=== PATIENT | female | born 1990 | race Caucasian/White ===

== ENCOUNTER 2021-09-21 10:48 | Outpatient (CLI) | payer OTHER, SELFPAY ==
--- OUTSIDE RECORDS SUMMARY | 2021-09-14 08:45 | XMS_ITS | Continuity of Care Document ---
:1990 Author Support Name Relationship Address Phone SEEN, ELSEWHERE Unavailable Unavailable Unavailable ROBINA FELICIANO Unavailable [address] Unavailable [place] [id number] Allergies, Adverse Reactions, Alerts No known allergies Social History Smoking Status Status Start Date End Date Date of Observat ion Never smoked tobacco September 06, 2021 11:13am (finding) Additional Data Assigned Sex Female Problems Active Problems Medical Problem Onset Date Status Encounter for supervision of other Activ e normal , third trimester History of section, low Active transverse Desires (vaginal after Active ) trial Medications Medication Status Dose Units Route Directions Qty Days Start End Ins tructions Date Date Ferrous Active 325 MG PO Daily July 11:47a m Active 1 OR Vit W/ Ferrous Fumara ( Multi +Dha) +Dha CAP Diphtheria/ Discontinued 0.5 ML IM Once July Tetanus/Ashkan , , ll 2021 2021 Pertussis 11:01a 11:04 (Adacel) m am 0.5 Ml INJ Immunizations Immunization Event Not Given Dose Gate Keeper Lot Number Vac cine Date Reason Number Informatio n Statement (VIS) Deta il Tdap August 09 SANOFI [id number] (adolescent/adul 2021 t) Procedures Procedure Date Performed Status Maternity Belt August 23, 2021 completed Vital Signs Vital Reading Result Reference Range Collection Date/ Time Height 66 [in_i] August 23, 2021 1 :01pm Height 167.64 cm August 23, 2021 1 :01pm Weight 198 [lb_av] August 23, 2021 1 :01pm Weight 89.511359 kg August 23, 2021 1 :01pm Body Temperature 98.3 [degF] August 23, 2021 1:01pm Body Temperature 36.83 Radha August 23, 2021 1:01pm BP Systolic 128 mm[Hg] August 23, 2021 1 :01pm BP Diastolic 78 mm[Hg] August 23, 2021 1 :01pm Heart Rate 96 /min August 23, 2021 1 :01pm Respiratory rate 16 /min August 23, 2021 1:01pm Body surface area 1.99 m2 August 23, 2021 1:01pm BMI (Body Mass Index) 32.0 kg/m2 August 23, 2021 1:01pm Height 66 [in_i] September 06, 2021 10:54am Height 167.64 cm September 06, 2021 10:54am Weight 201 [lb_av] September 06, 2021 10:54am Weight 91.711996 kg September 06, 2021 10:54am Body Temperature 97.4 [degF] September 06, 2021 10:54am Body Temperature 36.33 Radha September 06, 2021 10:54am BP Systolic 102 mm[Hg] September 06, 2021 10:54am BP Diastolic 70 mm[Hg] September 06, 2021 10:54am Heart Rate 86 /min September 06, 2021 10:54am Body surface area 2.00 m2 September 06 10:54am BMI (Body Mass Index) 32.4 kg/m2 September 06, 2021 10:54am Advance Directives Advance Directive Response Recorded Date/Time Has patient completed a No September 06, 2021 11:13am Health Care Directive? Insurance Providers Guarantor Mally Feliciano Address [address] [facility] [address] Contact Info. Home Phone: Payer Policy Id Coverage Id Subscriber's Subscriber Id Effective E xpiration Name Date Date [id number] Robina Feliciano [facility] Encounters Encounter Location(s) Arrival/Admit Date Discharge/Depart Date Provider(s) Registered Clinics September 06, 2021 Melba Price 11:00am Nasreen Colindres MD Office Visit Women's Health September 06, 2021 Jena Bustamante - [facility] 11:00am Nasreen Colindres MD Office Visit Women's Health August 23, 2021 Jena Seymour - [facility] 1:00pm Siri ESTES Recent Diagnosis Onset Date Encounter for supervision of other normal , t hird trimester Assessments Routine OB visit at 32 weeks 1 dayEncounter for supervision of other normal in the 3rd trimesterPubic symphysis diastasisDesires TOLACUltrasound for EFW at next visitGBS and hemoglobin at next visit Plan of Treatment Future Tests Future scheduled test information is unavailable Pending Tests Pending diagnostic test information is unavailable Future Visits Future appointment information is unavailable Referrals to Other Providers Referral information is unavailable Future Procedures Procedure Name Scheduled Date US OB Follow Up Future Medications Future medication information is unavailable Patient Instructions Patient instructions are unavailable
--- NOTE | 2021-09-21 11:00 | CRLHL7_ITS ---
For Patients: As a result of the Cures Act, medical imaging exams and procedure reports are released immediately into your electronic medical record. You may view this report before your referring provider. If you have questions, please contact your health care provider. OBSTETRICAL ULTRASOUND, 09/21/2021 INDICATION: Growth. TECHNIQUE: Transabdominal obstetrical ultrasound. COMPARISON: None available. FINDINGS: GA: 36 weeks 2 days. RAISA (OPE) 10/17/2021. RAISA (AUA): 10/16/2021. Fetus: A/1. AUA: 36 weeks 3 days +/- 2 weeks 4 days Fetus Position: Vertex. Placenta: Right wall. BPD: 8.87 cm, Avg. 35 weeks 6 days, 47.7%, [id number] HC: 32.56 cm, Avg. 36 weeks 6 days, 34.9, [id number] AC: 34.23 cm, Avg. 38 weeks 1 day, 95.3, [id number] FL: 6.81 cm, Avg. 35 weeks 0 days, 16.5%, [id number] Single Deepest Pocket: 5.52 cm. EFW (AC.BPD,FL.HC): 3089g +/- 463.32g(6 lb 13 oz,+/-1 lb, 0 oz) EFW (Hadlock)-GP: 72.1% FL/AC (Hadlock): 19.91 (20.00-24:00) HC/AC (Nicholas): 0.95 (0.92-1.07) Heart Rate: 126 bpm. IMPRESSION: 1. Estimated weight is in the 72nd percentile. 2. Abdominal circumference measures in the 95th percentile. Reema Velasquez M.D. Diagnostic Radiologist [email or web address] Estefania DW/Dictated by: Reema Velasquez MD @ 09/22/2021 12:52:00 PM (Electronically Signed)
== END 2021-09-21 10:49 | disposition home or self-care (01) ==
LOC: US 10:49
PROVIDERS: Visit Provider Obstetrics & Gynecology
DX: O34.219 Maternal care for unspecified type scar from previous cesarean delivery (principal); Z3A.36 36 weeks gestation of pregnancy
CPT/HCPCS: 76816

== ENCOUNTER 2021-09-25 11:15 | Outpatient (CLI) | payer OTHER, SELFPAY ==
[2021-09-26 12:16] LABS: Strep B DNA Probe NEGATIVE (Negative)
== END 2021-09-25 11:16 | disposition home or self-care (01) ==
PROVIDERS: Visit Provider Registered Nurse
DX: Z34.83 Encounter for supervision of other normal pregnancy, third trimester (principal); Z3A.36 36 weeks gestation of pregnancy
CPT/HCPCS: 87081; 87653

== ENCOUNTER 2021-10-08 15:12 | Outpatient (CLI) | payer OTHER, SELFPAY ==
[2021-10-08] VITALS (13 sets, daily range): BP systolic 109–127; BP diastolic 73–87; PULSE 69–85; RESP 16; TEMP 36.9; O2SAT 98
[2021-10-08 16:30] LABS: Hematocrit 35.9 % (33.0-51.0); Hemoglobin* 11.8 gm/dL (12.0-16.0); Mean Corpuscular HGB Conc 33 gm/dL (32-36); Mean Corpuscular Hemoglobin 28 pg (26-34); Mean Corpuscular Volume 86 fL (80-100); Platelet Count* 212 K/uL (140-440); Red Blood Count 4.16 m/uL (4.00-5.20); White Blood Count* 7.37 K/uL (4.50-11.00)
[2021-10-08 16:33] LABS: Slide Review Reflex No
[2021-10-08 16:44] LABS: Alanine Aminotransferase* 12 U/L (4-35); Aspartate Amino Transferase* 20 U/L (12-35); Blood Urea Nitrogen* 9 mg/dL (5-24); Creatinine* 0.6 mg/dL (0.5-1.5); Estimated Glomerular Filt Rate 125 ml/min
[2021-10-08 16:59] LABS: Total Protein Urine 17 mg/dL
[2021-10-08 17:00] LABS: Creatinine Urine 151.5 mg/dL
--- NOTE | 2021-10-08 19:43 | PC.OBNST ---
NST Note NST Note Start: 10/08/21 16:06 Freq: ONCE Status: Active Protocol: Document 10/08/21 17:45 KENNEDY (Rec: 10/08/21 19:42 KENNEDY [id number]) NST Note 2 Para (# of births) 1 EDC 10/17/21 Patient Presented with Complaint(s) of Other Other Complaints Observed for blood pressures after high blood pressure occurrence in clinic. Reactive Yes Appropriate for Gestational Age Yes ASHTYN Mcneal RN Date 10/08/21 Reactive Yes Appropriate for Gestational Age Yes ASHTYN Rider RN Date 10/08/21 OB NST charge Yes Provider Evaluation of EFM Strip: Reactive: [] Appropriate for Gestational Age: [] Comments:
--- OUTSIDE RECORDS SUMMARY | 2021-10-30 15:25 | XMS_ITS | Clinical Summary ---
:1990 Author Organization [facility] Address [address] [place] [address] Care Team Providers Name Role Phone Unavailable Primary Care Provider Unavailable Source Comments You are receiving this document as you are listed as the primary care provider,follow-up provider, or the patient has been referred to you for consultation.This is in compliance with the Medicare and Medicaid EHR Incentive Program,which states Providers who transition their patient to another setting of careor provider of care or refers their patient to another provider of care shouldprovide summarycare record for each transition of care or referral. [facility] Allergies No known active allergies Medications Medication Sig Dispensed Refills Start Date End Date Status clindamycin (CLEOCIN T) Apply a thin 60 mL 3 02/14/2021 Active 1 % lotionIndications: layer to areas of Acne vulgaris acne on face twice a day. Additional Information Patient not taking. Reported on 05/04/2021 MV & Min w/FA-DHA ( ADULT GUMMY/DHA/FA) 0.4-25 MG 0 Active CHEW Active Problems Problem Noted Date Previous delivery affecting , antepa rtum 05/04/2021 Encounter for supervision of normal , antepar armin 05/04/2021 Overview: Normal NIPT. 20 week ultraosound schedul ed. 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 followe d by card. ; Mitral Regurgitation Immunizations Name Administration Dates Next Due DTP 12/16/1997, 11/15/1994, 05/30/1993, 02/01/1993, 1992 DTaP 12/16/1997, 11/15/1994, 05/30/1993, 02/01/1993, 1992 HepA Ped/Adol (1-18 yrs) 11/21/2006, 08/30/2004 HepA, Unspecified Formulation 11/21/2006, 08/30/2004 HepB Ped/Adol (0-18 yrs) 11/21/2006, 10/28/1996 Hib (ActHIB) 11/15/1994, 05/30/1993, 02/01/1993, 1992 Hib (PedvaxHIB) 11/15/1994, 05/30/1993, 02/01/1993, 1992 IPV (Polio) 12/16/1997, 10/28/1996, 02/01/1993, 1992 Influenza IIV4 (Quadrivalent) 0.5mL 12/24/2018 (66685) MMR 12/16/1997, 08/15/1994 OPV, Trivalent (Orimune or tOPV) 12/16/1997, 10/28/1996, 01/1993, 1992 Positive Varicella Titer 10/28/1996 TB Skin Test (PPD) 10/17/2010 TDAP (BOOSTRIX) 11/21/2006 Tdap 02/17/2019 Typhoid (Typhim Vi, IM) 10/21/2008 Social History Tobacco Use Types Packs/Day Years Used Date Smoking Tobacco: Never Smokeless Tobacco: Never Tobacco Cessation: Counseling Given: No Alcohol Use Standard Drinks/Week Comments Not Currently 0 (1 standard drink = 0.6 oz pure alcoho l) Alcohol Habits Answer Date Recorded How often do you have a drink containing alcohol? Never 05/04/2021 How many drinks containing alcohol do you have on a typical Not asked day when you are drinking? How often do you have six or more drinks on one occasion? No t asked Comment: Not asked Estimated Date of Delivery Comments Yes 10/17/2021 Based on last menstr ual period of 01/10/2021 Sex Assigned at Date Recorded Not on file Last Filed Vital Signs Vital Sign Reading Time Taken Comments Blood Pressure 122/74 06/29/2021 11:40 AM CDT Pulse 94 06/29/2021 11:40 AM CDT Temperature 36.9 ??C (98.5 ??F) 10/11/2020 12:56 PM CDT Respiratory Rate 16 12/13/2020 12:34 PM CDT Oxygen Saturation 100% 12/13/2020 12:34 PM CDT Inhaled Oxygen Concentration - - Weight 81.6 kg (180 lb) 06/29/2021 11:40 AM CDT Height 167.6 cm (5' 6) 04/04/2021 3:31 PM SCRAP BALLER Body Mass Index 29.05 04/04/2021 3:31 PM SCRAP BALLER Plan of Treatment Upcoming Encounters Date Type Specialty Care Team Description 10/17/2021 Hospital Encounter Obstetrics & Gynecology Monica Flood, INSTRUCTIONAL SERVICES SPECIALIST, CNM [address] [place], [place] [id number] (Wo rk) Health Maintenance Due Date Last Done Comments COVID-19 Vaccine (#1) 03/03/1993 HepB (3) 03/23/2007 11/21/2006, 10/28/1996 Adult Preventive Visit 2010 Influenza (#1) 2021 12/24/2018 Pap 04/04/2024 04/04/2021 DTaP/Tdap/Td (8 - Tdap) 02/17/2029 02/17/2019, 11/21/2006, 12/16/1997, Additional history exists Zoster/Shingles (1 of 2) 2042 Hib Completed 11/15/1994, 11/15/1994, 05/30/1993, Additional history exists IPV (Polio) Completed 12/16/1997, 12/16/1997, 10/28/1996, Additional history exists HepA Completed 11/21/2006, 11/21/2006, 08/30/2004, Additional history exists HIV Screening (Preventive Completed 04/04/2021 Services) Hep C Screening (Preventive Completed 04/04/2021 Services) HPV Vaccine Aged Out No longer eligib le based on patient 's age to complete this topic MCV4 Aged Out No longer eligib le based on patient 's age to complete this topic Pneumococcal Aged Out No longer eligib le based on patient 's age to complete this topic Insurance Payer Benefit Plan / Subscriber ID Effective Dates Phone Addre ss Type Group AZAEL SMALL [id number] 2017-Present [facility] [address] [place] [address] Mally Resendiz Personal/Family Self 1990 [id number]) [address] [phone] [place] (Work) [place] [id number] Mally Resendiz Personal/Family Self [address] (Home) [place] [address]
--- OUTSIDE RECORDS SUMMARY | 2021-10-30 15:25 | XMS_ITS | Encounter Summary ---
:1990 Author Organization [facility] Address [address] [place] [address] Care Team Providers Name Role Phone Unavailable Primary Care Provider Unavailable Reason for Visit Reason Comments WART leg Encounter Details Date Type Department Care Team Description 07/16/2018 Hospital Encounter [facility] Virgie Torres Care M, PA-C unspecified type [id number] ([address]x) [place] [address] [phone] Social History Tobacco Use Types Packs/Day Years Used Date Smoking Tobacco: Never Sex Assigned at Date Recorded Not on file documented as of this encounter Last Filed Vital Signs Vital Sign Reading Time Taken Comments Blood Pressure 132/80 07/16/2018 10:29 AM CDT Pulse 80 07/16/2018 10:29 AM CDT Temperature 36.7 ??C (98.1 ??F) 07/16/2018 10:29 AM CDT Respiratory Rate 20 07/16/2018 10:29 AM CDT Oxygen Saturation 100% 07/16/2018 10:29 AM CDT Inhaled Oxygen Concentration - - Weight - - Height - - Body Mass Index - - documented in this encounter Discharge Instructions AttachmentsThe following attachments cannot be sent through Care Everywhere. Beatriz (Sami)documented in this encounter Medications at Time of Discharge Medication Sig Dispensed Refills Start Date End Date unknown medication Indications: PN: 0 04/19/2010 12/13/2020 unknown medication Indications: PN: 0 12/02/2007 12/13/2020 documented as of this encounter ED Notes Virgie Torres PA-C - 07/16/2018 11:22 AM CDT [facility] Patient: Mally Resendiz Date of : 1990 (27 y.o.) Subjective Chief Complaint: Chief Complaint Patient presents with ??? WART leg History of Present Illness: Mally Resendiz is a 27 y.o. female presents with warts to her legs bilaterally. She has had one on her right leg for approximately a year. She has had one on the left leg for amonth now. The one on the right leg she has had treated with cryotherapy once in the past, but it returned. There is no associated pain, redness, open wound, vesicles or blisters, any other symptoms orconcerns. Past Medical History: Patient Active Problem List Diagnosis ??? Mitral valve disorder (HRC) ??? Neoplasm of uncertain behavior of skin Allergies: Patient has no known allergies. Medications: unknown medication Family History: No pertinent family history. Social History: Social History Tobacco Use ??? Smoking status: Never Smoker Substance Use Topics ??? Alcohol use: Not on file ??? Drug use: Not on file Review of Systems: All review of systems reviewed and negative other than as noted in the HPI. Objective Physical Exam: Vital Signs: BP 132/80 (BP Location: Left Arm, BP Cuff Size: Adult Regular) Pulse 80 Temp 36.7 ??C (98.1 ??F) (Oral) Resp 20 SpO2 100% General: Resting comfortably on the chair Resp: Non-labored breathing. No tachypnea. MS: Normal muscular tone. Neuro: Awake and alert. Speech is clear. Skin: ~0.3 cm and 0.4 cm flesh toned papule, one each to the bilateral lower legs, without erythema,open wound, tenderness. Psych: Normal affect. Appropriate interactions. Procedures: PROCEDURE Wart Treatment LOCATION Bilateral legs. CONSENT Verbal consent obtained from the patient. PREPARATION The area was prepped with alcohol swabs ANESTHESIA None TREATMENT Using Liquid Nitrogen three rounds of freeze and thaw performed. DRESSING Adhesive bandage. COMPLICATIONS The patient tolerated the procedure well with no immediate adverse effects. Assessment We discussed the typical causes, course of symptoms, and options for treatment. Cryotherapy performed, as above. The patient tolerated the procedure well. We discussed that there may be some slight discomfort and blisters that may form following cryotherapy. She was instructed not to disrupt the blisters. Tylenol or ibuprofen as needed for relief of pain. Monitor for signs of secondary infection including redness, swelling, pus drainage, fever. If this occurs, return to clinic. Potential contagiousness discussed. Recommend scheduling a follow-up appointment in 2-3 weeks for recheck and probable repeat cryotherapy treatment. Informational handout on warts provided to the patient/caregiver for review. Impression: 1. Viral warts, unspecified type Plan Patient Discharge Medications & Instructions: Medications Prescribed this Visit None Discharge Instructions None Discharge References/Attachments Warts (Sami) Virgie Torres PA-C This chart was created with voice recognition software and may contain unintended word substitutions. documented in this encounter Plan of Treatment Upcoming Encounters Date Type Specialty Care Team Description 10/17/2021 Hospital Encounter Obstetrics & Gynecology Monica Flood, SEISMOLOGY TECHNICAL OFFICER, CNM [address] [facility] [place] [address] (Wo rk) documented as of this encounter Visit Diagnoses Diagnosis Viral warts, unspecified type - Primary Triage Assessment Note - Devora Barahona RN - 07/16/2018 10:27 AM CDT Pt has warts on her leg that she needs frozen off. They have been on her legs for one year. The warton her right leg was treated in the past and came back. documented in this encounter
--- OUTSIDE RECORDS SUMMARY | 2021-10-30 15:25 | XMS_ITS | Encounter Summary ---
:1990 Author Organization [employer] Address [address] [place] [address] Care Team Providers Name Role Phone Unavailable Primary Care Provider Unavailable Reason for Visit Reason Comments COVID Exposure Encounter Details Date Type Department Care Team Description 12/13/2020 Office Visit Davion Harris PA-C [facility] [address] [address] [place] [address] [place] [address] [phone] Social History Tobacco Use Types Packs/Day Years Used Date Smoking Tobacco: Never Smokeless Tobacco: Never Sex Assigned at Date Recorded Not on file documented as of this encounter Last Filed Vital Signs Vital Sign Reading Time Taken Comments Blood Pressure 121/83 12/13/2020 12:34 PM CDT Pulse 94 12/13/2020 12:34 PM CDT Temperature - - Respiratory Rate 16 12/13/2020 12:34 PM CDT Oxygen Saturation 100% 12/13/2020 12:34 PM CDT Inhaled Oxygen Concentration - - Weight - - Height - - Body Mass Index - - documented in this encounter Progress Notes Davion Mondragon PA-C - 12/13/2020 12:40 PM CDT Patient walked out of clinic after receiving her COVID test. documented in this encounter Nursing Notes Josie Marte RN - 12/13/2020 12:40 PM CDT Starting Friday, has had a fever, cough, body aches documented in this encounter Plan of Treatment Upcoming Encounters Date Type Specialty Care Team Description 10/17/2021 Hospital Encounter Obstetrics & Gynecology Monica Flood, APICULTURE TEACHER, CNM [address] [place] [address] (Wo rk) documented as of this encounter Procedures Procedure Name Priority Date/Time Associated Comments Diagnosis 2019 NOVEL Routine 12/13/2020 12:36 Cough Results for this CORONAVIRUS PM CDT procedure are i n the results section. documented in this encounter Results (ABNORMAL) 2019 Novel Coronavirus (COVID-19) - Collect in Clinic Today (12/13/2020 12:36 PM CDT) [facility] Method Time Signature COVID-19 Detected Not 12/14/2020 [facility] Interpretation (A) Detected 2:59 PM [facility]AL [facility] CDT Source Nares, left 12/14/2020 [facility] and right 2:59 PM C[facility]TRAL [facility] CDT Specimen Anatomical Collection Method Collection Time Receive d Time (Source) Location / / Volume Laterality Swab (Source ENTIRE ANTERIOR Non-blood 12/13/2020 12:36 12/14/19 21 Required) NARIS / Unknown Collection / PM CDT 12:[address] [facility] - 12/14/2020 2:59 PM CDT Test performed by Practice Coordinator Mediated Amplification. TMA has been shown to be equivalent to commercial real-time PCR t ests. This test has been authorized by the FDA under an Emergency Use Authorization (EUA) for use by authorized laboratories. [facility] Performing Organization Address City/State/ZIP Code Phon e Number [facility] [address] [place] [id number] documented in this encounter Visit Diagnoses Diagnosis Cough documented in this encounter Additional Health Concerns Infection Onset Date Last Indicated Resolved Time R/O COVID19 12/13/2020 12/13/2020 12/14/2020 2:59 PM CDT documented as of this encounter
--- OUTSIDE RECORDS SUMMARY | 2021-10-30 15:25 | XMS_ITS | Encounter Summary ---
:1990 Author Organization [employer] Address [address] [place] [address] Care Team Providers Name Role Phone Unavailable Primary Care Provider Unavailable Reason for Visit Reason Comments Travel Consult Appt. Needed Encounter Details Date Type Department Care Team Description 10/15/2010 Telephone [facility] Clayton Lerma Consult; Appt. Karen Chaparro MD [facility] [address] [facility] [address] [place] [address] [place], [place] [phone] (Wo rk) Social History Tobacco Use Types Packs/Day Years Used Date Smoking Tobacco: Never Assessed Sex Assigned at Date Recorded Not on file documented as of this encounter Nursing Notes Chelly Jhaveri - 10/15/2010 2:06 PM CDT Mally De Jesus Per mom pt leaving for [place] on a mission trip on 10/20/10 and the organization that is sending her on a mission requires proof of immunizations, specifically up to date tetanus. Also, they require amantoux test before she can attend. Mom wondering if pt up to date on Tetanus immunization. Also, would like to schedule pt for a yearlyphysical. Daughter works at a daycare center and therefore, mom wondering if she had a mantoux test this year already. Informed mom because daughter is 18, will need either verbal or wirtten consent to further address this call. Daughter not with mom at time of call. Mom verbalized understanding and stated she will have daughter call back to address. documented in this encounter Plan of Treatment Upcoming Encounters Date Type Specialty Care Team Description 10/17/2021 Hospital Encounter Obstetrics & Gynecology Monica Flood, NAIL POLISH BRUSH MACHINE FEEDER, CNM [address] [place], [place] [id number] (Wo rk) documented as of this encounter Visit Diagnoses Not on filedocumented in this encounter
--- OUTSIDE RECORDS SUMMARY | 2021-10-30 15:25 | XMS_ITS | Encounter Summary ---
:1990 Author Organization [facility] Address [address] [place] [address] Care Team Providers Name Role Phone Unavailable Primary Care Provider Unavailable Encounter Details Date Type Department Care Team Description 02/14/2021 [facility] Salvador Anna MD Acne vulgaris (Primary [address] [facility] [address] Dx) [address] [place] [address] [phone] Social History Tobacco Use Types Packs/Day Years Used Date Smoking Tobacco: Never Smokeless Tobacco: Never Sex Assigned at Date Recorded Not on file documented as of this encounter Progress Notes Salvador Anna MD - 02/14/2021 1:30 PM CST Dermatology Problem List: 1. Acne vulgaris. 2. Video visit with photographs. Subjective: Mally Resendiz is a 30 y.o. female who presents today for evaluation of acne. This is her 1st visit to [facility] dermatology. The patient has had acne since age 25. The acne typically involves her face, especially around her mouth and on her forehead. The patient gets large, pink, deep pimples that she cannot pop. She states that they never quite go away. She thinks there may be some hormonal component although she does have breakouts all the time. Today, the patient's acne is pretty typical. Of note, the patient is trying to get . What patient has tried in the past: She states that in the past, she was on a control pill andthis cleared her skin completely. She then had a baby. After that, she went back on control pills and states that this really was not helpful for her acne. What patient is using now: Pppb-fil-lnhbndw adapalene, salicylic acid face wash. Patient otherwise feels well. The patient's medications, allergies and past medical history were reviewed. Objective: The patient is alert and oriented, appears well, and is in no acute distress. Photographswere reviewed. The patient's face was examined. There are multiple 2-3 mm pink papules around the mouth and on the forehead. Assessment and Plan: 1. Acne vulgaris, with moderate inflammatory involvement. We discussed several different treatment options. I explained to the patient that because she is actively trying to get , we are limited in the medications that she can use. In fact, I suggested that she discontinue the tcwy-eip-jokkckndvmcbwyms which is a retinoid not to be used during , and that she discontinue the salicylic acid containing face wash. -prescription for clindamycin lotion b.i.d. -use a gentle face wash such as CeraVe or Cetaphil This visit was conducted via video with photographs reviewed. Location of clinician home. Location of patient home. Billing based on: Complexity RTC: P.r.n.. Salvador Anna MD 02/28/2021, 2:46 PM O MESSAGE ROUTER documented in this encounter Plan of Treatment Upcoming Encounters Date Type Specialty Care Team Description 10/17/2021 Hospital Encounter Obstetrics & Gynecology Monica Flood, CLINICAL APPEALS REVIEWER, CNM [address] [place] [address] (Wo rk) documented as of this encounter Visit Diagnoses Diagnosis Acne vulgaris - Primary Other acne documented in this encounter
--- OUTSIDE RECORDS SUMMARY | 2021-10-30 15:25 | XMS_ITS | Encounter Summary ---
:1990 Author Organization [facility] Address [address] [place] [address] Care Team Providers Name Role Phone Unavailable Primary Care Provider Unavailable Reason for Visit Procedure/Equipment (Routine) - Incomplete Specialty Diagnoses / Procedures Referred By Contact Refer red To Contact Diagnoses Absence of menstruation Monica Flood APRN, CNM Procedures US OB < 14 Weeks Single US OB <14 Weeks W EV Single [address] [facility] [place], [place] [address] Referral ID Status Reason Start Date Expiration Date Visits V isits Requested Authorized [id number] Incomplete 03/14/2021 06/13/2022 1 1 Encounter Details Date Type Department Care Team Description 04/04/2021 Ancillary [place] Monica Flood, Absence of Procedure Ultrasound HARI CHAPIN menstruation [address] [facility] [address] [facility] [place] [address] [phone] Social History Tobacco Use Types Packs/Day Years Used Date Smoking Tobacco: Never Smokeless Tobacco: Never Sex Assigned at Date Recorded Not on file documented as of this encounter Progress Notes Monica Flood APRN, CNM - 04/04/2021 11:15 AM CST Normal early OB ultrasound for dating/viability. Reviewed at NOB1 visit ICE CARE CONSULTANT documented in this encounter Plan of Treatment Upcoming Encounters Date Type Specialty Care Team Description 10/17/2021 Hospital Encounter Obstetrics & Gynecology Monica Flood Wilmer, NON DESTRUCTIVE TESTING ENGINEER, CNM [address] [place] [address] (Wo rk) documented as of this encounter Procedures Procedure Name Priority Date/Time Associated Diagnosis Comme nts US OB < 14 WEEKS Routine 04/04/2021 11:14 Absence of Results for this SINGLE AM HOSPICE CARE CONSULTANT menstruation procedure are i n the results section. documented in this encounter Results US OB < 14 Weeks Single (04/04/2021 11:14 AM HOSPICE CARE CONSULTANT) Anatomical Region Laterality Modality Pelvis Ultrasound Specimen (Source) Anatomical Collection Method Collection Time Re ceived Time Location / / Volume Laterality 04/04/2021 10:52 AM HOSPICE CARE CONSULTANT Impressions 04/04/2021 1:08 PM HOSPICE CARE CONSULTANT COMPARISON: None. TECHNIQUE: ??Transabdominal imaging was performed. ?? FINDINGS: ?? Gestational sac: Unremarkable. [place]-rump length measures 5.7 cm, corre sponding to 12w2d gestational age. ?? RAISA 10/15/2021. ?? Embryonic/ cardiac activity is iden tified with heart rate 158 bpm. ?? Right Ovary: Measures 3.7 x 2.6 x 2.6 cm and contains a probable corpus luteum. Left Ovary: Not Seen. ?? No suspicious adnexal masses. Free Fluid: No significant free fluid. GA by LMP:: ??12w0d GA by Prior US: ??NA GA by today's US: ??12w2d RAISA by today's US: 10/15/2021 IMPRESSION: Single living intrauterine p regnancy with ultrasound gestational age of 12 weeks 2 days. Procedure Note Frank Mcelroy MD - 04/04/2021Formatti ng of this note might be different from the original. IMPRESSION COMPARISON: None. TECHNIQUE: Transabdominal imaging was pe rformed. FINDINGS: Gestational sac: Unremarkable. [place]-rump length measures 5.7 cm, corre sponding to 12w2d gestational age. RAISA 10/15/2021. Embryonic/ cardiac activity is iden tified with heart rate 158 bpm. Right Ovary: Measures 3.7 x 2.6 x 2.6 cm and contains a probable corpus luteum. Left Ovary: Not Seen. No suspicious adnexal masses. Free Fluid: No significant free fluid. GA by LMP:: 12w0d GA by Prior US: NA GA by today's US: 12w2d RAISA by today's US: 10/15/2021 IMPRESSION: Single living intrauterine p regnancy with ultrasound gestational age of 12 weeks 2 days. Monica Flood APRN, CNM RAD US documented in this encounter Visit Diagnoses Diagnosis Absence of menstruation documented in this encounter
--- OUTSIDE RECORDS SUMMARY | 2021-10-30 15:25 | XMS_ITS | Encounter Summary ---
:1990 Author Organization [facility] [facility] [employer] Address [address] [place] [address] Care Team Providers Name Role Phone Unavailable Primary Care Provider Unavailable Encounter Details Date Type Department Care Team Description 04/04/2021 Lab Visit [facility] High-risk in [address] first trimester [place], [place] [address] Social History Tobacco Use Types Packs/Day Years Used Date Smoking Tobacco: Never Smokeless Tobacco: Never Sex Assigned at Date Recorded Not on file documented as of this encounter Progress Notes Monica Flood APRN, CNM - 04/04/2021 4:30 PM CST Hi Mally - Your NIPS results are back and all looks normal! You can access the report, which DOES have the predicted sex on it, through your [employer] portal. Please let me know if you have questions. [phone]. Thanks - Monica Flood APRN, CNM HEAD OPERATOR documented in this encounter Plan of Treatment Upcoming Encounters Date Type Specialty Care Team Description 10/17/2021 Hospital Encounter Obstetrics & Gynecology Monica Flood APRN, CNM [address] [place] [address] (Wo rk) documented as of this encounter Procedures Procedure Name Priority Date/Time Associated Diagnosis Comme nts URINE CULTURE Routine 04/04/2021 4:47 PM High-risk R esults for this NAILHEAD OPERATOR in first trimester procedure are in the results section. RAPID DRUG PANEL, Routine 04/04/2021 4:47 PM High-risk pregnan cy Results for this URINE (WITH NAILHEAD OPERATOR in first trimester procedure are in CONFIRMATION) the results section. RUBELLA IMMUNE Routine 04/04/2021 4:33 PM High-risk Results for this STATUS, IGG NAILHEAD OPERATOR in first trimester procedure are in the results section. ANTIBODY SCREEN Routine 04/04/2021 4:33 PM High-risk Results for this NAILHEAD OPERATOR in first trimester procedure are in the results section. TREPONEMA SCREEN Routine 04/04/2021 4:33 PM High-risk pregnanc y Results for this NAILHEAD OPERATOR in first trimester procedure are in the results section. BLOOD TYPE Routine 04/04/2021 4:33 PM High-risk Re sults for this NAILHEAD OPERATOR in first trimester procedure are in the results section. HIV 1/2 AG/AB 4TH Routine 04/04/2021 4:33 PM High-risk pregnan cy Results for this GEN NAILHEAD OPERATOR in first trimester procedure are in the results section. INVITAE Routine 04/04/2021 4:33 PM High-risk Re sults for this NON-INVASIVE NAILHEAD OPERATOR in first trimester procedure are in SCREEN the results section. COMPLETE BLOOD Routine 04/04/2021 4:33 PM High-risk Results for this COUNT-NO DIFF NAILHEAD OPERATOR in first trimester procedur e are in the results section. HEPATITIS C Routine 04/04/2021 4:33 PM High-risk Re sults for this ANTIBODY, WITH NAILHEAD OPERATOR in first trimester procedu re are in REFLEX the results section. HBSAG (HEPATITIS B Routine 04/04/2021 4:33 PM High-risk pregna ncy Results for this SURFACE AG) NAILHEAD OPERATOR in first trimester procedure are in the results section. HGB A1C Routine 04/04/2021 4:33 PM High-risk Re sults for this NAILHEAD OPERATOR in first trimester procedure are in the results section. documented in this encounter Results Urine Culture (04/04/2021 4:47 PM NAILHEAD OPERATOR) [facility] gist Method Time Signature Urine Culture Urogenital 04/05/2021 [facility] [place] 10:18 PM NAILHEAD OPERATOR HOSPITAL Specimen Anatomical Collection Method Collection Time Receive d Time (Source) Location / / Volume Laterality Urine URINE SPECIMEN Non-blood 04/04/2021 4:47 PM 022 4:47 COLLECTION, CLEAN Collection / NAILHEAD OPERATOR PM NAILHEAD OPERATOR CATCH / Unknown Unknown Monica Flood APRN, HARI LAB_1 Performing Organization Address City/State/[place] [address] Rapid Drug Panel, Urine (with Confirmation) (04/04/2021 4:47 PM NAILHEAD OPERATOR) [facility] Method Time Signature Amphetamines Not Not 04/04/2021 [facility] Screen Detected Detected 9:24 PM NAILHEAD OPERATOR LABORATORY Barbiturates Not Not 04/04/2021 [facility] Screen Detected Detected 9:24 PM NAILHEAD OPERATOR LABORATORY Benzodiazepines Not Not 04/04/2021 [facility] Screen Detected Detected 9:24 PM NAILHEAD OPERATOR LABORATORY Buprenorphine Not Not 04/04/2021 [facility] Screen Detected Detected 9:24 PM NAILHEAD OPERATOR LABORATORY Cocaine Metabolite Not Not 04/04/2021 [facility] Screen Detected Detected 9:24 PM NAILHEAD OPERATOR LABORATORY Methadone Screen Not Not 04/04/2021 [facility] Detected Detected 9:24 PM NAILHEAD OPERATOR LABORATORY Opiates Screen Not Not 04/04/2021 [facility] Detected Detected 9:24 PM NAILHEAD OPERATOR LABORATORY Oxycodone Screen Not Not 04/04/2021 [facility] Detected Detected 9:24 PM NAILHEAD OPERATOR LABORATORY Phencyclidine Not Not 04/04/2021 [facility] (PCP) Screen Detected Detected 9:24 PM NAILHEAD OPERATOR LABORATORY THC (Marijuana) Not Not 04/04/2021 [facility] Metab Screen Detected Detected 9:24 PM NAILHEAD OPERATOR LABORATORY Creatinine, Urine, 90 >20 mg/dL 04/04/2021 [facility] Random 9:24 PM NAILHEAD OPERATOR LABORATORY Specimen Anatomical Collection Method Collection Time Receive d Time (Source) Location / / Volume Laterality Urine Non-blood 04/04/2021 4:47 PM 4:47 Collection / NAILHEAD OPERATOR PM NAILHEAD OPERATOR Unknown Narrative [facility] - 04/04/2021 9:24 P M NAILHEAD OPERATOR The absence of expected drug(s) and/or d rug metabolite(s) may indicate non-compliance, inappropriate timing of specimen collection relative to drug administration, poor drug absorption, di luted/adulterated urine or limitations of testing. The concentration must be great er than or equal to the cutoff concentration to be reported as positive. For medical purposes only: not valid for forensic, legal, or employment use. Monica Flood APRN, CNM LAB_1 Performing Organization Address City/State/ZIP Code Phon e Number [facility] [address] [place] [address] [facility] Non-Invasive Screen (04/04/2021 4:33 PM NAILHEAD OPERATOR) [facility] Method Time Signature [facility] See Scanned 04/12/2021 [facility] Non-Invasive Report 5:11 PM NAILHEAD OPERATOR Screen Specimen Anatomical Collection Method / Collection Time Recei kayla Time (Source) Location / Volume Laterality Blood Venipuncture / 04/04/2021 4:33 04/04/2021 4:33 Unknown PM NAILHEAD OPERATOR PM NAILHEAD OPERATOR Narrative This result has an attachment that is no t available. Monica Flood APRN, CNM LAB_1 Performing Organization Address [facility] Phon e Number [facility] [address] [place] [phone] Treponema Screen (Syphilis) (04/04/2021 4:33 PM NAILHEAD OPERATOR) [facility] Method [place] Signature Treponema Screen 0.046 {s_co_ratio 04/04/2021 [facility] Result } 9:27 PM NAILHEAD OPERATOR LABORATORY Treponema Screen Non Non 04/04/2021 [facility] Interpretation Reactive Reactive 9:27 PM NAILHEAD OPERATOR LABORATORY Specimen Anatomical Collection Method / Collection Time Recei kayla Time (Source) Location / Volume Laterality Blood Venipuncture / 04/04/2021 4:33 04/04/2021 4:33 Unknown PM NAILHEAD OPERATOR PM NAILHEAD OPERATOR Monica Flood APRN, CNM LAB_1 Performing Organization Address [facility] Phon e Number [facility] [address] [place] [address] Rubella Immune Status, IgG (04/04/2021 4:33 PM NAILHEAD OPERATOR) athologist Signature Rubella Units 3.10 04/05/2021 [facility] 9:23 AM NAILHEAD OPERATOR LABORATORY Comment: The magnitude of the measured r esult, above the cutoff, is not indicative of the amount of antibody present. Rubella Intepretation Immune Immune 04/05/2021 9:2 3 AM NAILHEAD OPERATOR [facility] Specimen Anatomical Collection Method / Collection Time Recei kayla Time (Source) Location / Volume Laterality Blood Venipuncture / 04/04/2021 4:33 04/04/2021 4:33 Unknown PM NAILHEAD OPERATOR PM NAILHEAD OPERATOR Monica Flood APRN, CNM LAB_1 Performing Organization Address [facility] Phon e Number [facility] [address] [place] [address] HIV 1/2 Ag/Ab 4th Generation (04/04/2021 4:33 PM NAILHEAD OPERATOR) [facility] Method Time Signature HIV 1/2 Negative Negative 04/04/2021 [facility] Antigen/Antib (Non (Non 9:08 PM NAILHEAD OPERATOR LABORATORY roxanne (4th Reactive) Reactive) generation) Comment: HIV-1 p24 Antigen and HIV-1/HIV -2 Antibody not detected Specimen Anatomical Collection Method / Collection Time Recei kayla Time (Source) Location / Volume Laterality Blood Venipuncture / 04/04/2021 4:33 04/04/2021 4:33 Unknown PM NAILHEAD OPERATOR PM NAILHEAD OPERATOR Monica Flood APRN, CNM LAB_1 Performing Organization Address [facility] Phon e Number [facility] [address] [place] [address] Hgb A1C (04/04/2021 4:33 PM NAILHEAD OPERATOR) [facility] Signature Hemoglobin A1C 5.0 <=5.6 % 04/05/2021 [facility] 10:35 AM NAILHEAD OPERATOR CENTRAL LAB Specimen Anatomical Collection Method / Collection Time Recei kayla Time (Source) Location / Volume Laterality Blood Venipuncture / 04/04/2021 4:33 04/04/2021 4:33 Unknown PM NAILHEAD OPERATOR PM NAILHEAD OPERATOR Monica Flood APRN, CNM LAB_1 Performing Organization Address [facility] Phon e Number [facility] [address] [phone] Hepatitis C Antibody, with Reflex (04/04/2021 4:33 PM NAILHEAD OPERATOR) [facility] Method [place] Signature Hepatitis C Negative Negative 04/04/2021 [facility] Antibody (Non (Non 9:08 PM NAILHEAD OPERATOR LABORATORY Reactive) Reactive) Comment: Antibodies to HCV not detected. Does not exclude the possiblity of exposure to HCV. Specimen Anatomical Collection Method / Collection Time Recei kayla Time (Source) Location / Volume Laterality Blood Venipuncture / 04/04/2021 4:33 04/04/2021 4:33 Unknown PM NAILHEAD OPERATOR PM NAILHEAD OPERATOR Monica Flood APRN, CNM LAB_1 Performing Organization Address [facility]/ZIP Code Phon e Number [facility] [place] [address] Hepatitis B Surface Antigen (04/04/2021 4:33 PM NAILHEAD OPERATOR) Patholo gist Method Time Signature Hepatitis B Negative Negative 04/04/2021 [facility] Surface (Non (Non 9:17 PM NAILHEAD OPERATOR LABORATORY Antigen Reactive) Reactive) Specimen Anatomical Collection Method / Collection Time Recei kayla Time (Source) Location / Volume Laterality Blood Venipuncture / 04/04/2021 4:33 04/04/2021 4:33 Unknown PM NAILHEAD OPERATOR PM NAILHEAD OPERATOR Monica Flood APRN, CNM LAB_1 Performing Organization Address [facility] Phon e Number [facility] [place] [address] (ABNORMAL) Complete Blood Count-No Diff (04/04/2021 4:33 PM NAILHEAD OPERATOR) P athologist Signature WBC 5.8 3.5 - 10.5 04/04/2021 [place] x10(9)/L 4:59 PM NAILHEAD OPERATOR LABORATORY (PN) RBC 4.41 3.90 - 04/04/2021 [place] 5.03 4:59 PM NAILHEAD OPERATOR LABORATORY (PN) x10(12)/L Hemoglobin 12.7 12.0 - 04/04/2021 [place] 15.5 g/dL 4:59 PM NAILHEAD OPERATOR LABORATORY (PN) HCT 37.8 34.9 - 04/04/2021 [place] 44.5 % 4:59 PM NAILHEAD OPERATOR LABORATORY (PN) MCV 85.7 80.0 - 04/04/2021 [place] 100.0 fL 4:59 PM NAILHEAD OPERATOR LABORATORY (PN) MCH 28.8 27.6 - 04/04/2021 [place] 33.3 pg 4:59 PM NAILHEAD OPERATOR LABORATORY (PN) MCHC 33.6 31.5 - 04/04/2021 [place] 35.2 g/dL 4:59 PM NAILHEAD OPERATOR LABORATORY (PN) RDW 11.8 (L) 11.9 - 04/04/2021 [place] 15.5 % 4:59 PM NAILHEAD OPERATOR LABORATORY (PN) Platelets 237 150 - 450 04/04/2021 [place] x10(9)/L 4:59 PM NAILHEAD OPERATOR LABORATORY (PN) Specimen Anatomical Collection Method / Collection Time Recei kayla Time (Source) Location / Volume Laterality Blood Venipuncture / 04/04/2021 4:33 04/04/2021 4:33 Unknown PM NAILHEAD OPERATOR PM NAILHEAD OPERATOR Monica Flood APRN, CNM LAB_1 Performing Organization Address [facility]/ZIP [facility] Phon e Number [place] [facility] [address] [place] [phone] (PN) Dr Blood Type (04/04/2021 4:33 PM NAILHEAD OPERATOR) P athologist Signature ABO B 04/04/2021 [facility] 9:36 PM NAILHEAD OPERATOR BLOOD BANK RH Positive 04/04/2021 [facility] 9:36 PM NAILHEAD OPERATOR BLOOD BANK Specimen Anatomical Collection Method / Collection Time Recei kayla Time (Source) Location / Volume Laterality Blood Venipuncture / 04/04/2021 4:33 04/04/2021 4:33 Unknown PM NAILHEAD OPERATOR PM NAILHEAD OPERATOR Monica Flood APRN, CNM LAB_1 Performing Organization Address [facility] Phon e Number [facility] [address] [place] [address] Antibody Screen (04/04/2021 4:33 PM NAILHEAD OPERATOR) [facility] Method Time Signature Antibody Screen Negative 04/04/2021 [facility] Interpretation 9:37 PM NAILHEAD OPERATOR BLOOD BANK Specimen Anatomical Collection Method / Collection Time Recei kayla Time (Source) Location / Volume Laterality Blood Venipuncture / 04/04/2021 4:33 04/04/2021 4:33 Unknown PM NAILHEAD OPERATOR PM NAILHEAD OPERATOR Monica Flood APRN, CNM LAB_1 Performing Organization Address City/[facility]/ZIP [facility] Phon e Number [facility] [address] [place] [address] documented in this encounter Visit Diagnoses Diagnosis High-risk in first trimester documented in this encounter
--- OUTSIDE RECORDS SUMMARY | 2021-10-30 15:25 | XMS_ITS | Encounter Summary ---
:1990 Author Organization [facility] Address [address] [place] [address] Care Team Providers Name Role Phone Unavailable Primary Care Provider Unavailable Reason for Referral Procedure/Equipment (Routine) - Incomplete Specialty Diagnoses / Procedures Referred By Contact Refer red To Contact Diagnoses Absence of menstruation Monica Flood APRN, CNM Procedures US OB < 14 Weeks Single US OB <14 Weeks W EV Single [address] [place] [address] Referral ID Status Reason Start Date Expiration Date Visits V isits Requested Authorized [id number] Incomplete 03/14/2021 06/13/2022 1 1 NESS ASSOCIATE Encounter Details Date Type Department Care Team Description 03/14/2021 Notes/Orders Monica Oglesby, Absence of Obstetrics/Gynecolog y HARI CHAPIN menstruation (Primary [address]) [place] [address] [place] [phone] [id number] Social History Tobacco Use Types Packs/Day Years Used Date Smoking Tobacco: Never Smokeless Tobacco: Never Sex Assigned at Date Recorded Not on file documented as of this encounter Plan of Treatment Upcoming Encounters Date Type Specialty Care Team Description 10/17/2021 Hospital Encounter Obstetrics & Gynecology Monica Flood APRN, CNM [address] [place] [address] (Wo rk) documented as of this encounter Results US OB < 14 Weeks Single (04/04/2021 11:14 AM BUSINESS ASSOCIATE) Anatomical Region Laterality Modality Pelvis Ultrasound Specimen (Source) Anatomical Collection Method Collection Time Re ceived Time Location / / Volume Laterality 04/04/2021 10:52 AM BUSINESS ASSOCIATE Impressions 04/04/2021 1:08 PM BUSINESS ASSOCIATE COMPARISON: None. TECHNIQUE: ??Transabdominal imaging was performed. ?? FINDINGS: ?? Gestational sac: Unremarkable. [place]-rump length measures 5.7 cm, corre sponding to [...] was pe rformed. FINDINGS: Gestational sac: Unremarkable. [place]-rump length measures 5.7 cm, corre sponding to [...] of 12 weeks 2 days. Monica Flood UPHOLSTERY COVERS INSPECTOR, CNM RAD US documented in this encounter Visit Diagnoses Diagnosis Absence of menstruation - Primary Absence of menstruation documented in this encounter
--- OUTSIDE RECORDS SUMMARY | 2021-10-30 15:25 | XMS_ITS | Encounter Summary ---
:1990 Author Organization [employer] Address [address] [place] [address] Care Team Providers Name Role Phone Unavailable Primary Care Provider Unavailable Reason for Visit Reason Comments COVID Test Results Encounter Details Date Type Department Care Team Description 12/14/2020 [facility] Torin Roman MBBS COVID Test Results Urgent Care [address] [address] [place] [address] [phone] Social History Tobacco Use Types Packs/Day Years Used Date Smoking Tobacco: Never Smokeless Tobacco: Never Sex Assigned at Date Recorded Not on file documented as of this encounter Nursing Notes Micki Casillas RN - 12/18/2020 9:43 AM CDT Attempted to reach patient regarding their COVID-19 test results. Message Left to call back to clinic. Micki Casillas RN 12/18/2020, 9:43 AM Note: If MyChart Inactive, result letter will be mailed to patient (automatic process, no further action needed by RN). Divya Jefferson RN - 12/15/2020 9:18 AM CDT Attempted to reach patient regarding their COVID-19 test results. Message Left to call back to clinic. Divya Jefferson RN 12/15/2020, 9:18 AM Margarette Rodriguez - 12/14/2020 5:53 PM CDT Lab Results Component Value Date CORONAV Detected (A) 12/13/2020 Lab Status: @RULEERRMSG([id number])@ documented in this encounter Plan of Treatment Upcoming Encounters Date Type Specialty Care Team Description 10/17/2021 Hospital Encounter Obstetrics & Gynecology Monica Flood, PIPE THREADING MACHINE OPERATOR, CNM [address] [place] [address] (Wo rk) documented as of this encounter Visit Diagnoses Not on filedocumented in this encounter Additional Health Concerns Infection Onset Date Last Indicated Resolved Time R/O COVID19 12/13/2020 12/13/2020 12/14/2020 2:59 PM CDT COVID19 12/13/2020 12/13/2020 01/02/2021 3:17 AM CDT documented as of this encounter
--- OUTSIDE RECORDS SUMMARY | 2021-10-30 15:25 | XMS_ITS | Encounter Summary ---
:1990 Author Organization [employer] Address [address] [place] [address] Care Team Providers Name Role Phone Unavailable Primary Care Provider Unavailable Reason for Visit Reason Comments INITIAL VISIT Encounter Details Date Type Department Care Team Description 04/04/2021 Initial [facility] Monica Flood, INITIAL P RENATAL Obstetrics/Gynecolog y [facility]I [facility]IN VISIT [address] [facility] [address] [facility] [address] [place] [address] [place], [place] [phone] Social History Tobacco Use Types Packs/Day Years Used Date Smoking Tobacco: Never Smokeless Tobacco: Never Sex Assigned at Date Recorded Not on file documented as of this encounter Last Filed Vital Signs Vital Sign Reading Time Taken Comments Blood Pressure 128/80 04/04/2021 3:31 PM CHECK PROCESSING CLERK Pulse 83 04/04/2021 3:31 PM CHECK PROCESSING CLERK Temperature - - Respiratory Rate - - Oxygen Saturation - - Inhaled Oxygen Concentration - - Weight 74.7 kg (164 lb 11.2 oz) 04/04/2021 3:31 PM CHECK PROCESSING CLERK Height 167.6 cm (5' 6) 04/04/2021 3:31 PM CHECK PROCESSING CLERK Body Mass Index 26.58 04/04/2021 3:31 PM CHECK PROCESSING CLERK documented in this encounter Progress Notes Monica Flood, ATVARES, HARI - 04/04/2021 3:15 PM CST Subjective: Mally Resendiz is a being seen today for her first obstetrical visit. This is a planned . Patient's last menstrual period was 11/29/2020.. She is sure of LMP date. Menses typically q 28 days. Dating US today c/w LMP dating. Est[facility] 12w0d today. Review of Systems Symptoms since LMP include: Breast tenderness, fatigue. Denies any pelvic pain or vaginal bleeding. Relationship with FOB: . FOB name: Keanu. She states she is safe in her relationship. She is not employed. Her is in the [employer] stationed in [facility]. Social History Tobacco Use ??? Smoking status: Never Smoker ??? Smokeless tobacco: Never Used Substance Use Topics ??? Alcohol use: Not on file [employer] Beginnings questionnaire: negative Lead screening: negative Wears seatbelts: yes Regular exercise: yes. 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 Accepts screening today. STD history: none OB History Para Term AB Living 2 1 1 0 0 1 SAB IAB Ectopic Multiple Live Births 0 0 0 0 1 # Outcome Date GA Lbr Addison/2nd Weight Sex Delivery Anes PTL Lv 2 Current 1 Term 05/05/19 39w0d 7 lb 12 oz (3.515 kg) F CS-LVertical N YANETH Comments: breech Saw CNMs for . Breech presentation and declined ECV. Daughter Jaycee, breastfed well with nipple shield. No or post op complications. Reviewed notes in [facility]. Medical, surgical, family, and social histories were reviewed and updated today in the EMR. Please see EMR for Genetic history and Infection history, which were reviewed and updated as appropriate today. Medications and Allergies were reviewed and updated in the EMR as appropriate. Objective: BP 128/80 (BP Location: Right Arm, BP Cuff Size: Regular) Pulse 83 Ht 5' 6 (1.676 m) Wt 164 lb 11.2 oz (74.7 kg) LMP 11/29/2020 BMI 26.58 kg/m?? Well-developed, well-nourished female. NECK: Supple, trachea midline, without cervical lymphadenopathy. Thyroid nontender and no palpable masses, symmetrical. RESPIRATORY: Lungs clear to auscultation, respirations effortless. CARDIOVASCULAR: Heart with regular rate and rhythm, without murmur. Legs without swelling or varicosities. BREASTS: Symmetrical, nontender, no masses, no nipple discharge, no axillary lymphadenopathy. ABDOMEN/GI: Soft, without tenderness and no palpable masses. Without organomegaly. GENITOURINARY: External genitalia with normal hair pattern and without lesions. BUS negative. Vagina pink and rugated, no lesions. Cervix pink and without lesions. Uterus smooth, mobile, nontender, WNL. Andexa without palpable masses and nontender. Anus and perineum without lesions or hemorrhoids. LYMPHATIC: Nodes in axillae, neck, and groin without masses. SKIN: Warm and dry to touch, no lesions. PSYCHIATRIC: Oriented to time and space. Without agitation or depression. Assessment: Early at 12w0d. Encounter Diagnoses Name Primary? High-risk in first trimester Yes ??? Previous delivery affecting , antepartum ??? Screening for malignant neoplasm of cervix Plan: Routine NOB labs ordered, see orders for today's visit. Other screenings or labs?: none Other plan/medications prescribed: She is motivated for and is considering [facility] care. Because she lives near [place] she will probably continue PN visits at [facility] until later in the before transferring to [facility]. Oriented to MD/SENIOR BUSINESS INTELLIGENCE ANALYST service, phone #s given. During this visit, I completed the following health counseling with patient: ??? Genetic screening options- including First Trimester Screening and Quad Marker Screening for allwomen discussed. Additionally, NIPT and diagnostic options for women 35 and older reviewed. She plans: NIPS, AFP. ??? Supplements recommended- daily Vitamin, Vitamin D, and Byron-3 ?? Diet and Nutrition- ?? encourage fruits, vegetables, and low-fat protein sources ?? avoid high glycemic index foods and simple carbs ?? importance of adequate calcium ?? discussed eating fish in ?? listeriosis infection (including sources and prevention of Listeriosis) ?? avoid nitrites in processed meats ?? WIC program discussed: NA. ??? Weight gain recommendations during - o If BMI 18.5 and below recommended weight gain 28-40# o If BMI 18.5-24.5 recommended weight gain 25-35# o If BMI 25-29.9 recommended weight gain 15-25# o If BMI above 30 recommended weight gain 11-20 # ??? Benefits of exercise during and encouraged regular physical activity ??? Sexual activity during discussed. ??? Avoid use of alcoholic beverages, smoking and recreational drugs. ??? Environmental and work considerations and overall lifestyle choices in , including seatbelt use, risk of toxoplasmosis (including sources and infection prevention). MothertoBaby.org website reviewed (evidenced based website about medications and other exposures during and breastf eeding. ??? Infant feeding plans: Patient does intend to breast feed. Encouraged to review benefits of in NOB book provided. ??? Reviewed schedule of care appointments. ??? /Childbirth classes and options. [facility] brochure provided. Plan visit in clinic in 4 weeks for NOB2, earlier as needed. TT 60 min spent in chart review and FTF time with patient. Monica Flood APRN, CNM K PROCESSING CLERK documented in this encounter Plan of Treatment Upcoming Encounters Date Type Specialty Care Team Description 10/17/2021 Hospital Encounter Obstetrics & Gynecology Monica Flood APRN, CNM [address] [place] [address] (Wo rk) documented as of this encounter Procedures Procedure Name Priority Date/Time Associated Diagnosis Comme nts PAP TEST Routine 04/04/2021 4:16 PM High-risk Re sults for this CHECK PROCESSING CLERK in first trimest er procedure are in the Screening for results sectio n. malignant neoplasm of cervix documented in this encounter Results Urine Culture (04/04/2021 4:47 PM CHECK PROCESSING CLERK) [facility] gist Method Time Signature Urine Culture Urogenital 04/05/2021 [facility] 10:18 PM CHECK PROCESSING CLERK HOSPITAL Specimen Anatomical Collection Method Collection Time Receive d Time (Source) Location / / Volume Laterality Urine URINE SPECIMEN Non-blood 04/04/2021 4:47 PM 022 4:47 COLLECTION, CLEAN Collection / CHECK PROCESSING CLERK PM CHECK PROCESSING CLERK CATCH / Unknown Unknown Monica Flood APRN, CNM LAB_1 Performing Organization Address City/State/ZIP Code Phon e Number [address] [address] Rapid Drug Panel, Urine (with Confirmation) (04/04/2021 4:47 PM CHECK PROCESSING CLERK) [facility] Method Time Signature Amphetamines Not Not 04/04/2021 [facility] Screen Detected Detected 9:24 PM CHECK PROCESSING CLERK LABORATORY Barbiturates Not Not 04/04/2021 [facility] Screen Detected Detected 9:24 PM CHECK PROCESSING CLERK LABORATORY Benzodiazepines Not Not 04/04/2021 [facility] Screen Detected Detected 9:24 PM CHECK PROCESSING CLERK LABORATORY Buprenorphine Not Not 04/04/2021 [facility] Screen Detected Detected 9:24 PM CHECK PROCESSING CLERK LABORATORY Cocaine Metabolite Not Not 04/04/2021 [facility] Screen Detected Detected 9:24 PM CHECK PROCESSING CLERK LABORATORY Methadone Screen Not Not 04/04/2021 [facility] Detected Detected 9:24 PM CHECK PROCESSING CLERK LABORATORY Opiates Screen Not Not 04/04/2021 [facility] Detected Detected 9:24 PM CHECK PROCESSING CLERK LABORATORY Oxycodone Screen Not Not 04/04/2021 [facility] Detected Detected 9:24 PM CHECK PROCESSING CLERK LABORATORY Phencyclidine Not Not 04/04/2021 [facility] (PCP) Screen Detected Detected 9:24 PM CHECK PROCESSING CLERK LABORATORY THC (Marijuana) Not Not 04/04/2021 [facility] Metab Screen Detected Detected 9:24 PM CHECK PROCESSING CLERK LABORATORY Creatinine, Urine, 90 >20 mg/dL 04/04/2021 [facility] Random 9:24 PM CHECK PROCESSING CLERK LABORATORY Specimen Anatomical Collection Method Collection Time Receive d Time (Source) Location / / Volume Laterality Urine Non-blood 04/04/2021 4:47 PM 4:47 Collection / CHECK PROCESSING CLERK PM CHECK PROCESSING CLERK Unknown Narrative [facility] - 04/04/2021 9:24 P M CHECK PROCESSING CLERK The absence of expected drug(s) and/or d [...] Organization Address City/State/ZIP Code Phon e Number [facility] [address] [place] [address] [facility] Non-Invasive Screen (04/04/2021 4:33 PM CHECK PROCESSING CLERK) [facility] Method Time Signature [facility] See Scanned 04/12/2021 [facility] Non-Invasive Report 5:11 PM CHECK PROCESSING CLERK Screen Specimen Anatomical Collection Method / Collection Time Recei kayla Time (Source) Location / Volume Laterality Blood Venipuncture / 04/04/2021 4:33 04/04/2021 4:33 Unknown PM CHECK PROCESSING CLERK PM CHECK PROCESSING CLERK Narrative This result has an attachment that is no t available. Monica Flood APRN, HARI LAB_1 Performing Organization Address [facility] Phon e Number [facility] [address] [place] [phone] Treponema Screen (Syphilis) (04/04/2021 4:33 PM CHECK PROCESSING CLERK) [facility] Method Time Signature Treponema Screen 0.046 {s_co_ratio 04/04/2021 [facility] Result } 9:27 PM CHECK PROCESSING CLERK LABORATORY Treponema Screen Non Non 04/04/2021 [facility] Interpretation Reactive Reactive 9:27 PM CHECK PROCESSING CLERK LABORATORY Specimen Anatomical Collection Method / Collection Time Recei kayla Time (Source) Location / Volume Laterality Blood Venipuncture / 04/04/2021 4:33 04/04/2021 4:33 Unknown PM CHECK PROCESSING CLERK PM CHECK PROCESSING CLERK Monica Flood APRN, HARI LAB_1 Performing Organization Address [facility] Phon e Number [facility] [address] [place] [address] Rubella Immune Status, IgG (04/04/2021 4:33 PM CHECK PROCESSING CLERK) P athologist Signature Rubella Units 3.10 04/05/2021 [facility] 9:23 AM CHECK PROCESSING CLERK LABORATORY Comment: The magnitude of the measured r esult, above the cutoff, is not indicative of the amount of antibody present. Rubella Intepretation Immune Immune 04/05/2021 9:2 3 AM CHECK PROCESSING CLERK [facility] Specimen Anatomical Collection Method / Collection Time Recei kayla Time (Source) Location / Volume Laterality Blood Venipuncture / 04/04/2021 4:33 04/04/2021 4:33 Unknown PM CHECK PROCESSING CLERK PM CHECK PROCESSING CLERK Monica Flood APRN, HARI LAB_1 Performing Organization Address [facility] Phon e Number [facility] [address] [place] [address] HIV 1/2 Ag/Ab 4th Generation (04/04/2021 4:33 PM CHECK PROCESSING CLERK) [facility] Signature HIV 1/2 Negative Negative 04/04/2021 [facility] Antigen/Antib (Non (Non 9:08 PM CHECK PROCESSING CLERK LABORATORY roxanne (4th Reactive) Reactive) generation) Comment: HIV-1 p24 Antigen and HIV-1/HIV -2 Antibody not detected Specimen Anatomical Collection Method / Collection Time Recei kayla Time (Source) Location / Volume Laterality Blood Venipuncture / 04/04/2021 4:33 04/04/2021 4:33 Unknown PM CHECK PROCESSING CLERK PM CHECK PROCESSING CLERK Monica Flood APRN, CNM LAB_1 Performing Organization Address [facility] Phon e Number [facility] [address] [place] [address] Hgb A1C (04/04/2021 4:33 PM CHECK PROCESSING CLERK) [facility] Signature Hemoglobin A1C 5.0 <=5.6 % 04/05/2021 [facility] 10:35 AM CHECK PROCESSING CLERK CENTRAL LAB Specimen Anatomical Collection Method / Collection Time Recei kayla Time (Source) Location / Volume Laterality Blood Venipuncture / 04/04/2021 4:33 04/04/2021 4:33 Unknown PM CHECK PROCESSING CLERK PM CHECK PROCESSING CLERK Monica Flood APRN, CNM LAB_1 Performing Organization Address [facility] Phon e Number [facility] CENTRAL LAB [address] [phone] Hepatitis C Antibody, with Reflex (04/04/2021 4:33 PM CHECK PROCESSING CLERK) [facility] Signature Hepatitis C Negative Negative 04/04/2021 [facility] Antibody (Non (Non 9:08 PM CHECK PROCESSING CLERK LABORATORY Reactive) Reactive) Comment: Antibodies to HCV not detected. Does not exclude the possiblity of exposure to HCV. Specimen Anatomical Collection Method / Collection Time Recei kayla Time (Source) Location / Volume Laterality Blood Venipuncture / 04/04/2021 4:33 04/04/2021 4:33 Unknown PM CHECK PROCESSING CLERK PM CHECK PROCESSING CLERK Monica Flood APRN, CNM LAB_1 Performing Organization Address City/State/ZIP Code Phon e Number [facility] [address] [place] [address] Hepatitis B Surface Antigen (04/04/2021 4:33 PM CHECK PROCESSING CLERK) Patholo gist Method Time Signature Hepatitis B Negative Negative 04/04/2021 [facility] Surface (Non (Non 9:17 PM CHECK PROCESSING CLERK LABORATORY Antigen Reactive) Reactive) Specimen Anatomical Collection Method / Collection Time Recei kayla Time (Source) Location / Volume Laterality Blood Venipuncture / 04/04/2021 4:33 04/04/2021 4:33 Unknown PM CHECK PROCESSING CLERK PM CHECK PROCESSING CLERK Monica Flood APRN, HARI LAB_1 Performing Organization Address City/State/ZIP Code Phon e Number [facility] [address] [place] [address] (ABNORMAL) Complete Blood Count-No Diff (04/04/2021 4:33 PM CHECK PROCESSING CLERK) athologist Signature WBC 5.8 3.5 - 10.5 04/04/2021 [facility] x10(9)/L 4:59 PM CHECK PROCESSING CLERK LABORATORY (PN) RBC 4.41 3.90 - 04/04/2021 [facility] 5.03 4:59 PM CHECK PROCESSING CLERK LABORATORY (PN) x10(12)/L Hemoglobin 12.7 12.0 - 04/04/2021 [facility] 15.5 g/dL 4:59 PM CHECK PROCESSING CLERK LABORATORY (PN) HCT 37.8 34.9 - 04/04/2021 [facility] 44.5 % 4:59 PM CHECK PROCESSING CLERK LABORATORY (PN) MCV 85.7 80.0 - 04/04/2021 [facility] 100.0 fL 4:59 PM CHECK PROCESSING CLERK LABORATORY (PN) MCH 28.8 27.6 - 04/04/2021 [facility] 33.3 pg 4:59 PM CHECK PROCESSING CLERK LABORATORY (PN) MCHC 33.6 31.5 - 04/04/2021 [facility] 35.2 g/dL 4:59 PM CHECK PROCESSING CLERK LABORATORY (PN) RDW 11.8 (L) 11.9 - 04/04/2021 [facility] 15.5 % 4:59 PM CHECK PROCESSING CLERK LABORATORY (PN) Platelets 237 150 - 450 04/04/2021 [facility] x10(9)/L 4:59 PM CHECK PROCESSING CLERK LABORATORY (PN) Specimen Anatomical Collection Method / Collection Time Recei kayla Time (Source) Location / Volume Laterality Blood Venipuncture / 04/04/2021 4:33 04/04/2021 4:33 Unknown PM CHECK PROCESSING CLERK PM CHECK PROCESSING CLERK Monica Flood APRN, CNM LAB_1 Performing Organization Address [facility] Phon e Number [facility] [place] [place] [address] [place], [place] [phone] (PN) Dr Blood Type (04/04/2021 4:33 PM CHECK PROCESSING CLERK) athologist Signature ABO B 04/04/2021 [facility] 9:36 PM CHECK PROCESSING CLERK BLOOD BANK RH Positive 04/04/2021 [facility] 9:36 PM CHECK PROCESSING CLERK BLOOD BANK Specimen Anatomical Collection Method / Collection Time Recei kayla Time (Source) Location / Volume Laterality Blood Venipuncture / 04/04/2021 4:33 04/04/2021 4:33 Unknown PM CHECK PROCESSING CLERK PM CHECK PROCESSING CLERK Monica Flood APRN, CNM LAB_1 Performing Organization Address [facility] Phon e Number [facility] [address] [place] [address] Antibody Screen (04/04/2021 4:33 PM CHECK PROCESSING CLERK) [facility] Method [facility] Antibody Screen Negative 04/04/2021 [facility] Interpretation 9:37 PM CHECK PROCESSING CLERK BLOOD BANK Specimen Anatomical Collection Method / Collection Time Recei kayla Time (Source) Location / Volume Laterality Blood Venipuncture / 04/04/2021 4:33 04/04/2021 4:33 Unknown PM CHECK PROCESSING CLERK PM CHECK PROCESSING CLERK Monica Flood APRN, CNM LAB_1 Performing Organization Address [facility] Phon e Number [facility] [address] [place] [address] PAP Test (04/04/2021 4:16 PM CHECK PROCESSING CLERK) Component Value Ref Test Analysis Performed At [facility] Method Time [facility] Case Report Pap ? Case: [id number] ? 04/12/2021 [facility] Authorizing Provider: ??Louann matamoros, Monica Guillen, TAVARES, CNM ?? Collected: ? 04/04/2021 1616 ? 11:07 AM LABORAT ORY Ordering Location: ? [place] ?Received: ?04/04/2021 1646 ? CHECK PROCESSING CLERK ? Obstetrics/Gynecology ? First Screen: ? Draper, Cathie D, CT ? (ASCP) ? Specimen: ?Pap Test, Rou adan, Cervix/Endocervix ? Pap Specimen Satisfactory for 04/12/2021 [facility] Adequacy evaluation, 11:07 AM LABORATORY endocervical/monsalve CHECK PROCESSING CLERK sformation zone component present. Pap (NILM) Negative 04/12/2021 [facility] Shell ctronically Interpretation for 11:07 AM LABORATORY sign ed by intraepithelial CHECK PROCESSING CLERK Olso n, Cathie lesion or D, CT (ASC P) on malignancy. 2 at 11:07 AM Pap Other Fungal organisms 04/12/2021 [facility] Findings morphologically 11:07 AM LABORATORY consistent with CHECK PROCESSING CLERK Cassy spp. Pap Disclaimer The Pap test is a 04/12/2021 METHOD IST screening test 11:07 AM LABORATORY designed to aid CHECK PROCESSING CLERK in the detection of cervical cancer and its precursor lesions. It is not a diagnostic procedure and should not be used as the sole means of detecting cervical cancer. Both false-positive and false-negative results may occur. Gross The specimen is 04/12/2021 [facility] Description received in 11:07 AM LABORATORY [employer] fixative CHECK PROCESSING CLERK and properly labeled. 1 Pap-stained [employer] slide is prepared. Embedded Images 04/12/2021 [facility] 11:07 AM LABORATORY CHECK PROCESSING CLERK Specimen Anatomical Collection Method Collection Time Receive d Time (Source) Location / / Volume Laterality Other Specimen ENTIRE ENDOCERVIX 04/04/2021 4:16 PM 4:46 Type / Unknown CHECK PROCESSING CLERK PM CHECK PROCESSING CLERK Comment: LMP: Patient's last menstrual p eriod was 01/10/2021. Monica Flood APRN, CNM LAB PATHOLOGY Performing Organization Address City/State/ZIP Code Phon e Number [facility] [address] [place] [address] documented in this encounter Visit Diagnoses Diagnosis High-risk in first trimester - Primary Previous delivery affecting pre gnancy, antepartum Previous delivery, antepartum c ondition or complication Screening for malignant neoplasm of cerv ix Screening for malignant neoplasm of the cervix documented in this encounter
--- OUTSIDE RECORDS SUMMARY | 2021-10-30 15:25 | XMS_ITS | Encounter Summary ---
:1990 Author Organization [facility] Address [address] [place] [address] Care Team Providers Name Role Phone Unavailable Primary Care Provider Unavailable Reason for Referral Procedure/Equipment (Routine) - New Request Specialty Diagnoses / Procedures Referred By Contact Refer red To Contact Diagnoses Encounter for anatomic survey Yvonne Mixon MD Procedures US OB 20 Weeks Complete Single [address] [address] Referral ID Status Reason Start Date Expiration Date Visits V isits Requested Authorized [id number] New Request 05/04/2021 08/03/2022 1 1 T ADMINISTRATIVE ASSISTANT Reason for Visit Reason Comments Routine Visit Encounter Details Date Type Department Care Team Description 05/04/2021 Routine [place] Yvonne Mixon, Routine P renatal Obstetrics/Gynecolog y Visit [address] [facility] [place] [address] [place] [phone] Social History Tobacco Use Types Packs/Day Years Used Date Smoking Tobacco: Never Smokeless Tobacco: Never Tobacco Cessation: Counseling Given: No Alcohol Use Standard Drinks/Week Comments Never 0 (1 standard drink = 0.6 oz pure alcoho l) Alcohol Habits Answer Date Recorded How often do you have a drink containing alcohol? Never 05/04/2021 How many drinks containing alcohol do you have on a typical Not asked day when you are drinking? How often do you have six or more drinks on one occasion? No t asked Comment: Not asked Sex Assigned at Date Recorded Not on file documented as of this encounter Last Filed Vital Signs Vital Sign Reading Time Taken Comments Blood Pressure 121/80 05/04/2021 10:37 AM TRUST ADMINISTRATIVE ASSISTANT Pulse 68 05/04/2021 10:37 AM TRUST ADMINISTRATIVE ASSISTANT Temperature - - Respiratory Rate - - Oxygen Saturation - - Inhaled Oxygen Concentration - - Weight 76.2 kg (168 lb) 05/04/2021 10:37 AM TRUST ADMINISTRATIVE ASSISTANT Height - - Body Mass Index 27.12 04/04/2021 3:31 PM TRUST ADMINISTRATIVE ASSISTANT documented in this encounter Progress Notes Yvonne Mixon MD - 05/04/2021 10:40 AM CST NOB2 30 y.o. female at 16w2d here for NOB2. So far the has been uncomplicated. She has a 2 yo little girl. 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 Her NOB1 exam and note was reviewed in detail. History reviewed. No pertinent past medical history. Past Surgical History: Procedure Laterality Date ??? SECTION, LOW TRANSVERSE 2020 [place], breech presentation ??? WISDOM TEETH EXTRACTION Labs: reviewed Genetic screening discussed and results reviewed. 20 week ultrasound scheduled. [facility] Problem list updated with plan: Patient Active Problem List Diagnosis Date Noted ??? Previous delivery affecting , antepartum 05/04/2021 ??? Encounter for supervision of normal , antepartum 05/04/2021 Overview Note: Normal NIPT. 20 week ultraosound scheduled. Dating Summary Working RAISA: 10/17/21 set by Monica Flood APRN, CNM on 04/04/21 based on Last Menstrual Period on01/10/21 Based On RAISA GA Diff GA User Date Last Menstrual Period on 01/10/21 10/17/21 Working Monica Flood APRN, CNM 04/04/21 Ultrasound on 04/04/21 10/15/21 +2d 12w2d Monica Flood APRN, CNM 04/04/21 OP note from her previous csection reviewed. She is undecided at this time regarding TOLAc vs repeatcsection. Briefly discussed the risks today and success rates. All questions and concerns addressed, RTC in 4 weeks. Yvonne Mixon MD TT: Total time 30 minutes including chart review, face to face patient time, and documentation. T ADMINISTRATIVE ASSISTANT documented in this encounter Plan of Treatment Upcoming Encounters Date Type Specialty Care Team Description 10/17/2021 Hospital Encounter Obstetrics & Gynecology Monica Flood Wilmer, CLIENT BUSINESS MANAGER, CNM [address] [facility] [address] (Wo rk) documented as of this encounter Results US OB 20 Weeks Complete Single (06/01/2021 2:25 PM TRUST ADMINISTRATIVE ASSISTANT) Anatomical Region Laterality Modality Pelvis Ultrasound Specimen (Source) Anatomical Collection Method Collection Time Re ceived Time Location / / Volume Laterality 06/01/2021 1:33 PM TRUST ADMINISTRATIVE ASSISTANT Impressions 06/01/2021 2:27 PM TRUST ADMINISTRATIVE ASSISTANT COMPARISON: ??04/04/2021. ?? TECHNIQUE: A level 1 ultrasound was perf ormed. Transabdominal imaging was performed. FINDINGS: ??Type of Gestation: ??Singlet on. Presentation: BREECH Movement Present: ??Yes ?? Cardiac Rate: 144 bpm and is regular Amniotic Fluid Volume: ??Subjectively no rmal Placental Position: ??POSTERIOR. Normal. Cervical Length (cm): ??3.5 ??Within nor mal ANATOMIC SURVEY RESULTS: ??Echogenic int racardiac focus, left ventricle. The remainder of the anatomy survey is unremarkable. ?? The anatomic survey includes assessment of: Cranium, Lateral Ventricles, Cerebellum, Cisterna Magna, Nuchal Fold, Face: Orbits, Upper Lip, Profile, Spine: Long C,T,L,S, Transverse Sacrum, Heart: 4 Chamb er View, M-Mode, Right ventricular outfl ow tract, Left ventricular outflow tract, Abdomen: Cord Insertion, 3-Vessel Cord, Bladder, Stomach, Diaphragm, Kidneys, Extremities: presence of arms and legs. Measurements (Source Hadlock): BPD: ??4.6 cm = 20w0d HC: 17.4 cm = 20w0d AC: ??15.3 cm = 20w4d FL: ??3.4 cm = 20w6d Anatomic Ratios: ??Within normal limits. Estimated Weight: ??361 grams ?? Other Findings: None. GA by LMP: ??20w2d GA by Prior US: ??20w4d GA by today's US: ??20w1d RAISA by today's US: ??10/18/2021 IMPRESSION: 1. Single living intrauterine fetus, pre sently breech. 2. ??Echogenic intracardiac focus, left ventricle. EIF may be associated with an increased risk of Trisomy 21. If this is an isolated finding and the first trimester screening indicates less than 1:1000 risk for trisomy, a level 2 ultrasound is not necessary. In the setting of other anatomic abnormalities, advanced maternal age, or first trimester screening results of greater than 1:1000 for tri somy; a level 2 ultrasound is the consen saul recommendation of the radiology and perinatology departments at [facility]. 3. The remainder of the anatomy chambers rvey is unremarkable. Procedure Note Elliott Torres MD - 06/01/2021For matting of this note might be different from the original. IMPRESSION COMPARISON: 04/04/2021. TECHNIQUE: A level 1 ultrasound was perf ormed. Transabdominal imaging was performed. FINDINGS: Type of Gestation: Cardoso. Presentation: BREECH Movement Present: Yes Cardiac Rate: 144 bpm and is regular Amniotic Fluid Volume: Subjectively norm al Placental Position: POSTERIOR. Normal. Cervical Length (cm): 3.5 Within normal ANATOMIC SURVEY RESULTS: Echogenic intra cardiac focus, left ventricle. The remainder of the anatomy survey is unremarkable. The anatomic survey includes assessment of: Cranium, Lateral Ventricles, Cerebellum, Cisterna Magna, Nuchal Fold, Face: Orbits, Upper Lip, Profile, Spine: Long C,T,L,S, Transverse Sacrum, Heart: 4 Chamber View, M-Mode, Right ventricular outflow tract, Left ve ntricular outflow tract, Abdomen: Cord Insertion, 3-Vessel Cord, Bladder, Stomach, Diaphragm, Kidneys, Extremities: presence of arms and legs. Measurements (Source Hadlock): BPD: 4.6 cm = 20w0d HC: 17.4 cm = 20w0d AC: 15.3 cm = 20w4d FL: 3.4 cm = 20w6d Anatomic Ratios: Within normal limits. Estimated Weight: 361 grams Other Findings: None. GA by LMP: 20w2d GA by Prior US: 20w4d GA by today's US: 20w1d RAISA by today's US: 10/18/2021 IMPRESSION: 1. Single living intrauterine fetus, pre sently breech. 2. Echogenic intracardiac focus, left ve ntricle. EIF may be associated with an increased risk of Trisomy 21. If this is an isolated finding and the first trimester screening indicates less than 1:1000 risk for trisomy, a level 2 ultrasound is not necessary. I n the setting of other anatomic abnormalities, advanced maternal age, or first trimester screening results of greater than 1:1000 for trisomy; a level 2 ultrasound is the consensus recommendation of the r adiology and perinatology departments at [facility]. 3. The remainder of the anatomy chambers rvey is unremarkable. Yvonne Mixon MD [facility] documented in this encounter Visit Diagnoses Diagnosis Encounter for anatomic survey - Pr imary Previous delivery affecting pre gnancy, antepartum Previous delivery, antepartum c ondition or complication Supervision of other normal , a ntepartum Encounter for anatomic survey documented in this encounter
--- OUTSIDE RECORDS SUMMARY | 2021-10-30 15:25 | XMS_ITS | Encounter Summary ---
:1990 Author Organization [facility] Address [address] [place] [address] Care Team Providers Name Role Phone Unavailable Primary Care Provider Unavailable Reason for Visit Reason Comments LAB RESULTS Encounter Details Date Type Department Care Team Description 04/12/2021 Telephone [place]ica Ash[place] APRN, LAB RES ULTS Obstetrics/Gynecolog y CNM [address] [place], [place] [address] [place] [address] [phone] (Wo rk) Social History Tobacco Use Types Packs/Day Years Used Date Smoking Tobacco: Never Smokeless Tobacco: Never Sex Assigned at Date Recorded Not on file documented as of this encounter Nursing Notes Juanita Bonner RN - 04/12/2021 4:34 PM CST Patient callin barbara for lab results. Patient states she got a notification her NIPS results were in. Informed patient on our end it still states processing, recommended patient give it a little bit of time as results could be in the process of being transmitted. Patient verbalizes understanding and hasno further questions. COLORIST FORMULATOR documented in this encounter Plan of Treatment Upcoming Encounters Date Type Specialty Care Team Description 10/17/2021 Hospital Encounter Obstetrics & Gynecology Monica Flood APRN, CNM [address] [place] [address] (Wo rk) documented as of this encounter Visit Diagnoses Not on filedocumented in this encounter
--- OUTSIDE RECORDS SUMMARY | 2021-10-30 15:25 | XMS_ITS | Encounter Summary ---
:1990 Author Organization [employer] Address [address] [place] [address] Care Team Providers Name Role Phone Unavailable Primary Care Provider Unavailable Reason for Visit Reason Comments RED EYE--ED Encounter Details Date Type Department Care Team Description 10/11/2020 Office Visit [place] [address] Betito [place], Acute v [facility] MARANDA conjunctivitis [facility] [address] [facility] [address] [place] [address] [phone] Social History Tobacco Use Types Packs/Day Years Used Date Smoking Tobacco: Never Sex Assigned at Date Recorded Not on file documented as of this encounter Last Filed Vital Signs Vital Sign Reading Time Taken Comments Blood Pressure 124/82 10/11/2020 12:56 PM CDT Pulse 68 10/11/2020 12:56 PM CDT Temperature 36.9 ??C (98.5 ??F) 10/11/2020 12:56 PM CDT Respiratory Rate 14 10/11/2020 12:56 PM CDT Oxygen Saturation 100% 10/11/2020 12:56 PM CDT Inhaled Oxygen Concentration - - Weight - - Height - - Body Mass Index - - documented in this encounter Patient Instructions Patient InstructionsLaBetito gill PA-C - 10/11/2020 11:55 AM CDT This is contagious over the next few dayus Good handwashing. Good hand hygiene is the meyers to containing the infection. This infection is transmitted by touching your eyes and not washing your hands there is the possibility of a viral infection. which should resolve on it's own but may remain contagious for a few days The patient was discharged ambulatory and in stable condition. Return with eye pain or vision problems No contacts x 7 days if you use them documented in this encounter Progress Notes Betito [place] PA-C - 10/11/2020 11:55 AM CDT Mally Resendiz is a 30 y.o.female presents to the Urgent Care for RED EYE--ED Known Injury: No Injury Occurred or Symptoms began: this morning ago and were sudden. Symptoms included: redness and burning to right eye/s. Eye Pain Scale: N/A. No injury. No no photophobia No contact lenses. No injuries. Minimal URI symptoms. No eye pain. Past Medical history: Patient Active Problem List Diagnosis ??? Mitral valve disorder ??? Neoplasm of uncertain behavior of skin Social History: Social History Socioeconomic History ??? Marital status: Spouse name: Not on file ??? Number of children: Not on file ??? Years of education: Not on file ??? Highest education level: Not on file Occupational History ??? Not on file Tobacco Use ??? Smoking status: Never Smoker Substance and Sexual Activity ??? Alcohol use: Not on file ??? Drug use: Not on file ??? Sexual activity: Not on file Other Topics Concern ??? Not on file Social History Narrative ??? Not on file Social Determinants of Health Financial Resource Strain: ??? Difficulty of Paying Living Expenses: Food Insecurity: ??? Worried About Running Out of Food in the Last Year: ??? Ran Out of Food in the Last Year: Transportation Needs: ??? Lack of Transportation (Medical): ??? Lack of Transportation (Non-Medical): Physical Activity: ??? Days of Exercise per Week: ??? Minutes of Exercise per Session: Intimate Partner Violence: ??? Fear of Current or Ex-Partner: ??? Emotionally Abused: ??? Physically Abused: ??? Sexually Abused: Adverse Drug Reactions: Patient has no known allergies. Medications: tobramycin and unknown medication OBJECTIVE: Vital Signs: BP 124/82 (BP Location: Right Arm, BP Cuff Size: Regular) Pulse 68 Temp 36.9 ??C (98.5 ??F) (Oral) Resp 14 SpO2 100% General: Well-appearing. Eyes: Right eye(s) is/are injected with watery discharge . PERRLA EOMI bilaterally red reflex present bilaterally. Ears: Normal pinnae, canals. TMs: Normal Nose: Patent without significant congestion. Throat: Moist mucous membranes without lesions; no injection. Neck: Supple, without masses, lymphadenopathy or tenderness. Respiratory: Normal respiratory effort. Lungs are clear with good breath sounds. CV: Regular rate and rhythm, no clicks rubs gallops or murmurs ASSESSMENT: 1. Acute viral conjunctivitis of right eye . PLAN: Patient Instructions This is contagious over the next few dayus Good handwashing. Good hand hygiene is the meyers to containing the infection. This infection is transmitted by touching your eyes and not washing your hands there is the possibility of a viral infection. which should resolve on it's own but may remain contagious for a few days The patient was discharged ambulatory and in stable condition. Return with eye pain or vision problems No contacts x 7 days if you use them Wait and see prescription was given for tobramycin if the eye crust regularly throughout the day, she was started. We discussed that current symptoms appear to be most likely viral and drops would not improve long-term outcome at this moment RTC PRN if not gradually improving. We discussed that should be contagious over the next 24 hours. Good handwashing. Discussed good hand hygiene. We discussed how this infection is transmitted. We discussed the possibility of a viral infection. The patient was discharged ambulatory and in stable condition. RTC p.r.n. documented in this encounter Nursing Notes Lucille Moya RN - 10/11/2020 11:55 AM CDT Mally Resendiz is a 30 y.o.female presents to the Urgent Care for RED EYE--ED Known Injury: No Injury Occurred or Symptoms began: this morning ago and were sudden. Symptoms included: redness and burning to right eye/s. Eye Pain Scale: N/A. documented in this encounter Plan of Treatment Upcoming Encounters Date Type Specialty Care Team Description 10/17/2021 Hospital Encounter Obstetrics & Gynecology Monica Flood, MACHINING MANAGER, CNM [address] [place] [address] (Wo rk) documented as of this encounter Visit Diagnoses Diagnosis Acute viral conjunctivitis of right eye documented in this encounter
--- OUTSIDE RECORDS SUMMARY | 2021-10-30 15:25 | XMS_ITS | Encounter Summary ---
:1990 Author Organization [facility] Address [address] [place] [address] Care Team Providers Name Role Phone Unavailable Primary Care Provider Unavailable Reason for Visit Reason Comments LAB RESULTS Encounter Details Date Type Department Care Team Description 12/14/2020 Telephone [place] [facility] Needs Pcp, Assignment LAB RESULTS [address] [place] [address] [place], [place] [id number] Social History Tobacco Use Types Packs/Day Years Used Date Smoking Tobacco: Never Smokeless Tobacco: Never Sex Assigned at Date Recorded Not on file documented as of this encounter Nursing Notes Micki Casillas RN - 12/14/2020 4:28 PM CDT Pt notified and verbalized understanding. Rigoberto Rouse - 12/14/2020 4:24 PM CDT Test Results (Advise caller/[facility]) What test are you calling about? Covid test Primary Director Traffic And Planning: Who ordered the test? (include first & last name) When and where was the test done? [facility] 12/13 Additional comments (related to the above concern): If a prescription is needed, patient would like it filled at the pharmacy listed in Meds & Orders. (Verify the pharmacy patient would like to use for this request is highlighted in blue in PharmacySelection under Meds & Orders) Is it okay to leave a detailed message on your voicemail? Yes (Advise caller that the PN call back number will end with [phone] or unknown) Please route to: Triage Pool documented in this encounter Plan of Treatment Upcoming Encounters Date Type Specialty Care Team Description 10/17/2021 Hospital Encounter Obstetrics & Gynecology Monica Flood, [employer] ADMINISTRATOR, CNM [address] [place] [address] (Wo rk) documented as of this encounter Visit Diagnoses Not on filedocumented in this encounter Additional Health Concerns Infection Onset Date Last Indicated Resolved Time R/O COVID19 12/13/2020 12/13/2020 12/14/2020 2:59 PM CDT COVID19 12/13/2020 12/13/2020 01/02/2021 3:17 AM CDT documented as of this encounter
--- OUTSIDE RECORDS SUMMARY | 2021-10-30 15:25 | XMS_ITS | Encounter Summary ---
:1990 Author Organization [facility] Address [address] [place] [address] Care Team Providers Name Role Phone Unavailable Primary Care Provider Unavailable Reason for Visit Reason Comments Injection Encounter Details Date Type Department Care Team Description 10/17/2010 Nursing Visit [place] Internal Nurse, Earnestine akhtar examination Medicine for pulmonary [address] tuberculo sis ([address] Dx) [place], [place] [address] Social History Tobacco Use Types Packs/Day Years Used Date Smoking Tobacco: Never Assessed Sex Assigned at Date Recorded Not on file documented as of this encounter Plan of Treatment Upcoming Encounters Date Type Specialty Care Team Description 10/17/2021 Hospital Encounter Obstetrics & Gynecology Monica Flood, AUTO PORTER, CNM [address] [place] [address] (Wo rk) documented as of this encounter Visit Diagnoses Diagnosis Screening examination for pulmonary tube rculosis - Primary documented in this encounter
--- OUTSIDE RECORDS SUMMARY | 2021-10-30 15:25 | XMS_ITS | Encounter Summary ---
:1990 Author Organization [facility] Address [address] [place] [address] Care Team Providers Name Role Phone Unavailable Primary Care Provider Unavailable Reason for Visit Reason Comments Routine Visit 24w2d Encounter Details Date Type Department Care Team Description 06/29/2021 Routine [place] [address] Lori Chapa Rou tine Obstetrics/Gynecolo HARI CHAPIN Visit (24w2d) gy [address] [address] [facility] [address] [place] [address] [phone] Social History Tobacco Use Types Packs/Day Years Used Date Smoking Tobacco: Never Smokeless Tobacco: Never Alcohol Use Standard Drinks/Week Comments Not Currently [...] Pulse 94 06/29/2021 11:40 AM CDT Temperature - - Respiratory Rate - - Oxygen Saturation - - Inhaled Oxygen Concentration - - Weight 81.6 kg (180 lb) 06/29/2021 11:40 AM CDT Height - - Body Mass Index 29.05 04/04/2021 3:31 PM PHILANTHROPY OFFICER documented in this encounter Patient Instructions Patient InstructionsEricksLori walker APRN, CNM - 06/29/2021 11:45 AM CDT Next visit at 28 weeks with MD. Then every other week until 36 weeks. Then weekly until 40 weeks. All visits alternate MD/LINEWORKER. documented in this encounter Progress Notes Lori Chapa APRN, CNM - 06/29/2021 11:45 AM CDT [facility] Obstetrics & Gynecology Clinic CC: Mally is a 30 y.o. 24w2d here for routine visit. Transferring from [facility] as this location is closer to home. Plans to deliver at [facility]. S: She is feeling well today. Good movement. Denies leaking, bleeding, regular painful contractions. Nocturia noticeable this , which is different from her first . Denies dysuria. Declines UC today. complications: Hx , breech O: Gen: alert, oriented, NAD See OB flowsheet. TWG = 10 lb No past medical history on file. Outpatient Medications Prior to Visit Medication Sig Dispense Refill ??? clindamycin (CLEOCIN T) 1 % lotion Apply a thin layer to areas of acne on face twice a day. (Patient not taking: No sig reported) 60 mL 3 ? ? MV & Min w/FA-DHA ( ADULT GUMMY/DHA/FA) 0.4-25 MG CHEW No facility-administered medications prior to visit. A/P: 30 y.o. 24w2d Patient Active Problem List Diagnosis ??? Previous delivery affecting , antepartum ??? Encounter for supervision of normal , antepartum Care: - OB labs reviewed: Blood type: B pos Rubella: immune HIV: negative Hep B Ag: negative Treponema: negative - Genetics: normal NIPS - Anatomy ultrasound: normal, with echogenic focus - 28 week labs next visit - Flu vaccine: completed - COVID vaccine: declines during . - Tdap: plan at 27-36 weeks next visit - GBS: plan at 36 weeks. - Gem feeding plan: breast. Has a pump. - Contraception: undecided - Continue taking vitamins History of section Plans TOLAC Reviewed [facility] predictor score of 72% Will sign consent with MD at future visit documented in this encounter Plan of Treatment Upcoming Encounters Date Type Specialty Care Team Description 10/17/2021 Hospital Encounter Obstetrics & Gynecology Monica Flood APRN, HARI [address] [place], [place] [phone] (Wo rk) Scheduled Orders Name Type Priority Associated Diagnoses Order S chedule Glucose - 1 Hr. P.C. Lab Routine Supervision of other Expected: Preg normal , 07/29/2021 , antepartum Expires: 2021 Complete Blood Count Lab Routine Supervision of other Expected: -W/Diff normal , 07/29/2021 , antepartum Expires: 2021 Treponemal Antibody Microbiology Routine Supervision of other Expected: normal , 07/29/2021 , antepartum Expires: 2021 documented as of this encounter Visit Diagnoses Diagnosis Supervision of other normal , a ntepartum - Primary Previous delivery affecting pre gnancy, antepartum Previous delivery, antepartum c ondition or complication documented in this encounter
--- OUTSIDE RECORDS SUMMARY | 2021-10-30 15:25 | XMS_ITS | Encounter Summary ---
:1990 Author Organization [facility] Address [address] [place] [address] Care Team Providers Name Role Phone Unavailable Primary Care Provider Unavailable Reason for Visit Procedure/Equipment (Routine) - New Request Specialty Diagnoses / Procedures Referred By Contact Refer red To Contact Diagnoses Encounter for anatomic survey Yvonne Mixon MD Procedures US OB 20 Weeks Complete Single [address] [place], [place] [address] Referral ID Status Reason Start Date Expiration Date Visits V isits Requested Authorized [id number] New Request 05/04/2021 08/03/2022 1 1 Encounter Details Date Type Department Care Team Description 06/01/2021 Ancillary Procedure [place] [facility] [place]ixon[place] [id number] Sameer Cho MD anatomic survey [place], [place] [address] [address] Rodrigo Carvajal [phone] [place], [place] [address] Social History Tobacco Use Types Packs/Day Years Used Date Smoking Tobacco: Never Smokeless Tobacco: Never Alcohol Use Standard Drinks/Week Comments Never 0 [...] Hospital Encounter Obstetrics & Gynecology Monica Flood, JAVA ARCHITECT, CNM [address] [place] [address] (Wo rk) documented as of this encounter Procedures Procedure Name Priority Date/Time Associated Diagnosis Comme nts US OB 20 WEEKS Routine 06/01/2021 2:25 PM Encounter for Results for this COMPLETE SINGLE AMUSEMENT OR RECREATION CARD CHECKER anatomic survey procedure are in the results section. documented in this encounter Results US OB 20 Weeks Complete Single (06/01/2021 2:25 PM AMUSEMENT OR RECREATION CARD CHECKER) Anatomical Region Laterality Modality Pelvis Ultrasound Specimen (Source) Anatomical Collection Method Collection Time Re ceived Time Location / / Volume Laterality 06/01/2021 1:33 PM AMUSEMENT OR RECREATION CARD CHECKER Impressions 06/01/2021 2:27 PM AMUSEMENT OR RECREATION CARD CHECKER COMPARISON: ??04/04/2021. ?? TECHNIQUE: A level 1 [...] of the radiology and perinatology departments at [facility]. 3. The remainder of the [...] the r adiology and perinatology departments at [facility]. 3. The remainder of the anatomy chambers rvey is unremarkable. Yvonne Mixon MD RAD US documented in this encounter Visit Diagnoses Diagnosis Encounter for anatomic survey documented in this encounter
--- OUTSIDE RECORDS SUMMARY | 2021-10-30 15:25 | XMS_ITS | Encounter Summary ---
:1990 Author Organization [facility] Address [address] [place] [address] Care Team Providers Name Role Phone Unavailable Primary Care Provider Unavailable Encounter Details Date Type Department Care Team Description 07/26/2010 PN Conversion Only [facility] Adonay Enriquez [place] [address] [facility] [address] [phone] [place] [address] (Wo rk) Social History Tobacco Use Types Packs/Day Years Used Date Smoking Tobacco: Never Assessed Sex Assigned at Date Recorded Not on file documented as of this encounter Plan of Treatment Upcoming Encounters Date Type Specialty Care Team Description 10/17/2021 Hospital Encounter Obstetrics & Gynecology Monica Flood, TAVARES, CNM [address] [place], [place] [address] (Wo rk) documented as of this encounter Visit Diagnoses Not on filedocumented in this encounter
--- OUTSIDE RECORDS SUMMARY | 2021-10-30 15:26 | XMS_ITS | Encounter Summary ---
:1990 Author Organization [facility] Address [address] [place] [address] Care Team Providers Name Role Phone Unavailable Primary Care Provider Unavailable Encounter Details Date Type Department Care Team Description 06/07/2009 PN Conversion Only [facility] [place] [address] [place] [address] Social History Tobacco Use Types Packs/Day Years Used Date Smoking Tobacco: Never Assessed Sex Assigned at Date Recorded Not on file documented as of this encounter Plan of Treatment Upcoming Encounters Date Type Specialty Care Team Description 10/17/2021 Hospital Encounter Obstetrics & Gynecology Monica Flood, CIGAR MAKING MACHINE OPERATOR, CNM [address] [place], [place] [address] (Wo rk) documented as of this encounter Visit Diagnoses Not on filedocumented in this encounter
--- OUTSIDE RECORDS SUMMARY | 2021-10-30 15:26 | XMS_ITS | Encounter Summary ---
:1990 Author Organization [place] Address [facility] [place] [address] Care Team Providers Name Role Phone Reynaldo Amador PA-C Unavailable Zuleyma Winter MD Unavailable [phone] Zuleyma Winter MD Primary Care Provider [phone] Lisa Bowens APRN, CNM Unavailable May, Reuben Pereira MD Unavailable Chata Deleon MD Unavailable Lisa Bowens APRN, CNM Unavailable Chata Deleon MD Unavailable Reason for Visit Reason Comments Home Care/Hospice Encounter Details Date Type Department Care Team Description 05/09/2019 Documentation Only [facility] Chata Amor MD [address] [facility] [address] [address] [address] [place] [address] [place] [address] Social History Tobacco Use Types Packs/Day Years Used Date Never Smoker 0 Smokeless Tobacco: Never Used Alcohol Use Standard Drinks/Week Comments Not Currently 0 (1 standard drink = 0.6 oz pure alcoho l) Sex Assigned at Date Recorded Female 10/07/2018 7:21 AM CDT documented as of this encounter Plan of Treatment Not on filedocumented as of this encounter Visit Diagnoses Not on filedocumented in this encounter Additional Health Concerns Assessment Noted Time PHQ-9 Depression Total Score: 1 10/06/2018 9:27 AM CDT documented as of this encounter Care Teams Die Cleaner Relationship Specialty Start Date End Date Zuleyma Winter, PCP - General Family Practice 04/19/[address] [place], [place] [address] Reynaldo Amador, 10/06/1805/13 PA-C [address] [address] Zuleyma Winter, Assigned PCP 12/31/[address] [place] [address] Lisa Bowens Assigned OBGYN Provider 01/14/20 09/02/20 TAVARES Urbina CNM [address] [place], [place] [address] MayReuben, Assigned Heart and 01/14/20 10/14/20 Vascular Provider [address] [place] [address] Chata Deleon Assigned OBGYN Provider 09/03/20 10/14/20 MD Zuleyma [address] [place], [place] [address] Lisa Bowens Assigned OBGYN Provider 10/15/20 10/21/20 TAVARES Urbina CNM [address] [place] [address] Chata Deleon Assigned OBGYN Provider 10/22/20 11/04/20 MD Zuleyma [address] [place] [address] documented as of this encounter
--- OUTSIDE RECORDS SUMMARY | 2021-10-30 15:26 | XMS_ITS | Encounter Summary ---
:1990 Author Organization [facility] Address [address] [place] [address] Care Team Providers Name Role Phone Unavailable Primary Care Provider Unavailable Encounter Details Date Type Department Care Team Description 08/13/2007 Office Visit [facility] Darby Dela Cruz [address] [place], [place] [address] Social History Tobacco Use Types Packs/Day Years Used Date Smoking Tobacco: Never Assessed Sex Assigned at Date Recorded Not on file documented as of this encounter Last Filed Vital Signs Vital Sign Reading Time Taken Comments Blood Pressure 118/78 08/13/2007 2:14 PM CDT Pulse - - Temperature - - Respiratory Rate - - Oxygen Saturation - - Inhaled Oxygen Concentration - - Weight 64 kg (140 lb 15.8 oz) 08/13/2007 2:14 PM CDT C: 64.0kg Height 162.6 cm (5' 4) 08/13/2007 2:14 PM CDT C: 162.6 cm Body Mass Index 24.2 08/13/2007 2:14 PM CDT Body Mass Index Percentile 85.93 % 08/13/2007 2:14 PM CD T Growth Chart: CDC (Girls, 2-20 Years) documented in this encounter Progress Notes Darby Dela Cruz - 08/13/2007 12:01 AM CDT H&P signed by Darby Dela Cruz MD at 08/13/07 1613 Author: Darby Dela Cruz MD Service: (none) Author Type: Physician Filed: 07/14/10 0602 Note Time: 08/13/07 0001 Status: Signed Squirrel Man: Darby Dela Cruz MD (Physician) Well Child/Adolescent Visit or Sports Physical IMPRESSION: Well adolescent visit. Failed the vision screen. Weight is excessive for height. Demographics: Accompanied by mother. Patient is 16 years old. Patient is in ninth grade of school. Interval History: Has history of cleft mitral valve mom believes and needs to follow up with cardiology; moved from [place] last summer and was followed by sand technologist there and was told she may eventually need surgery Eats 3 meals per day with a varied diet. Eats junk food excessively. No concerns about sleep habits. Has had a little bit of a hard time making friends here since the move School / Activities: School: No concerns about school. Grades in school include C's. Activity: Sedentary with little regular activity. Tobacco: None. Alcohol: None. Drugs: Denies any drug use. Sexual History: Never sexually active. Menarche at age 14. Periods are regular. No dysmenorrhea. Past History: Adverse drug reactions: None. Medications: None. Food Allergies: No food allergies. 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 Social / Family History: Family: Number of siblings: 6 biologic siblings; 3 of whom were adopted by her adoptive parents as well; another adopted child in family as well Was adopted at age 6; hx of maternal drug abuse methamphetamine during Environment: Pets: Dog(s). Fish. Safety: Wearing seatbelts consistently. No guns in home. Mental illness; otherwise unkown PHYSICAL EXAM: (See online scanned documents for percentile graphs) Vital signs updated and reviewed in Last[facility]. Weight: patient appears overweight. HEENT: normal Lungs: CTA CV: RRR. 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 /Pelvic: Normal female external genitalia. Genitalia & Pubic Hair: Jose stage 5. Vision/Hearing: Vision Testin/40 20/40 Audiogram: Audiogram normal at all frequencies in each ear. ASSESSMENT: Well adolescent visit. Failed the vision screen. Weight is excessive for height. Congenital Hairy Nevus. Cardiac Valvular Problem PLAN: Mom does not have vaccine record but will bring that in so that we can given any necessary vaccines. General Counseling: Anticipatory Reminders: Nutrition: Importance of adequate nutrition. Make reasonable food choices. Safety: Dangers of alcohol use. Dangers of drug use. If sexually active, use contraception (including barrier). Dangers of tobacco use. Medical: Importance of good sleep hygiene. Follow Up: In one year. Medical: Discussed ideal body weight, diet and activity. Refer to cardiology, ophthalmology and plastic surgery. *SH~PC~WSP ~ Shorthand Note completed on: 08/13/2007 4:11 PM documented in this encounter Plan of Treatment Upcoming Encounters Date Type Specialty Care Team Description 10/17/2021 Hospital Encounter Obstetrics & Gynecology Monica Flood, PRIMER BOXER, CNM [address] [place] [address] (Wo rk) documented as of this encounter Visit Diagnoses Not on filedocumented in this encounter
--- OUTSIDE RECORDS SUMMARY | 2021-10-30 15:26 | XMS_ITS | Encounter Summary ---
:1990 Author Organization [facility] Address [address] [place] [address] Care Team Providers Name Role Phone Unavailable Primary Care Provider Unavailable Encounter Details Date Type Department Care Team Description 03/14/2008 Nursing Visit [facility] [address] Ciara Garcia MD Plastic Surgery [address] [place] [address] [id number] [phone] Social History Tobacco Use Types Packs/Day Years Used Date Smoking Tobacco: Never Assessed Sex Assigned at Date Recorded Not on file documented as of this encounter Progress Notes Preethi Reyes - 03/14/2008 12:01 AM CST Progress Notes signed by Preethi Reyes at 03/15/08 1116 Author: Preethi Reyes Service: (none) Author Type: Resource Filed: 03/14/08 0000 Note Time: 03/14/08 0001 Status: Signed Autocutter: Preethi Reyes (Resource) Mally comes in for post op birthmark excisional removal a wk ago. All is healing well. Surtures are disolvable . Instruted to change steri stripe as needed for 2wks and silicone gel 2wks after. given path to pt and father. Completely excised les. nevus. ONAL INJURY LEGAL ASSISTANT documented in this encounter Plan of Treatment Upcoming Encounters Date Type Specialty Care Team Description 10/17/2021 Hospital Encounter Obstetrics & Gynecology Monica Flood, HOUSEKEEPER SUPERVISOR, CNM [address] [place] [address] (Wo rk) documented as of this encounter Visit Diagnoses Not on filedocumented in this encounter
--- OUTSIDE RECORDS SUMMARY | 2021-10-30 15:26 | XMS_ITS | Encounter Summary ---
:1990 Author Organization [facility] Address [facility] [place] [address] Care Team Providers Name Role Phone Zuleyma Winter MD Unavailable [phone] Zuleyma Winter MD Primary Care Provider [phone] Reason for Visit Reason Onset Date Comments Refill Request 08/11/2019 Encounter Details Date Type Department Care Team Description 08/11/2019 MyC Refill [facility] Yuli Deleon Refill Request for Women Blossom Amor MD [address] [facility] [address] [facility] [address] [place] [address] [place] [address] (Wo rk) Social History Tobacco Use Types Packs/Day Years Used Date Never Smoker 0 Smokeless Tobacco: Never Used Alcohol Use Standard Drinks/Week Comments Not Currently 0 (1 standard drink = 0.6 oz pure alcoho l) Sex Assigned at Date Recorded Female 10/07/2018 7:21 AM CDT documented as of this encounter Miscellaneous Notes Telephone Encounter - Josie Osullivan RN - 08/12/2019 1:33 PM CDT Requested Prescriptions Pending Prescriptions Disp Refills ??? norgestimate-ethinyl estradiol (ORTHO-CYCLEN) 0.25-35 MG-MCG tablet 84 tablet 0 Sig: Take 1 tablet by mouth daily Contraceptives Protocol Failed - 08/11/2019 6:53 PM Failed - Recent (12 mo) or future (30 days) visit within the authorizing provider's specialty Patient has had an office visit with the authorizing provider or a provider within the authorizing providers department within the previous 12 mos or has a future within next 30 days. See Patient Info tab in inbasket, or Choose Columns in Meds & Orders section of the refill encounter. Passed - Patient is not a current smoker if age is 35 or older Passed - Medication is active on med list Passed - No active on record Passed - No positive test in past 12 months Last Written Prescription Date: 06/18/19 Last Fill Quantity: 84, # refills: 0 Last office visit: 05/04/19 with prescribing provider: DR Monzon Prescription approved per [facility] Refill Protocol. Josie Osullivan RN on 08/12/2019 at 1:37 PM documented in this encounter Plan of Treatment Not on filedocumented as of this encounter Visit Diagnoses Diagnosis Contraception management Unspecified contraceptive management documented in this encounter Additional Health Concerns Assessment Noted Time PHQ-9 Depression Total Score: 1 10/06/2018 9:27 AM CDT documented as of this encounter Care Teams Swage Toolsetter Relationship Specialty Start Date End Date Zuleyma Winter MD PCP - General Family Practice 04/19/[address] [address] Zuleyma Winter MD Assigned PCP 12/31/18 [address] [address] documented as of this encounter
--- OUTSIDE RECORDS SUMMARY | 2021-10-30 15:26 | XMS_ITS | Encounter Summary ---
:1990 Author Organization [facility] Address [address] [place] [address] Care Team Providers Name Role Phone Unavailable Primary Care Provider Unavailable Encounter Details Date Type Department Care Team Description 06/07/2009 Office Visit [facility] Adonay Enriquez, [address] [place], [place] [address] [address] [facility] [phone] [facility] [address] (Wo rk) Social History Tobacco Use Types Packs/Day Years Used Date Smoking Tobacco: Never Assessed Sex Assigned at Date Recorded Not on file documented as of this encounter Progress Notes Adonay Enriquez MD - 06/07/2009 12:01 AM CDT Progress Notes signed by Adonay Enriquez MD at 06/07/09 0938 Author: Adonay Enriquez MD Service: (none) Author Type: Physician Filed: 07/14/10 2243 Note Time: 06/07/09 0001 Status: Signed Cytopathologist: Adonay Enriquez MD (Physician) Acute Clinic Visit IMPRESSION: Bronchitis. Pharyngitis. SUBJECTIVE: History of Present Illness: Accompanied By: Mother. Symptom(s): Here for illness that started 3 weeks ago. At onset had fever, congestion, sore throat and cough. Also felt tired. 2 weeks ago stayed home from school again for 1 day because of cough and fatigue. This past week has started feeling better with improvement in cough and sore throat. Acute Medications Used / Exposures: Acetaminophen. Combination cold formula. Patient has been exposed to ill contacts. Past / Family History: Adverse drug reactions: No known adverse drug reactions. No chronic medications. OBJECTIVE: Weight: 143 Temperature: 97.8 degrees F. General: well appearing; alert and appropriate. Eyes: no injection or drainage. Ears: canals and tympanic membranes normal bilaterally. Nose: mild congestion Oropharynx: moist mucus membranes without ulcerations; tonsils symmetric without erythema or exudate. Neck: supple without adenopathy or goiter. Chest: clear to auscultation; normal effort. Cardiac: regular rate without murmur. Labs/Studies Done Today No labs done. ASSESSMENT: Bronchitis. Pharyngitis. PLAN: Symptomatic care. Encourage fluids and rest. Acetaminophen, ibuprofen, or other OTC medications only as directed on package. RTC PRN if fevers are difficult to control, poor fluid intake, or progressive worsening of symptoms. Azithromycin (Zithromax) 250 mg pack as directed. Throat Culture pending Already started on Zithromax RTC PRN if not gradually improving. *SH~PC~MACARIO ~ Shorthand Note completed on: 06/07/2009 9:37 AM documented in this encounter Plan of Treatment Upcoming Encounters Date Type Specialty Care Team Description 10/17/2021 Hospital Encounter Obstetrics & Gynecology Monica Flood, RECORD LABEL INTERN, CNM [address] [place] [address] (Wo rk) documented as of this encounter Visit Diagnoses Not on filedocumented in this encounter
--- OUTSIDE RECORDS SUMMARY | 2021-10-30 15:26 | XMS_ITS | Encounter Summary ---
:1990 Author Organization [facility] Address [address] [place] [address] Care Team Providers Name Role Phone Unavailable Primary Care Provider Unavailable Reason for Visit Reason Comments Other Encounter Details Date Type Department Care Team Description 04/21/2009 Telephone [facility] Mally Vital MA Other [address] [place], [place] [address] Social History Tobacco Use Types Packs/Day Years Used Date Smoking Tobacco: Never Assessed Sex Assigned at Date Recorded Not on file documented as of this encounter Progress Notes Center, Message - 04/21/2009 7:42 AM CST Phone Note filed by Smarp at 07/13/102326 Author: Smarp Service: (none) Author Type: (none) Filed: 07/13/102326 Note Time: 04/21/09741 Status: Signed It Architecture Consultant: Smarp (Resource) Front Line Sx Call Caller Name/Relationship:Joshua - angelica Primary Auto Electrician:Jere Symptom or request? Heart murmur issues. Angelica states pt was to follow up with a primary doctor in 2 yrs for a recheck. Pt's scheduled for an appt with Dr. Jiang on FridayApr 24. Dad perfers to keep the appt on FridayApr 24. Angelica is wondering if pt will have an Echo at this time. Angelica is requesting a return call to discuss. Is appointment scheduled & when? Apr 24 Lacemaker: Joshua Rc call back number:[phone] - cell Is it OK to leave a confidential message on this voicemail? yes *ECODE~PNSX2 Created on 21Apr2009 7:42am by HOPE CONTRERAS On 21Apr2009 8:52am DONNIE WEINER wrote: Forward to [facility]. On 21Apr2009 9:51am GAYLE JIANG wrote: please let Dad know I reviewed cardiologists note. The graphotype operator wanted to see Mally back in 2 years. should schedule appt c cardiology. We do not do ECHO's here the graphotype operator performs the ECHO's Acknowledged by GAYLE JIANG on 9:51am On 21Apr2009 9:57am MALLY VITAL wrote: Called and left above information on pt fathers machine. [facility] number also. Acknowledged by MALLY VITAL on 9:57am OGRAPH ENGRAVER documented in this encounter Plan of Treatment Upcoming Encounters Date Type Specialty Care Team Description 10/17/2021 Hospital Encounter Obstetrics & Gynecology Monica Flood, MALT HOUSE KILN OPERATOR, CNM [address] [place], [place] [address] (Wo rk) documented as of this encounter Visit Diagnoses Not on filedocumented in this encounter
--- OUTSIDE RECORDS SUMMARY | 2021-10-30 15:26 | XMS_ITS | Encounter Summary ---
:1990 Author Organization [facility] [place] [address] Care Team Providers Name Role Phone Reynaldo Amador PA-C Unavailable [phone] Zuleyma Winter MD Unavailable [phone] Zuleyma Winter MD Primary Care Provider [phone] Reason for Visit Reason Comments Scheduled Section Auth/Cert Specialty Diagnoses / Procedures Referred By Contact Refer red To Contact freelance photographer Diagnoses Breech presentation, single or unspecified fetus Breech presentation, single or unspecified fetus [[id number]] Sh Labor & Delivery Procedures SECTION [address] [address] Phone: Referral ID Status Reason Start Date Expiration Date Visits Requ ested Visits Authorized [id number] 1 1 Encounter Details Date Type Department Care Team Description 05/05/2019 Surgery [facility], PRIMARY SECTION [facility] Chata Amor, [address], [place] [employer] [address] [place] [address] [address] [id number] (Wo rk) Surgery Details Date/Time Status Location OR Service Patient Case Case Traum a Class Class Type Case? 05/05/19 9:00 Posted L+D LD 01 Obstetrics Surgery AM Admit Panel 1 Procedure LRB Anes Op Region Wound Class Commen ts PRIMARY SECTION N/A Spinal Abdomen II-Clean Co ntaminated Surgeon Surgeon Role Service Panel Chata Deleon MD Primary Obstetrics 1 Nasreen Cuellar APRN MACHINE SIZER 1 Lisa Bowens APRN CNM Assisting 1 documented in this encounter Social History Tobacco Use Types Packs/Day Years Used Date Never Smoker 0 Smokeless Tobacco: Never Used Alcohol Use Standard Drinks/Week Comments Not Currently 0 (1 standard drink = 0.6 oz pure alcoho l) Sex Assigned at Date Recorded Female 10/07/2018 7:21 AM CDT documented as of this encounter Last Filed Vital Signs Vital Sign Reading Time Taken Comments Blood Pressure 125/79 05/05/2019 11:00 AM PRODUCTION COORDINATOR Pulse 75 05/05/2019 11:00 AM PRODUCTION COORDINATOR Temperature 36.4 ??C (97.6 ??F) 05/05/2019 11:00 AM PRODUCTION COORDINATOR Respiratory Rate 16 05/05/2019 11:00 AM PRODUCTION COORDINATOR Oxygen Saturation 97% 05/05/2019 11:00 AM PRODUCTION COORDINATOR Inhaled Oxygen Concentration - - Weight - - Height - - Body Mass Index - - documented in this encounter Discharge Summaries Chata Deleon MD - 05/08/2019 10:45 AM CST Mally Resendiz 1990 05/05/2019 05/08/2019 Mally Resendiz [place] Medication Instructions ANNY:[id number] Printed on:05/11/19 0810 Medication Information ibuprofen (ADVIL/MOTRIN) 800 MG tablet Take 1 tablet (800 mg) by mouth every 6 hours as needed for other (cramping) order for DME Equipment being ordered: 1 standard double electric breast pump To be used for:99 Indications: oxyCODONE (ROXICODONE) 5 MG tablet Take 1 tablet (5 mg) by mouth every 6 hours as needed for moderate to severe pain Prenat w/o R-DW-Drkpfhr-FA-DHA (PNV-DHA PO) senna-docusate (SENOKOT-S/PERICOLACE) 8.6-50 MG tablet Take 1 tablet by mouth 2 times daily as needed for constipation Course of Care: Patient had a primary section for breech presentation. She had declined version. Endometriosis noted during procedure. Left ovary was adherent to the uterus. She had acute blood loss anemia. She did well postoperatively. UCTION COORDINATOR documented in this encounter Discharge Instructions Discharge InstructionsLaura Vaughn RN - 05/08/2019 9:35 AM CST Postop Instructions Activity ?? Do not lift more than 10 pounds for 6 weeks after surgery. Ask family and friends for help when you need it. ?? No driving until you have stopped taking your pain medications (usually two weeks after surgery). ?? No heavy exercise or activity for 6 weeks. Don't do anything that will put a strain on your surgery site. ?? Don't strain when using the toilet. Your care team may prescribe a stool softener if you have problems with your bowel movements. To care for your incision: ?? Keep the incision clean and dry. ?? Do not soak your incision in water. No swimming or hot tubs until it has fully healed. You may soak in the bathtub if the water level is below your incision. ?? Do not use peroxide, gel, cream, lotion, or ointment on your incision. ?? Adjust your clothes to avoid pressure on your surgery site (check the elastic in your underwear for example). You may see a small amount of clear or pink drainage and this is normal. Check with your health care provider: ?? If the drainage increases or has an odor. ?? If the incision reddens, you have swelling, or develop a rash. ?? If you have increased pain and the medicine we prescribed doesn't help. ?? If you have a fever above 100.4 F (38 C) with or without chills when placing thermometer under your tongue. The area around your incision (surgery wound), will feel numb. This is normal. The numbness should go away in less than a year. Keep your hands clean: Always wash your hands before touching your incision (surgery wound). This helps reduce your risk ofinfection. If your hands aren't dirty, you may use an alcohol hand-rub to clean your hands. Keep your nails clean and short. Call your healthcare provider if you have any of these symptoms: ?? You soak a sanitary pad with blood within 1 hour, or you see blood clots larger than a golf ball. ?? Bleeding that lasts more than 6 weeks. ?? Vaginal discharge that smells bad. ?? Severe pain, cramping or tenderness in your lower belly area. ?? A need to urinate more frequently (use the toilet more often), more urgently (use the toilet veryquickly), or it richardson when you urinate. ?? Nausea and vomiting. ?? Redness, swelling or pain around a vein in your leg. ?? Problems or a red or painful area on your breast. ?? Chest pain and cough or are gasping for air. ?? Problems with coping with sadness, anxiety or depression. If you have concerns about hurting yourself or the baby, call your provider immediately. ?? You have questions or concerns after you return home. UCTION COORDINATOR documented in this encounter Medications at Time of Discharge Medication Sig Dispensed Refills Start Date End Date ibuprofen Take 1 tablet (800 mg) by 20 tablet 0 05/07/2019 (ADVIL/MOTRIN) 800 MG mouth every 6 hours as tabletIndications: needed for other delivery (cramping) delivered order for Equipment being ordered: 1 standard [employer] electric breast pump 1 Device 0 04/14/2019 DMEIndications: To be used for:99 Lactating mother Indications: Infant oxyCODONE (ROXICODONE) Take 1 tablet (5 mg) by 30 tablet 0 05/07/2019 5 MG mouth every 6 hours as tabletIndications: needed for moderate to delivery severe pain delivered Prenat w/o 0 W-HV-Kydsgjq-FA-DHA (PNV-DHA PO) senna-docusate Take 1 tablet by mouth 2 14 tablet 0 020 (SENOKOT-S/PERICOLACE) times daily as needed for 8.6-50 MG constipation tabletIndications: delivery delivered documented as of this encounter Progress Li Garcia APRN CNM - 05/08/2019 10:10 AM CST CNM Courtesy Round PPD#3, is happy to go home today. Feels well, up ambulating in the room. Tylenol and Ibuprofen sufficient for pain control. is going well. Plans to F/U in 6 weeks with CNM service. Encouraged to call with any questions or concerns before then. Li Pritchard APRN, CNM Hanh Montesinos MD - 05/08/2019 8:05 AM CST S: Pt doing well. Infant is being Breastfed. Pain is well controlled. O: BP 119/82 (BP Location: Left arm) Pulse 78 Temp 98.5 ??F (36.9 ??C) (Oral) Resp 16 LMP 08/04/2018 SpO2 93% Unknown ABD: Uterine fundus is firm, non-tender and at the level of the umbilicus INC: clean/dry/intact Hemoglobin Date Value Ref Range Status 05/07/2019 9.3 (L) 11.7 - 15.7 g/dL Final Lab Results Component Value Date RH Pos 05/04/2019 A: Post-op Day #3 s/p C/Section P: Continue Post Op Cares Home today Chata Huang MD - 05/07/2019 7:38 AM CST Mally Martín May 07, 2019 S: pt is doing well. Tolerating po intake and pain is well controlled. Ambulating. Decreasing lochia. Breast/Bottle feeding. O:BP 128/76 Pulse 78 Temp 98.2 ??F (36.8 ??C) (Oral) Resp 16 LMP 08/04/2018 SpO2 93% Unknown Recent Labs Lab 05/06/19 0942 05/05/19 1717 05/05/19 1115 05/05/19 0726 05/04/19 1520 HGB 10.0* 10.9* 11.0* 12.0 12.0 Abdomen: soft, non distended, fundus firm below the umbilicus. Incision is C/D/I Ext: non tender, no edema or erythema A/P: s/p LTCS POD #2, breech, had pp hemorrhage Doing well Continue care Discharge planning for tomorrow Chata Monzon MD UCTION COORDINATOR Chata Deleon MD - 05/06/2019 6:29 AM CST Mally Resendiz May 06, 2019 S: pt is doing well. Tolerating po intake and pain is well controlled. Ambulating. O:BP 120/78 Pulse 78 Temp 99.3 ??F (37.4 ??C) (Oral) Resp 16 LMP 08/04/2018 SpO2 93% Unknown Recent Labs Lab 05/05/19 1717 05/05/19 1115 05/05/19 0726 05/04/19 1520 HGB 10.9* 11.0* 12.0 12.0 Abdomen: soft, non distended, fundus firm below the umbilicus. Incision is C/D/I Ext: non tender, no edema or erythema A/P: s/p LTCS POD #1, endometriosis diagnosed at the time of section Doing well Remove bandage once wet from shower Chata Monzon MD UCTION COORDINATOR Lisa Bowens APRN CNM - 05/05/2019 10:45 AM CST assist for breech presentation. CNM courtesy rounds while she is admitted under MD management. Lisa Bowens APRN, HARI UCTION COORDINATOR documented in this encounter Miscellaneous Notes Plan of Care - Laura Vaughn, ASHTYN - 05/08/2019 9:29 AM CST VSS Pt using Ibuprofen and tylenol for pain control. Up independently in the room. Pt c/o having full feeling breasts and feels somewhat painful. Temperature this morning 100.3. saw patient and patient did some manual expression. Pt states that expression helped with the pain. Breast fed infant with nipple velasco and baby latched well. Discharging to home with pain medications. Dischargingwith and infant. UCTION COORDINATOR Note - Rylee Buckner RN - 05/08/2019 8:58 AM CST Routine and discharge visit Mally, FOB, and baby girl. Primary RN requested LC to help Mally out this morning with engorgement. Mally's milk came in last night and was having a hard time latching. educated/demonstrated with Mally how to hand express and we collected EBM with pumping equipment. Expressed/collected over 8ml. After hand expression, able to latch well and nursed with nutritive suck pattern, audible swallowing. Mally using a shield for smooth nipples. Encouraged follow-up for assitance with weaning from shield. Reviewed positions, latch, lip placement, pinching of nipple, colostrum, milk coming in, pumping, plugged milk ducts, mastitis, safe sleep, and safety of baby. Recommend unlimited, frequent breast feedings: At least 8 - 12 times every 24 hours. Avoid pacifiersand supplementation with formula unless medically indicated. Encouraged use of feeding log and to record feedings, and void/stool patterns. Reviewed section in [facility] patient education booklet. Mally has a pump for home use. Follow up with [employer] [employer], encouraged follow up. Reviewed outpatient resources. Appreciative of visit. Bess Buckner RN, Educator UCTION COORDINATOR Plan of Care - Jazmin Frances RN - 05/08/2019 7:43 AM CST VSS on RA. Fundus firm, midline U/1. Scant lochia rubra. Incision WDL. Voiding adequately. Up independently. Denied pain during the night. well using shield. Bonding well w/. Independent w/ cares. Spouse at bedside and supportive. Nursing to continue to monitor. UCTION COORDINATOR Plan of Care - Uma Lawler RN - 05/07/2019 9:57 PM CST Vital signs are stable. Pt using Ibuprofen and tylenol for pain control. Also using abdominal binder. Up independently in the room. on demand, latching well with a nipple shield. Will continue to monitor UCTION COORDINATOR Plan of Care - Laura Vaughn RN - 05/07/2019 1:50 PM CST VSS Pt using Ibuprofen and tylenol for pain control. Also using abdominal binder. Up independently in the room. infant on demand, latching well with a nipple shield. Will continue to monitor. UCTION COORDINATOR Plan of Care - Deanna Vines RN - 05/07/2019 4:58 AM CST Data: Vital signs within normal limits. checks within normal limits - see flow record. Patient eating and drinking normally. Patient able to empty bladder independently and is up ambulating.No apparent signs of infection. Incision healing well. Patient performing self cares and is able to care for infant. Action: Patient medicated during the shift for pain. See MAR. Patient reassessed within 1 hour aftereach medication and pain was improved - patient stated she was comfortable. Patient education done. See flow record. Response: Positive attachment behaviors observed with infant. Support persons is present. Plan: Anticipate discharge on 05/08. UCTION COORDINATOR Plan of Care - Yessenia Rose RN - 05/06/2019 9:48 PM CST Vital signs stable. Voiding without difficulty. Lung sounds clear and equal. Using tylenol/ibuprofenfor pain management. Up ambulating free of dizziness. Working on every 2-3 hours usinga nipple shield. Encouraged to call with questions/concerns. Will continue to monitor. UCTION COORDINATOR Plan of Care - Pat Riley RN - 05/06/2019 10:42 AM CST Pt's pain controlled with Ibuprofen and Tylenol. Dressing removed after showering- liquid bandage intact. Abdominal binder placed on pt. Up and about in room. Encouraged to take at least four walks in the hallways daily.Will continue to monitor. UCTION COORDINATOR Plan of Care - Deanna Vines RN - 05/06/2019 5:42 AM CST Data: Vital signs within normal limits. checks within normal limits - see flow record. Patient eating and drinking normally. Patient's zheng patent, good urine output and is able to ambulate. No apparent signs of infection.UTV Incision, dressing CDI. Patient performing self cares and is able to care for . Action: Patient medicated during the shift for pain. See MAR. Patient reassessed within 1 hour aftereach medication and pain was improved - patient stated she was comfortable. Patient education done. See flow record. Response: Positive attachment behaviors observed with . Support persons is present. Plan: Anticipate discharge on 05/08. UCTION COORDINATOR Plan of Care - Yessenia Rose RN - 05/05/2019 10:41 PM CST Vital signs stable. assessment WDL. Incision CDI. Pain controlled with Tylenol and Ibuprofen. Patient ambulating with SBA to the bathroom. Ngozi care/zheng care performed in bed. Patient reports passing gas. Tolerating crackers. IVF infusing. Zheng is patent with adequate urine output. Breast feeding on cue with assist. Patient and bonding well. Will continue with current plan of care. UCTION COORDINATOR Note - Denisha Owen RN - 05/05/2019 4:31 PM PRODUCTION COORDINATOR Initial visit with LISE Bal and baby. Baby latched on well with shield on the right breast. Nutritive suckling pattern noted. general information reviewed. Advised to breastfeed exclusively, on demand, avoid pacifiers, bottles and formula unless medically indicated. Encouraged rooming in, skin to skin, feeding on demand 8-12x/day or sooner if baby cues. Explained benefits of holding and skin to skin. Encouraged lots of skin to skin. Instructed on hand expression. Questions answered regarding pumping and physiology of milk supply and production. Has a breast ump for home and plans to follow up with LC at [facility] to design a plan to discontinue the nipple shield. Continues to nurse well per mom. No further questions at this time. Will follow as needed. Denisha CORBIN, RN, PHN, RNC-MNN, IBCLC UCTION COORDINATOR Plan of Care - Pat Riley RN - 05/05/2019 2:23 PM CST Pt's pain controlled with Duramorph/Dilaudid/Ibuprofen/Tylenol. VSS. IV/Zheng patent. Moves well in bed. Perineal care done. Will continue to monitor. UCTION COORDINATOR Plan of Care - Pat Riley RN - 05/05/2019 12:30 PM CST Pt. admitted from L&D PACU via bed. Pt. arrived with baby and was accompanied by and arrived with personal belongings. Report was taken from Lucille Bolivar RN in L&D. VSS. Fundus is firm and midline. Vaginal bleeding is scant. Zheng patent. IV infusing in LFA. Pt. oriented to the room and call light system. UCTION COORDINATOR Op Note - Chata Deleon MD - 05/05/2019 9:04 AM CST Section Operative Note Mally Resendiz May 05, 2019 Pre-operative Diagnosis: at 39w1d Breech presentation Post-operative Diagnosis: Same Endometriosis, left ovary was adherent to the uterine wall. Procedure done: Primary LTCS Surgeon: Chata Monzon MD Assist: Arti Bowens, present for improved visualization Anesthesia: combined spinal-epidural Complications: None QBL: 1380 ml IV fluids- see anesthesia record Drains- zheng catheter Findings: Infant female APGARS- 8/9 3-V cord Normal tubes and ovaries. Left ovary adherent to posterior uterine wall. Endometriosis noted on the posterior wall. Indications: Patient is a 28 year old , who was admitted at 39w1d weeks for breech presentation. r/b/a were discussed and all questions were answered. She declined ECV. Procedure Details: IV antibiotics given per protocol. SCD placed for VTE prophylaxis. Spinal anesthesia administered, checked and found to be adequate. Zheng catheter was in place. The patient was draped and prepped in the usual sterile manner in the dorsal postion with a left tilt. A Pfannenstiel incision was made and carried down through the subcutaneous tissue to the fascia. Fascial incision was made and extended transversely.The fascia was from the underlying rectus tissue superiorly and inferiorly. The peritoneum was identified and entered bluntly. Peritoneal incision was extended with careful visualization of bladder. The bladder blade was inserted. The utero-vesical peritoneal reflection was opened sharply and extended latteraly. The bladder bladewas then replaced. Transverse incision made in the lower uterine segment above the bladder. Infant was delivered from the breech presentation. Nose and mouth suctioned at the abdominal wall. Rest of the infant delivered without complications. After the umbilical cord was clamped and cut cord blood sampled. The placenta was allowed to separate and expelled spontaneously with membranes. The uterus was well retracted and exteriorized. At that time there was some possible endometriosis noted on the posterior uterus. She had an adherent ovary to the uterine wall. The uterine incision was closed with running locked sutures of 0 Vicryl. Second layer of sutures used to imbricate the initial layer. Due to small extension on left side, and scar tissue, the uterine was suture ligated on the left for hemostasis. She had a subserosal hematoma on the posterior uterus, where ovary was removed with cautery. This was watched to make sure non-ex panding. Hemostasis was observed. Uterus returned to the abdomen. Copious uctioning of the peritoneal cavity was carried out. Para-colic gutters were cleared of all clots and debris. Hysterotomy once again checked to ascertain hemostasis. The fascia was closed with running sutures of 0 Vicryl. Subcutaneous tissue re approximated with 3-0 vicryl The skin was closed in a subcuticular fashion with 4-0 monocryl and dermabond. Instrument, sponge, and needle counts were correct x 3. She was given one dose of TXA in the operating room. Patient and the baby were returned to the recovery room in a stable condition. UCTION COORDINATOR Plan of Care - Lucille Mathias RN - 05/05/2019 8:35 AM CST Mally is a 28yo 39w1d presents to [facility] for a primary scheduled section for breech presentation. +FM. Denies cxns, bleeding or LOF. Keanu is at bedside and supportive. Expecting a girl, plans to breastfeed, windows application developer peds. Hx of heart murmur, congenital cleft leaflet of mitral valve, mitral valve regurgitation. 0743-Dr Monzon at bedside and did ultrasound to confirm breech presentation. Notified of elevated BPs, ordered CMP. 0902-Pt arrived in L/D OR 1 ambulatory. IV patent. 0928-Delivery of girl 1026-Pt transferred to PACU 1 via bed. IV and Zheng patent. Denies pain or nausea. 1105-Confirmed with Dr Monzon, no ketorlac due to bleeding during surgery r/t endometriosis and left ovary adhered to posterior uterine wall. Data: Mally Resendiz transferred to [facility] via bed at 1225. Zheng and IV patent. Baby transferred via parent's arms. Action: Receiving unit notified of transfer: Yes. Patient and family notified of room change. Reportgiven to ASHTYN Stewart at bedside. Belongings sent to receiving unit. Accompanied by Registered Nurse. Oriented patient to surroundings. Call light within reach. ID bands double-checked with receiving RN. Response: Patient tolerated transfer and is stable. UCTION COORDINATOR documented in this encounter Plan of Treatment Not on filedocumented as of this encounter Procedures Procedure Name Priority Date/Time Associated Comments Diagnosis COMPREHENSIVE STAT 05/07/2019 8:02 AM Breech Results for this METABOLIC PANEL PRODUCTION COORDINATOR presentation, procedure a re in single or the results unspecified fetus section. CBC WITH PLATELETS STAT 05/07/2019 8:02 AM Breech Res ults for this PRODUCTION COORDINATOR presentation, procedure are in single or the results unspecified fetus section. HEMOGLOBIN Routine 05/06/2019 9:42 AM Breech Results f or this PRODUCTION COORDINATOR presentation, procedure are in single or the results unspecified fetus section. CBC WITH PLATELETS Timed 05/05/2019 5:17 PM Breech Res ults for this PRODUCTION COORDINATOR presentation, procedure are in single or the results unspecified fetus section. CBC WITH PLATELETS STAT 05/05/2019 11:15 Breech Resul ts for this AM PRODUCTION COORDINATOR presentation, procedure are in single or the results unspecified fetus section. SECTION Routine 05/05/2019 7:49 AM Breech PRODUCTION COORDINATOR presentation, single or unspecified fetus TREPONEMA ABS W REFLEX STAT 05/05/2019 7:26 AM Breech Results for this TO RPR AND TITER PRODUCTION COORDINATOR presentation, procedure are in single or the results unspecified fetus section. COMPREHENSIVE Routine 05/05/2019 7:26 AM Breech Results for this METABOLIC PANEL PRODUCTION COORDINATOR presentation, procedure a re in single or the results unspecified fetus section. CBC WITH PLATELETS STAT 05/05/2019 7:26 AM Breech Res ults for this PRODUCTION COORDINATOR presentation, procedure are in single or the results unspecified fetus section. documented in this encounter Results (ABNORMAL) Comprehensive metabolic panel (05/07/2019 8:02 AM PRODUCTION COORDINATOR) P athologist Signature Sodium 140 133 - 144 05/07/2019 [facility] mmol/L 8:30 AM [facility] Potassium 3.9 3.4 - 5.3 05/07/2019 [facility] mmol/L 8:30 AM [facility] Chloride 111 (H) 94 - 109 05/07/2019 [facility] mmol/L 8:30 AM [facility] Carbon Dioxide 25 20 - 32 05/07/2019 [facility] mmol/L 8:35 AM [facility] Anion Gap 4 3 - 14 05/07/2019 [facility] mmol/L 8:35 AM [facility] Glucose 79 70 - 99 05/07/2019 [facility] mg/dL 8:35 AM [facility] Urea Nitrogen 8 7 - 30 05/07/2019 [facility] mg/dL 8:35 AM [facility] Creatinine 0.61 0.52 - 05/07/2019 [facility] 1.04 mg/dL 8:35 AM [facility] GFR Estimate >90 >60 05/07/2019 [facility] mL/min/{1. 8:35 AM [facility] 73_m2} [facility] Comment: Non GFR Calc Starting 03/10/2018, serum creatinine ba sed estimated GFR (eGFR) will be calculated using the Chronic Kidney Dise [facility] Epidemiology Collaboration (CKD-EPI) equation. GFR Estimate If >90 >60 mL/min/{1.73_m2} 05/07/2019 8: 35 AM [facility] Comment: GFR Calc Starting 03/10/2018, serum creatinine ba sed estimated GFR (eGFR) will be calculated using the Chronic Kidney Dise [facility] Epidemiology Collaboration (CKD-EPI) equation. Calcium 8.3 (L) 8.5 - 10.1 05/07/2019 8:35 AM [facility] mg/dL [facility] Bilirubin Total 0.2 0.2 - 1.3 mg/dL 05/07/2019 8:38 AM [facility] Albumin 2.2 (L) 3.4 - 5.0 g/dL 05/07/2019 8:38 AM [facility] Protein Total 6.0 (L) 6.8 - 8.8 g/dL 05/07/2019 8:38 AM [facility] Alkaline Phosphatase 90 40 - 150 U/L 05/07/2019 8:38 AM [facility] ALT 13 0 - 50 U/L 05/07/2019 8:38 AM [facility] AST 15 0 - 45 U/L 05/07/2019 8:38 AM [facility] Specimen Anatomical Collection Method Collection Time Receive d Time (Source) Location / / Volume Laterality Blood specimen 05/07/2019 8:02 AM 020 8:03 (specimen) PRODUCTION COORDINATOR AM [facility] Chata Monzon MD LAB - BLOOD ORDERABL ES Performing Organization Address City/State/ZIP Code Phon e Number M [facility] [address] [address] [facility] [address] [place] [address], [place] [phone] (ABNORMAL) CBC with platelets (05/07/2019 8:02 AM PRODUCTION COORDINATOR) Analysis Performed At Patho logist Time Signature WBC 11.6 (H) 4.0 - 11.0 05/07/2019 [facility] 10e9/L 8:28 AM [facility] RBC Count 3.13 (L) 3.8 - 5.2 05/07/2019 [facility] 10e12/L 8:28 AM [facility] Hemoglobin 9.3 (L) 11.7 - 05/07/2019 [facility] 15.7 g/dL 8:28 AM [facility] Hematocrit 27.9 (L) 35.0 - 05/07/2019 [facility] 47.0 % 8:28 AM [facility] MCV 89 78 - 100 05/07/2019 [facility] fl 8:28 AM [facility] MCH 29.7 26.5 - 05/07/2019 [facility] 33.0 pg 8:28 AM [facility] MCHC 33.3 31.5 - 05/07/2019 [facility] 36.5 g/dL 8:28 AM [facility] RDW 13.7 10.0 - 05/07/2019 [facility] 15.0 % 8:28 AM [facility] Platelet Count 158 150 - 450 05/07/2019 [facility] 10e9/L 8:28 AM [facility] Specimen Anatomical Collection Method Collection Time Receive d Time (Source) Location / / Volume Laterality Blood specimen 05/07/2019 8:02 AM 020 8:03 (specimen) PRODUCTION COORDINATOR AM PRODUCTION COORDINATOR Chata Monzon MD LAB - BLOOD ORDERABL ES Performing Organization Address City/State/ZIP Code Phon e Number M [facility] [address] [place] [address] [facility] [address] [place] [address], [place] [phone] (ABNORMAL) Hemoglobin (05/06/2019 9:42 AM PRODUCTION COORDINATOR) P athologist Signature Hemoglobin 10.0 (L) 11.7 - 15.7 05/06/2019 [facility] g/dL 9:56 AM [facility] Specimen Anatomical Collection Method Collection Time Receive d Time (Source) Location / / Volume Laterality Blood specimen 05/06/2019 9:42 AM 020 9:43 (specimen) PRODUCTION COORDINATOR AM PRODUCTION COORDINATOR Chata Monzon MD LAB - BLOOD ORDERABL ES Performing Organization Address City/State/ZIP Code Phon e Number M [facility] [address] [address] [address] [facility] [address] [place] [address], [place] [phone] (ABNORMAL) CBC with platelets (05/05/2019 5:17 PM PRODUCTION COORDINATOR) Analysis Performed At Patho logist Time Signature WBC 14.1 (H) 4.0 - 11.0 05/05/2019 [facility] 10e9/L 5:27 PM [facility] RBC Count 3.67 (L) 3.8 - 5.2 05/05/2019 [facility] 10e12/L 5:27 PM [facility] Hemoglobin 10.9 (L) 11.7 - 05/05/2019 [facility] 15.7 g/dL 5:27 PM [facility] Hematocrit 32.2 (L) 35.0 - 05/05/2019 [facility] 47.0 % 5:27 PM [facility] MCV 88 78 - 100 05/05/2019 [facility] fl 5:27 PM [facility] MCH 29.7 26.5 - 05/05/2019 [facility] 33.0 pg 5:27 PM [facility] MCHC 33.9 31.5 - 05/05/2019 [facility] 36.5 g/dL 5:27 PM [facility] RDW 13.0 10.0 - 05/05/2019 [facility] 15.0 % 5:27 PM [facility] Platelet Count 165 150 - 450 05/05/2019 [facility] 10e9/L 5:27 PM [facility] Specimen Anatomical Collection Method Collection Time Receive d Time (Source) Location / / Volume Laterality Blood specimen 05/05/2019 5:17 PM 020 5:18 (specimen) PRODUCTION COORDINATOR PM PRODUCTION COORDINATOR Chata Monzon MD LAB - BLOOD ORDERABL ES Performing Organization Address City/State/ZIP Code Phon e Number M [facility] [address] [place] [address] [facility] [address] [place] [address], [place] [phone] (ABNORMAL) CBC with platelets (05/05/2019 11:15 AM PRODUCTION COORDINATOR) Analysis Performed At Patho logist Time Signature WBC 9.5 4.0 - 11.0 05/05/2019 [facility] 10e9/L 11:22 AM [facility] RBC Count 3.66 (L) 3.8 - 5.2 05/05/2019 [facility] 10e12/L 11:22 AM [facility] Hemoglobin 11.0 (L) 11.7 - 05/05/2019 [facility] 15.7 g/dL 11:22 AM [facility] Hematocrit 32.5 (L) 35.0 - 05/05/2019 [facility] 47.0 % 11:22 AM [facility] MCV 89 78 - 100 05/05/2019 [facility] fl 11:22 AM [facility] MCH 30.1 26.5 - 05/05/2019 [facility] 33.0 pg 11:22 AM [facility] MCHC 33.8 31.5 - 05/05/2019 [facility] 36.5 g/dL 11:22 AM [facility] RDW 13.3 10.0 - 05/05/2019 [facility] 15.0 % 11:22 AM [facility] Platelet Count 167 150 - 450 05/05/2019 [facility] 10e9/L 11:22 AM [facility] Specimen Anatomical Collection Method Collection Time Receive d Time (Source) Location / / Volume Laterality Blood specimen 05/05/2019 11:15 0 (specimen) AM PRODUCTION COORDINATOR 11:16 AM PRODUCTION COORDINATOR Chata Monzon MD LAB - BLOOD ORDERABL ES Performing Organization Address City/State/ZIP Code Phon e Number M [facility] [address] [place] [address] [phone] [facility] [address] [place] [address], [place] [phone] (ABNORMAL) Comprehensive metabolic panel (05/05/2019 7:26 AM [facility]) athologist Signature Sodium 140 133 - 144 05/05/2019 [facility] mmol/L 8:02 AM [facility] Potassium 3.7 3.4 - 5.3 05/05/2019 [facility] mmol/L 8:02 AM [facility] Chloride 112 (H) 94 - 109 05/05/2019 [facility] mmol/L 8:02 AM [facility] Carbon Dioxide 23 20 - 32 05/05/2019 [facility] mmol/L 8:13 AM [facility] Anion Gap 5 3 - 14 05/05/2019 [facility] mmol/L 8:13 AM [facility] Glucose 72 70 - 99 05/05/2019 [facility] mg/dL 8:13 AM [facility] Urea Nitrogen 14 7 - 30 05/05/2019 [facility] mg/dL 8:13 AM [facility] Creatinine 0.63 0.52 - 05/05/2019 [facility] 1.04 mg/dL 8:13 AM [facility] GFR Estimate >90 >60 05/05/2019 [facility] mL/min/{1. 8:13 AM [facility] 73_m2} [facility] Comment: Non GFR Calc Starting 03/10/2018, serum creatinine ba sed estimated GFR (eGFR) will be calculated using the Chronic Kidney Dise [facility] Epidemiology Collaboration (CKD-EPI) equation. GFR Estimate If >90 >60 mL/min/{1.73_m2} 05/05/2019 8: 13 AM [facility] Comment: GFR Calc Starting 03/10/2018, serum creatinine ba sed estimated GFR (eGFR) will be calculated using the Chronic Kidney Dise [facility] Epidemiology Collaboration (CKD-EPI) equation. Calcium 8.4 (L) 8.5 - 10.1 05/05/2019 8:13 AM [facility] mg/dL [facility] Bilirubin Total 0.2 0.2 - 1.3 mg/dL 05/05/2019 8:15 AM [facility] Albumin 2.7 (L) 3.4 - 5.0 g/dL 05/05/2019 8:15 AM [facility] Protein Total 6.6 (L) 6.8 - 8.8 g/dL 05/05/2019 8:15 AM [facility] Alkaline Phosphatase 121 40 - 150 U/L 05/05/2019 8:15 AM [facility] ALT 18 0 - 50 U/L 05/05/2019 8:15 AM [facility] AST 19 0 - 45 U/L 05/05/2019 8:15 AM [facility] Specimen Anatomical Collection Method Collection Time Receive d Time (Source) Location / / Volume Laterality 05/05/2019 7:26 AM 0 7:27 PRODUCTION COORDINATOR AM PRODUCTION COORDINATOR Chata Monzon MD LAB - BLOOD ORDERABL ES Performing Organization Address City/State/ZIP Code Phon e Number M [facility] [address] [address] [phone] [facility] [address] [place] [address] [address], U [phone] CBC with platelets (05/05/2019 7:26 AM PRODUCTION COORDINATOR) P athologist Signature WBC 6.6 4.0 - 11.0 05/05/2019 [facility] 10e9/L 7:35 AM [facility] RBC Count 4.05 3.8 - 5.2 05/05/2019 [facility] 10e12/L 7:35 AM [facility] Hemoglobin 12.0 11.7 - 05/05/2019 [facility] 15.7 g/dL 7:35 AM [facility] Hematocrit 35.6 35.0 - 05/05/2019 [facility] 47.0 % 7:35 AM [facility] MCV 88 78 - 100 05/05/2019 [facility] fl 7:35 AM [facility] MCH 29.6 26.5 - 05/05/2019 [facility] 33.0 pg 7:35 AM [facility] MCHC 33.7 31.5 - 05/05/2019 [facility] 36.5 g/dL 7:35 AM [facility] RDW 13.1 10.0 - 05/05/2019 [facility] 15.0 % 7:35 AM [facility] Platelet Count 167 150 - 450 05/05/2019 [facility] 10e9/L 7:35 AM [facility] Specimen Anatomical Collection Method Collection Time Receive d Time (Source) Location / / Volume Laterality Blood specimen 05/05/2019 7:26 AM 020 7:27 (specimen) PRODUCTION COORDINATOR AM PRODUCTION COORDINATOR Chata Monzon MD LAB - BLOOD ORDERABL ES Performing Organization Address City/[facility]/ZIP Code Phon e Number [facility] [address] [address] [phone] [facility] [address] [address] [address], [facility] [phone] Treponema Abs w Reflex to RPR and Titer (05/05/2019 7:26 AM PRODUCTION COORDINATOR) [facility] Method Time Signature Treponema Nonreactive NR^Nonrea 05/06/2019 INFECTIOUS Antibodies ctive 10:00 AM PRODUCTION COORDINATOR [facility] Specimen Anatomical Collection Method Collection Time Receive d Time (Source) Location / / Volume Laterality Blood specimen 05/05/2019 7:26 AM 020 7:27 (specimen) PRODUCTION COORDINATOR AM PRODUCTION COORDINATOR Chata Monzon MD LAB - BLOOD ORDERABL ES Performing Organization Address City/State/ZIP Code Phon e Number [facility] [address] [place] [address] [facility], [facility] [address] [place] [address], [place] [facility] documented in this encounter Visit Diagnoses Diagnosis Breech presentation, single or unspecifi ed fetus - Primary delivery delivered delivery, without mention of in dication, delivered, with or without mention of antepartum condition Breech presentation, single or unspecifi ed fetus documented in this encounter Admitting Diagnoses Diagnosis Breech presentation, single or unspecifi ed fetus documented in this encounter Administered Medications Inactive Administered Medications - up to 3 most recent administrations Medication Order MAR Action Action Date Dose Rate Site acetaminophen (TYLENOL) tablet 975 Given 05/08/2019 7:49 AM PRODUCTION COORDINATOR 975 mg mg 975 mg, Oral, EVERY 8 HOURS PRN, mild pain, fever, Starting on Fri05/05/19 at 1700, Maximum acetaminophen dose from all sources = 75 mg/kg/day not to exceed 4 grams/day., Pre-procedure Given 05/07/2019 5:30 PM PRODUCTION COORDINATOR 975 mg Given 05/07/2019 8:32 AM PRODUCTION COORDINATOR 975 mg bisacodyl (DULCOLAX) Suppository 10 mg 10 mg, Rectal, DAILY PRN, constipation, Starting on Fri05/07/19 at 0000, Start POD 2 Hold for loose stools., Post-procedure dextrose 5% in lactated ringers infusion New Bag 05/05/2019 6:57 PM PRODUCTION COORDINATOR 125 mL/hr at 125 mL/hr, Intravenous, CONTINUOUS, Subsequent IV at nurse's discretion. DC IV when tolerating fluids or at nurse's discretion & saline lock., Post-procedure, Starting on Fri05/05/19 at 1330, Until 05/08/19 at 1248 hydrocortisone 2.5 % cream Rectal, 3 TIMES DAILY PRN, hemorrhoids, Starting on Fri05/05/19 at 1321, Apply to hemorrhoids. Send only if nurse requests., Post-proced ure HYDROmorphone (PF) (DILAUDID) injection Given 05/05/2019 12:01 P M PRODUCTION COORDINATOR 0.3 mg 0.3-0.5 mg 0.3-0.5 mg, Intravenous, EVERY 30 MIN PRN, other, for pain control or improvement in physical function. Hold dose for analgesic side effects., Starting on Fri05/05/19 at 1101, Offer at least every 2 hours. Start at the lowest dose. May adjust dose by 0.1 mg every 2 hours as needed. Notify provider to assess for uncontrolled pain or analgesic side effects. Hold while on IV FILLING HAND. For ordered IV doses 0.1-4 mg give IV Push undiluted. Administer each 2mg over 2-5 minutes., Post-procedure ibuprofen (ADVIL/MOTRIN) tablet 800 mg Given 05/08/2019 7:49 AM PRODUCTION COORDINATOR 800 mg 800 mg, Oral, EVERY 6 HOURS PRN, other, cramping, Starting on Fri05/05/19 at 1321, Start 6 hours after ketorolac is completed (if ordered). Max dose: 3200 mg/day, Post-procedure Given 05/07/2019 9:18 PM PRODUCTION COORDINATOR 800 mg Given 05/07/2019 3:04 PM PRODUCTION COORDINATOR 800 mg lactated ringers BOLUS 1,000 mL Intravenous, 1,000 mL, ONCE PRN, post hemorrhag e (PPH), Starting on Fri05/05/19 at 1321, For 1 dose, Rate: 500-1 000 mL/hr. Start IF HEMORRHAGE, Post-procedure lactated ringers BOLUS 250 mL Intravenous, 250 mL, ONCE PRN, other, hy potension, Starting on Fri05/05/19 at 0902, For 1 dose, If no improvement in Blood Pressure with r epositioning(if ordered), administer IV bolus as ordered. Treat for Systolic Blo od Pressure less than 100 mmHg or drop in Blood Pressure by 20%. I f unresponsive to Fluid Bolus, administer ePHEDrine OR phenylephrine (ALHAJI-SYNEPHRINE) [if ordere d] or page Anesthesia. lanolin ointment Topical, EVERY 1 HOUR PRN, dry skin, soreness, Startin g on Fri05/05/19 at 1321, Apply to sore nipples after feedings, Post-procedure lidocaine (LMX4) cream Topical, EVERY 1 HOUR PRN, pain, with VA D insertion or accessing implanted port., Starting on Fri05/05/19 at 0902, Do NOT give if patient has a history of allergy to any local anesthetic or any teresa product. Apply 30 minutes prior to VAD insertion or port access. MAX Dose: 2.5 g (?? of 5 g t ube) lidocaine (LMX4) cream Topical, EVERY 1 HOUR PRN, pain, with VA D insertion or accessing implanted port., Starting on Fri05/05/19 at 1321, Do NOT give if patient has a history of allergy to any local anesthetic or any teresa prod uct. Apply at least 30 minutes prior to VAD insertion or port access. In divided dos es as needed for size of site for insertion with MAX Dose: 2.5 g (?? of 5 g tube), Post-procedure lidocaine 1 % 0.1-1 mL 0.1-1 mL, Other, EVERY 1 HOUR PRN, mild pain with VAD insertion., Starting on Fri05/05/19 at 1321, Do NOT give if patient has a history of allergy to any local anesthetic or any teresa product. MAX dose 1 mL subcu taneous OR intradermal in divided doses as needed for VAD insertion., Post-proce dure lidocaine 1 % 1 mL 1 mL, Other, EVERY 1 HOUR PRN, mild pain with VAD insertion or accessing implanted port, Starting on Fri05/05/19 at 0902, Do NOT give if patient has a history of allergy to any local anesthetic or any teresa product. MAX dose 1 mL subcutaneous OR intradermal in divided doses. medication instruction CONTINUOUS PRN, Starting on Fri05/05/19 at 0902, Until 05/08/19 at 1248, -All intrathecal medications must be preserva tive free -All orders must be compounded in preservative free Normal Saline -Absolut patricia no anticoagulants, thrombolytics, or antiplatelet medications or other opioid analgesics or other sedatives without prior notification of Anesthesia Service -All patients who receive intrathecal medications must have IV access. misoprostol (CYTOTEC) tablet 800 mcg 800 mcg, Rectal, ONCE PRN, he morrhage (PPH), Starting on Fri05/05/19 at 1321, For 1 dose, Notify provider IF uterine atony and clarify with provider medication preference., Post-procedure nalbuphine (NUBAIN) injection 2.5-5 mg 2.5-5 mg, Intravenous, EVERY 6 HOURS PRN, other, for p ruritus, Starting on Fri05/05/19 at 0902, Give 2.5 mg initially. If pruritus persists after 30 minutes, may give additional 2.5 mg. If effective, th en repeat effective dose Q6H PRN pruritus. naloxone (NARCAN) injection 0.1-0.4 mg 0.1-0.4 mg, Intravenous, EVERY 2 MIN PRN , opioid reversal, Starting on Fri05/05/19 at 0902, For respiratory rate LESS than or EQUAL to 8. Partial reversal dose: 0.1 mg titrated q 2 minutes for Analgesia Si de Effects Monitoring Sedation Level of 3 (frequently drowsy, arousable, drifts to sleep during conversation).Full reversal dose: 0.4 mg bolus for Analgesia Side Effects Monitori ng Sedation Level of 4 (somnolent, minimal or no response to st imulation). For ordered IV doses 0.1-2mg give IVP. Give each 0.4mg over 15 second s in emergency situations. For non-emergent situations further dilute in 9mL of NS to facilitate t itration of response. naloxone (NARCAN) injection 0.1-0.4 mg 0.1-0.4 mg, Intravenous, EVERY 2 MIN PRN , opioid reversal, Starting on Fri05/05/19 at 1321, For respiratory rate LESS than or EQUAL to 8. Partial reversal dose: 0.1 mg titrated q 2 minutes for Analgesia Si de Effects Monitoring Sedation Level of 3 (frequently drowsy, arousable, drifts to sleep during conversation).Full reversal dose: 0.4 mg bolus for Analgesia Side Effects Monitori ng Sedation Level of 4 (somnolent, minimal or no response to st imulation). For ordered IV doses 0.1-2mg give IVP. Give each 0.4mg over 15 second s in emergency situations. For non-emergent situations further dilute in 9mL of NS to facilitate t itration of response., Post-procedure No MMR Needed - Assessment: Patient does not need MMR vaccine CONTINUOUS PRN, Starting on Fri05/05/19 at 1321, Until 05/08/19 at 1248, Post-procedure NO Rho (D) immune globulin (RhoGam) need ed - mother Rh POSITIVE CONTINUOUS PRN, Starting on Fri05/05/19 at 1321, Until 05/08/19 at 1248, Post-procedure No Tdap Needed - Assessment: Patient julien s not need Tdap vaccine CONTINUOUS PRN, Starting on Fri05/05/19 at 1321, Until 05/08/19 at 1248, Post-procedure ondansetron (ZOFRAN) injection 4 mg 4 mg, Intravenous, EVERY 6 HOURS PRN, nausea, vomiting , Administer over 2-5 Minutes, Starting on Fri05/05/19 at 1321, If nausea no t resolved in 15 minutes, notify provider before proceeding to prochlorperazine (COMPAZINE) [if ordered]. Irritant. For ordered IV doses 0.1-4 mg, give IV Push undiluted over 2-5 minutes., Post-procedure Opioid plan - medication inst ruction CONTINUOUS PRN, Starting on Fri05/05/19 at 0902, Until 05/08/19 at 1248, May give opioids (NOT Sedatives) as ordered by OB provider when patient meets parameters: respirations greater than 14 breaths per m inute, is NOT somnolent, oxygen saturation is greater than 95%, pain inadequate ly controlled with other adjuvant medications. May give other medications per O B provider orders. oxyCODONE (ROXICODONE) tablet 5 mg 5 mg, Oral, EVERY 4 HOURS PRN, moderate to severe pain, Starting on Melvi 05/06/19 at 0807 oxytocin (PITOCIN) 30 Rate/Dose Verify 05/05/2019 4:10 PM 100 mL/hr 100 mL/hr units in 500 mL 0.9% NaCl PRODUCTION COORDINATOR infusion 100 mL/hr, Intravenous, CONTINUOUS, Starting on Fri05/05/19 at 1330, Anesthesia Provider to administer at 340 mL/hr for 30 minutes (or longer per provider discretion) then decrease to 100 mL/hr. Continue until a total of 2 bags administered (1st bag initiated by Anesthesia Provider.) Discontinue IV or saline lock IV per nurse discretion., Post-procedure New Bag 05/05/2019 1:41 PM PRODUCTION COORDINATOR 100 mL/hr 100 mL/hr oxytocin (PITOCIN) 30 Rate/Dose Verify 05/05/2019 12:35 PM 100 mL/hr 100 mL/hr units in 500 mL 0.9% NaCl PRODUCTION COORDINATOR infusion 340 mL/hr, Intravenous, CONTINUOUS PRN, for hemorrhage (PPH) UNTIL bleeding subsided, Starting on Fri05/05/19 at 1101, When bleeding subsides decrease rate to 100 mL/hr. Notify provider immediately when infusion begun. Oxytocin is first line medication for PPH., Post-procedure oxytocin (PITOCIN) injection 10 Units 10 Units, Intramuscular, ONCE PRN, postp artum hemorrhage (PPH). IF no IV access is available., Starting on Fri05/05/19 at 1321, For 1 dos e, Oxytocin is first line medication for PPH., Post-procedure senna-docusate (SENOKOT-S/PERICOLACE) Given 05/07/2019 9:[address] 1 tablet 8.6-50 MG per tablet 1 tablet 1 tablet, Oral, 2 TIMES DAILY PRN, constipation, Starting on Fri05/05/19 at 1321, If no bowel movement in 24 hours, increase to 2 tablets PO. Hold for loose stools. Preferred agent for constipation related to opioids. Hold for loose stools., Post-procedure Given 05/07/2019 7:52 AM PRODUCTION COORDINATOR 1 tablet Given 05/06/2019 7:39 AM PRODUCTION COORDINATOR 1 tablet senna-docusate (SENOKOT-S/PERICOLACE) Given 05/06/2019 7:[address] 2 tablets 8.6-50 MG per tablet 2 tablet 2 tablet, Oral, 2 TIMES DAILY PRN, constipation, Starting on Fri05/05/19 at 1321, Hold for loose stools. Preferred agent for constipation related to opioids. Hold for loose stools., Post-procedure simethicone (MYLICON) chewable tablet 80 mg 80 mg, Oral, 4 TIMES DAILY PRN, other, g as, Starting on Fri05/05/19 at 1321, Chew., Post-procedure sodium phosphate (FLEET ENEMA) 1 enema 1 enema, Rectal, DAILY PRN, constipation , , Starting on Fri05/07/19 at 0000, Use if bisacodyl not effective. Start POD 2. Hold for loose s tools., Post-procedure tranexamic acid (CYKLOKAPRON) bolus 1 g vial attach to NaCl 50 or 100 mL bag ADULT 1 g, Intravenous, Administer over 10 Minutes, EVERY 30 MIN PRN, Post- hemorrhage (PPH), Starting on Fri05/05/19 at 1321, For 2 doses, Provider consultation REQUIRED and MUST be admini stered as soon as the ONSET of bleeding AND within 3 hours of regardless of ca use of the PPH (atony OR laceration). IF bleeding continues, a 2nd dose may be ad ministered after 30 minutes. IF concern for DIC (Disseminated Intravascular Coagulat ion), obtain coagulation studies PRIOR to administration. Mix in 50 mL or 100 mL n ormal saline and infuse. Contraindications include: history of PE (Pulmonary Emboli ), DVT (Deep Vein Thrombosis) and current Subarachnoid hemorrhage and active DIC. Each 1 gram to be infused over 10 minutes., Post-procedure documented in this encounter Active and Recently Administered Medications Times are shown in PRODUCTION COORDINATOR. Continuous Medication Order 05/06/2019 05/07/2019 05/08/2019 dextrose 5% in lactated ringers infusion at 125 mL/hr, Intravenous, CONTINUOUS, S ubsequent IV at nurse's discretion. DC IV when tolerating fluids or at nurse's discretion & saline lock., Post- procedure, Starting Fri05/05/19 at 1330, Until 05/08/19 at 1248 oxytocin (PITOCIN) 30 units in 500 mL 0.9% NaCl infusion 100 mL/hr, Intravenous, at 100 mL/hr, CO NTINUOUS, Starting Fri05/05/19 at 1330, Post-procedure, Anesthesia Provider to administer at 340 mL/hr for 30 minutes (or longer per provider discretion) then dec rease to 100 mL/hr. Continue until a tot al of 2 bags administered (1st bag initiated by Anesthesia Provider.) Discontinue IV or saline lock IV per nurse discretion. PRN Medication Order 05/06/2019 05/07/2019 05/08/2019 acetaminophen (TYLENOL) tablet 975 mg 0110 (Given - Pr ovider: Deanna Vines, ASHTYN)0832 (Given - Provider: Pat Riley RN)1613 (Given - Provider: Yessenia Rose RN)2332 (Given - Provider: Deanna Vines, ASHTYN) 0832 (Given - Provider: Laura Vaughn, ASHTYN)1730 (Given - Provider: Uma Lawler, ASHTYN) 0749 (Given - Provider: Laura Vaughn, ASHTYN) 975 mg, Oral, EVERY 8 HOURS PRN, mild pa in, fever, Starting Fri05/05/19 at 1700, Maximum acetaminophen dose from all sources = 75 mg/kg/day not to exceed 4 grams/day., Pre-procedure bisacodyl (DULCOLAX) Suppository 10 mg 10 mg, Rectal, DAILY PRN, constipation, Starting Fri05/07/19 at 0000, Start POD 2 Hold for loose stools., Post-procedure hydrocortisone 2.5 % cream Rectal, 3 TIMES DAILY PRN, hemorrhoids, Starting Fri05/05/19 at 1321, Apply to hemorrhoids. Send only if nurse requests., Post-procedure HYDROmorphone (PF) (DILAUDID) injection 0.3-0.5 mg 0.3-0.5 mg, Intravenous, EVERY 30 MIN AL N, Starting Fri05/05/19 at 1101, Until 05/08/19 at 1248, other, for pain control or improvement in physical function. Hold dose for analgesic side effects., Po st-procedure, Offer at least every 2 isela rs. Start at the lowest dose. May adjust dose by 0.1 mg every 2 hours as needed. Notify provider to assess for uncontrolled pain or analgesic side effects. Hold w hile on IV FILLING HAND. For ordered IV doses 0.1 -4 mg give IV Push undiluted. Administer each 2mg over 2-5 minutes. ibuprofen (ADVIL/MOTRIN) tablet 800 mg 0156 (Given - P rovider: Deanna Vines, RN)0739 (Given - Provider: Pat Riley, RN)1348 (Given - Provider: Pat Riley, RN)1942 (Given - Provider: Yessenia Rose RN) 0245 (Given - Provider: Deanna Vines, ASHTYN)0832 (Given - Provider: Laura Vaughn, RN)1504 (Given - Provider: Laura Vaughn, RN)2118 (Given - Provider: Uma Lawler RN) 0749 (Given - Provider: Laura Vaughn, ASHTYN) 800 mg, Oral, EVERY 6 HOURS PRN, other, cramping, Starting Fri05/05/19 at 1321, Start 6 hours after ketorolac is completed (if ordered). Max dose: 3200 mg/day, Post-procedure lactated ringers BOLUS 1,000 mL Intravenous, 1,000 mL, ONCE PRN, post pa rtum hemorrhage (PPH), Starting Fri05/05/19 at 1321, For 1 dose, Rate: 500-1000 mL/hr. Start IF HEMORRHAGE, Post-procedure lactated ringers BOLUS 250 mL Intravenous, 250 mL, ONCE PRN, other, hy potension, Starting Fri05/05/19 at 0902, For 1 dose, If no improvement in Blood Pressure with repositioning(if ordered), administer IV bolus as ordered. Treat for Systolic Blood Pressure less than 100 m mHg or drop in Blood Pressure by 20%. If unresponsive to Fluid Bolus, administer ePHEDrine OR phenylephrine (ALHAJI- SYNEPHRINE) [if ordered] or page Anesthesia. lanolin ointment Topical, EVERY 1 HOUR PRN, dry skin, sor eness, Starting Fri05/05/19 at 1321, Apply to sore nipples after feedings, Post-procedure lidocaine (LMX4) cream Topical, EVERY 1 HOUR PRN, pain, with VA D insertion or accessing implanted port., Starting Fri05/05/19 at 0902, Do NOT give if patient has a history of allergy to any local anesthetic or any teresa pro duct. Apply 30 minutes prior to VAD inse rtion or port access. MAX Dose: 2.5 g (?? of 5 g tube) lidocaine (LMX4) cream Topical, EVERY 1 HOUR PRN, pain, with VA D insertion or accessing implanted port., Starting Fri05/05/19 at 1321, Do NOT give if patient has a history of allergy to any local anesthetic or any teresa pro duct. Apply at least 30 minutes prior to VAD insertion or port access. In divided doses as needed for size of site for insertion with MAX Dose: 2.5 g (?? of 5 g tube), Post-procedure lidocaine 1 % 0.1-1 mL 0.1-1 mL, Other, EVERY 1 HOUR PRN, mild pain with VAD insertion., Starting Fri05/05/19 at 1321, Do NOT give if patient has a history of allergy to any local anesthetic or any teresa product. MAX dose 1 mL subcutaneous OR intradermal in divid ed doses as needed for VAD insertion., Post-procedure lidocaine 1 % 1 mL 1 mL, Other, EVERY 1 HOUR PRN, mild pain with VAD insertion or accessing implanted port, Starting Fri05/05/19 at 0902, Do NOT give if patient has a history of allergy to any local anesthetic or any alejandra ne product. MAX dose 1 mL subcutaneous OR intradermal in divide d doses. medication instruction CONTINUOUS PRN, Starting Fri05/05/19 at 0902, Until 05/08/19 at 1248, -All intrathecal medications must be preservative free -All orders must be compounded in preservative free Normal Saline -Absolut patricia no anticoagulants, thrombolytics, or antiplatelet medications or other opioid analgesics or other sedatives without prior notification of Anesthesia Service -All patients who receive intrathecal medications must have IV access. misoprostol (CYTOTEC) tablet 800 mcg 800 mcg, Rectal, ONCE PRN, he morrhage (PPH), Starting Fri05/05/19 at 1321, For 1 dose, Notify provider IF uterine atony and clarify with provider medication preference., Post-procedure nalbuphine (NUBAIN) injection 2.5-5 mg 2.5-5 mg, Intravenous, EVERY 6 HOURS PRN , other, for pruritus, Starting Fri05/05/19 at 0902, Give 2.5 mg initially. If pruritus persists after 30 minutes, may give additional 2.5 mg. If effective, then repeat effective dose Q6H PRN pruritus. naloxone (NARCAN) injection 0.1-0.4 mg 0.1-0.4 mg, Intravenous, EVERY 2 MIN PRN , opioid reversal, Starting Fri05/05/19 at 0902, For respiratory rate LESS than or EQUAL to 8. Partial reversal dose: 0.1 mg titrated q 2 minutes for Analgesia Si de Effects Monitoring Sedation Level of 3 (frequently drowsy, arousable, drifts to sleep during conversation).Full reversal dose: 0.4 mg bolus for Analgesia Side Effects Monitoring Sedation Level of 4 ( somnolent, minimal or no response to sti mulation). For ordered IV doses 0.1-2mg give IVP. Give each 0.4mg over 15 seconds in emergency situations. For non- emergent situations further dilute in 9mL of NS to facilitate titration of response. naloxone (NARCAN) injection 0.1-0.4 mg 0.1-0.4 mg, Intravenous, EVERY 2 MIN PRN , opioid reversal, Starting Fri05/05/19 at 1321, For respiratory rate LESS than or EQUAL to 8. Partial reversal dose: 0.1 mg titrated q 2 minutes for Analgesia Si de Effects Monitoring Sedation Level of 3 (frequently drowsy, arousable, drifts to sleep during conversation).Full reversal dose: 0.4 mg bolus for Analgesia Side Effects Monitoring Sedation Level of 4 ( somnolent, minimal or no response to sti mulation). For ordered IV doses 0.1-2mg give IVP. Give each 0.4mg over 15 seconds in emergency situations. For non- emergent situations further dilute in 9mL of NS to facilitate titration of response., Post-procedure No MMR Needed - Assessment: Patient does not need MMR vaccine CONTINUOUS PRN, Starting 05/05/19 at 1321, Until 05/08/19 at 1248, Post-procedure NO Rho (D) immune globulin (RhoGam) needed - mother Rh POSITIVE CONTINUOUS PRN, Starting 05/05/19 at 1321, Until 05/08/19 at 1248, Post-procedure No Tdap Needed - Assessment: Patient does not need Tdap vaccine CONTINUOUS PRN, Starting 05/05/19 at 1321, Until 05/08/19 at 1248, Post-procedure ondansetron (ZOFRAN) injection 4 mg 4 mg, Intravenous, EVERY 6 HOURS PRN, na usea, vomiting, Administer over 2-5 Minutes, Starting 05/05/19 at 1321, If nausea not resolved in 15 minutes, notify provider before proceeding to prochlorpera zine (COMPAZINE) [if ordered]. Irritant. For ordered IV doses 0.1-4 mg, give IV Push undiluted over 2-5 minutes., Post-procedure Opioid plan - medication instruction CONTINUOUS PRN, Starting 05/05/19 at 0902, Until 05/08/19 at 1248, May give opioids (NOT Sedatives) as ordered by OB provider when patient meets parameters: respirations greater than 14 breaths pe r minute, is NOT somnolent, oxygen satur ation is greater than 95%, pain inadequately controlled with other adjuvant medications. May give other medications per OB provider orders. oxyCODONE (ROXICODONE) tablet 5 mg 5 mg, Oral, EVERY 4 HOURS PRN, moderate to severe pain, Starting Melvi 05/06/19 at 0807 oxytocin (PITOCIN) 30 units in 500 mL 0.9% NaCl infusion 340 mL/hr, Intravenous, at 340 mL/hr, CO NTINUOUS PRN, for hemorrhage (PPH) UNTIL bleeding subsided, Starting 05/05/19 at 1101, Post-procedure, When bleeding subsides decrease rate to 100 m L/hr. Notify provider immediately when i nfusion begun. Oxytocin is first line medication for PPH. oxytocin (PITOCIN) injection 10 Units 10 Units, Intramuscular, ONCE PRN, postp artum hemorrhage (PPH). IF no IV access is available., Starting 05/05/19 at 1321, For 1 dose, Oxytocin is first line medication for PPH., Post-procedure senna-docusate (SENOKOT-S/PERICOLACE) 8. 6-50 MG per tablet 1 tablet(Linked Group 1) 7027 (Given - Provider: Pat Riley RN )1941 (See Alternative - Provider: Yessenia Rose, RN) 751 (Given - Provider: Laura Vaughn, RN)2117 (Given - Provider: Uma Lawler, RN) 1 tablet, Oral, 2 TIMES DAILY PRN, const ipation, Starting 05/05/19 at 1321, If no bowel movement in 24 hours, increase to 2 tablets PO. Hold for loose stools. Preferred agent for constipation related to opioids. Hold for loose stools., Post-procedure senna-docusate (SENOKOT-S/PERICOLACE) 8. 6-50 MG per tablet 2 tablet(Linked Group 1) 0739 (See Alternative - Provider: Pat Riley RN)1941 (Given - Provider: Yessenia Rose, ASHTYN) 751 (See Alternative - Provider: Laura Vaughn, ASHTYN)2117 (See Alternative - Provider: Uma Lawler, ASHTYN) 2 tablet, Oral, 2 TIMES DAILY PRN, const ipation, Starting 05/05/19 at 1321, Hold for loose stools. Preferred agent for constipation related to opioids. Hold for loose stools., Post-procedure simethicone (MYLICON) chewable tablet 80 mg 80 mg, Oral, 4 TIMES DAILY PRN, other, g as, Starting 05/05/19 at 1321, Chew., Post-procedure sodium phosphate (FLEET ENEMA) 1 enema 1 enema, Rectal, DAILY PRN, constipation , , Starting Fri05/07/19 at 0000, Use if bisacodyl not effective. Start POD 2. Hold for loose stools., Post-procedure tranexamic acid (CYKLOKAPRON) bolus 1 g vial attach to NaCl 50 or 100 mL bag ADULT 1 g, Intravenous, Administer over 10 Min utes, EVERY 30 MIN PRN, Starting 05/05/19 at 1321, For 2 doses, Post- hemorrhage (PPH), Provider consultation REQUIRED and MUST be administered as soon a s the ONSET of bleeding AND within 3 isela rs of regardless of cause of the PPH (atony OR laceration). IF bleeding continues, a 2nd dose may be administered after 30 minutes. IF concern for DIC (Diss eminated Intravascular Coagulation), obt ain coagulation studies PRIOR to administration. Mix in 50 mL or 100 mL normal saline and infuse. Contraindications include: history of PE (Pulmonary Emboli), DVT (Deep Vein Thrombosis) and current Suba rachnoid hemorrhage and active DIC. Each 1 gram to be infused over 10 minutes., Post-procedure Linked Groups Order Group 1: senna-docusate (SENOKOT-S/PERICOLACE) 8.6-50 MG per tablet 1 tabletJump to med 1 tablet, Oral, 2 TIMES DAILY PRN, const ipation, Starting Fri05/05/19 at 1321
If no bowel movement in 24 hours, increase to 2 tablets PO. Hold for loose stools. Pref erred agent for constipation related to opioids. Hold for loose stools.
Post-procedure Or senna-docusate (SENOKOT-S/PERICOLACE) 8.6-50 MG per tablet 2 tabletJump to med 2 tablet, Oral, 2 TIMES DAILY PRN, const ipation, Starting Fri05/05/19 at 1321
Hold for loose stools. Preferred agent for constipation related to opioids. Hold for loose stools.
Post-procedure documented in this encounter Additional Health Concerns Assessment Noted Time PHQ-9 Depression Total Score: 1 10/06/2018 9:27 AM CDT documented as of this encounter Care Teams Drop Crew Laborer Relationship Specialty Start Date End Date Zuleyma Winter MD PCP - General Family Practice 04/19/19 3033 [facility] [place] [address] [address] Reynaldo Amador PA-C 10/06/18 05/13/[address] [address] Zuleyma Winter MD Assigned PCP 12/31/18 3033 [employer] [facility] [place] [facility] [address] [place] [address] documented as of this encounter
--- OUTSIDE RECORDS SUMMARY | 2021-10-30 15:26 | XMS_ITS | Encounter Summary ---
:1990 Author Organization [facility] Address [address] [place] [address] Care Team Providers Name Role Phone Reynaldo Amador PA-C Unavailable [phone] Zuleyma Winter MD Unavailable [phone] Zuleyma Winter MD Primary Care Provider Encounter Details Date Type Department Care Team Description 05/05/2019 Travel Social History Tobacco Use Types Packs/Day Years [...] documented as of this encounter Care Teams Tug Hand Relationship Specialty Start Date End Date Zuleyma Winter MD PCP - General Family Practice 04/19/[address] [facility] [address] [place], [place] [address] Reynaldo Amador PA-C 10/06/18 05/13/[address] [address] Zuleyma Winter MD Assigned PCP 12/31/18 3033 [address]A [address] [address] documented as of this encounter
--- OUTSIDE RECORDS SUMMARY | 2021-10-30 15:26 | XMS_ITS | Encounter Summary ---
:1990 Author Organization [facility] Address [address] [place] [address] Care Team Providers Name Role Phone Unavailable Primary Care Provider Unavailable Encounter Details Date Type Department Care Team Description 06/30/2008 Office Visit [facility] [place] [address] [place] [address] [place] [address] Social History Tobacco Use Types Packs/Day Years Used Date Smoking Tobacco: Never Assessed Sex Assigned at Date Recorded Not on file documented as of this encounter Plan of Treatment Upcoming Encounters Date Type Specialty Care Team Description 10/17/2021 Hospital Encounter Obstetrics & Gynecology Monica Flood, ROLLER STRUCTURAL MILL, CNM [address] [place] [address] (Wo rk) documented as of this encounter Visit Diagnoses Not on filedocumented in this encounter
--- OUTSIDE RECORDS SUMMARY | 2021-10-30 15:26 | XMS_ITS | Encounter Summary ---
:1990 Author Organization [facility] Address [address] [place] [address] Care Team Providers Name Role Phone Zuleyma Winter MD Unavailable Zuleyma Winter MD Primary Care Provider [phone] Lisa Bowens APRN Unavailable [phone] MayReuben MD Unavailable Reason for Visit Reason Comments Derm Problem Entered automatically based on patient selection in [facility]. Encounter Details Date Type Department Care Team Description 05/15/2020 E-Visit [facility] Zuleyma Winter Derm Problem (Entered Clinic Uptowromario Wilder MD automatically based ... [address] [facility], [address] [address] [phone] (Wo rk) Social History Tobacco Use Types Packs/Day Years Used Date Never Smoker 0 Smokeless Tobacco: Never Used Alcohol Use Standard Drinks/Week Comments Not Currently 0 (1 standard drink = 0.6 oz pure alcoho l) Sex Assigned at Date Recorded Female 10/07/2018 7:21 AM CDT documented as of this encounter Patient Instructions Patient InstructionsWeselyZuleyma MD - 05/15/2020 12:00 PM PINKED EDGE SEWING MACHINE OPERATOR Dear Mallyartur Resendiz? After reviewing your responses, I am unable to make a diagnosis that can be treated online. You will not be charged for this eVisit. We are dedicated to helping you achieve your best health and would like to see you in one of our many clinic locations - a primary care provider would be ideal for your concern. Please use [facility] to schedule a visit with a provider or call [phone]) to scheduleat any of our locations. Thanks for choosing?us?as your health technical healthcare consultant,? ? Zuleyma Winter MD? documented in this encounter Miscellaneous Notes Telephone Encounter - Zuleyma Winter MD - 05/15/2020 12:56 PM PINKED EDGE SEWING MACHINE OPERATOR Provider E-Visit time total (minutes): n/a- recommended clinic appt ED EDGE SEWING MACHINE OPERATOR documented in this encounter Plan of Treatment Not on filedocumented as of this encounter Visit Diagnoses Diagnosis Skin lesion - Primary Unspecified disorder of skin and subcuta neous tissue documented in this encounter Additional Health Concerns Assessment Noted Time PHQ-9 Depression Total Score: 1 10/06/2018 9:27 AM CDT documented as of this encounter Care Teams Gasket Supervisor Relationship Specialty Start Date End Date Zuleyma Winter, PCP - General Family Practice 04/19/[address] [place] [address] Zuleyma Winter, Assigned PCP 12/31/[address] [place] [address] Lisa Bowens Assigned OBGYN Provider 01/14/20 09/02/20 TAVARES Urbina [facility] [address] [place] [address] Reuben Addison, Assigned Heart and 01/14/20 10/14/20 Vascular Provider [address] [place] [address] documented as of this encounter
--- OUTSIDE RECORDS SUMMARY | 2021-10-30 15:26 | XMS_ITS | Encounter Summary ---
:1990 Author [facility] Address [address] [place] [address] Care Team Providers Name Role Phone Unavailable Primary Care Provider Unavailable Encounter Details Date Type Department Care Team Description 04/19/2010 PN Conversion Only [facility] CONVERSION Lisandro Lerma MD [address] [place] [address] (Wo rk) Social History Tobacco Use Types Packs/Day Years Used Date Smoking Tobacco: Never Assessed Sex Assigned at Date Recorded Not on file documented as of this encounter Plan of Treatment Upcoming Encounters Date Type Specialty Care Team Description 10/17/2021 Hospital Encounter Obstetrics & Gynecology Monica Flood, RIVET DRIVER, CNM [address] [place] [address] (Wo rk) documented as of this encounter Procedures Procedure Name Priority Date/Time Associated Diagnosis Comme nts RAPID STREP SCREEN Routine 04/19/2010 4:16 PM Res ults for this WAIVED WALL TO WALL CARPET INSTALLER procedure are i n the results section. BETA STREP FOLLOWUP Routine 04/19/2010 4:16 PM Re sults for this WALL TO WALL CARPET INSTALLER procedure are i n the results section. documented in this encounter Results Beta Strep Followup (04/19/2010 4:16 PM WALL TO WALL CARPET INSTALLER) P athologist Signature Strep Screen SEE TEXT HP CONVERSION Comment: CSSNC Culture Strep, Follow up from Rapid Test ? ORDERED BY: ARIES LERMA SOURCE: Throat ? COLLECTED: ??04/19/10 16:16 ? PLATED: ? 04/19/10 16:16 Culture Strep, Follow up from Rapid Test ?? FINAL ? 04/20/10 09:42 No beta hemolytic Strep Group A isolate d. Specimen (Source) Anatomical Collection Method Collection Time Re ceived Time Location / / Volume Laterality 04/19/2010 4:16 PM WALL TO WALL CARPET INSTALLER Aries Lerma MD LAB_1 Performing Organization Address City/State/ZIP Code Phon e Number HP CONVERSION RAPID STREP SCREEN WAIVED (04/19/2010 4:16 PM WALL TO WALL CARPET INSTALLER) Analysis Performed At [facility] Time Signature Rapid Strep SEE TEXT HP CONVERSION Screen Waived Comment: RSSW Rapid Strep Screen Waived ? ORDERED BY: ARIES LERMA SOURCE: Throat ? COLLECTED: ??04/19/10 16:16 ? PLATED: ? 04/19/10 16:16 Rapid Strep Screen Waived ?FINAL ? 04/19/10 16:17 ??Test performed by: aidee ? Negative for Streptococcus group A Specimen (Source) Anatomical Collection Method Collection Time Re ceived Time Location / / Volume Laterality 04/19/2010 4:16 PM WALL TO WALL CARPET INSTALLER Aries Lerma MD LAB_1 Performing Organization Address City/State/ZIP Code Phon e Number HP CONVERSION documented in this encounter Visit Diagnoses Not on filedocumented in this encounter
--- OUTSIDE RECORDS SUMMARY | 2021-10-30 15:26 | XMS_ITS | Encounter Summary ---
:1990 Author Organization [facility] Address [address] [place] [address] Care Team Providers Name Role Phone Unavailable Primary Care Provider Unavailable Encounter Details Date Type Department Care Team Description 11/21/2006 PN Conversion Only [place] [facility] [place] [address] [place] [address] Social History Tobacco Use Types Packs/Day Years Used Date Smoking Tobacco: Never Assessed Sex Assigned at Date Recorded Not on file documented as of this encounter Plan of Treatment Upcoming Encounters Date Type Specialty Care Team Description 10/17/2021 Hospital Encounter Obstetrics & Gynecology Monica Flood, URGENT CARE NURSE PRACTITIONER, CNM [address] [place], [place] [address] (Wo rk) documented as of this encounter Visit Diagnoses Not on filedocumented in this encounter
--- OUTSIDE RECORDS SUMMARY | 2021-10-30 15:26 | XMS_ITS | Encounter Summary ---
:1990 Author [facility] Address [address] [place] [address] Care Team Providers Name Role Phone Unavailable Primary Care Provider Unavailable Encounter Details Date Type Department Care Team Description 06/07/2009 PN Conversion Only SPIRITISM CONVERSION Denver Vogt MD [address] [place], [place] [id number] (Wo rk) Social History Tobacco Use Types Packs/Day Years Used Date Smoking Tobacco: Never Assessed Sex Assigned at Date Recorded Not on file documented as of this encounter Plan of Treatment Upcoming Encounters Date Type Specialty Care Team Description 10/17/2021 Hospital Encounter Obstetrics & Gynecology Monica Flood, VINYL TOP INSTALLER, CNM [address] [place], [place] [address] (Wo rk) documented as of this encounter Procedures Procedure Name Priority Date/Time Associated Diagnosis Comme nts BETA STREP FOLLOWUP Routine 06/07/2009 11:05 AM R esults for this CDT procedure are i n the results section. STREP GROUP A Routine 06/07/2009 11:04 AM Results for this ANTIGEN TEST CDT procedure are i n the results section. documented in this encounter Results Beta Strep Followup (06/07/2009 11:05 AM CDT) P athologist Signature Strep Screen SEE TEXT HP CONVERSION Comment: CSSNC Culture Strep, Follow up from Rapid Test ? ORDERED BY: TAM VOGT SOURCE: Throat ? COLLECTED: ??06/07/09 11:05 ? PLATED: ? 06/07/09 11:05 Culture Strep, Follow up from Rapid Test ?? FINAL ? 06/08/09 07:19 No beta hemolytic Strep Group A isolate d Specimen (Source) Anatomical Collection Method Collection Time Re ceived Time Location / / Volume Laterality 06/07/2009 11:05 AM CDT Tam Vogt MD LAB_1 Performing Organization Address City/State/ZIP Code Phon e Number HP CONVERSION Strep Group A Antigen Test (06/07/2009 11:04 AM CDT) Analysis Performed At [facility] Time Signature Strep Group A SEE TEXT HP CONVERSION Antigen Test Comment: RSS Rapid Strep Screen ? ORDERED BY: TAM VOGT SOURCE: Throat ? COLLECTED: ??06/07/09 11:04 ? PLATED: ? 06/07/09 11:05 Rapid Strep Screen ? FINAL ? 06/07/09 11:14 ??Test performed by:[email or web address] ? Negative for Streptococcus group A Specimen (Source) Anatomical Collection Method Collection Time Re ceived Time Location / / Volume Laterality 06/07/2009 11:04 AM CDT Tam Vogt MD LAB_1 Performing Organization Address City/State/[facility] Code Phon e Number HP CONVERSION documented in this encounter Visit Diagnoses Not on filedocumented in this encounter
--- OUTSIDE RECORDS SUMMARY | 2021-10-30 15:26 | XMS_ITS | Encounter Summary ---
:1990 Author Organization [facility] Address [address] [place] [address] Care Team Providers Name Role Phone Unavailable Primary Care Provider Unavailable Encounter Details Date Type Department Care Team Description 03/14/2008 PN Conversion Only WARP DRAWER [address] [place] [address] Social History Tobacco Use Types Packs/Day Years Used Date Smoking Tobacco: Never Assessed Sex Assigned at Date Recorded Not on file documented as of this encounter Plan of Treatment Upcoming Encounters Date Type Specialty Care Team Description 10/17/2021 Hospital Encounter Obstetrics & Gynecology Monica Flood, RADIATION / CHEMISTRY TECHNICIAN, CNM [address] [place], [place] [address] (Wo rk) documented as of this encounter Visit Diagnoses Not on filedocumented in this encounter
--- OUTSIDE RECORDS SUMMARY | 2021-10-30 15:26 | XMS_ITS | Encounter Summary ---
:1990 Author Organization [facility] Address [facility] [place] [address] Care Team Providers Name Role Phone Zuleyma Winter MD Unavailable [phone] Zuleyma Winter MD Primary Care Provider Encounter Details Date Type Department Care Team Description 02/10/[address] [facility], [facility], [facility] Silvestre CISSE [address] [id number] [facility] [address] [place] [address] [place] [address] (Wo rk) Social History Tobacco Use Types Packs/Day Years Used Date Never Smoker 0 Smokeless Tobacco: Never Used Alcohol Use Standard Drinks/Week Comments Not Currently 0 (1 standard drink = 0.6 oz pure alcoho l) Sex Assigned at Date Recorded Female 10/07/2018 7:21 AM CDT documented as of this encounter Miscellaneous Notes Telephone Encounter - Eufemia Avelar CMA - 04/24/2021 2:23 PM CST 2nd attempt - no answer, left VM. O PLAYER MECHANIC Telephone Encounter - Eufemia Avelar CMA - 02/10/2021 1:20 PM CST LVM for patient to callback to schedule follow up appointments. O PLAYER MECHANIC documented in this encounter Plan of Treatment Not on filedocumented as of this encounter Visit Diagnoses Not on filedocumented in this encounter Additional Health Concerns Assessment Noted Time PHQ-9 Depression Total Score: 1 10/06/2018 9:27 AM CDT documented as of this encounter Care Teams Engineering Group Leader Relationship Specialty Start Date End Date Zuleyma Winter MD PCP - General Family Practice 04/19/19 [address] [facility] [address] [place] [address] Zuleyma Winter MD Assigned PCP 12/31/18 [address] [place] [address] documented as of this encounter
--- OUTSIDE RECORDS SUMMARY | 2021-10-30 15:26 | XMS_ITS | Encounter Summary ---
:1990 Author Organization [facility] Address [address] [place] [address] Care Team Providers Name Role Phone Unavailable Primary Care Provider Unavailable Encounter Details Date Type Department Care Team Description 03/14/2008 PN Conversion Only WEATHER FORECASTER [address] [place] [address] Social History Tobacco Use Types Packs/Day Years Used Date Smoking Tobacco: Never Assessed Sex Assigned at Date Recorded Not on file documented as of this encounter Plan of Treatment Upcoming Encounters Date Type Specialty Care Team Description 10/17/2021 Hospital Encounter Obstetrics & Gynecology Monica Flood, SKEIN MERCERIZING MACHINE OPERATOR, CNM [address] [place], [place] [address] (Wo rk) documented as of this encounter Visit Diagnoses Not on filedocumented in this encounter
--- OUTSIDE RECORDS SUMMARY | 2021-10-30 15:26 | XMS_ITS | Encounter Summary ---
:1990 [facility] Address [address] [place] [address] Care Team Providers Name Role Phone Unavailable Primary Care Provider Unavailable Encounter Details Date Type Department Care Team Description 03/07/2008 PN Conversion Only RASTAFARI CONVERSION Ciara Garcia MD [address] [place] [address] (Wo rk) Social History Tobacco Use Types Packs/Day Years Used Date Smoking Tobacco: Never Assessed Sex Assigned at Date Recorded Not on file documented as of this encounter Plan of Treatment Upcoming Encounters Date Type Specialty Care Team Description 10/17/2021 Hospital Encounter Obstetrics & Gynecology Monica Flood, BABY DOCTOR, CNM [address] [facility] [place] [address] (Wo rk) documented as of this encounter Procedures Procedure Name Priority Date/Time Associated Diagnosis Comme nts SURGICAL CLARI MANCILLA Routine 03/07/2008 9:48 AM Kayleigh fields for this NICOLLET REWIND OPERATOR procedure are i n the results section. documented in this encounter Results Pathology Report (03/07/2008 9:48 AM REWIND OPERATOR) [facility] gist Method Time Signature Surgical SEE TEXT No normal HP CONVERSION Pathology range Comment: Patient: MALLY MARSHALL ?S URGICAL PATHOLOGY REPORT Pathology # ??[id number] ?Date Obtained: ? 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 ?Kim Holt M.D. ?(electronic signature) ENM/ENM/beh Date of Report: 03/09/08 Pathology # ??[id number] ?Date Obtained: ? Date Received: ORGAN/TISSUE SITE: ?Back GROSS DESCRIPTION: ?The specimen is labeled back and c onsists of a 4.8 x 2.5 cm ellipse of kaye ?skin excised to a depth of 1.8 cm with a centrally located dark brown ?patch measuring 3.1 cm in greatest dimension. The resection margin is ?inked black and the specimen is se rially sectioned. Nutrition Services Worker ?[place] [id number] 1- 2. AMW/kjs Specimen (Source) Anatomical Collection Method Collection Time Re ceived Time Location / / Volume Laterality 03/07/2008 9:48 AM REWIND OPERATOR Ciara Garcia MD LAB_1 Performing Organization Address City/State/ZIP Code Phon e Number HP CONVERSION documented in this encounter Visit Diagnoses Not on filedocumented in this encounter
--- OUTSIDE RECORDS SUMMARY | 2021-10-30 15:26 | XMS_ITS | Encounter Summary ---
:1990 Author Organization [employer] Address [address] [place] [address] Care Team Providers Name Role Phone Unavailable Primary Care Provider Unavailable Encounter Details Date Type Department Care Team Description 03/07/2008 Procedure Visit [facility] [address] Ciara Garcia MD Plastic Surgery [address] [place] [address] [id number] [phone] Social History Tobacco Use Types Packs/Day Years Used Date Smoking Tobacco: Never Assessed Sex Assigned at Date Recorded Not on file documented as of this encounter Progress Notes Ciara Garcia MD - 03/07/2008 12:01 AM CST Progress Notes signed by Ciara Garcia MD at 03/08/08 1313 Author: Ciara Garcia MD Service: (none) Author Type: Physician Filed: 07/14/10 1110 Note Time: 03/07/08 0001 Status: Signed Tactical Debriefer: Ciara Garcia MD (Physician) NAME: MALLY MARSHALL MR#: [id number] ACCT: [id number] VISIT: [id number] DICTATING CLINICIAN: CIARA GARCIA MD CONFIRM #: [id number] LOC: 458 CLINIC PROGRESS NOTE DATE OF VISIT: 03/07/2008 SUBJECTIVE: Mally is here with her dad. Plan is to remove congenital nevus, posterior back. No dramatic change in the lesion since I saw her in November. EMLA cream was applied. Area was marked to follow the relaxed skin tension lines. Size 4 cm excised with 3 mm border because of the orientation. Total 4.6 cm. Closure with undermining and complex repair. OBJECTIVE: The area was injected with 1% lidocaine 1:100,000 epinephrine, full-thickness excision performed. Superficial fascial layer closed with 3-0 Monocryl, subcutaneous, with 3-0 and 4-0 Monocryl and a running 4-0 Monocryl. Steri-Strips were applied as was dry sterile gauze and an Ashkan wrap. They were instructed on wound care, analgesics, and activity. In particular, limitations and forward bending activities and to wear the Ashkan wrap. ASSESSMENT: PLAN: They have no further questions regarding wound care, analgesics, and activity. Follow up next week for pathology check and scar management. LORENZO:[id number] C: 03/07/08 16:18 CONFIRM #: [id number] INE BILLER documented in this encounter Plan of Treatment Upcoming Encounters Date Type Specialty Care Team Description 10/17/2021 Hospital Encounter Obstetrics & Gynecology Monica Flood, CIVIL ENGINEER LAND DEVELOPMENT, CNM [address] [place] [address] (Wo rk) documented as of this encounter Visit Diagnoses Not on filedocumented in this encounter
--- OUTSIDE RECORDS SUMMARY | 2021-10-30 15:26 | XMS_ITS | Encounter Summary ---
:1990 [facility] Address [address] [place] [address] Care Team Providers Name Role Phone Unavailable Primary Care Provider Unavailable Encounter Details Date Type Department Care Team Description 04/19/2010 Office Visit [facility] M edicine Clayton Lerma, [address] [place], [place] [phone] [phone] [place] [address] (Wo rk) Social History Tobacco Use Types Packs/Day Years Used Date Smoking Tobacco: Never Assessed Sex Assigned at Date Recorded Not on file documented as of this encounter Last Filed Vital Signs Vital Sign Reading Time Taken Comments Blood Pressure 110/74 04/19/2010 3:35 PM PUBLIC HEALTH PROFESSOR Pulse 72 04/19/2010 3:35 PM PUBLIC HEALTH PROFESSOR Temperature 36.8 ??C (98.2 ??F) 04/19/2010 3:35 PM PUBLIC HEALTH PROFESSOR C: 36 .8 C Respiratory Rate - - Oxygen Saturation - - Inhaled Oxygen Concentration - - Weight 62.1 kg (136 lb 15.9 oz) 04/19/2010 3:35 PM PUBLIC HEALTH PROFESSOR C: 62.1kg Height - - Body Mass Index - - documented in this encounter Progress Notes Clayton Lerma MD - 04/19/2010 12:01 AM CST NAME: MALLY DE JESUS MR#: [id number] ACCT: [id number] VISIT: [id number] DICTATING CLINICIAN: Clayton Lerma MD CONFIRM #: [id number] LOC: 1002 CLINIC PROGRESS NOTE DATE OF VISIT: 04/19/2010 : 1990 SUBJECTIVE: Ms. De Jesus is a 19-year-old woman who presents to clinic for evaluation of upper respiratory symptoms over the last 2-3 days. Prominent symptoms of cough, runny nose, sinus congestion. Throat is mildly sore, secondary to breathing dry air, but patient thinks that is all it this. PAST MEDICAL HISTORY: Significant for no asthma. The patient has had a documented heart murmur. ALLERGIES: No allergies. REVIEW OF SYSTEMS: Significant for no rash, no fever, no recent travel. 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 MEDS: Reviewed and updated in [employer]. OBJECTIVE: VITALS: Weight 137, blood pressure 110/74, temperature 98.2, pulse 72 and regular. GENERAL: A well-groomed, well-appearing female in no acute distress. PSYCH: Mood and affect congruent, judgment and insight intact, thought content and processes within normal limits. HEENT: Head: Normocephalic, atraumatic. Pupils equal, round, reactive. TMs visualized with no bulging, exudates, or erythema. Nasal mucosa is red and irritated in appearance with clear exudate present and obvious sinus congestion. No facial pain with percussion or palpation of the frontal or maxillary sinuses. Posterior oropharynx is mildly erythematous with no lesions or exudates. No cervical adenopathy, no thyromegaly or thyroid masses. RESPIRATORY: Lungs clear to auscultation bilaterally. No wheezes, rales, rhonchi. CARDIOVASCULAR: Regular rate and rhythm, 2/6 ejection murmur heard loudest at the right upper sternal border. LAB: Rapid strep test negative. ASSESSMENT/PLAN: A 19-year-old with upper respiratory infection. Discussed appropriate symptomatic cares including dextromethorphan for cough, appropriate use of decongestants. The patient will followup if her symptoms worsen. RFM:MEDQ C: CONFIRM #: [id number] IC HEALTH PROFESSOR documented in this encounter Plan of Treatment Upcoming Encounters Date Type Specialty Care Team Description 10/17/2021 Hospital Encounter Obstetrics & Gynecology Monica Flood, JUNIOR DATABASE ADMINISTRATOR, CNM [address] [facility] [place] [address] (Wo rk) documented as of this encounter Visit Diagnoses Not on filedocumented in this encounter
--- OUTSIDE RECORDS SUMMARY | 2021-10-30 15:26 | XMS_ITS | Encounter Summary ---
:1990 Author Organization [facility] Address [address] [place] [address] Care Team Providers Name Role Phone Reynaldo Amador PA-C Unavailable [phone] Zuleyma Winter MD Unavailable [phone] Zuleyma Winter MD Primary Care Provider Reason for Visit Auth/Cert Specialty Diagnoses / Procedures Referred By Contact Refer red To Contact human relations teacher Diagnoses Breech presentation, single or unspecified fetus Breech presentation, single or unspecified fetus [O32.1XX0] Sh Labor & Delivery Procedures SECTION [address] [phone] Phone: Referral ID Status Reason Start Date Expiration Date Visits Requ ested Visits Authorized [id number] 1 1 Encounter Details Date Type Department Care Team Description 05/05/2019 Anesthesia Event [facility] Stephen Zuniga MD [facility] [address] [address] [facility] Danya Torres, NEUROLOGIST PIN FEATHER MACHINE OPERATOR [address] [place] [phone] Anesthesia Record Procedure Summary Procedure Name Responsible Anesthesia Start Anesthesia Stop Time Anesthesiologist Time PRIMARY Elliott Zuniga MD 05/05/19 0902 05/05/19 1023 SECTION (N/A Abdomen) Events Date Time Event Comment 05/05/2019 0901 0902 An Start 0902 An Start Data 0903 Present 0912 MD Present 09 AN INCISION 0928 Uterine Incision 0928 Baby Delivered 0930 MD Present 0931 Placenta Delivered 1023 an stop data 1023 An Stop Electronically s igned by Constance Rm APRN CRNA on Apr 10:23 AM Name Total bupivacaine spinal 0.75% in dextrose 8.25% 10.5 mg fentaNYL (SUBLIMAZE) injection 20 mcg morphine PF 1mg/mL 0.15 mg ondansetron 2mg/mL 8 mg ceFAZolin (ANCEF) intermittent infusion 2 g in 100 mL dextrose PRE-MIX 2 g oxytocin 30 units in 500 mL 0.9% NaCl infusion 206.67 mL phenylephrine 0.1 mg/mL infusion (mcg/kg/min) 0.39 mg dexamethasone 4 mg/mL 4 mg lactated ringers infusion 800 mL Agents Name NO HELIOX O2 N2O Air Exp Sevoflurane Exp Isoflurane Exp Desflurane Exp N2O O2 Delivery Device Ins Sevoflurane Ins Isoflurane Ins Desflurane O2 Auxiliary Blood No blood administrations on file. Lines, Drains, and Airways Type Details Placement Removal Peripheral IV 05/05/19; 0745; 18 G; 05/05/19 0745 by 05/06/19 1315 by Distal, Left; Lower Lucille Mathias, Fatoumata Hall RN forearm; Basilic vein (medial side of arm); Chlorhexidine; None; Tolerated well Urethral Catheter 05/05/19; 0915; No; 05/05/19 0915 by 05/06/19 0641 by /GI/FACILITY ATTENDANT Pelvic Lucille aMthias, Nasreen Arroyo, Procedure; 16 fr RN Incision/Surgical Site 05/05/19; 0925; Lower, 05/05/19 0925 by 0 05/08/19 0800 by Transverse; Abdomen; Lucille Mathias, Yuli Peterson M, low transverse primary RN c/s; 05/08/19; 0800 Intrathecal/Epidural 05/05/19; 1702 (created 05/05/19 1702 by 0000 by Catheter via procedure Elliott Zuniga MD Krohn, Hei di, substation supervisor); Intrathecal documented in this encounter Social History Tobacco Use Types Packs/Day Years Used Date Never Smoker 0 Smokeless Tobacco: Never Used Alcohol Use Standard Drinks/Week Comments Not Currently 0 (1 standard drink = 0.6 oz pure alcoho l) Sex Assigned at Date Recorded Female 10/07/2018 7:21 AM CDT documented as of this encounter OR Notes Anesthesia Postprocedure Evaluation - Elliott Zuniga MD - 05/05/2019 5:03 PM CST Patient: Mally Resendiz Procedure(s): PRIMARY SECTION Diagnosis:Breech presentation, single or unspecified fetus [O32.1XX0] Diagnosis Additional Information: No value filed. Anesthesia Type: Spinal Note: Anesthesia Post Evaluation Patient location during evaluation: Bedside Patient participation: Able to participate in evaluation but full recovery from regional anesthesia has not yet ocurrred but is anticipated to occur within 48 hours Level of consciousness: awake and alert Pain management: adequate Airway patency: patent Cardiovascular status: acceptable Respiratory status: acceptable Hydration status: acceptable PONV: none Last vitals: Vitals: 05/05/19 1415 05/05/19 1515 05/05/19 1559 BP: (!) 127/95 (!) 134/93 131/89 Pulse: Resp: 16 16 18 Temp: 36.7 ??C (98.1 ??F) 37.2 ??C (98.9 ??F) SpO2: 98% 97% Electronically Signed By: Elliott Zuniga MD May 05, 2019 5:03 PM PLATER Anesthesia Procedure Notes - Elliott Zuniga MD - 05/05/2019 5:02 PM DRUM PLATER Associated Order(s): Spinal Block Peripheral nerve/Neuraxial procedure note : intrathecal Pre-Procedure Performed by Elliott Zuniga MD Location: OR Pre-Anesthestic Checklist: patient identified, IV checked, risks and benefits discussed, informed consent, monitors and equipment checked, pre-op evaluation and at physician/surgeon's request Timeout Correct Patient: Yes Correct Procedure: Yes Correct Site: Yes Correct Laterality: N/A Correct Position: Yes Site Marked: N/A . Procedure Documentation . Procedure: intrathecal, . Patient Position:sitting Insertion Site:L3-4 (midline approach) Patient Prep/Sterile Barriers; mask, sterile gloves, chlorhexidine gluconate and isopropyl alcohol, patient draped. . Needle: Spinal Needle (gauge): 25 Spinal/LP Needle Length (inches): 3.5 # of attempts: 1 and # of redirects: Introducer used Introducer: 20 G . Assessment/Narrative Paresthesias: No. . . clear CSF fluid removed . Comments: Duramorph and fentanyl dosed along with bupivacaine. T4 sensory level confirmed bilaterally prior to incision. The patient was prepped and draped in a sterile fashion. Topical anesthesia was injected subcutaneously using 1% lidocaine. A 25G Meño needle was advanced via a 20 G introducer at the the L3-4 level. Clear CSF obtained, with birefringence on aspiration. CSF freely aspirated after injection of 10.5mg bupivacaine. No paresthesias reported by patient, who tolerated the procedure well. PLATER Anesthesia Preprocedure Evaluation - Elliott Zuniga MD - 05/05/2019 8:02 AM CST Anesthesia Pre-Procedure Evaluation Patient: Mally Resendiz : 1990 Preoperative Diagnosis: Breech presentation, single or unspecified fetus [O32.1XX0] Procedure(s): PRIMARY SECTION Past Medical History: Diagnosis Date ??? Congenital cleft leaflet of mitral valve ??? Heart murmur follows with cardiology- no treatments ??? Mitral regurgitation Past Surgical History: Procedure Laterality Date ??? HC TOOTH EXTRACTION W/FORCEP ??? NO HISTORY OF SURGERY Anesthesia Evaluation . ROS/MED HX ENT/Pulmonary: - neg pulmonary ROS (-) sleep apnea Neurologic: - neg neurologic ROS Cardiovascular: (+) ----. : . . . :. valvular problems/murmurs type: MR 2+:. Previous cardiac testing Echodate:03/2019results:The visual ejection fraction is estimated at 55-60%. The mitral valve leaflets appear thickened, but open well. There is moderate (2+) mitral regurgitation, predominant posterior jet, smaller anterior jet. Mechnanism of MR unclear from this study, ERO of 0.12 cm2 likely underestmimated due to jet eccentricity. Direct comparison iwth study from 12-10 showed no major changes. __ Left Ventricle The left ventricle is normal in size. There is normal left ventricular wall thickness. The visual ejection fraction is estimated at 55-60%. Left ventricular diastolic function is normal. No regional wall motion abnormalities noted. Right Ventricle The right ventricle is normal in structure, function and size. Atria Normal left atrial size. Right atrial size is normal. There is no color Doppler evidence of an atrial shunt. Mitral Valve The mitral valve leaflets appear thickened, but open well. Thickened mitral valve anterior leaflet. There is moderate (2+) mitral regurgitation. Tricuspid Valve The tricuspid valve is normal in structure and function. Right ventricle systolic pressure estimate normal. There is trace tricuspid regurgitation. Aortic Valve The aortic valve is normal in structure and function. Pulmonic Valve The pulmonic valve is not well seen, but is grossly normal. Vessels Normal size aorta. Pericardium The pericardium appears normal. Rhythm Sinus rhythm was noted.date: results: date: results: date: results: METS/Exercise Tolerance: Hematologic: - neg hematologic ROS Musculoskeletal: GI/Hepatic: - neg GI/hepatic ROS (-) GERD Renal/Genitourinary: - ROS Renal section negative Endo: - neg endo ROS Psychiatric: Infectious Disease: - neg infectious disease ROS Malignancy: Other: Physical Exam Normal systems: dental Airway Mallampati: II TM distance: >3 FB Neck ROM: full Dental Cardiovascular Rhythm and rate: regular Pulmonary breath sounds clear to auscultation Lab Results Component Value Date WBC 6.6 05/05/2019 HGB 12.0 05/05/2019 HCT 35.6 05/05/2019 PLT 167 05/05/2019 TSH 2.59 10/06/2018 Preop Vitals BP Readings from Last 3 Encounters: 05/04/19 120/74 04/29/19 118/80 04/22/19 126/80 Pulse Readings from Last 3 Encounters: 04/16/19 83 01/22/19 76 12/17/18 86 Resp Readings from Last 3 Encounters: 01/22/19 14 10/21/08 18 SpO2 Readings from Last 3 Encounters: 04/16/19 98% 01/22/19 100% 10/21/08 100% Temp Readings from Last 1 Encounters: 01/22/19 36.5 ??C (97.7 ??F) (Oral) Ht Readings from Last 1 Encounters: 04/16/19 1.676 m (5' 6) Wt Readings from Last 1 Encounters: 05/04/19 93.5 kg (206 lb 3.2 oz) Estimated body mass index is 33.28 kg/m?? as calculated from the following: Height as of 04/16/19: 1.676 m (5' 6). Weight as of 05/04/19: 93.5 kg (206 lb 3.2 oz). Anesthesia Plan History & Physical Review ASA Status: 2 . NPO Status: > 8 hours Plan for Spinal PONV prophylaxis: Ondansetron (or other 5HT-3) Duramorph and fentanyl for spinal Phenylephrine infusion Postoperative Care Postoperative pain management: Neuraxial analgesia. Consents Anesthetic plan, risks, benefits and alternatives discussed with: Patient.. Elliott Zuniga MD PLATER documented in this encounter Miscellaneous Notes Anesthesia Care Transfer Note - Constance Rm APRN CRNA - 05/05/2019 10:22 AM CST Patient: Mally Resendiz Procedure(s): PRIMARY SECTION Diagnosis: Breech presentation, single or unspecified fetus [O32.1XX0] Diagnosis Additional Information: No value filed. Anesthesia Type: Spinal Note: Airway :Room Air Patient transferred to:Labor and Delivery Comments: Transferred to OB PACU recovery, spontaneous respirations on room air with oxygen saturations maintained greater than 95%. SpO2, NiBP, and EKG monitors and alarms on and functioning, report on patient's clinical status given to OB chief engineer drilling and recovery, RN questions answered, patient in hospital bed with siderails up, Akhil Hugger warmer connected to patient gown, Oxygen tubing connected to wall O2 inOB PACU Oxytocin 30 units in 500mL infusion connected to IV infusion pump in recovery bay and programmed to 100 mL/hr at handoff of care.Handoff Report: Identifed the Patient, Identified the ReponsibleProvider, Reviewed the pertinent medical history, Discussed the surgical course, Reviewed Intra-OP anesthesia mangement and issues during anesthesia, Set expectations for post-procedure period and Allowed opportunity for questions and acknowledgement of understanding Vitals: (Last set prior to Anesthesia Care Transfer) PIN FEATHER MACHINE OPERATOR VITALS 05/05/2019 0952 - 05/05/2019 1022 05/05/2019 Resp Rate (set): 10 Electronically Signed By: Constance Rm APRN CRNA May 05, 2019 10:22 AM PLATER documented in this encounter Plan of Treatment Not on filedocumented as of this encounter Procedures Procedure Name Priority Date/Time Associated Comments Diagnosis FV AN SPINAL DUMMY Routine 05/05/2019 5:02 PM Res ults for this PERFORMABLE DRUM PLATER procedure are i n the results section. documented in this encounter Results FV AN SPINAL DUMMY PERFORMABLE (05/05/2019 5:02 PM DRUM PLATER) Narrative Elliott Zuniga MD - 05/05/2019 5:02 PM DRUM PLATER Elliott Zuniga MD ? 05/05/2019 ??5:02 PM Peripheral nerve/Neuraxial procedure not e : intrathecal Pre-Procedure Performed by Elliott Zuniga MD Location: OR ?? Pre-Anesthestic Checklist: patient ident ified, IV checked, risks and benefits discussed, informed consent, mo nitors and equipment checked, pre-op evaluation and at physician/surge on's request ?? Timeout Correct Patient: Yes Correct Procedure: Yes Correct Site: Yes Correct Laterality: N/A Correct Position: Yes Site Marked: N/A . Procedure Documentation . ?? Procedure: intrathecal, . Patient Position:sitting Insertion Site: L3-4 ??(midline approach) Patient Prep/Sterile Barriers; mask, yuliya rile gloves, chlorhexidine gluconate and isopropyl alcohol, patient draped. ??. ??Needle: ??Spinal Needle (gauge): 25 ??Spinal/LP Needle Le ngth (inches): 3.5 # of attempts: 1 and # of redirects: ??Introducer used In troducer: 20 G . ?? Assessment/Narrative Paresthesias: No. ??. ??. ??clear CSF fl uid removed . Comments: ??Duramorph and fentanyl dosed along with bupivacain e. ??T4 sensory level confirmed bilaterally prior to incision. The patient was prepped and draped in a sterile fashion. ??Topical anesthesia was injected subcutaneously u sing 1% lidocaine. ??A 25G Meño needle was advanced via a 20 G introduce r at the the L3-4 level. ??Clear CSF obtained, with birefringence on aspi ration. ??CSF freely aspirated after injection of 10.5 mg bupivacaine. ??No paresthesias reported by patient, who tolerated the procedure amilcar sandoval Elliott Zuniga MD OR ANESTHESIA documented in this encounter Visit Diagnoses Not on filedocumented in this encounter Administered Medications Inactive Administered Medications - up to 3 most recent administrations Medication Order MAR Action Action Date Dose Rate Site bupivacaine 0.75% in dextrose Given 05/05/2019 9:12 AM DRUM PLATER 10.5 mg 8.25% (intrathecal) (SENSORCAINE) 0.75-8.25 % injection PRN, Starting on Fri05/05/19 at 0912, Anesthesia Intra-op ceFAZolin (ANCEF) intermittent infusion 2 g in Given 020 9:10 AM DRUM PLATER 2 g 100 mL dextrose PRE-MIX Routine, 2 g, Intravenous, PRE-OP/PRE-PROCEDURE, Starting on Fri05/05/19 at 0713, For 1 dose, Give no sooner than 30 minutes prior to incision. If patient weight is greater than or equal to 120 kg increase dose to 3 g., Indications: Perioperative Pharmacoprophylaxis, Pre-procedure dexamethasone (DECADRON) injection Given 05/05/2019 10:06 AM DRUM PLATER 4 mg PRN, Administer over 1 Minutes, Starting on Fri05/05/19 at 1006, Anesthesia Intra-op fentaNYL (PF) (SUBLIMAZE) injection Given 05/05/2019 9:12 AM DRUM PLATER 20 mcg PRN, Administer over 3-5 Minutes, Starting on Fri05/05/19 at 0912, Anesthesia Intra-op morphine (PF) (ASTRAMORPH /DURAMORPH) Given 05/05/2019 9:[address] 0.15 mg injection PRN, Administer over 4-5 Minutes, Starting on Fri05/05/19 at 0912, Anesthesia Intra-op ondansetron (ZOFRAN) injection Given 05/05/2019 10:06 AM DRUM PLATER 4 mg PRN, Administer over 2-5 Minutes, Starting on Fri05/05/19 at 0905, Anesthesia Intra-op Given 05/05/2019 9:05 AM DRUM PLATER 4 mg oxytocin (PITOCIN) 30 units in Rate/Dose Verify 05/05/2019 10:26 AM 100 mL/hr 500 mL 0.9% NaCl infusion DRUM PLATER CONTINUOUS PRN, Starting on Fri05/05/19 at 0931, Anesthesia Intra-op Rate/Dose Change 05/05/2019 10:01 AM DRUM PLATER 100 mL/hr 100 mL/hr New Bag 05/05/2019 9:31 AM DRUM PLATER 340 mL/hr 340 mL/hr phenylephrine 0.1 mg/mL Rate/Dose 05/05/2019 9:25 0.1 mcg/kg/min 5.6 mL/hr infusion (mcg/kg/min) Change AM DRUM PLATER CONTINUOUS PRN, Starting on Fri05/05/19 at 0910, Anesthesia Intra-op Rate/Dose Change 05/05/2019 9:19 AM DRUM PLATER 0.2 mcg/kg/min 11.2 mL/hr New Bag 05/05/2019 9:10 AM DRUM PLATER 0.3 mcg/kg/min 16.8 mL/hr documented in this encounter Additional Health Concerns Assessment Noted Time PHQ-9 Depression Total Score: 1 10/06/2018 9:27 AM CDT documented as of this encounter Care Teams Cleaner Signs Relationship Specialty Start Date End Date Zuleyma Winter MD PCP - General Family Practice 04/19/19 [address] [place] [address] Reynaldo Amador PA-C 10/06/18 05/13/[address] [address] Zuleyma Winter MD Assigned PCP 12/31/[address] [place] [address] documented as of this encounter
--- OUTSIDE RECORDS SUMMARY | 2021-10-30 15:26 | XMS_ITS | Encounter Summary ---
:1990 Author Organization [facility] Address [address] [place] [address] Care Team Providers Name Role Phone Unavailable Primary Care Provider Unavailable Encounter Details Date Type Department Care Team Description 08/12/2007 PN Conversion Only [facility] [place] [address] [place] [address] Social History Tobacco Use Types Packs/Day Years Used Date Smoking Tobacco: Never Assessed Sex Assigned at Date Recorded Not on file documented as of this encounter Plan of Treatment Upcoming Encounters Date Type Specialty Care Team Description 10/17/2021 Hospital Encounter Obstetrics & Gynecology Monica Flood, DESIZING MACHINE BACK TENDER, CNM [address] [place], [place] [address] (Wo rk) documented as of this encounter Visit Diagnoses Not on filedocumented in this encounter
--- OUTSIDE RECORDS SUMMARY | 2021-10-30 15:26 | XMS_ITS | Encounter Summary ---
:1990 Author Organization [facility] Address [address] [place] [address] Care Team Providers Name Role Phone Unavailable Primary Care Provider Unavailable Encounter Details Date Type Department Care Team Description 11/21/2006 Nursing Visit [facility] Pat Doan MD [address] [place], [place] [address] [place], [place] [phone] Social History Tobacco Use Types Packs/Day Years Used Date Smoking Tobacco: Never Assessed Sex Assigned at Date Recorded Not on file documented as of this encounter Plan of Treatment Upcoming Encounters Date Type Specialty Care Team Description 10/17/2021 Hospital Encounter Obstetrics & Gynecology Monica Flood, DESIGN CHIEF, CNM [address] [place], [place] [id number] (Wo rk) documented as of this encounter Visit Diagnoses Not on filedocumented in this encounter
--- OUTSIDE RECORDS SUMMARY | 2021-10-30 15:26 | XMS_ITS | Encounter Summary ---
:1990 Author Organization [facility] Address [address] [place] [address] Care Team Providers Name Role Phone Unavailable Primary Care Provider Unavailable Encounter Details Date Type Department Care Team Description 06/07/2009 Injection Molding Supervisor Only [facility] Adonay Enriquez MD [place], [place] [address] [facility] [address] [facility] [phone] [place], [place] [phone] (Wo rk) Social History Tobacco Use Types Packs/Day Years Used Date Smoking Tobacco: Never Assessed Sex Assigned at Date Recorded Not on file documented as of this encounter Progress Notes Adonay Enriquez MD - 06/07/2009 12:01 AM CDT Progress Notes signed by Adonay Enriquez MD at 06/07/09 0950 Author: Adonay Enriquez MD Service: (none) Author Type: Physician Filed: 07/14/10 2243 Note Time: 06/07/09 0001 Status: Signed Construction Representative: Adonay Enriquez MD (Physician) RST was negative today. documented in this encounter Plan of Treatment Upcoming Encounters Date Type Specialty Care Team Description 10/17/2021 Hospital Encounter Obstetrics & Gynecology Monica Flood, PSYCHOLOGICAL EXAMINER, CNM [address] [place] [address] (Wo rk) documented as of this encounter Visit Diagnoses Not on filedocumented in this encounter
--- OUTSIDE RECORDS SUMMARY | 2021-10-30 15:26 | XMS_ITS | Encounter Summary ---
:1990 Author Organization [facility] Address [address] [place] [address] Care Team Providers Name Role Phone Unavailable Primary Care Provider Unavailable Encounter Details Date Type Department Care Team Description 06/24/2009 Car Sales Representative Only [facility] MD [place] [address] [place], [place] [address] [place], [place] [phone] (Wo rk) Social History Tobacco Use Types Packs/Day Years Used Date Smoking Tobacco: Never Assessed Sex Assigned at Date Recorded Not on file documented as of this encounter Progress Notes Michelle Wong MD - 06/24/2009 12:01 AM CDT Progress Notes signed by Michelle Wong MD at 06/24/09 1049 Author: Michelle Wong MD Service: (none) Author Type: (none) Filed: 07/14/10 230 Note Time: 06/24/09 0001 Status: Signed Banquet Pilot: Michelle Wong MD (Physician) Failed appointment. francis documented in this encounter Plan of Treatment Upcoming Encounters Date Type Specialty Care Team Description 10/17/2021 Hospital Encounter Obstetrics & Gynecology Monica Flood, ACTIVITY THERAPIST, CNM [address] [place] [address] (Wo rk) documented as of this encounter Visit Diagnoses Not on filedocumented in this encounter
--- OUTSIDE RECORDS SUMMARY | 2021-10-30 15:26 | XMS_ITS | Encounter Summary ---
:1990 Author Organization [facility] Address [address] [place] [address] Care Team Providers Name Role Phone Unavailable Primary Care Provider Unavailable Encounter Details Date Type Department Care Team Description 06/07/2009 [facility] Visit [facility] MD [place] [address] [place], [place] [address] [place] [address] [phone] (Wo rk) Social History Tobacco Use Types Packs/Day Years Used Date Smoking Tobacco: Never Assessed Sex Assigned at Date Recorded Not on file documented as of this encounter Last Filed Vital Signs Vital Sign Reading Time Taken Comments Blood Pressure - - Pulse - - Temperature 36.6 ??C (97.9 ??F) 06/07/2009 9:04 AM CDT C: 36 .6 C Respiratory Rate - - Oxygen Saturation - - Inhaled Oxygen Concentration - - Weight 64.9 kg (142 lb 15.9 oz) 06/07/2009 9:04 AM CDT C: 64.9kg Height - - Body Mass Index - - documented in this encounter Progress Notes Michelle Wong MD - 06/07/2009 12:01 AM CDT Progress Notes signed by Michelle Wong MD at 06/07/09 1113 Author: Michelle Wong MD Service: (none) Author Type: (none) Filed: 07/14/10 2581 Note Time: 06/07/09 0001 Status: Signed Chemical Librarian: Michelle Wong MD (Physician) Subjective: 18 year old patient here for evaluation and treatments of warts. Onset: months Symptoms: enlarging Previous Treatments: liquid nitrogen; OTC Location: fingers PMH : reviewed in EMR, no personel history of skin cancer.No significant underlying medical problems. Medications : reviewed and updated in the EMR Adverse Drug Reactions : see EMR and the FH: no history of skin cancer or melanoma SH : Objective: Alert and oriented times 3. Location : Left third finger of the left fifth finger, right index finger Size : 4mm-1mm Appearance : verrucous appearing lesion Treatment : I discussed the risk of pain, blistering, infection, scarring, hypopigmentation, hyperpigmentation, and possible recurrence or need for retreatment. Hyperkeratotic tissue of wart (s) was pared with a scapel blade. Liquid nitrogen applied to freeze the entire lesion ( s) including a narrow margin of surrounding skin. After thawing, freezing was repeated times one.Band aid applied to lesion. Treatment ( consecutive ) number : first Total Number Treated : first Assessment : Warts- hands Plan : 1. Follow up : 2-3 weeks 2. discussed after cares including management of blister formation, pain management. documented in this encounter Plan of Treatment Upcoming Encounters Date Type Specialty Care Team Description 10/17/2021 Hospital Encounter Obstetrics & Gynecology Monica Flood, TAVARES, CNM [address] [place] [address] (Wo rk) documented as of this encounter Visit Diagnoses Not on filedocumented in this encounter
--- OUTSIDE RECORDS SUMMARY | 2021-10-30 15:26 | XMS_ITS | Encounter Summary ---
:1990 [facility] [address] [place] [address] Care Team Providers Name Role Phone Unavailable Primary Care Provider Unavailable Encounter Details Date Type Department Care Team Description 02/26/2008 Office Visit [facility] Cristiano Johnson, [address] [place], [place] [address] [address] [facility] [phone] [address] [place], [place] [address] Social History Tobacco Use Types Packs/Day Years Used Date Smoking Tobacco: Never Assessed Sex Assigned at Date Recorded Not on file documented as of this encounter Last Filed Vital Signs Vital Sign Reading Time Taken Comments Blood Pressure - - Pulse - - Temperature - - Respiratory Rate - - Oxygen Saturation - - Inhaled Oxygen Concentration - - Weight 69.4 kg (152 lb 15.6 oz) 02/26/2008 2:15 PM ROUGH PATCHER C: 69.4kg Height - - Body Mass Index - - documented in this encounter Progress Notes Cristiano Johnson - 02/26/2008 12:01 AM CST Procedures signed by Cristiano Johnson MD at 02/27/08 0000 Author: Cristiano Johnson MD Service: (none) Author Type: Physician Filed: 07/14/10 1056 Note Time: 02/26/08 0001 Status: Signed Security Risk Analyst: Cristiano Johnson MD (Physician) Procedure Note: Skin Lesion Destruction CHIEF COMPLAINT: Skin wart(s) Adverse Drug Reactions: None. Location #1: left right hand History: Lesion has been present for 1 month, irritated, Description: verrucous papule consistent with a benign wart. Number of Lesions Treated @ This Site: Size of largest lesion: 3 mm. ASSESSMENT: Wart(s) (078.10) PROCEDURE NOTE: Skin was cleaned & prepped with Alcohol. Hyperkeratotic tissue of wart(s) was pared with a scalpel blade. Liquid nitrogen applied to freeze the entire lesion(s) including a narrow margin of surrounding skin. After thawing, freezing was repeated x 1. PLAN: Patient will use OTC remedies and return if further treatment desired. Return to clinic if there is not complete resolution of the lesion over the next month. *SH~PC~[facility] ~[place] Note completed on: 02/27/2008 12:00 AM H PATCHER documented in this encounter Plan of Treatment Upcoming Encounters Date Type Specialty Care Team Description 10/17/2021 Hospital Encounter Obstetrics & Gynecology Monica Flood, [employer], CNM [address] [id number] (Wo [id number]) documented as of this encounter Visit Diagnoses Not on filedocumented in this encounter
--- OUTSIDE RECORDS SUMMARY | 2021-10-30 15:26 | XMS_ITS | Encounter Summary ---
:1990 Author Organization [place] Address [facility] [place] [address] Care Team Providers Name Role Phone Reynaldo Amador PA-C Unavailable [phone] Zuleyma Winter MD Unavailable Zuleyma Winter MD Primary Care Provider [phone] Reason for Visit Reason Comments Scheduled Section Auth/Cert Specialty Diagnoses / Procedures Referred By Contact Refer red To Contact creel hand Diagnoses Breech presentation, single or unspecified fetus Breech presentation, single or unspecified fetus [O32.1XX0] Sh Labor & Delivery Procedures SECTION [address] [address] Phone: Referral ID Status Reason Start Date Expiration Date Visits Requ ested Visits Authorized [id number] 1 1 Encounter Details Date Type Department Care Team Description 05/05/2019 - Hospital Encounter [facility] Adrienne Deleon delivery delivered (Primary Dx); 05/08/2019 Armond Brizuela Breech presenta tion, single or unspecified fetus; Birthplace MD Zuleyma Breech presentation, single or unspecifi ed fetus [address] [place] [id number] Social History Tobacco Use Types Packs/Day Years Used Date Never Smoker 0 Smokeless Tobacco: Never Used Alcohol Use Standard Drinks/Week Comments Not Currently 0 (1 standard drink = 0.6 oz pure alcoho l) Sex Assigned at Date Recorded Female 10/07/2018 7:21 AM CDT documented as of this encounter Last Filed Vital Signs Vital Sign Reading Time Taken Comments Blood Pressure 132/96 05/08/2019 8:00 AM GALLEY WORKER Pulse 78 05/06/2019 3:00 AM GALLEY WORKER Temperature 37.9 ??C (100.3 ??F) 05/08/2019 8:00 AM GALLEY WORKER Respiratory Rate 16 05/08/2019 8:00 AM GALLEY WORKER Oxygen Saturation 93% 05/06/2019 5:00 AM GALLEY WORKER Inhaled Oxygen Concentration - - Weight - - Height - - Body Mass Index - - documented in this encounter Discharge Summaries Chata Deleon MD - 05/08/2019 10:45 AM CST Mally Resendiz 1990 05/05/2019 05/08/2019 Mally Resendiz [facility] Medication Instructions [id number] Printed on:05/11/19 0810 Medication Information ibuprofen (ADVIL/MOTRIN) 800 MG tablet Take 1 tablet (800 mg) by mouth every 6 hours as needed for other (cramping) order for DME Equipment being ordered: 1 standard double electric breast pump To be used for:99 Indications: Infant oxyCODONE (ROXICODONE) 5 MG tablet Take 1 tablet (5 mg) by mouth every 6 hours as needed for moderate to severe pain Prenat w/o T-SQ-Xpwlvky-FA-DHA (PNV-DHA PO) senna-docusate (SENOKOT-S/PERICOLACE) 8.6-50 MG tablet Take 1 tablet by mouth 2 times daily as needed for constipation Course of Care: Patient had a primary section for breech presentation. She had declined version. Endometriosis noted during procedure. Left ovary was adherent to the uterus. She had acute blood loss anemia. She did well postoperatively. EY WORKER documented in this encounter Discharge Instructions Discharge [...] questions or concerns after you return home. EY WORKER documented in this encounter Medications at Time of Discharge Medication Sig Dispensed Refills Start Date End Date ibuprofen Take 1 tablet (800 mg) by 20 tablet 0 05/07/2019 (ADVIL/MOTRIN) 800 MG mouth every 6 hours as tabletIndications: needed for other delivery (cramping) delivered order for Equipment being ordered: 1 standard doub Dakim electric breast pump 1 Device 0 04/14/2019 DMEIndications: To be used for:99 Lactating mother Indications: Infant oxyCODONE (ROXICODONE) Take 1 tablet (5 mg) by 30 tablet 0 05/07/2019 5 MG mouth every 6 hours as tabletIndications: needed for moderate to delivery severe pain delivered Prenat w/o 0 H-QY-Qurjgow-FA-DHA (PNV-DHA PO) senna-docusate Take 1 tablet by mouth 2 14 tablet 0 020 (SENOKOT-S/PERICOLACE) times daily as needed for 8.6-50 MG constipation tabletIndications: delivery delivered documented as of this encounter Progress Notes Li Pritchard APRN CNM - 05/08/2019 10:10 AM CST CNM Courtesy Round PPD#3, is happy to go home today. Feels well, up ambulating in the room. Tylenol and Ibuprofen sufficient for pain control. is going well. Plans to F/U in 6 weeks with CNM service. Encouraged to call with any questions or concerns before then. Li Pritchard APRN, CNM EY WORKER Hanh Monroy MD - 05/08/2019 8:05 AM CST S: [...] Discharge planning for tomorrow Chata Monzon MD Chata Huang MD - 05/06/2019 6:29 AM CST Mally [...] once wet from shower Chata Monzon MD EY WORKER Lisa Bowens APRN CNM - 05/05/2019 10:45 AM CST assist for breech presentation. CNM courtesy rounds while she is admitted under MD management. Lisa Bowens APRN, HARI EY WORKER documented in this encounter Miscellaneous Notes Plan of Care - Laura Vaughn RN - 05/08/2019 9:29 AM CST VSS Pt using Ibuprofen and tylenol for pain control. Up independently in the room. Pt c/o having full feeling breasts and feels somewhat painful. Temperature this morning 100.3. saw patient and patient did some manual expression. Pt states that expression helped with the pain. Breast fed with nipple velasco and baby latched well. Discharging to home with pain medications. Dischargingwith and infant. EY WORKER Note - Rylee Buckner RN - 05/08/2019 8:58 AM CST Routine and discharge visit Mally, FOB, and baby girl. Primary RN requested LC to help Mally out this morning with engorgement. Mally's milk came in last night and was having a hard time latching. LC educated/demonstrated with Mally how to hand express and we collected EBM with pumping equipment. Expressed/collected over 8ml. After hand expression, infant able to latch well and nursed with [...] pump for home use. Follow up with Payroll And Benefits Manager, encouraged follow up. Reviewed outpatient resources. Appreciative of visit. Bess Buckner, ASHTYN, Educator EY WORKER Plan of Care - Jazmin Frances RN - 05/08/2019 7:43 AM CST VSS on RA. Fundus firm, midline U/1. Scant lochia rubra. Incision WDL. Voiding adequately. Up independently. Denied pain during the night. well using shield. Bonding well w/. Independent w/ cares. Spouse at bedside and supportive. Nursing to continue to monitor. EY WORKER Plan of Care - Uma Lawler RN - 05/07/2019 9:57 PM CST Vital signs are stable. Pt using Ibuprofen and tylenol for pain control. Also using abdominal binder. Up independently in the room. on demand, latching well with a nipple shield. Will continue to monitor EY WORKER Plan of Care - Laura Vaughn RN - 05/07/2019 1:50 PM CST VSS Pt using Ibuprofen and tylenol for pain control. Also using abdominal binder. Up independently in the room. on demand, latching well with a nipple shield. Will continue to monitor. EY WORKER Plan of Care - Deanna Vines RN [...] is present. Plan: Anticipate discharge on 05/08. EY WORKER Plan of Care - Yessenia Rose RN - 05/06/2019 9:48 PM CST Vital signs stable. Voiding without difficulty. Lung sounds clear and equal. Using tylenol/ibuprofenfor pain management. Up ambulating free of dizziness. Working on every 2-3 hours usinga nipple shield. Encouraged to call with questions/concerns. Will continue to monitor. EY WORKER Plan of Care - Pat Riley RN - 05/06/2019 10:42 AM CST Pt's pain controlled with Ibuprofen and Tylenol. Dressing removed after showering- liquid bandage intact. Abdominal binder placed on pt. Up and about in room. Encouraged to take at least four walks in the hallways daily.Will continue to monitor. EY WORKER Plan of Care - Deanna Vines RN [...] is present. Plan: Anticipate discharge on 05/08. EY WORKER Plan of Care - Yessenia Rose RN [...] Will continue with current plan of care. EY WORKER Note - Denisha Owen RN - 05/05/2019 4:31 PM GALLEY WORKER Initial visit with LISE Bal and baby. [...] plans to follow up with LC at [facility] to design a plan to discontinue the nipple shield. Continues to nurse well per mom. No further questions at this time. Will follow as needed. Denisha Owen BSN, RN, PHN, RNC-MNN, IBCLC EY WORKER Plan of Care - Pat Riley RN - 05/05/2019 2:23 PM CST Pt's pain controlled with Duramorph/Dilaudid/Ibuprofen/Tylenol. VSS. IV/Zheng patent. Moves well in bed. Perineal care done. Will continue to monitor. EY WORKER Plan of Care - Pat Riley RN [...] to the room and call light system. EY WORKER Op Note - Chata Deleon MD - [...] see anesthesia record Drains- zheng catheter Findings: female APGARS- 8/9 3-V cord Normal tubes [...] at the abdominal wall. Rest of the delivered without complications. After the umbilical cord [...] the recovery room in a stable condition. EY WORKER Plan of Care - Lucille Mathias RN - 05/05/2019 8:35 AM CST Mally is a 28yo 39w1d presents to [facility] for a primary scheduled section for breech presentation. +FM. Denies cxns, bleeding or LOF. Keanu is at bedside and supportive. Expecting a girl, plans to breastfeed, credit and collections representative peds. Hx of heart murmur, congenital cleft [...] uterine wall. Data: Mally Resendiz transferred to [facility] via bed at 1225. Zheng and IV patent. Baby transferred via parent's arms. Action: Receiving unit notified of transfer: Yes. Patient and family notified of room change. Reportgiven to ASHTYN Stewart at bedside. Belongings sent to receiving unit. Accompanied by Registered Nurse. Oriented patient to surroundings. Call light within reach. ID bands double-checked with receiving RN. Response: Patient tolerated transfer and is stable. EY WORKER documented in this encounter Plan of Treatment Not on filedocumented as of this encounter Procedures Procedure Name Priority Date/Time Associated Comments Diagnosis COMPREHENSIVE STAT 05/07/2019 8:02 AM Breech Results for this METABOLIC PANEL GALLEY WORKER presentation, procedure a re in single or the results unspecified fetus section. CBC WITH PLATELETS STAT 05/07/2019 8:02 AM Breech Res ults for this GALLEY WORKER presentation, procedure are in single or the results unspecified fetus section. HEMOGLOBIN Routine 05/06/2019 9:42 AM Breech Results f or this GALLEY WORKER presentation, procedure are in single or the results unspecified fetus section. CBC WITH PLATELETS Timed 05/05/2019 5:17 PM Breech Res ults for this GALLEY WORKER presentation, procedure are in single or the results unspecified fetus section. CBC WITH PLATELETS STAT 05/05/2019 11:15 Breech Resul ts for this AM GALLEY WORKER presentation, procedure are in single or the results unspecified fetus section. SECTION Routine 05/05/2019 7:49 AM Breech GALLEY WORKER presentation, single or unspecified fetus TREPONEMA ABS W REFLEX STAT 05/05/2019 7:26 AM Breech Results for this TO RPR AND TITER GALLEY WORKER presentation, procedure are in single or the results unspecified fetus section. COMPREHENSIVE Routine 05/05/2019 7:26 AM Breech Results for this METABOLIC PANEL GALLEY WORKER presentation, procedure a re in single or the results unspecified fetus section. CBC WITH PLATELETS STAT 05/05/2019 7:26 AM Breech Res ults for this GALLEY WORKER presentation, procedure are in single or the results unspecified fetus section. documented in this encounter Results (ABNORMAL) Comprehensive metabolic panel (05/07/2019 8:02 AM GALLEY WORKER) P athologist Signature Sodium 140 133 - 144 05/07/2019 [facility] mmol/L 8:30 AM [facility] Potassium 3.9 3.4 - 5.3 05/07/2019 [facility] mmol/L 8:30 AM [facility] Chloride 111 (H) 94 - 109 05/07/2019 [facility] mmol/L 8:30 AM [facility] Carbon Dioxide 25 20 - 32 05/07/2019 [facility] mmol/L 8:35 AM [facility] Anion Gap 4 3 - 14 05/07/2019 [facility] mmol/L 8:35 AM [facility] Glucose 79 70 - 99 05/07/2019 [facility] mg/dL 8:35 AM [facility] Urea Nitrogen 8 7 - 30 05/07/2019 [facility] mg/dL 8:35 AM [facility] Creatinine 0.61 0.52 - 05/07/2019 [facility] 1.04 mg/dL 8:35 AM [facility] GFR Estimate >90 >60 05/07/2019 [facility] mL/min/{1. 8:35 AM [facility] 73_m2} HOSPITAL Comment: Non GFR Calc Starting 03/10/2018, serum creatinine ba sed estimated GFR (eGFR) will be calculated using the Chronic Kidney Dise page hospital Epidemiology Collaboration (CKD-EPI) equation. GFR Estimate If >90 >60 mL/min/{1.73_m2} 05/07/2019 8: 35 AM [facility] Comment: GFR Calc Starting 03/10/2018, serum creatinine ba sed estimated GFR (eGFR) will be calculated using the Chronic Kidney Dise page hospital Epidemiology Collaboration (CKD-EPI) equation. Calcium 8.3 (L) 8.5 - 10.1 05/07/2019 8:35 AM [facility] mg/dL [facility] Bilirubin Total 0.2 0.2 - 1.3 mg/dL 05/07/2019 8:[address] [facility] Albumin 2.2 (L) 3.4 - 5.0 g/dL 05/07/2019 8:38 AM [facility] Protein Total 6.0 (L) 6.8 - 8.8 g/dL 05/07/2019 8:38 AM [facility] Alkaline Phosphatase 90 40 - 150 U/L 05/07/2019 8:[address] [facility] ALT 13 0 - 50 U/L 05/07/2019 8:38 AM [facility] AST 15 0 - 45 U/L 05/07/2019 8:38 AM [facility] Specimen Anatomical Collection Method Collection Time Receive d Time (Source) Location / / Volume Laterality Blood specimen 05/07/2019 8:02 AM 020 8:03 (specimen) GALLEY WORKER AM [facility] Chata Monzon MD LAB - BLOOD ORDERABL ES Performing Organization Address City/State/ZIP Code Phon e Number M [facility] [address] [address] [facility] [address] [address], [place] [phone] (ABNORMAL) CBC with platelets (05/07/2019 8:02 AM GALLEY WORKER) Analysis Performed At Patho logist Time Signature WBC 11.6 (H) 4.0 - 11.0 05/07/2019 [facility] 10e9/L 8:28 AM [facility] RBC Count 3.13 (L) 3.8 - 5.2 05/07/2019 [facility] 10e12/L 8:28 AM [facility] Hemoglobin 9.3 (L) 11.7 - 05/07/2019 [facility] 15.7 g/dL 8:28 AM [facility] Hematocrit 27.9 (L) 35.0 - 05/07/2019 [facility] 47.0 % 8:28 AM [facility] MCV 89 78 - 100 05/07/2019 [facility] fl 8:28 AM [facility] MCH 29.7 26.5 - 05/07/2019 [facility] 33.0 pg 8:28 AM [facility] MCHC 33.3 31.5 - 05/07/2019 [facility] 36.5 g/dL 8:28 AM [facility] RDW 13.7 10.0 - 05/07/2019 [facility] 15.0 % 8:28 AM [facility] Platelet Count 158 150 - 450 05/07/2019 [facility] 10e9/L 8:28 AM [facility] Specimen Anatomical Collection Method Collection Time Receive d Time (Source) Location / / Volume Laterality Blood specimen 05/07/2019 8:02 AM 020 8:03 (specimen) GALLEY WORKER AM GALLEY WORKER Chata Monzon MD LAB - BLOOD ORDERABL ES Performing Organization Address City/State/ZIP Code Phon e Number [facility] [address] [address] [phone] [facility] [address] [address], [place] [phone] (ABNORMAL) Hemoglobin (05/06/2019 9:42 AM GALLEY WORKER) P athologist Signature Hemoglobin 10.0 (L) 11.7 - 15.7 05/06/2019 [facility] g/dL 9:56 AM [facility] Specimen Anatomical Collection Method Collection Time Receive d Time (Source) Location / / Volume Laterality Blood specimen 05/06/2019 9:42 AM 020 9:43 (specimen) GALLEY WORKER AM GALLEY WORKER Chata Monzon MD LAB - BLOOD ORDERABL ES Performing Organization Address City/State/ZIP Code Phon e Number [facility] [address] [place] [address] [facility] [address] [place] [address], [place] [phone] (ABNORMAL) CBC with platelets (05/05/2019 5:17 PM GALLEY WORKER) Analysis Performed At Patho logist Time Signature WBC 14.1 (H) 4.0 - 11.0 05/05/2019 [facility] 10e9/L 5:27 PM [facility] RBC Count 3.67 (L) 3.8 - 5.2 05/05/2019 [facility] 10e12/L 5:27 PM [facility] Hemoglobin 10.9 (L) 11.7 - 05/05/2019 [facility] 15.7 g/dL 5:27 PM [facility] Hematocrit 32.2 (L) 35.0 - 05/05/2019 [facility] 47.0 % 5:27 PM [facility] MCV 88 78 - 100 05/05/2019 [facility] fl 5:27 PM [facility] MCH 29.7 26.5 - 05/05/2019 [facility] 33.0 pg 5:27 PM [facility] MCHC 33.9 31.5 - 05/05/2019 [facility] 36.5 g/dL 5:27 PM [facility] RDW 13.0 10.0 - 05/05/2019 [facility] 15.0 % 5:27 PM [facility] Platelet Count 165 150 - 450 05/05/2019 [facility] 10e9/L 5:27 PM [facility] Specimen Anatomical Collection Method Collection Time Receive d Time (Source) Location / / Volume Laterality Blood specimen 05/05/2019 5:17 PM 020 5:18 (specimen) GALLEY WORKER PM GALLEY WORKER Chata Monzon MD LAB - BLOOD ORDERABL ES Performing Organization Address City/State/ZIP Code Phon e Number [facility] [address] [address] [phone] [facility] [address] [address], [place] [phone] (ABNORMAL) CBC with platelets (05/05/2019 11:15 AM GALLEY WORKER) Analysis Performed At Patho logist Time Signature WBC 9.5 4.0 - 11.0 05/05/2019 [facility] 10e9/L 11:22 AM [facility] RBC Count 3.66 (L) 3.8 - 5.2 05/05/2019 [facility] 10e12/L 11:22 AM [facility] Hemoglobin 11.0 (L) 11.7 - 05/05/2019 [facility] 15.7 g/dL 11:22 AM [facility] Hematocrit 32.5 (L) 35.0 - 05/05/2019 [facility] 47.0 % 11:22 AM [facility] MCV 89 78 - 100 05/05/2019 [facility] fl 11:22 AM [facility] MCH 30.1 26.5 - 05/05/2019 [facility] 33.0 pg 11:22 AM [facility] MCHC 33.8 31.5 - 05/05/2019 [facility] 36.5 g/dL 11:22 AM [facility] RDW 13.3 10.0 - 05/05/2019 [facility] 15.0 % 11:22 AM [facility] Platelet Count 167 150 - 450 05/05/2019 [facility] 10e9/L 11:22 AM [facility] Specimen Anatomical Collection Method Collection Time Receive d Time (Source) Location / / Volume Laterality Blood specimen 05/05/2019 11:15 0 (specimen) AM GALLEY WORKER 11:16 AM GALLEY WORKER Chata Monzon MD LAB - BLOOD ORDERABL ES Performing Organization Address City/State/ZIP Code Phon e Number [facility] [address] [address] [facility] [address] [address], [place] [phone] (ABNORMAL) Comprehensive metabolic panel (05/05/2019 7:26 AM [facility]) athologist Signature Sodium 140 133 - 144 05/05/2019 [facility] mmol/L 8:02 AM [facility] Potassium 3.7 3.4 - 5.3 05/05/2019 [facility] mmol/L 8:02 AM [facility] Chloride 112 (H) 94 - 109 05/05/2019 [facility] mmol/L 8:02 AM [facility] Carbon Dioxide 23 20 - 32 05/05/2019 [facility] mmol/L 8:13 AM [facility] Anion Gap 5 3 - 14 05/05/2019 [facility] mmol/L 8:13 AM [facility] Glucose 72 70 - 99 05/05/2019 [facility] mg/dL 8:13 AM [facility] Urea Nitrogen 14 7 - 30 05/05/2019 [facility] mg/dL 8:13 AM [facility] Creatinine 0.63 0.52 - 05/05/2019 [facility] 1.04 mg/dL 8:13 AM [facility] GFR Estimate >90 >60 05/05/2019 [facility] mL/min/{1. 8:13 AM [facility] 73_m2} HOSPITAL Comment: Non GFR Calc Starting 03/10/2018, serum creatinine ba sed estimated GFR (eGFR) will be calculated using the Chronic Kidney Dise page hospital Epidemiology Collaboration (CKD-EPI) equation. GFR Estimate If >90 >60 mL/min/{1.73_m2} 05/05/2019 8: 13 AM [facility] Comment: GFR Calc Starting 03/10/2018, serum creatinine ba sed estimated GFR (eGFR) will be calculated using the Chronic Kidney Dise page hospital Epidemiology Collaboration (CKD-EPI) equation. Calcium 8.4 (L) 8.5 - 10.1 05/05/2019 8:13 AM [facility] [place] mg/dL [facility] Bilirubin Total 0.2 0.2 - 1.3 mg/dL 05/05/2019 8:[address] [facility] Albumin 2.7 (L) 3.4 - 5.0 g/dL 05/05/2019 8:15 AM [facility] Protein Total 6.6 (L) 6.8 - 8.8 g/dL 05/05/2019 8:15 AM [facility] Alkaline Phosphatase 121 40 - 150 U/L 05/05/2019 8:[address] [facility] ALT 18 0 - 50 U/L 05/05/2019 8:15 AM [facility] AST 19 0 - 45 U/L 05/05/2019 8:15 AM [facility] Specimen Anatomical Collection Method Collection Time Receive d Time (Source) Location / / Volume Laterality 05/05/2019 7:26 AM 0 7:27 GALLEY WORKER AM GALLEY WORKER Chata Monzon MD LAB - BLOOD ORDERABL ES Performing Organization Address City/State/ZIP Code Phon e Number [facility] [address] [address] [facility] [address] [address], U [phone] CBC with platelets (05/05/2019 7:26 AM [facility]) P athologist Signature WBC 6.6 4.0 - 11.0 05/05/2019 [facility] 10e9/L 7:35 AM [facility] RBC Count 4.05 3.8 - 5.2 05/05/2019 [facility] 10e12/L 7:35 AM [facility] Hemoglobin 12.0 11.7 - 05/05/2019 [facility] 15.7 g/dL 7:35 AM [facility] Hematocrit 35.6 35.0 - 05/05/2019 [facility] 47.0 % 7:35 AM [facility] MCV 88 78 - 100 05/05/2019 [facility] fl 7:35 AM [facility] MCH 29.6 26.5 - 05/05/2019 [facility] 33.0 pg 7:35 AM [facility] MCHC 33.7 31.5 - 05/05/2019 [facility] 36.5 g/dL 7:35 AM [facility] RDW 13.1 10.0 - 05/05/2019 [facility] 15.0 % 7:35 AM [facility] Platelet Count 167 150 - 450 05/05/2019 [facility] 10e9/L 7:35 AM GALLEY WORKER [facility] Specimen Anatomical Collection Method Collection Time Receive d Time (Source) Location / / Volume Laterality Blood specimen 05/05/2019 7:26 AM 020 7:27 (specimen) GALLEY WORKER AM GALLEY WORKER Chata Monzon MD LAB - BLOOD ORDERABL ES Performing Organization Address City/State/ZIP Code Phon e Number [facility] [address] [place] [address] [facility] [address] [place] [address], U [phone] Treponema Abs w Reflex to RPR and Titer (05/05/2019 7:26 AM GALLEY WORKER) [facility] Method Time Signature Treponema Nonreactive NR^Nonrea 05/06/2019 INFECTIOUS Antibodies ctive 10:00 AM GALLEY WORKER [facility] Specimen Anatomical Collection Method Collection Time Receive d Time (Source) Location / / Volume Laterality Blood specimen 05/05/2019 7:26 AM 020 7:27 (specimen) GALLEY WORKER AM GALLEY WORKER Chata Monzon MD LAB - BLOOD ORDERABL ES Performing Organization Address City/[facility]/ZIP Code Phon e Number INFECTIOUS DISEASES [address] [place] [address] DIAGNOSTIC LABORATORY, [facility] INFECTIOUS DISEASES [address] [place] [address], [place] [facility] documented in this encounter Visit Diagnoses Diagnosis Breech presentation, single or unspecifi ed fetus - Primary delivery delivered delivery, without mention of in dication, delivered, with or without mention of antepartum condition documented in this encounter Admitting Diagnoses Diagnosis Breech presentation, single or unspecifi ed fetus documented in this encounter Administered Medications Inactive Administered Medications - up to 3 most recent administrations Medication Order MAR Action Action Date Dose Rate Site acetaminophen (TYLENOL) 325 MG tablet Starting on Fri05/05/19 at 0809, For 1 dose, Kerri Mathias : cabinet override Maximum acetaminophen dose from all sources = 75 mg/kg /day not to exceed 4 grams/day. acetaminophen (TYLENOL) tablet 975 mg Given 05/05/2019 8:45 AM GALLEY WORKER 975 mg 975 mg, Oral, ONCE, On Fri05/05/19 at 0715, For 1 dose, Maximum acetaminophen dose from all sources = 75 mg/kg/day not to exceed 4 grams/day., Pre-procedure acetaminophen (TYLENOL) tablet 975 mg Given 05/08/2019 7:49 AM GALLEY WORKER 975 mg 975 mg, Oral, EVERY 8 HOURS PRN, mild pain, fever, Starting on Fri05/05/19 at 1700, Maximum acetaminophen dose from all sources = 75 mg/kg/day not to exceed 4 grams/day., Pre-procedure Given 05/07/2019 5:30 PM GALLEY WORKER 975 mg Given 05/07/2019 8:32 AM GALLEY WORKER 975 mg bisacodyl (DULCOLAX) Suppository 10 mg 10 mg, Rectal, DAILY PRN, constipation, Starting on Fri05/07/19 at 0000, Start POD 2 Hold for loose stools., Post-procedure dextrose 5% in lactated ringers infusion New Bag 05/05/2019 6:57 PM GALLEY WORKER 125 mL/hr at 125 mL/hr, Intravenous, CONTINUOUS, Subsequent IV at nurse's discretion. DC IV when tolerating fluids or at nurse's discretion & saline lock., Post-procedure, Starting on Fri05/05/19 at 1330, Until 05/08/19 at 1248 hydrocortisone 2.5 % cream Rectal, 3 TIMES DAILY PRN, hemorrhoids, Starting on Fri05/05/19 at 1321, Apply to hemorrhoids. Send only if nurse requests., Post-proced ure HYDROmorphone (PF) (DILAUDID) 0.5 MG/0.5 ML injection Starting on Fri05/05/19 at 1200, For 1 d kaylah, Lucille Mathias : cabinet override For ordered IV doses 0.1-4 mg give IV Push undiluted. Admi nister each 2mg over 2-5 minutes. HYDROmorphone (PF) (DILAUDID) injection Given 05/05/2019 12:01 P M GALLEY WORKER 0.3 mg 0.3-0.5 mg 0.3-0.5 mg, Intravenous, [...] analgesic side effects. 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 For ordered IV doses 0.1-4 mg give IV Push undiluted. Administer each 2mg over 2-5 minutes., Post-procedure ibuprofen (ADVIL/MOTRIN) tablet 800 mg Given 05/08/2019 7:49 AM GALLEY WORKER 800 mg 800 mg, Oral, EVERY 6 HOURS PRN, other, cramping, Starting on Fri05/05/19 at 1321, Start 6 hours after ketorolac is completed (if ordered). Max dose: 3200 mg/day, Post-procedure Given 05/07/2019 9:18 PM GALLEY WORKER 800 mg Given 05/07/2019 3:04 PM GALLEY WORKER 800 mg lactated ringers BOLUS 1,000 mL New Bag 05/05/2019 7:46 AM GALLEY WORKER 1,000 mLs Intravenous, 1,000 mL, ONCE, On Fri05/05/19 at 0715, For 1 dose, Prior to surgery. IF preeclamptic give only 500 mL, Pre-procedure lactated ringers BOLUS 1,000 mL Intravenous, 1,000 [...] (ALHAJI-SYNEPHRINE) [if ordere d] or page Anesthesia. lactated ringers infusion New Bag 05/05/2019 8:45 AM GALLEY WORKER 125 mL/hr at 125 mL/hr, Intravenous, CONTINUOUS, Pre-procedure, Starting on Fri05/05/19 at 0715, Until Fri05/05/19 at 1217 lanolin ointment Topical, EVERY 1 HOUR PRN, [...] at 0807 oxytocin (PITOCIN) 30 units in Rate/Dose Verify 05/05/2019 10:26 AM 100 mL/hr 500 mL 0.9% NaCl infusion GALLEY WORKER CONTINUOUS PRN, Starting on Fri05/05/19 at 0931, Anesthesia Intra-op Rate/Dose Change 05/05/2019 10:01 AM GALLEY WORKER 100 mL/hr 100 mL/hr New Bag 05/05/2019 9:31 AM GALLEY WORKER 340 mL/hr 340 mL/hr oxytocin (PITOCIN) 30 Rate/Dose Verify 05/05/2019 4:10 PM 100 mL/hr 100 mL/hr units in 500 mL 0.9% NaCl GALLEY WORKER infusion 100 mL/hr, Intravenous, CONTINUOUS, Starting on Fri05/05/19 at 1330, Anesthesia Provider to administer at 340 mL/hr for 30 minutes (or longer per provider discretion) then decrease to 100 mL/hr. Continue until a total of 2 bags administered (1st bag initiated by Anesthesia Provider.) Discontinue IV or saline lock IV per nurse discretion., Post-procedure New Bag 05/05/2019 1:41 PM GALLEY WORKER 100 mL/hr 100 mL/hr oxytocin (PITOCIN) 30 Rate/Dose Verify 05/05/2019 12:35 PM 100 mL/hr 100 mL/hr units in 500 mL 0.9% NaCl GALLEY WORKER infusion 340 mL/hr, Intravenous, CONTINUOUS PRN, for [...] loose stools., Post-procedure Given 05/07/2019 7:52 AM GALLEY WORKER 1 tablet Given 05/06/2019 7:39 AM GALLEY WORKER 1 tablet senna-docusate (SENOKOT-S/PERICOLACE) Given 05/06/2019 7:42 [...] on Fri05/05/19 at 1321, Chew., Post-procedure sodium citrate-citric acid (BICITRA) 500 -334 MG/5ML solution Starting on Fri05/05/19 at 0804, For 1 dose, Kerri Mathias : cabinet override sodium citrate-citric acid (BICITRA) solution Given 8:45 AM GALLEY WORKER 30 mLs 30 mL 30 mL, Oral, PRE-OP/PRE-PROCEDURE, Starting on Fri05/05/19 at 0713, For 1 dose, For gastric pH neutralization. GIVE WITHIN 45 minutes PRIOR TO SURGICAL PROCEDURE., Pre-procedure sodium phosphate (FLEET ENEMA) 1 enema 1 [...] Recently Administered Medications Times are shown in GALLEY WORKER. Continuous Medication Order 05/06/2019 05/07/2019 05/08/2019 dextrose [...] 0110 (Given - Pr ovider: Deanna Vines, RN)0832 (Given - Provider: Pat Riley RN)1613 (Given - Provider: Yessenia Rose, ASHTYN)2332 (Given - Provider: Deanna Vines, RN) 0832 (Given - Provider: Laura Vaughn, RN)1730 (Given - Provider: Uma Lawler RN) 0749 [...] mg 0.3-0.5 mg, Intravenous, EVERY 30 MIN LA N, Starting Fri05/05/19 at 1101, Until 05/08/19 [...] side effects. Hold w hile on IV BLEND PLANT OPERATOR. For ordered IV doses 0.1 -4 mg give IV Push undiluted. Administer each 2mg over 2-5 minutes. ibuprofen (ADVIL/MOTRIN) tablet 800 mg 0156 (Given - P rovider: Deanna Vines, RN)0739 (Given - Provider: Pat Riley, RN)1348 (Given - Provider: Pat Riley RN)1942 (Given - Provider: Yessenia Rose, ASHTYN) 0245 (Given - Provider: Deanna Vines, RN)0832 (Given - Provider: Laura Vaughn, RN)1504 (Given - Provider: Laura Vaughn, ASHTYN)2118 (Given - Provider: Uma Lawler RN) 0749 (Given - Provider: Laura Vaughn RN) 800 mg, Oral, EVERY 6 HOURS PRN, [...] d doses. medication instruction CONTINUOUS PRN, Starting 05/05/19 at 0902, Until 05/08/19 at 1248, -All [...] not need MMR vaccine CONTINUOUS PRN, Starting Fri05/05/19 at 1321, Until 05/08/19 at 1248, [...] MG per tablet 1 tablet(Linked Group 1) 0739 (Given - Provider: Pat Riley RN )194 (See Alternative - Provider: Yessenia Rose RN) 075 (Given - Provider: Laura Vaughn RN)2117 (Given - Provider: Uma Lawler, RN) [...] 1) 0739 (See Alternative - Provider: Pat Riley, RN)1941 (Given - Provider: Yessenia Rose, ASHTYN) [...] TIMES DAILY PRN, other, g as, Starting Fri05/05/19 at 1321, Chew., Post-procedure sodium phosphate [...] DAILY PRN, const ipation, Starting 05/05/19 at 1321
Hold for loose stools. Preferred agent for constipation related to opioids. Hold for loose stools.
Post-procedure documented in this encounter Additional Health Concerns Assessment Noted Time PHQ-9 Depression Total Score: 1 10/06/2018 9:27 AM CDT documented as of this encounter Care Teams Departmental Secretary Relationship Specialty Start Date End Date Zuleyma Winter MD PCP - General Family Practice 04/19/19 [address] [facility] [address] [address] Reynaldo Amador PA-C 10/06/18 05/13/[address] [address] Zuleyma Winter MD Assigned PCP 12/31/18 [address] [facility] [address] [address] documented as of this encounter
--- OUTSIDE RECORDS SUMMARY | 2021-10-30 15:26 | XMS_ITS | Encounter Summary ---
:1990 Author Organization [facility] Address [address] [place] [address] Care Team Providers Name Role Phone Unavailable Primary Care Provider Unavailable Encounter Details Date Type Department Care Team Description 12/02/2007 Office Visit [facility] [address] Ciara Garcia MD Plastic Surgery [address] [place] [address] [id number] [phone] Social History Tobacco Use Types Packs/Day Years Used Date Smoking Tobacco: Never Assessed Sex Assigned at Date Recorded Not on file documented as of this encounter Progress Notes Ciara Garcia MD - 12/02/2007 12:01 AM CDT Progress Notes signed by Ciara Garcia MD at 12/05/07 1742 Author: Ciara Garcia MD Service: (none) Author Type: Physician Filed: 07/14/10 0841 Note Time: 12/02/07 0001 Status: Signed Medical Terminologist: Ciara Gracia MD (Physician) NAME: MALLY MARSHALL MR#: [id number] ACCT: [id number] VISIT: [id number] DICTATING CLINICIAN: CIARA GARCIA MD CONFIRM #: [id number] LOC: 458 CLINIC PROGRESS NOTE DATE OF VISIT: 12/02/2007 SUBJECTIVE: Mally is here with her dad. 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 She is adopted, so they are uncertain of the family history, but the lesion itself has not changed except to grow with her. The surface is a little rough and has always been that way. Does intermittently have hair growth in it. It is located on her back. Does get sun exposure. They have moved from [place], and a surgeon there had recommended excision. It does rub on certain clothing and is bothersome to her. No medication. ADR/ALLERGIES: NO ALLERGIES. 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 Apparently on last physical, they were told they did not think it would require surgery. Dr. Escobar was her physician. OBJECTIVE: On exam, she has a slightly irregular congenital nevus, somewhat roughened, 2 x 4 cm, located lower back. Benign in appearance. ASSESSMENT: Congenital nevus, back. PLAN: Mally and her dad and I discussed the indications for preventative excision. We discussed options of doing it in the office, applying EMLA cream, versus doing it in ambulatory surgery. We discussed the mitral valve. Mally would like to proceed with doing it in the office. She thinks it is something she could tolerate. We did discuss the undermining process, and that even if it is numb she will feel a little pulling at the time of closure. She feels like she can do this. I will contact her primary care physician, Dr. Escobar, and confirm whether or not any further work-up is needed prior to proceeding or preventative antibiotics. We discussed that to reorient the scar, since it is somewhat oblique to the relaxed skin tension lines, the scar will be somewhat elongated. They understand this; wished to proceed. We discussed the risk of infection, bleeding, poor scar formation distortion to the area. ADDENDUM: Dr. Escobar is no longer with [facility]. In her absence, Dr. Jennings is covering her patients. He responded that he reviewed her note from last cardiology appointment. Antibiotic prophylaxis is not needed for her lesion. Should not need any special precautions with the procedure. Arrangements will be made. Total time: 30 minutes. Consultative time: 25. LORENZO:[id number] C: 12/03/07 10:20 CONFIRM #: [id number] documented in this encounter Plan of Treatment Upcoming Encounters Date Type Specialty Care Team Description 10/17/2021 Hospital Encounter Obstetrics & Gynecology Monica Flood, LOCAL DELIVERY TRUCK DRIVER, CNM [address] [place], [place] [id number] (Wo rk) documented as of this encounter Visit Diagnoses Not on filedocumented in this encounter
--- OUTSIDE RECORDS SUMMARY | 2021-10-30 15:26 | XMS_ITS | Clinical Summary ---
:1990 Author Organization [place] Address [facility] [place] [address] Care Team Providers Name Role Phone Zuleyma Winter MD Unavailable [phone] Zuleyma Winter MD Primary Care Provider Allergies No known active allergies Medications Medication Sig Dispensed Refills Start Date End Date Status Prenat w/o 0 Active Z-DI-Isutymc-FA-DHA (PNV-DHA PO) order for Equipment being ordered: 1 standard M2 Connections electric breast pump 1 Device 0 04/14/2019 Active DMEIndications: To be used for:99 Lactating mother Indications: ibuprofen Take 1 tablet (800 20 tablet 0 05/07/2019 Active (ADVIL/MOTRIN) 800 mg) by mouth every 6 MG hours as needed for tabletIndications: other (cramping) delivery delivered oxyCODONE Take 1 tablet (5 mg) 30 tablet 0 05/07/2019 Active (ROXICODONE) 5 MG by mouth every 6 tabletIndications: hours as needed for delivery moderate to severe delivered pain senna-docusate Take 1 tablet by 14 tablet 0 05/07/2019 Active (SENOKOT-S/PERICOLAC mouth 2 times daily E) 8.6-50 MG as needed for tabletIndications: constipation delivery delivered norgestimate-ethinyl Take 1 tablet by 28 tablet 0 08/12/2019 Active estradiol mouth daily (ORTHO-CYCLEN) 0.25-35 MG-MCG tabletIndications: Contraception management Active Problems Problem Noted Date delivery delivered 05/05/2019 Breech presentation, single or unspecified fetus 04/20 Overview: Added automatically from request for marbin haile [id number] Breech presentation of fetus 04/14/2019 history with cleft mitral valve and mitral valve regur gitation. 11/05/2018 Overview: 11/04/18: Mally stated she had a signific ant heart murmur in childhood. They were going to do open heart surgery, but it eventually resolved in her teens. She will bring her records in. (She doesn't remember anymore details) 12/24/18: Cardiology appt on 12/15 and 12/17: Matern al EKG and echo WNL. Recommendations (Dr Chin 12/17): [12/24/18] comprehensive survey at around 20 weeks gestation. [ ] ECHO at 22-24 weeks gestation. [ ] growth ultrasound at 28 weeks gestation. [ ] growth ultrasound at 34 weeks gestation [ ] Monitor for signs and symptoms of ma ternal arrhythmia and consider EKG in cases of suspected arrhythmia. [ ] Maternal ECHO in the 3rd trimester [ ] Follow up with adult congenital card iology (Dr. Addison) [ ] Vaginal delivery with early epidural is generally preferred with preservation of for obstetrical indications. [ ] Endocarditis prophylaxis is not louise mmended for either vaginal and deliveries [ ] Strict monitoring of I/O during labo r, delivery and period with goal to remain euvolemic. [ ] Avoid hypertension during and period. [ ] Frequency of PP follow up and imagin g will be determined based on her clinical status in consultation with Cardiology team. 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 High-risk in third trimester 10/06/2018 Overview: FOB:Keanu RAISA: 05/11/[birth year] B+/Post/GIRL! Innatal: Neg/Preparent Nml Tdap: 02/17 Flu:12/24 GBS: Adopted Needs Pap PP marignal cord insert ECHO 22-24wks / growth US 28&34 Hx heart murmur-card consult done MatECHO 3rd tri per MFM GTT 102 Hgb 10.7 Adopted 10/06/2018 Congenital cleft leaflet of mitral valve Resolved Problems Problem Noted Date Resolved Date Screening, for growth retardation with 12/2501/07/2019 ultrasound Overview: Needs growth US at 28 AND 34 weeks Needs ECHO between 22-24 weeks Immunizations Name Administration Dates Next Due HEPA 11/21/2006, 08/30/2004 HepB 11/21/2006, 10/28/1996 Hib (PRP-T) 11/15/1994, 05/30/1993, 02/01/1993, 1992 Historical DTP/aP 12/16/1997, 11/15/1994, 05/30/1993, 02/01/1993, 1992 Influenza Vaccine IM > 6 months 12/24/2018 Valent IIV4 (Alfuria,Fluzone) MMR 12/16/1997, 08/15/1994 OPV, trivalent, live 12/16/1997, 10/28/1996, 02/01/1993, 1992 TD (ADULT, 7+) 11/21/2006 TDAP Vaccine (Adacel) 02/17/2019 Typhoid IM 10/21/2008 Family History Patient is adopted Medical History Relation Comments No Known Problems Brother No Known Problems Father No Known Problems Maternal Grandfather No Known Problems Maternal Grandmother No Known Problems Mother No Known Problems Paternal Grandmother No Known Problems Sister Coronary Artery Disease No family hx of Hypertension No family hx of Relation Status Comments Brother Father Maternal Grandfather Maternal Grandmother Mother Paternal Grandmother Sister Social History Tobacco Use Types Packs/Day Years Used Date Never Smoker 0 Smokeless Tobacco: Never Used Alcohol Use Standard Drinks/Week Comments Not Currently 0 (1 standard drink = 0.6 oz pure alcoho l) Sex Assigned at Date Recorded Female 10/07/2018 7:21 AM CDT Last Filed Vital Signs Vital Sign Reading Time Taken Comments Blood Pressure 132/96 05/08/2019 8:00 AM TIMBER SPRINKLER Pulse 78 05/06/2019 3:00 AM TIMBER SPRINKLER Temperature 37.9 ??C (100.3 ??F) 05/08/2019 8:00 AM TIMBER SPRINKLER Respiratory Rate 16 05/08/2019 8:00 AM TIMBER SPRINKLER Oxygen Saturation 93% 05/06/2019 5:00 AM TIMBER SPRINKLER Inhaled Oxygen Concentration - - Weight 93.5 kg (206 lb 3.2 oz) 05/04/2019 2:54 PM TIMBER SPRINKLER Height 167.6 cm (5' 6) 04/16/2019 2:15 PM TIMBER SPRINKLER Body Mass Index 33.28 04/16/2019 2:15 PM TIMBER SPRINKLER Plan of Treatment Health Maintenance Due Date Last Done Comments ADVANCE CARE PLANNING 1992 ANNUAL REVIEW OF HM ORDERS 1992 PREVENTIVE CARE VISIT 1992 COVID-19 Vaccine (#1) 03/03/1993 HEPATITIS B IMMUNIZATION (3 01/16/2007 11/21/2006, 10/28/18 97 of 3 - 3-dose primary series) HEPATITIS C SCREENING 2010 PAP 2013 PHQ-2 (once per calendar 03/24/2021 04/16/2019, 01/22/2019, year) 10/06/2018, Additional history exists INFLUENZA VACCINE (#1) 2021 12/24/2018, 12/24/2018 DTAP/TDAP/TD IMMUNIZATION 02/17/2029 02/17/2019, 11/21/2006 , (8 - Td or Tdap) 12/16/1997, Additional history exists IPV IMMUNIZATION Completed 12/16/1997, 12/16/1997, 10/28/1996, Additional history exists HIV SCREENING Completed 10/06/2018 MENINGITIS IMMUNIZATION Aged Out No longe r eligible based on patient 's age to complete this topic Pneumococcal Vaccine: Aged Out No longer eligible Pediatrics (0 to 5 Years) based on patient's age and At-Risk Patients (6 to to co mplete this topic 64 Years) Insurance Payer Benefit Plan Subscriber ID Effective Dates Phone Address Type / Group MAYA/KOBY ADDISON PRIME [id number] 2018-Rosemary [phone] [address] Indemnity [facility] [id number] [place] [address] (Home) [place] [address] Care Teams Mangle Roll Operator Relationship Specialty Start Date End Date Zuleyma Winter MD PCP - General Family Practice 04/19/19 [address] [facility] [address] [address] Zuleyma Winter MD Assigned PCP 12/31/18 [address] [facility] [address] [address]
--- OUTSIDE RECORDS SUMMARY | 2021-10-30 15:26 | XMS_ITS | Encounter Summary ---
:1990 Author Organization [facility] Address [address] [place] [address] Care Team Providers Name Role Phone Zuleyma Winter MD Unavailable [phone] Zuleyma Winter MD Primary Care Provider [phone] Encounter Details Date Type Department Care Team Description 07/23/2019 Care Coordination [facility] Jeannette Vasquez RN [address] [address] Social History Tobacco Use Types Packs/Day Years [...] documented as of this encounter Care Teams Biostatistics Professor Relationship Specialty Start Date End Date Zuleyma Winter MD PCP - General Family Practice 04/19/[address] [place] [address] Zuleyma Winter MD Assigned PCP 12/31/[address] [place] [address] documented as of this encounter
--- OUTSIDE RECORDS SUMMARY | 2021-10-30 15:27 | XMS_ITS | Encounter Summary ---
:1990 Author Organization [place] Address [facility] [place] [address] Care Team Providers Name Role Phone No Ref-Primary, Physician Primary Care Provider [phone] Reynaldo Amador PA-C Unavailable [phone] Zuleyma Winter MD Unavailable [phone] Encounter Details Date Type Department Care Team Description 04/15/2019 Prep for Procedure [facility] Teo Deleon presentation, [facility] Chata keenan or Blossom Amor MD unspecified fetus [address] (Prima ry Dx) [place] [address] [address] [place] [address] [place] [address] Social History Tobacco Use [...] as of this encounter Visit Diagnoses Diagnosis Breech presentation, single or unspecifi ed fetus - Primary documented in this encounter Additional Health Concerns Assessment Noted Time PHQ-9 Depression Total Score: 1 10/06/2018 9:27 AM CDT documented as of this encounter Care Teams University President Relationship Specialty Start Date End Date No Ref-Primary, Physician PCP - General 10/06/18 04/18/19 Reynaldo Amador PA-C 10/06/18 05/13/[address] [address] Zuleyma Winter MD Assigned PCP 12/31/18 3033 [facility] [address] [place] [address] documented as of this encounter
--- OUTSIDE RECORDS SUMMARY | 2021-10-30 15:27 | XMS_ITS | Encounter Summary ---
:1990 Author Organization [facility] Address [address] [place] [address] Care Team Providers Name Role Phone No Ref-Primary, Physician Primary Care Provider [phone] Reynaldo Amador PA-C Unavailable [phone] Zuleyma Winter MD Unavailable [phone] Encounter Details Date Type Department Care Team Description 02/17/2019 Travel Social History Tobacco Use Types Packs/Day [...] documented as of this encounter Care Teams Customer Support Assistant Relationship Specialty Start Date End Date No Ref-Primary, Physician PCP - General 10/06/18 04/18/19 Reynaldo Amador PA-C 10/06/18 05/13/[address] [address] Zuleyma Winter MD Assigned PCP 12/31/18 3033 [facility] [address] [place] [address] documented as of this encounter
--- OUTSIDE RECORDS SUMMARY | 2021-10-30 15:27 | XMS_ITS | Encounter Summary ---
:1990 Author Organization [facility] Address [address] [place] [address] Care Team Providers Name Role Phone No Ref-Primary, Physician Primary Care Provider [phone] Reynaldo Amador PA-C Unavailable [phone] Zuleyma Winter MD Unavailable [phone] Encounter Details Date Type Department Care Team Description 03/05/2019 Travel Social History Tobacco Use Types Packs/Day [...] documented as of this encounter Care Teams Community Case Manager Relationship Specialty Start Date End Date No Ref-Primary, Physician PCP - General 10/06/18 04/18/19 Reynaldo Amador PA-C 10/06/18 05/13/[address] [address] Zuleyma Winter MD Assigned PCP 12/31/[address] [facility] [address] [place] [address] documented as of this encounter
--- OUTSIDE RECORDS SUMMARY | 2021-10-30 15:27 | XMS_ITS | Encounter Summary ---
:1990 Author Organization [place] Address [facility] [place] [address] Care Team Providers Name Role Phone No Ref-Primary, Physician Primary Care Provider [phone] Reynaldo Amador PA-C Unavailable [phone] Zuleyma Winter MD Unavailable [phone] Reason for Visit Reason Comments Care Encounter Details Date Type Department Care Team Description 01/22/2019 Office [facility] Griffin [facility] for [facility] Lizabeth Temple CNM supervision of [place] [address] [facility] normal first [address] [facility] [place] [address] trimester (Primary [address] Dx) [place] [address] (Work) [phone] Social History Tobacco Use Types Packs/Day Years Used Date Never Smoker 0 Smokeless Tobacco: Never Used Alcohol Use Standard Drinks/Week Comments Not Currently 0 (1 standard drink = 0.6 oz pure alcoho l) Sex Assigned at Date Recorded Female 10/07/2018 7:21 AM CDT documented as of this encounter Last Filed Vital Signs Vital Sign Reading Time Taken Comments Blood Pressure 110/70 01/22/2019 9:15 AM CDT Pulse - - Temperature - - Respiratory Rate - - Oxygen Saturation - - Inhaled Oxygen Concentration - - Weight 77.8 kg (171 lb 9.6 oz) 01/22/2019 9:15 AM CDT Height - - Body Mass Index 27.7 01/07/2019 1:18 PM CDT documented in this encounter Progress Notes Griffin, Lizabeth L, CNM - 01/22/2019 9:20 AM CDT Feels well, no concerns Has appt this afternoon to establish care with a primary care provider to place MFM referral in order for MFM visits to be covered by insurance. Reviewed MF recommendations for echo at 22-24 weeks, has not yet had. Advised she make appt for echo AMADOU after MFM referral has been placed. movement: positive Denies loss of fluid/vb/contractions GCT and CBC today Tdap next visit; reviewed CDC recommendations and partner/family vaccination recommended as well. Handout given Water discussed, patient is not interested Need for Rhogam? No, B+ Return to clinic 4 weeks Lizabeth Moya APRN, CNM documented in this encounter Plan of Treatment Not on filedocumented as of this encounter Visit Diagnoses Diagnosis Encounter for supervision of normal firs t in second trimester - Primary Supervision of normal first documented in this encounter Additional Health Concerns Assessment Noted Time PHQ-9 Depression Total Score: 1 10/06/2018 9:27 AM CDT documented as of this encounter Care Teams Trimmer Press Clippings Relationship Specialty Start Date End Date No Ref-Primary, Physician PCP - General 10/06/18 04/18/19 Reynaldo Amador PA-C 10/06/18 05/13/[address] [id number] Zuleyma Winter MD Assigned PCP 12/31/18 3033 [facility] [address] [place] [address] documented as of this encounter
--- OUTSIDE RECORDS SUMMARY | 2021-10-30 15:27 | XMS_ITS | Encounter Summary ---
:1990 Author Organization [facility] Address [address] [place] [address] Care Team Providers Name Role Phone No Ref-Primary, Physician Primary Care Provider [phone] Reynaldo Amador PA-C Unavailable [phone] Zuleyma Winter MD Unavailable [phone] Encounter Details Date Type Department Care Team Description 04/16/2019 Travel Social History Tobacco Use Types Packs/Day [...] documented as of this encounter Care Teams Machine Sign Writer Relationship Specialty Start Date End Date No Ref-Primary, Physician PCP - General 10/06/18 04/18/19 Reynaldo Amador PA-C 10/06/18 05/13/[address] [address] Zuleyma Winter MD Assigned PCP 12/31/18 3033 [facility] [address] [place] [address] documented as of this encounter
--- OUTSIDE RECORDS SUMMARY | 2021-10-30 15:27 | XMS_ITS | Encounter Summary ---
:1990 Author Organization [place] Address [facility] [place] [address] Care Team Providers Name Role Phone No Ref-Primary, Physician Primary Care Provider [phone] Reynaldo Amador PA-C Unavailable [phone] Zuleyma Winter MD Unavailable [phone] Zuleyma Winter MD Primary Care Provider [phone] Reason for Referral CV Testing (Routine) - Closed Specialty Diagnoses / Procedures Referred By Contact Refer red To Contact Diagnoses Congenital cleft leaflet of mitral valve Mitral regurgitation, congenital May, Je Pereira MD Procedures Echocardiogram Complete HC TTE W/DOPPLER, COMPLETE HC ECHO COMPLETE W DOPPLER W CONTRAST HC ECHO COMPLETE W DOPPLER W/O CONTRAST HC IV PUSH SINGLE, INITIAL SUBSTANCE HC US GUIDE FOR PERICARDIOCENTESIS HC ECHO [place] [address] [place] [address] C INJECTION, PERFLUTREN LIPI D MICROSPHERES, PER ML HC STATISTIC IV PUSH SINGLE INITIAL SUBSTANCE [place] [id number] Referral ID Status Reason Start Date Expiration Date Visits Requ ested Visits Authorized [id number] Closed 04/16/2019 04/15/2020 1 1 V Testing (Routine) - Closed Specialty Diagnoses / Procedures Referred By Contact Refer red To Contact Diagnoses Congenital cleft leaflet of mitral valve Mitral regurgitation, congenital May, Je Pereira MD Procedures Echocardiogram Complete HC TTE W/DOPPLER, COMPLETE HC ECHO COMPLETE W DOPPLER W CONTRAST HC ECHO COMPLETE W DOPPLER W/O CONTRAST HC IV PUSH SINGLE, INITIAL SUBSTANCE HC US GUIDE FOR PERICARDIOCENTESIS HC ECHO MYOCARD BX [address] [place] [address] C INJECTION, PERFLUTREN LIPI D MICROSPHERES, PER ML HC STATISTIC IV PUSH SINGLE INITIAL SUBSTANCE [place] [id number] Referral ID Status Reason Start Date Expiration Date Visits Requ ested Visits Authorized [id number] Closed 04/16/2019 04/15/2020 1 1 HOUSE PROCESSOR (Routine) - Closed Specialty Diagnoses / Procedures Referred By Contact Refer red To Contact Diagnoses Congenital cleft leaflet of mitral valve Mitral regurgitation, congenital May, Je Pereira MD [address] [place] [id number] Referral ID Status Reason Start Date Expiration Date Visits Requ ested Visits Authorized [id number] Closed 04/16/2019 04/15/2020 1 1 HOUSE PROCESSOR Reason for Visit Reason Comments New Patient New congenital heart. Encounter Details Date Type Department Care Team Description 04/16/2019 Office Visit [facility] Cyn, Je sidhu cleft leaflet of mitral valve; Heart Clinic Lo Pereira MD Mitral regurgitation, congenital [address] [place] [address] [place], [place] [address] [address] [id number] [place] [id number] [phone] Social History Tobacco Use Types Packs/Day Years Used Date Never Smoker 0 Smokeless Tobacco: Never Used Alcohol Use Standard Drinks/Week Comments Not Currently 0 (1 standard drink = 0.6 oz pure alcoho l) Sex Assigned at Date Recorded Female 10/07/2018 7:21 AM CDT documented as of this encounter Last Filed Vital Signs Vital Sign Reading Time Taken Comments Blood Pressure 130/87 04/16/2019 2:15 PM WAREHOUSE PROCESSOR Pulse 83 04/16/2019 2:15 PM WAREHOUSE PROCESSOR Temperature - - Respiratory Rate - - Oxygen Saturation 98% 04/16/2019 2:15 PM WAREHOUSE PROCESSOR Inhaled Oxygen Concentration - - Weight 90.9 kg (200 lb 4.8 oz) 04/16/2019 2:15 PM WAREHOUSE PROCESSOR Height 167.6 cm (5' 6) 04/16/2019 2:15 PM WAREHOUSE PROCESSOR Body Mass Index 32.33 04/16/2019 2:15 PM WAREHOUSE PROCESSOR documented in this encounter Patient Instructions Patient InstructionsLucille Vasquez RN - 04/16/2019 2:30 PM CST You were seen today in the Adult Congenital and Cardiovascular Genetics Clinic at the [facility]. Cardiology Providers you saw during your visit: Didier Addison MD Diagnosis: Cleft mitral valve with mitral regurgitation Results: Didier Addison MD reviewed the results of your fall 2018 echocardiogram testing today in clinic. Recommendations: 1. Continue to eat a heart healthy, low salt diet. 2. Continue to get 20-30 minutes of aerobic activity, 4-5 days per week. Examples of aerobic activity include walking, running, swimming, cycling, etc. 3. Continue to observe good oral hygiene, with regular dental visits. 4. Please have an echocardiogram performed. We will call you with the results. SBE prophylaxis: Yes____ No_X___ Lifelong Bacterial Endocarditis Prophylaxis: YES____ NO____ If YES is checked, follow the recommendations outlined below: 1. Take antibiotic(s) prior to recommended dental procedures and procedures on the respiratory tractor with infected skin, muscle or bones. SBE prophylaxis is not needed for routine GI and procedures (ie. Colonoscopy or vaginal delivery) 2. Observe good oral hygiene daily, as advised by your dentist. Get regular professional dental care. 3. Keep cuts clean. 4. Infections should be treated promptly. 5. Symptoms of Infective Endocarditis could include: fever lasting more than 4-5 days or a recurrentfever that initially resolves but returns within 1-2 days) Exercise restrictions: Yes__X__ No____ If yes, list restrictions: Must be allowed to rest if fatigued or SOB Work restrictions: Yes____ No_X___ If yes, list restrictions: FASTING CHOLESTEROL was checked in the last 5 years YES___ NO_X__ Continue to eat a heart healthy, low salt diet. ____ Fasting lipid panel order today ____ No changes in medications ____ I recommend the following changes in your cholesterol medications.: __X__ Please follow up for cholesterol screening at your primary care physician Follow-up: Follow up with Dr. Addison in 2 years with an echo prior. If you have questions or concerns please contact us at: Lucille Vasquez, MSN, RN, CNL Eufemia Avelar (Scheduling) Nurse Mixer Operator [facility] Rope Cutter Adult Congenital and CV Genetics Adult Congenital and CV Genetic [facility] (P) [phone] (P) [phone] @[facility] (F) [phone] For after hours urgent needs, call [phone] and ask to speak to the Adult Congenital Physician consulting manager. Mention Job Code 0401. For emergencies call 911. [facility] Mail Code [id number] [address] [place] [address] HOUSE PROCESSOR documented in this encounter Progress Notes Yane Valerio MD - 04/16/2019 2:30 PM CST Cardiology Congenital Clinic Note April 16, 2019 HPI Patient is a 28 yo F who presents for first time visit to the congenital cardiology clinic, primarily to establish care. 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 Moreover, she is currently 36 weeks with her first child. She had established care with one of our general cardiology partners at [facility], Dr. Refugio Martins, who had recommended that patient see a congenital specialist. Patient was followed by pediatric cardiology for some time. At that time she was reported to have a history of a cleft mitral valve with moderate mitral regurgitation and mild left atrial dilatation, asymptomatic, not requiring any medical therapy. As she was serially seen, she had not developed any symptoms and her echocardiograms had noted normal LV function, thus surgical repair was never performed. She states she used to be on a medication for her heart, but is unsure what it was again, and since she has been an adult, has not taken anything. She is largely asymptomatic, and prior to her , was able to exercise on a regular basis as a runner, without any extreme symptoms. Since she hasbeen , she has not noticed anything overt outside of what she feels to be normal symptoms. She will get winded slightly more easily, and has developed some acid reflux disease, but otherwise feels pretty well. Her child is currently in a breech position and she is currently scheduled to have section in 3 weeks if her child is still in that position. PAST MEDICAL HISTORY: Past Medical History: Diagnosis Date ??? Congenital cleft leaflet of mitral valve ??? Heart murmur follows with cardiology- no treatments ??? Mitral regurgitation FAMILY HISTORY: None known, was adopted and in foster care SOCIAL HISTORY: Social History Socioeconomic History ??? Marital status: Spouse name: None ??? Number of children: None ??? Years of education: None ??? Highest education level: None Occupational History Comment: [employer] Social Needs ??? Financial resource strain: None ??? Food insecurity: Worry: None Inability: None ??? Transportation needs: Medical: None Non-medical: None Tobacco Use ??? Smoking status: Never Smoker ??? Smokeless tobacco: Never Used Substance and Sexual Activity ??? Alcohol use: Not Currently ??? Drug use: Never ??? Sexual activity: Yes Partners: Male control/protection: None Lifestyle ??? Physical activity: Days per week: None Minutes per session: None ??? Stress: None Relationships ??? Social connections: Talks on phone: None Gets together: None Attends druze service: None Active member of club or organization: None Attends meetings of clubs or organizations: None Relationship status: None ??? Intimate partner violence: Fear of current or ex partner: None Emotionally abused: None Physically abused: None Forced sexual activity: None Other Topics Concern ??? Parent/sibling w/ CABG, OK or angioplasty before 65F 55M? Not Asked Social History Narrative Merged History Encounter CURRENT MEDICATIONS: Current Outpatient Medications Medication Sig Dispense Refill ??? Prenat w/o V-AS-Usdifcl-FA-DHA (PNV-DHA PO) ??? order for DME Equipment being ordered: 1 standard double electric breast pump To be used for:99 Indications: Infant (Patient not taking: Reported on 04/16/2019) 1 Device 0 ROS: 10 point ROS negative except HPI EXAM: BP 130/87 (BP Location: Right arm, Patient Position: Chair, Cuff Size: Adult Regular) Pulse 83 Ht 1.676 m (5' 6) Wt 90.9 kg (200 lb 4.8 oz) LMP 08/04/2018 SpO2 98% BMI 32.33 kg/m?? General: appears comfortable, alert and articulate Head: normocephalic, atraumatic Eyes: anicteric sclera, EOMI Neck: no adenopathy Orophyarynx: moist mucosa, no lesions, dentition intact Heart: regular, S1/S2, 2/6 holosystolic murmur best heard at sternal border, no gallop or rub, estimated JVP < 10 cm Lungs: clear, no rales or wheezing Abdomen: soft, non-tender, bowel sounds present, no hepatosplenomegaly Extremities: no clubbing, cyanosis or edema Neurological: normal speech and affect, no gross motor deficits Labs: CBC RESULTS: Lab Results Component Value Date WBC 8.1 04/15/2019 RBC 3.99 04/15/2019 HGB 11.7 04/15/2019 HCT 35.6 04/15/2019 MCV 89 04/15/2019 MCH 29.3 04/15/2019 MCHC 32.9 04/15/2019 RDW 13.0 04/15/2019 PLT 191 04/15/2019 Echocardiogram: Interpretation Summary Left ventricular systolic function is normal. The visual ejection fraction is estimated at 60-65%. The right ventricle is normal in structure, function and size. The mitral valve leaflets are mildly thickened. Small thickened mass on the atrial side of the anterior mitral leaflet likely represents a torn chord rather than a vegetation. There is no evidence of mitral valve prolapse. There is mild to moderate (1-2+) mitral regurgitation. The mitral regurgitant jet is posteriorly directed, which is consistent with anterior leaflet pathology. Sinus rhythm was noted. There is no comparison study available. Assessment and Plan: 28 yo F with cleft mitral valve, mild to moderate regurgitation, currently 36 weeks . Will get repeat echocardiogram now to assess her mitral valve. Further recommendations to follow pending that result. No additional medications needed right now. She may need diuretics around the time of ( or vaginal) due to the intrinsic fluid shifts associated with . We can see her soon after her delivery, but if she is otherwise doing well, an annual visit with echocardiogram should suffice. We also reviewed the echocardiogram as well, which did not appear to show any overt congenitaldefects. Patient seen and discussed with attending Dr. Addison. Yane Valerio MD PGY6 Medical Sales Consultant ATTESTATION: Ms. Resendiz was seen and examined. Agree with note and plan of care that was mutually discussed and agreed upon. Didier Addison MD HOUSE PROCESSOR documented in this encounter Nursing Notes Varun Aleman CMA - 04/16/2019 2:30 PM CST Vitals were taken and medications were reconciled. Varun Aleman CMA 2:18 PM HOUSE PROCESSOR Lucille Vasquez RN - 04/16/2019 2:30 PM CST Cardiac Testing: Patient given instructions regarding echocardiogram . Discussed purpose, preparation, procedure and when to expect results reported back to the patient. Patient demonstrated understanding of this information and agreed to call with further questions or concerns. Diet: Patient instructed regarding a heart healthy diet, including discussion of reduced fat and sodium intake. Patient demonstrated understanding of this information and agreed to call with further questions or concerns. Med Reconcile: Reviewed and verified all current medications with the patient. The updated medication list was printed and given to the patient. Return Appointment: Patient given instructions regarding scheduling next clinic visit. Patient demonstrated understanding of this information and agreed to call with further questions or concerns. Patient stated she understood all health information given and agreed to call with further questionsor concerns. HOUSE PROCESSOR documented in this encounter Plan of Treatment Scheduled Orders Name Type Priority Associated Order Schedule Diagnoses Echocardiogram Complete Echocardiography Routine Congenital cl eft Expected: leaflet of mitral 10/23/2020 valve (Approximate), Mitral Expires: regurgitation, 10/23/2021 congenital Scheduled Referrals Name Type Priority Associated Diagnoses Order S chedule Adult Congenital and CV Referral Routine Congenital cleft Expected: 10/23/2020 Genetics Clinic leaflet of rufino l valve (Approximate), Mitral regurgitation, s: 10/23/2021 congenital documented as of this encounter Results ECHO COMPLETE (04/19/2019 8:32 AM WAREHOUSE PROCESSOR) Anatomical Region Laterality Modality Echocardiography Specimen (Source) Anatomical Collection Method Collection Time Re ceived Time Location / / Volume Laterality 04/19/2019 8:05 AM WAREHOUSE PROCESSOR Narrative 04/19/2019 9:17 AM [facility] [id number]^CYN^JE^LELO [facility]ch[facility] [address] [place] [address] Name: MALLY RESENDIZ : 1990 Study Date: 04/19/2019 08:05 AM Age: 28 yrs Gender: Female Patient Location: [facility] Reason For Study: Congenital cleft leafl et of mitral valve, Mitral regurgitation, Ordering Physician: JE ADDISON Referring Physician: JE ADDISON RA Performed By: Nuris Wilkes BSA: 2.0 m2 Height: 66 in Weight: 200 lb HR: 78 BP: 121/82 mmHg __ Procedure Complete Echo Adult. __ Interpretation Summary The visual ejection fraction is estimate d at 55-60%. The mitral valve leaflets appear thicken ed, but open well. There is moderate (2+) mitral regurgitat ion, predominant posterior jet, smaller anterior jet. Mechnanism of MR u nclear from this study, ERO of 0.12 cm2 likely underestmimated due to jet ec centricity. Direct comparison iwth study from - s howed no major changes. __ Left Ventricle The left ventricle is normal in size. Th ere is normal left ventricular wall thickness. The visual ejection fraction is estimated at 55-60%. Left ventricular diastolic function is normal . No regional wall motion abnormalities noted. Right Ventricle The right ventricle is normal in structu re, function and size. Atria Normal left atrial size. Right atrial si ze is normal. There is no color Doppler evidence of an atrial shunt. Mitral Valve The mitral valve leaflets appear thicken ed, but open well. Thickened mitral valve anterior leaflet. There is moderat e (2+) mitral regurgitation. Tricuspid Valve The tricuspid valve is normal in structu re and function. Right ventricle systolic pressure estimate normal. There is trace tricuspid regurgitation. Aortic Valve The aortic valve is normal in structure and function. Pulmonic Valve The pulmonic valve is not well seen, but is grossly normal. Vessels Normal size aorta. Pericardium The pericardium appears normal. Rhythm Sinus rhythm was noted. __ MMode/2D Measurements & Calculations IVSd: 1.1 cm LVIDd: 4.9 cm LVIDs: 3.0 cm LVPWd: 0.95 cm FS: 38.3 % LV mass(C)d: 182.5 grams LV mass(C)dI: 91.3 grams/m2 MV Diam: 3.2 cm Ao root diam: 2.9 cm LA dimension: 4.0 cm asc Aorta Diam: 2.7 cm LA/Ao: 1.4 LVOT diam: 2.0 cm LVOT area: 3.2 cm2 LA Volume (BP): 62.0 ml LA Volume Index (BP): 31.0 ml/m2 RWT: 0.39 Doppler Measurements & Calculations MV E max keaton: 113.0 cm/sec MV A max keaton: 67.4 cm/sec MV E/A: 1.7 MV max P.9 mmHg MV mean P.0 mmHg MV V2 VTI: 33.3 cm MVA(VTI): 2.3 cm2 MV Flow area(1diam): 8.1 cm2 MV dec slope: 639.2 cm/sec2 LV V1 max P.1 mmHg LV V1 max: 112.6 cm/sec LV V1 VTI: 24.4 cm SV(MV 1 diam): 269.3 ml SI(MV 1 diam): 134.6 ml/m2 SV(LVOT): 77.5 ml SI(LVOT): 38.8 ml/m2 PA V2 max: 119.3 cm/sec PA max P.7 mmHg PA acc time: 0.13 sec E/E' av.2 Lateral E/e': 8.7 Medial E/e': 13.7 __ Report approved by: Debbie Olivier 04/19 09:17 AM Procedure Note Adrien Templeton MD - 04/19/2019Forma tting of this note might be different from the original. [id number]^CYN^JE^LELO [facility] [address] [place], [place] [address] Name: MALLY RESENDIZ : 1990 Study Date: 04/19/2019 08:05 AM Age: 28 yrs Gender: Female Patient Location: [facility] Reason For Study: Congenital cleft leafl et of mitral valve, Mitral regurgitation, Ordering Physician: JE ADDISON Referring Physician: JE ADDISON RA Performed By: Nuris Wilkes BSA: 2.0 m2 Height: 66 in Weight: 200 lb HR: 78 BP: 121/82 mmHg __ Procedure Complete Echo Adult. __ Interpretation Summary The visual ejection fraction is estimate d at 55-60%. The mitral valve leaflets appear thicken ed, but open well. There is moderate (2+) mitral regurgitat ion, predominant posterior jet, smaller anterior jet. Mechnanism of MR u nclear from this study, ERO of 0.12 cm2 likely underestmimated due to jet ec centricity. Direct comparison [facility] study from - s howed no major changes. __ Left Ventricle The left ventricle is normal in size. Th ere is normal left ventricular wall thickness. The visual ejection fraction is estimated at 55-60%. Left ventricular diastolic function is normal . No regional wall motion abnormalities noted. Right Ventricle The right ventricle is normal in structu re, function and size. Atria Normal left atrial size. Right atrial si ze is normal. There is no color Doppler evidence of an atrial shunt. Mitral Valve The mitral valve leaflets appear thicken ed, but open well. Thickened mitral valve anterior leaflet. There is moderat e (2+) mitral regurgitation. Tricuspid Valve The tricuspid valve is normal in structu re and function. Right ventricle systolic pressure estimate normal. There is trace tricuspid regurgitation. Aortic Valve The aortic valve is normal in structure and function. Pulmonic Valve The pulmonic valve is not well seen, but is grossly normal. Vessels Normal size aorta. Pericardium The pericardium appears normal. Rhythm Sinus rhythm was noted. __ MMode/2D Measurements & Calculations IVSd: 1.1 cm LVIDd: 4.9 cm LVIDs: 3.0 cm LVPWd: 0.95 cm FS: 38.3 % LV mass(C)d: 182.5 grams LV mass(C)dI: 91.3 grams/m2 MV Diam: 3.2 cm Ao root diam: 2.9 cm LA dimension: 4.0 cm asc Aorta Diam: 2.7 cm LA/Ao: 1.4 LVOT diam: 2.0 cm LVOT area: 3.2 cm2 LA Volume (BP): 62.0 ml LA Volume Index (BP): 31.0 ml/m2 RWT: 0.39 Doppler Measurements & Calculations MV E max keaton: 113.0 cm/sec MV A max keaton: 67.4 cm/sec MV E/A: 1.7 MV max P.9 mmHg MV mean P.0 mmHg MV V2 VTI: 33.3 cm MVA(VTI): 2.3 cm2 MV Flow area(1diam): 8.1 cm2 MV dec slope: 639.2 cm/sec2 LV V1 max P.1 mmHg LV V1 max: 112.6 cm/sec LV V1 VTI: 24.4 cm SV(MV 1 diam): 269.3 ml SI(MV 1 diam): 134.6 ml/m2 SV(LVOT): 77.5 ml SI(LVOT): 38.8 ml/m2 PA V2 max: 119.3 cm/sec PA max P.7 mmHg PA acc time: 0.13 sec E/E' av.2 Lateral E/e': 8.7 Medial E/e': 13.7 __ Report approved by: Debbie Olivier 04/19 09:17 AM Je Addison MD CV ECHO ORDERABLES documented in this encounter Visit Diagnoses Diagnosis Congenital cleft leaflet of mitral valve Congenital mitral stenosis Mitral regurgitation, congenital Congenital mitral insufficiency Congenital cleft leaflet of mitral valve Congenital mitral stenosis Mitral regurgitation, congenital Congenital mitral insufficiency documented in this encounter Additional Health Concerns Assessment Noted Time PHQ-9 Depression Total Score: 1 10/06/2018 9:27 AM CDT documented as of this encounter Care Teams Dressing Room Porter Relationship Specialty Start Date End Date No Ref-Primary, Physician PCP - General 10/06/18 04/18/19 Zuleyma Winter MD PCP - General Family Practice 04/19/19 [address] [place] [address] [place] [address] [id number] Reynaldo Amador PA-C 10/06/18 05/13/[address] [address] Zuleyma Winter MD Assigned PCP 12/31/[address] [place] [address] [place], [place] [id number] documented as of this encounter
--- OUTSIDE RECORDS SUMMARY | 2021-10-30 15:27 | XMS_ITS | Encounter Summary ---
:1990 Author Organization [place] Address [address] [place] [address] Care Team Providers Name Role Phone Reynaldo Amador PA-C Unavailable [phone] Zuleyma Winter MD Unavailable [phone] Zuleyma Winter MD Primary Care Provider [phone] Reason for Visit Diagnostic Imaging Ultrasound (Routine) - Closed Specialty Diagnoses / Procedures Referred By Contact Refer red To Contact Diagnoses Spontaneous breech delivery, single or unspecified fetus Chata Deleon Procedures US OB > 14 Weeks MD Zuleyma [address] [facility] [address] [place] [address] Referral ID Status Reason Start Date Expiration Date Visits Requ ested Visits Authorized [id number] Closed 04/15/2019 04/14/2020 1 1 Encounter Details Date Type Department Care Team Description 05/04/2019 Ancillary Procedure [facility] Kerri Deleon pontaneous breech [facility] [place] [facility] Chata delivery, s margareth or Blossom Amor MD unspecified fetus [address] [facility] [address] [facility] [address] [place] [address] [place] [phone] Social History Tobacco Use Types Packs/Day Years [...] Date/Time Associated Diagnosis Comme nts US OB > 14 WEEKS Routine 05/04/2019 3:14 PM Spontaneous breech Results for this REWINDER OPERATOR HELPER delivery, single or procedur e are in unspecified fetus the result s section. documented in this encounter Results US OB > 14 Weeks (05/04/2019 3:14 PM REWINDER OPERATOR HELPER) Anatomical Region Laterality Modality Abdomen/Pelvis Ultrasound Specimen (Source) Anatomical Location Collection Method / Collectio n Time Received Time / Laterality Volume Narrative 05/04/2019 3:16 PM REWINDER OPERATOR HELPER Obstetrical Ultrasound Report OB U/S ? Limited - Transabdominal ??[facility][1] Referring physician: Jessica Deleon MD Robotic Technician: [facility]ide [place] [facility] Indication: position check History: Dating (mm/dd/yyyy): LMP: 08/04/18 ? EDC: ??05/11/19 ?GA by LMP: ? 39w0d Anatomy Scan: Cardoso gestation. heart activity: ??Rate and rhythm is within normal limits. ?? heart rate: 136bpm presentation: Breech Placenta: posterior Amniotic fluid: Normal, MVP: 3.55cm Impression: ??Breech- c/s planned tomorrow ? Chata Monzon MD IMG US ORDERABLES documented in this encounter Visit Diagnoses Diagnosis Spontaneous breech delivery, single or u nspecified fetus documented in this encounter Additional Health Concerns Assessment Noted Time PHQ-9 Depression Total Score: 1 10/06/2018 9:27 AM CDT documented as of this encounter Care Teams Facility Attendant Relationship Specialty Start Date End Date Zuleyma Winter MD PCP - General Family Practice 04/19/[address] [address] Reynaldo Amador PA-C 10/06/18 05/13/[address] [id number] Zuleyma Winter MD Assigned PCP 12/31/18 [address] [facility] [address] [place], [place] [address] documented as of this encounter
--- OUTSIDE RECORDS SUMMARY | 2021-10-30 15:27 | XMS_ITS | Encounter Summary ---
:1990 Author Organization [place] Address [facility] [place] [address] Care Team Providers Name Role Phone No Ref-Primary, Physician Primary Care Provider [phone] Reynaldo Amador PA-C Unavailable [phone] Zuleyma Winter MD Unavailable [phone] Reason for Visit Reason Comments Care Encounter Details Date Type Department Care Team Description 02/17/2019 Office [facility] Li Pritchard Need for Tdap vaccination (Primary Dx); [facility] TAVARES Zelaya CNM Encounter for supervision of normal firs t in second trimester [address] [address] [address] [address] [place] [address] (Work) [phone] Social History Tobacco Use Types Packs/Day Years Used Date Never Smoker 0 Smokeless Tobacco: Never Used Alcohol Use Standard Drinks/Week Comments Not Currently 0 (1 standard drink = 0.6 oz pure alcoho l) Sex Assigned at Date Recorded Female 10/07/2018 7:21 AM CDT documented as of this encounter Last Filed Vital Signs Vital Sign Reading Time Taken Comments Blood Pressure 92/70 02/17/2019 11:34 AM BI TRI OPERATOR Pulse - - Temperature - - Respiratory Rate - - Oxygen Saturation - - Inhaled Oxygen Concentration - - Weight 82.6 kg (182 lb) 02/17/2019 11:34 AM BI TRI OPERATOR Height - - Body Mass Index 29.38 01/22/2019 12:47 PM CDT documented in this encounter Patient Instructions Patient InstructionsTorres, Li Zelaya TAVARES CNM - 02/17/2019 11:50 AM BI TRI OPERATOR PREECLAMPSIA SIGNS AND SYMPTOMS Preeclampsia is a dangerous condition that some women develop in the second half of . It can also begin after the baby is born. Preeclampsia causes high blood pressure and can cause problems with many organ systems in your body. It can also affect the growth of your baby. The exact cause of preeclampsia is unknown, however, there are signs and symptoms to watch for: -A bad headache that doesn't improve with Tylenol -Visual changes such as spots, flashes of light, blurry vision -Pain in the upper right part of your abdomen, especially under the ribs that doesn't go away -Nausea and/or vomiting -Feeling extremely tired -Yellowing of the skin and/or eyes -Feeling not quite right or that something is wrong -An extreme amount of swelling (some swelling in is very normal) If your modeling teacher feels that you are developing preeclampsia, you will have lab tests drawn and will be monitored very closely. If you are experiencing anyof these symptoms, call the [facility] immediately at [phone]. Kick Counts It is important to know when your baby's movements occur. We often get busy with work and life and do not pay close attention to their movements. ?? Women typically begin feeling movement between 18-22 weeks of gestation, sometimes it can be earlier or later depending on where your placenta is ?? Movements usually begin feeling like popping or fluttering and as the baby grows they become morepronounced Toward the end of as the baby gets larger they may not move as much or make as big of movements. Babies have maturing sleep cycles as well as not as much room to move and flip. If you are ever concerned about your baby's movements or have not felt the baby move for a while, we recommend you do a kick count. Prior to starting your count drink a glass of water or juice and eat a snack. Then lay down on your side and begin to count movements. How to do a Kick Counts There are many different ways to monitor your baby's movements. Movements can range from large jabs to small kicks, or wiggles. Hiccups count! ?? Count 10 movements in 2 hours when resting and focusing ?? Count 10 movements in 12 hours when doing normal activity We recommend that if movements occur but seem decreased that you should be seen in the clinic or hospital for evaluation within 12 hours. If movement is absent or kick counts are low pleasecontact us right away. If you ever have any concerns about your baby's movements DO NOT HESITATE to call us, we are here for you! [facility] [phone] SIGNS OF LABOR Labor is if it happens more than three weeks before your due date. It can be hard to know if you are in labor, since the symptoms can be like the normal feelings of . Often, the only difference is the symptoms increase or they don't go away. Signs of labor can include: ?? Contractions which can feel like period cramps or gas pain. You may feel it in the lower part of your abdomen, in your back, or as a pressure feeling in your bottom. It is often regular, coming every 5 or 10 minutes, and lasting about 30-60 seconds. Some contractions are normal during (Fahad ruiz contractions) but if you are feeling more than 5-6 in one hour that is NOT normal ?? If this occurs empty your bladder, then drink 2-3 glasses of water, eat a snack, and lay down on your left side. Put your hand on your abdomen to count the contractions. If after one hour of restingyou have still had 5-6 contractions call your clinic right away. ?? If you feel a pop, gush, or trickle of fluid it may mean that your bag of water has broken and you should contact the clinic ?? You may also experience loose stools and/or rectal pressure ?? Listen to your body, if something doesn't seem right please call us at the clinic Risk Factors ?? Previous delivery ?? Bacterial Vaginosis- if you notice a fishy smell to your discharge or experience vaginal itching/discomfort you should be evaluated for infection ?? Smoking ?? Drug abuse ?? Adolescent (teen) or advanced maternal age (AMA) age 35 and over ?? Dehydration (this may not cause labor but it can cause contractions) If you think you are in labor we may do some lab testing in the clinic or send you to the hospital for evaluation Please call us if you are concerned you are in labor. [facility] [phone] TRI OPERATOR documented in this encounter Progress Notes Li Pritchard APRN CNM - 02/17/2019 11:50 AM CST Feels well Growth US today. Another growth at 34 weeks movement: positive, denies loss of fluid/vb/contractions Tdap given: Yes Rhogam: No B+ Anti Treponema drawn: No Hep C drawn: No Water consent signed: No , not intrested Reviewed PTL precautions and S&S of PIH, patient verbalizes understanding and what to report Hospital Registration reminder-online Return to clinic 2 weeks Li Pritchard APRN, CNM TRI OPERATOR documented in this encounter Plan of Treatment Not on filedocumented as of this encounter Visit Diagnoses Diagnosis Need for Tdap vaccination - Primary Need for prophylactic vaccination with c ombined xkvziezulb-efweuwc-cqmleachp (DTP) vaccine Encounter for supervision of normal firs t in second trimester Supervision of normal first documented in this encounter Additional Health Concerns Assessment Noted Time PHQ-9 Depression Total Score: 1 10/06/2018 9:27 AM CDT documented as of this encounter Care Teams Fishing Captain Relationship Specialty Start Date End Date No Ref-Primary, Physician PCP - General 10/06/18 04/18/19 Reynaldo Amador PA-C 10/06/18 05/13/[address] [id number] Zuleyma Winter MD Assigned PCP 12/31/18 30[address] [facility] [address] [place] [address] documented as of this encounter
--- OUTSIDE RECORDS SUMMARY | 2021-10-30 15:27 | XMS_ITS | Encounter Summary ---
:1990 Author Organization [place] Address [facility] [place] [address] Care Team Providers Name Role Phone No Ref-Primary, Physician Primary Care Provider [phone] Reynaldo Amador PA-C Unavailable [phone] Zuleyma Winter MD Unavailable [phone] Reason for Visit Reason Comments Care Encounter Details Date Type Department Care Team Description 04/01/2019 Office [facility] Stephanie Moya for Visit [facility] Lizabeth Temple CNM supervision of [place] [address] [facility] normal first [address] [address] [place] [address] trimester (Primary [address] Dx) [place] [address] (Work) [phone] Social History Tobacco Use Types Packs/Day Years Used Date Never Smoker 0 Smokeless Tobacco: Never Used Alcohol Use Standard Drinks/Week Comments Not Currently 0 (1 standard drink = 0.6 oz pure alcoho l) Sex Assigned at Date Recorded Female 10/07/2018 7:21 AM CDT documented as of this encounter Last Filed Vital Signs Vital Sign Reading Time Taken Comments Blood Pressure 124/68 04/01/2019 1:12 PM CAD LIBRARIAN Pulse - - Temperature - - Respiratory Rate - - Oxygen Saturation - - Inhaled Oxygen Concentration - - Weight 89.4 kg (197 lb) 04/01/2019 1:12 PM CAD LIBRARIAN Height - - Body Mass Index 31.8 01/22/2019 12:47 PM CDT documented in this encounter Patient Instructions Patient InstructionsLachapelle, Lizabeth L, CNM - 04/01/2019 1:10 PM CST GROUP B STREP Group B Strep (GBS) is a common bacteria that is sometimes found in the vagina, urinary tract or rectum. It is not harmful typically to adults but can cause serious illness in newborns. It occasionallyis passed from mother to baby during . It is important to test in . When a woman is found to be positive for GBS, either at the first visit or by taking a culture at 36 weeks, treatment will be offered to reduce the chanceof spreading the bacteria to the baby. ?? Treatment consists of either oral antibiotics early in or antibiotics given by IV during labor if testing is positive at 36 weeks. ?? Even without treatment the baby rarely (1-2% of the time) gets infected. With treatment the baby almost never gets infected. ?? There really isn't anything you can do to keep from getting or being positive for GBS. It isn't sexually transmitted and there are no symptoms if you are positive. ?? Your business services coordinator will discuss your results with you and make recommendations for treatment. Car Seat Safety [place] law requires that all infants must be secured into a car seat while in a car. General Car Seat Guidelines: ?? Your car seat should be no more than six years old and should never have been in an accident. Always know the history of your car seat. ?? Car seats should be installed in the back seat and should be rear-facing. The [place] [employer] recommends that all infants and toddlers should remain rear-facing for as long as possible, until they reach the weight or height limits allowed by their car seat. Follow your car seat jackhammer operator's instructions. ?? The straps on the car seat should be snug enough that you should not be able to pinch up slack with your fingers. ?? Never dress your baby in thick clothing, coats or blankets while riding in a car seat. Secure thebaby into the seat wearing clothing of normal thickness and then cover baby???s lap with a blanket OVER the car seat straps, if needed. Car Seat Clinics and Safety Information: ?? Schedule an appointment to have a professional check the installation of your car seat before your baby is born. Go to: https://dps.[place].gov/divisions/ots/flzod-eucqcsuxx-bauorj/Pages/jrp-kfsl-ixkxqp.as px and click on your county. ?? Sign up for email alerts on child restraint/car seat recalls at: http://www-naeem.njtsa.[facility].gov/subscriptions/index.cfm ?? Find more information on car seat safety at: http://www.safercar.gov/parents/CarSeats/Oml-Lwxi-Ryhuuw.htm PREECLAMPSIA SIGNS AND SYMPTOMS Preeclampsia is a [...] swelling in is very normal) If your business services coordinator feels that you are developing preeclampsia, you will have lab tests drawn and will be monitored very closely. If you are experiencing anyof these symptoms, call the [facility] immediately at [phone]. SIGNS OF LABOR Labor is if it [...] 30-60 seconds. Some contractions are normal during ([place] ruiz contractions) but if you are feeling [...] you are concerned you are in labor. [facility] [phone] Kick Counts It is important to know [...] call us, we are here for you! [facility] [phone] LIBRARIAN documented in this encounter Progress Notes Lizabeth Moya CNM - 04/01/2019 1:10 PM CST Feels well, no concerns. Here alone today. Had growth US today- 49.7%ile, MVP 6.87cm, FHR 152, Breech Movement: positive, denies loss of fluid/vb, no contractions kick counts/movement reviewed Reviewed PTL precautions and s/sx of preeclampsia; denies any S&S and aware of what to report Depression screening done- yes- denies any concerns with mood. Taking hospital tour? Has not yet, MTM handout given Have car seat: Yes Discussed GBS/cx check at next visit Mally states she called cardiology today and left message to schedule maternal echo per M recommendations. Discussed continued breech presentation today. Plan for routine CNM visit at 36 weeks with BSUS to check position. If baby is still breech at that visit will schedule MD consult with shala VARGHESE to discuss ECV vs primary CS. Return to clinic 2 weeks Lizabeth Moya APRN, CNM LIBRARIAN documented in this encounter Plan of Treatment Not on filedocumented as of this encounter Visit Diagnoses Diagnosis Encounter for supervision of normal firs t in third trimester - Primary Supervision of normal first documented in this encounter Additional Health Concerns Assessment Noted Time PHQ-9 Depression Total Score: 1 10/06/2018 9:27 AM CDT documented as of this encounter Care Teams Wildlife Refuge Specialist Relationship Specialty Start Date End Date No Ref-Primary, Physician PCP - General 10/06/18 04/18/19 Reynaldo Amador PA-C 10/06/18 05/13/[address] [id number] Zuleyma Winter MD Assigned PCP 12/31/[address] [place], [place] [id number] documented as of this encounter
--- OUTSIDE RECORDS SUMMARY | 2021-10-30 15:27 | XMS_ITS | Encounter Summary ---
:1990 Author Organization [facility] Address [address] [place] [address] Care Team Providers Name Role Phone No Ref-Primary, Physician Primary Care Provider [phone] Reynaldo Amador PA-C Unavailable [phone] Zuleyma Winter MD Unavailable [phone] Reason for Referral Consultation (Routine) - Closed Specialty Diagnoses / Procedures Referred By Contact Refer red To Contact Diagnoses Congenital cleft leaflet of mitral valve Mitral valve insufficiency, unspecified etiology Encounter for supervision of normal first in first trimester Zuleyma Winter, MATERNAL- MEDICINE [facility] [address] [employer]CLAIRE [address] [place] [address], [address] [place] [address] Phone: Fax: Referral ID Status Reason Start Date Expiration Date Visits Requ ested Visits Authorized [id number] Closed 01/22/2019 01/22/2020 1 1 Reason for Visit Reason Comments Establish Care Encounter Details Date Type Department Care Team Description 01/22/2019 Office Visit [facility] Zuleyma Winter cleft leaflet of mitral valve (Primary Dx); Clinic Uptowromario Wilder MD Mitral valve insufficiency, unspecified etiology; [address] [place] [address] [employer] [address] [facility] ter for supervision of normal first in first trimester [place], [address] [place] [address] [phone] (Wo rk) Social History Tobacco Use Types Packs/Day Years Used Date Never Smoker 0 Smokeless Tobacco: Never Used Alcohol Use Standard Drinks/Week Comments Not Currently 0 (1 standard drink = 0.6 oz pure alcoho l) Sex Assigned at Date Recorded Female 10/07/2018 7:21 AM CDT documented as of this encounter Last Filed Vital Signs Vital Sign Reading Time Taken Comments Blood Pressure 116/76 01/22/2019 12:47 PM CDT Pulse 76 01/22/2019 12:47 PM CDT Temperature 36.5 ??C (97.7 ??F) 01/22/2019 12:47 PM CDT Respiratory Rate 14 01/22/2019 12:47 PM CDT Oxygen Saturation 100% 01/22/2019 12:47 PM CDT Inhaled Oxygen Concentration - - Weight 78.2 kg (172 lb 7 oz) 01/22/2019 12:47 PM CDT Height 167.6 cm (5' 6) 01/22/2019 12:47 PM CDT Body Mass Index 27.83 01/22/2019 12:47 PM CDT documented in this encounter Progress Notes Zuleyma Winter MD - 01/22/2019 12:45 PM CDT Subjective HPI Patient is here to EST CARE with a PCP - needs a PCP to refer her to [facility] to have it covered. Midwives referred here as she has a history of a cardiac murmur and needs an echo in the 3rd trimester, and for marginal cord insertion found on ultrasound. Pt is currently at 24 wks gestation- They had told pt ideal timing would be ultrasound at 22-24 wks gestation, so hoping for urgent referral. Reviewed recommendations from 12/17 [facility] consultation. 'At the conclusion of our discussion we have made the following recommendations: - comprehensive survey at around 20 weeks gestation. No performed today due insurance issues (Mally needs to establish care with a primary provider approved through [facility] with referral from primary provider for comprehensive ultrasound). - ECHO at 22-24 weeks gestation. - growth ultrasound at 28 and 34 weeks gestation. - Monitor for signs and symptoms of maternal arrhythmia and consider EKG in cases of suspected arrhythmia. - Maternal ECHO in the 3rd trimester - Follow up with adult congenital cardiology (Dr. Addison) - Vaginal delivery with early epidural is generally preferred with preservation of for obstetrical indications. - Endocarditis prophylaxis is not recommended for either vaginal and deliveries - Strict monitoring of I/O during labor, delivery and period with goal to remain euvolemic. - Avoid hypertension during and period. - Frequency of PP follow up and imaging will be determined based on her clinical status in consultation with Cardiology team. 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 ECHO's every couple months until age 15, then once yearly in her teens. At one point, they said she might need open heart surgery, but after awhile, with it being so stable, they didn't think she'd need surgery. First records able to review are from 2003, cardiac echo found mod mitral regurg and mild left atrial dilation, asymptomatic. She was able to see cardiology for consultation recently at [facility], Dr. Martins. Cardiac echo competed on 12/15/18. Reviewed consult note- diagnosis of cleft mitral valve with mitral regurgitation. They reviewed her past ECHO reports, and thought that there still has been minimal change. Did rec f/u with Dr. Addison, congenital crime specialist. Pt has the number to call to schedule that appt- [phone]- Eufemia. Pt has continued to feel very well. No cardiac/pulmonary symptoms. Running, now 1-2 miles/day (down from 2-3 miles/day), but more due to darkness as she runs after work during the week. She feels she'd be able to still run 2-3 miles if it wasn't for the darkness. Doesn't run usually on weekends. Patient Active Problem List Diagnosis ??? Encounter for supervision of normal first in first trimester ??? Adopted ??? history with cleft mitral valve and mitral valve regurgitation. ??? Congenital cleft leaflet of mitral valve Past Surgical History: Procedure Laterality Date ??? NO HISTORY OF SURGERY Social History Tobacco Use ??? Smoking status: Never Smoker ??? Smokeless tobacco: Never Used Substance Use Topics ??? Alcohol use: Not Currently Family History Adopted: Yes Problem Relation Age of Onset ??? No Known Problems Mother ??? No Known Problems Father ??? No Known Problems Sister ??? No Known Problems Brother ??? No Known Problems Maternal Grandmother ??? No Known Problems Maternal Grandfather ??? No Known Problems Paternal Grandmother ??? Coronary Artery Disease No family hx of ??? Hypertension No family hx of Current Outpatient Medications Medication Sig Dispense Refill ??? Prenat w/o [id number]-DHA (PNV-DHA PO) No Known Allergies Recent Labs Lab Test 10/06/18 1035 TSH 2.59 BP Readings from Last 3 Encounters: 01/22/19 116/76 01/22/19 110/70 01/07/19 108/62 Wt Readings from Last 3 Encounters: 01/22/19 78.2 kg (172 lb 7 oz) 01/22/19 77.8 kg (171 lb 9.6 oz) 01/07/19 77.6 kg (171 lb) Reviewed and updated as needed this visit by Provider Tobacco Allergies Meds Problems Med Hx Surg Hx Fam Hx Review of Systems ROS COMP: Constitutional, HEENT, cardiovascular, pulmonary, gi and gu systems are negative, except as otherwise noted. Objective BP 116/76 (BP Location: Right arm, Patient Position: Sitting, Cuff Size: Adult Regular) Pulse 76 Temp 97.7 ??F (36.5 ??C) (Oral) Resp 14 Ht 1.676 m (5' 6) Wt 78.2 kg (172 lb 7 oz) LMP 08/04/2018 SpO2 100% ? No BMI 27.83 kg/m?? Body mass index is 27.83 kg/m??. Physical Exam GENERAL APPEARANCE: healthy, alert and no distress EYES: PERRL, sclera clear HENT: nose and mouth without ulcers or lesions NECK: no adenopathy, no asymmetry, masses, or scars and thyroid normal to palpation RESP: lungs clear to auscultation - no rales, rhonchi or wheezes CV: regular rates and rhythm, normal S1 S2, no S3 or S4 and no murmur, click or rub Abdomen: soft, nontender, no HSM or masses and bowel sounds normal Ext: warm, dry, no edema Psych: full range affect, normal speech and grooming, judgement and insight intact Assessment & Plan ICD-10-CM 1. Congenital cleft leaflet of mitral valve Q23.9 [facility] REFERRAL- 2. Mitral valve insufficiency, unspecified etiology I34.0 [facility] REFERRAL- 3. Encounter for supervision of normal first in first trimester Z34.01 [facility] REFERRAL- 28yo at 24+3 wks gestation, doing very well. Has h/o cleft mitral valve and mitral valve regurgitation. Had recent cardiology consultation with Dr. Martins, who thought studies looked stable to those done in the past, but recommended she have f/u with Dr. Addison, who specializes in congenital heart disorders. Pt will call to schedule that appointment. She needs a formal referral from here to complete her f/u with MFM (done today), with cardiac echo (rec between 22-24 wks gestation), so will ask for urgent referral- referral placed (needed to be done from PCP office). She had 20wk comprehensive ultrasound at [facility] office, f/u on that per MFM evaluation Return in about 1 week (around 01/29/2019) for with MFM and midwives, here prn . Zuleyma Winter MD [facility] OR MANAGEMENT CONSULTANT documented in this encounter Nursing Notes Naty Soliz, AUDIO VISUAL COORDINATOR - 01/22/2019 12:45 PM CDT Chief Complaint Patient presents with ??? Establish Care BP 116/76 (BP Location: Right arm, Patient Position: Sitting, Cuff Size: Adult Regular) Pulse 76 Temp 97.7 ??F (36.5 ??C) (Oral) Resp 14 Ht 1.676 m (5' 6) Wt 78.2 kg (172 lb 7 oz) LMP 08/04/2018 SpO2 100% ? No BMI 27.83 kg/m?? Estimated body mass index is 27.83 kg/m?? as calculated from the following: Height as of this encounter: 1.676 m (5' 6). Weight as of this encounter: 78.2 kg (172 lb 7 oz). bp completed using cuff size: regular Health Maintenance addressed: Pap Smear Patient is currently and will schedule this Once done being Naty Soliz CMA on 01/22/2019 at 12:51 PM documented in this encounter Plan of Treatment Scheduled Referrals Name Type Priority Associated Diagnoses Order S chedule [facility] Referral Routine Congenital cleft leafle t Ordered: 01/22/2019 REFERRAL- of mitral koffi ve Mitral valve insufficiency, unspecified etiology Encounter for supervision of normal first in first trimester documented as of this encounter Visit Diagnoses Diagnosis Congenital cleft leaflet of mitral valve - Primary Congenital mitral stenosis Mitral valve insufficiency, unspecified etiology Encounter for supervision of normal firs t in first trimester Supervision of normal first documented in this encounter Additional Health Concerns Assessment Noted Time PHQ-9 Depression Total Score: 1 10/06/2018 9:27 AM CDT documented as of this encounter Care Teams Production Laborer Relationship Specialty Start Date End Date No Ref-Primary, Physician PCP - General 10/06/18 04/18/19 Reynaldo Amador PA-C 10/06/18 05/13/[address] [id number] Zuleyma Winter MD Assigned PCP 12/31/[address] [id number] documented as of this encounter
--- OUTSIDE RECORDS SUMMARY | 2021-10-30 15:27 | XMS_ITS | Encounter Summary ---
:1990 Author Organization [facility] Address [address] 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
--- OUTSIDE RECORDS SUMMARY | 2021-10-30 15:27 | XMS_ITS | Encounter Summary ---
:1990 Author Organization [facility] Address [address] [place] [address] Care Team Providers Name Role Phone No Ref-Primary, Physician Primary Care Provider Reynaldo Amador PA-C Unavailable [phone] Zuleyma Winter MD Unavailable [phone] Reason for Referral (Routine) - Closed Specialty Diagnoses / Procedures Referred By Contact Refer red To Contact Diagnoses related condition, antepartum Zuleyma Winter MD [address] [place], [place] [address] Referral ID Status Reason Start Date Expiration Date Visits Requ ested Visits Authorized [id number] Closed 01/25/2019 01/25/2020 1 1 SLIDER Encounter Details Date Type Department Care Team Description 01/25/2019 Transcribe Orders [facility] Zuleyma Winter related Maternal MD Tina condition, Medicine Center [address] antepartum (Primary [address] Dx) [address] [facility] [address] [address] [place] (Work) [address] [phone] Social History Tobacco Use Types Packs/Day Years Used Date Never Smoker 0 Smokeless Tobacco: Never Used Alcohol Use Standard Drinks/Week Comments Not Currently 0 (1 standard drink = 0.6 oz pure alcoho l) Sex Assigned at Date Recorded Female 10/07/2018 7:21 AM CDT documented as of this encounter Miscellaneous Notes Addendum Note - Karla Olmos - 01/25/2019 9:56 AM CAN SLIDER Addended by: KARLA OLMOS on: 01/25/2019 10:12 AM Modules accepted: Orders SLIDER documented in this encounter Plan of Treatment Scheduled Referrals Name Type Priority Associated Diagnoses Order S fer [facility] Genetic Counseling Referral Routine related 1 Occurrences starting condition, antepartum 2018 until 01/25/2020 documented as of this encounter Visit Diagnoses Diagnosis related condition, antepartum - Primary documented in this encounter Additional Health Concerns Assessment Noted Time PHQ-9 Depression Total Score: 1 10/06/2018 9:27 AM CDT documented as of this encounter Care Teams Compliance Spec Relationship Specialty Start Date End Date No Ref-Primary, Physician PCP - General 10/06/18 04/18/19 Reynaldo Amador PA-C 10/06/18 05/13/[address] [id number] Zuleyma Winter MD Assigned PCP 12/31/18 3033 [facility] [address] [place] [address] documented as of this encounter
--- OUTSIDE RECORDS SUMMARY | 2021-10-30 15:27 | XMS_ITS | Encounter Summary ---
:1990 Author Organization [facility] Address [facility] [place] [address] Care Team Providers Name Role Phone No Ref-Primary, Physician Primary Care Provider [phone] Reynaldo Amador PA-C Unavailable Zuleyma Winter MD Unavailable [phone] Zuleyma Winter MD Primary Care Provider [phone] Reason for Visit Reason Onset Date Comments CS PRIMARY 04/15/2019 Encounter Details Date Type Department Care Team Description 04/15/2019 Telephone [facility] Chata Molina PRIMARY Women Blossom Amor MD [address] [facility] out [address] [facility] [address] [place] [address] [place] [id number] (Wo rk) Social History Tobacco Use Types Packs/Day Years Used Date Never Smoker 0 Smokeless Tobacco: Never Used Alcohol Use Standard Drinks/Week Comments Not Currently 0 (1 standard drink = 0.6 oz pure alcoho l) Sex Assigned at Date Recorded Female 10/07/2018 7:21 AM CDT documented as of this encounter Miscellaneous Notes Telephone Encounter - Francesca Rodrigues - 04/22/2019 9:25 AM CST Per Arti Bowens she has been added to the case as an assist Spoke w/Mag at [facility] for changes Francesca Rodrigues Director Global Medical Affairs ICALLY IMPAIRED TEACHER Telephone Encounter - Francesca Rodrigues - 04/20/2019 12:02 PM CST Images from the original note were not included. Type of surgery: CS PRIMARY Location of surgery: [facility] Date and time of surgery: 05/05/2019 9am Surgeon: Na No Assist Requested Pre-Op Appt Date: TBD Post-Op Appt Date: TBD Packet sent out: MAILED 04/20/2019 Pre-cert/Authorization completed: TBD Date: 04/20/2019 Spoke w/Kiara Rodrigues Director Global Medical Affairs Procedure name(s) - multi select primary section Is this a multi surgeon case? No Laterality N/A Reason for procedure breech Location of Case: [facility] Surgeon Procedure Time (incision to closure) in minutes (per procedure as applicable) 60 Note: Surgical Case Time Needed (in minutes) Date of Surgery (Requested): 05/05/2019 Comment: 39 weeks Patient Class (for admit prior to surgery, specify number of days in comments): Surgery admit Anesthesia Spinal H&P To Be Completed By: Surgeon Post-Op Appointment 2 weeks Vendor Needed? No Spinal Cord Monitoring? No ICALLY IMPAIRED TEACHER Telephone Encounter - Francesca Rodrigues - 04/15/2019 4:12 PM CST SENT FOR 2nd SIGN Francesca Rodrigues Director Global Medical Affairs Procedure name(s) - multi select primary section Is this a multi surgeon case? No Laterality N/A Reason for procedure breech Location of Case: [facility] Surgeon Procedure Time (incision to closure) in minutes (per procedure as applicable) 60 Note: Surgical Case Time Needed (in minutes) Date of Surgery (Requested): 05/05/2019 Comment: 39 weeks Patient Class (for admit prior to surgery, specify number of days in comments): Surgery admit Anesthesia Spinal H&P To Be Completed By: Surgeon Post-Op Appointment 2 weeks Vendor Needed? No Spinal Cord Monitoring? No ICALLY IMPAIRED TEACHER documented in this encounter Plan of Treatment Not on filedocumented as of this encounter Visit Diagnoses Not on filedocumented in this encounter Additional Health Concerns Assessment Noted Time PHQ-9 Depression Total Score: 1 10/06/2018 9:27 AM CDT documented as of this encounter Care Teams Negotiations Director Relationship Specialty Start Date End Date No Ref-Primary, Physician PCP - General 10/06/18 04/18/19 Zuleyma Winter MD PCP - General Family Practice 04/19/19 [address] [place], [place] [id number] Reynaldo Amador PA-C 10/06/18 05/13/[address] [address] Zuleyma Winter MD Assigned PCP 12/31/[address] [place], [place] [address] documented as of this encounter
--- OUTSIDE RECORDS SUMMARY | 2021-10-30 15:27 | XMS_ITS | Encounter Summary ---
:1990 Author Organization [facility] Address [facility] [place] [address] Care Team Providers Name Role Phone Reynaldo Amador PA-C Unavailable [phone] Zuleyma Winter MD Unavailable [phone] Zuleyma Winter MD Primary Care Provider [phone] Reason for Visit Reason Comments Care Encounter Details Date Type Department Care Team Description 04/22/2019 Office [facility] Bowens Lisa H igh-risk in third trimester (Primary Dx); [facility] TAVARES Urbina CNM Breech presentation, single or unspecifi ed fetus; [place] [address] [place] [address] FAUSTINA S 37 weeks gestation of pregna fly [address] [address] [place] [address] [place], [place] (Work) [address] [phone] Social History Tobacco Use Types Packs/Day Years Used Date Never Smoker 0 Smokeless Tobacco: Never Used Alcohol Use Standard Drinks/Week Comments Not Currently 0 (1 standard drink = 0.6 oz pure alcoho l) Sex Assigned at Date Recorded Female 10/07/2018 7:21 AM CDT documented as of this encounter Last Filed Vital Signs Vital Sign Reading Time Taken Comments Blood Pressure 126/80 04/22/2019 8:53 AM SOAP BOILER Pulse - - Temperature - - Respiratory Rate - - Oxygen Saturation - - Inhaled Oxygen Concentration - - Weight 90.3 kg (199 lb) 04/22/2019 8:53 AM SOAP BOILER Height - - Body Mass Index 32.12 04/16/2019 2:15 PM SOAP BOILER documented in this encounter Progress Notes Lisa Bowens APRN CNM - 04/22/2019 8:50 AM CST Feels well, feeling like significant movements are less but still feeling movement, she till feels breech so she isn't sure if the position is contributing or just that things are tight in there + accel heard on doppler, patient reassured, dicussed kick counts and patient to call is she wishes to do NST in clinic or at hospital for movement concerns. movement: positive Denies vaginal bleeding/lof, no contractions Warning signs reviewed Labor signs and symptoms discussed, aware of numbers to call Denies s/sx of preeclampsia and aware of what to report; denies all Plans for control after baby: likely POPs, used combined OCPs in the past Return to clinic 1 week; will schedule one more with us, has appt and US with Dr. Monzon on 05/04 Lisa Bowens APRN, HARI BOILER documented in this encounter Plan of Treatment Not on filedocumented as of this encounter Visit Diagnoses Diagnosis High-risk in third trimester - Primary Breech presentation, single or unspecifi ed fetus 37 weeks gestation of state, incidental documented in this encounter Additional Health Concerns Assessment Noted Time PHQ-9 Depression Total Score: 1 10/06/2018 9:27 AM CDT documented as of this encounter Care Teams Drag Down Relationship Specialty Start Date End Date Zuleyma Winter MD PCP - General Family Practice 04/19/[address] [place], [place] [id number] Reynaldo Amador PA-C 10/06/18 05/13/[address] [address] Zuleyma Winter MD Assigned PCP 12/31/[address] [place] [address] documented as of this encounter
--- OUTSIDE RECORDS SUMMARY | 2021-10-30 15:27 | XMS_ITS | Encounter Summary ---
:1990 Author Organization [place] Address [address] [place] [address] Care Team Providers Name Role Phone No Ref-Primary, Physician Primary Care Provider [phone] Reynaldo Amador PA-C Unavailable [phone] Zuleyma Winter MD Unavailable [phone] Reason for Referral (Routine) - Closed Specialty Diagnoses / Procedures Referred By Contact Refer red To Contact Diagnoses related condition, antepartum Zuleyma Winter MD Procedures Echo (TTE) Complete [address] [place], [place] [address] Referral ID Status Reason Start Date Expiration Date Visits Requ ested Visits Authorized [id number] Closed 01/25/2019 01/25/2020 1 1 K SORTER Reason for Visit (Routine) - Closed Specialty Diagnoses / Procedures Referred By Contact Refer red To Contact Diagnoses related condition, antepartum Zuleyma Winter MD Procedures Echo (TTE) Complete [address] [place], [place] [address] Referral ID Status Reason Start Date Expiration Date Visits Requ ested Visits Authorized [id number] Closed 01/25/2019 01/25/2020 1 1 Encounter Details Date Type Department Care Team Description 03/05/2019 Hospital Encounter [facility] Zuleyma Winter related Chris MD [address] antepartum [facility] [address] [facility] [address] [address] [place], [place] [phone] (Work) [phone] Social History Tobacco Use Types Packs/Day Years Used Date Never Smoker 0 Smokeless Tobacco: Never Used Alcohol Use Standard Drinks/Week Comments Not Currently 0 (1 standard drink = 0.6 oz pure alcoho l) Sex Assigned at Date Recorded Female 10/07/2018 7:21 AM CDT documented as of this encounter Medications at Time of Discharge Medication Sig Dispensed Refills Start Date End Date Prenat w/o [id number]-[id number] (PNV-DHA PO) 0 documented as of this encounter Progress Notes Lucio Holden MD - 03/05/2019 3:01 PM CST Cardiology Consultation Patient: Mally Feliciano Date of : 1990 Age: [age] year old Date of Visit: 03/05/2019 PCP: No Ref-Primary, Physician RAISA: 05/11/2019, by Last Menstrual Period EGA: 30w3d weeks Dear Dr. Winter: I had the pleasure of seeing Mally Feliciano at the [facility] in [place] on 03/05/2019 in consultation for echocardiography results. She presented today by herself. 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 The echocardiogram was likely normal. Normal cardiac anatomy. 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 Likely normal mitral valve appearance and motion; some images suggest dropout in the anterior leaflet, though others appear intact; no regurgitation. Normal right and left ventricular size and function without hypertrophy. No evidence of diastolic dysfunction.No pericardial effusion. No arrhythmia. I reviewed and interpreted the echocardiogram today. I discussed the normal results with Ms. Feliciano. While these results are normal, it is important to note that echocardiography cannot exclude small atrial or ventricular septal defects, persistent ductus arteriosus, mild coarctation of theaorta, partial anomalous pulmonary venous return, minor anatomic valve anomalies, or coronary arteryanomalies. -- No additional echocardiograms are recommended for this . -- A post- transthoracic echocardiogram is recommended to re-evaluate the mitral valve and head/neck vessel anatomy. Thank you for allowing me to participate in Ms. Feliciano's care. Please don't hesitate to contact me orthe Cardiology team at [facility] with any questions or concerns. I spent a total of 15 minutes [id number] with Ms. Feliciano during today's office visit. Over 50% of this time was spent counseling the patient and/or coordinating care regarding the echocardiography results. Lucio Holden MD Pediatric Cardiology [facility] K SORTER documented in this encounter Plan of Treatment Not on filedocumented as of this encounter Procedures Procedure Name Priority Date/Time Associated Diagnosis Comme nts ECHO COMPLETE Routine 03/05/2019 8:58 AM relat ed Results for this SHANK SORTER condition, procedure are i n antepartum the results section. documented in this encounter Results ECHO COMPLETE (03/05/2019 8:58 AM SHANK SORTER) Anatomical Region Laterality Modality Echocardiography Specimen (Source) Anatomical Collection Method Collection Time Re ceived Time Location / / Volume Laterality 03/05/2019 8:19 AM SHANK SORTER Narrative 03/05/2019 3:18 PM SHANK SORTER [id number]^NICOLLE^ZULEYMA^KEIRA ?Study ID: [id number] ?[facility] ?[facility] ?[address] ?[place] [address] ? Echocardiogram __ Name: MALLY FELICIANO Study Date: 03/05/2019 08:19 AM ?Patient Location: [facility] Gender: Female ? Patient Class: Outpatient : 1990 ?Age: 28 yrs Ordering Provider: ZULEYMA WINTER Referring Provider: ZULEYMA WINTER NN Performed By: Shraddha Goodwin RDCS Reading Physician: Lucio Holden MD Reason For Study: related cond ition, antepartum Data: Number of fetuses: This is a santana gestation. Due date: 05/11/2019. Gestational age: 30w3d. Chandui very at: [place]. Specific Indication: echocar diogram performed for family history of congenital heart disease. __ CONCLUSIONS Likely normal echocardiogram. Norm al cardiac anatomy. 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 Likely normal mitral valve appearance and motion; some images suggest dropout in the anterior leaflet, though others appear i ntact; no regurgitation. Normal right and left ventricular size and function w ithout hypertrophy. No evidence of diastolic dysfunction. No pericardial ef fusion. No arrhythmia. The results of the echocardiogram were explained. Although this was a technically difficult study, the patient is aware that no obvious cardiac abnormalities were identified. She is aw are of the general limitations of echocardiography. Please refer to consultation note for details. __ Technical Information: The study quality is good. A complete tw o dimensional, spectral and color Doppler echocardiogram is performe d. position and segmental anatomy: The heart is in left chest. The cardiac apex points towards the left. There is normal atrial arrangement, with concorda nt atrioventricular and ventriculoarterial connections. The abdo dora aorta is to the left of the spine. There is a left sided stomach. Systemic and pulmonary veins: The systemic venous return is normal. At least one right and one left pulmonary veins are seen returning to th e left atrium. Atria and atrial septum: Normal right atrial size. The left atriu m is normal in size. The flap of the foramen ovale opens in to the left atriu m. There is laminar [id number] shunting across the foramen ovale. Atrioventricular valves: The tricuspid valve is normal in appeara nce and motion. There is no tricuspid insufficiency. The mitral valve is viri l in appearance and motion. There is no mitral valve insufficiency. Ventricles and ventricular septum: Normal right ventricular size. Normal ri ght ventricular systolic function. Normal left ventricular size. Normal lef t ventricular systolic function. No obvious ventricular level shunting. Outflows tracts: Normal great artery relationship. The ri ght ventricular outflow tract is normal in caliber. The pulmonary valve h as normal appearance and motion. There is normal flow across the pulmonary valv e. There is unobstructed flow through the left ventricular outflow tract. The aortic valve has normal appearance and motion. There is normal flow across the aortic valve. Great arteries: The main pulmonary artery has normal jude earance. There is unobstructed flow in the main pulmonary artery. The pulmonary artery bifurcation is normal. There is unobstructed flow in both branch pulm onary arteries. The ductus arteriosus has normal appearance with normal antegr edilma flow. There is unobstructed antegrade flow in the ascending aorta. T he aortic arch appears normal. There is unobstructed antegrade flow in the ao rtic arch. Possible aberrant right subclavian artery. Effusions and extracardiac findings: No pericardial effusion. No hydrops. cardiac rhythm: heart rate is regular at 133 bpm. Doppler: There is normal flow in the ductus venos us, umbilical artery and umbilical vein. echocardiography cannot rule out s mall atrial or ventricular septal defects, persistent ductus arteriosus, m ild coarctation of the aorta, partial anomalous pulmonary venous return, minor anatomic valve anomalies or coronary artery anomalies. Doppler Measurements & Calculations MV E max keaton: 35.2 cm/sec ? Ao V2 max: 87.1 cm/sec MV A max keaton: 51.6 cm/sec ? Ao max P.0 mmHg MV E/A: 0.68 __ Reading Physician: ?Lucio Osman se, MD 03/05/2019 03:18 PM Procedure Note Lucio Holden MD - 9 [id number]^NICOLLE^ZULEYMA^KEIRA Study ID: [id number] [facility] [address] [address] Echocardiogram __ Name: MALLY FELICIANO Study Date: 03/05/2019 08:19 AM Patient Location: [facility] Gender: Female Patient Class: Outpatient : 1990 Age: 28 yrs Ordering Provider: ZULEYMA WINTER Referring Provider: ZULEYMA WINTER NN Performed By: Shraddha Goodwin RDCS Reading Physician: Lucio Holden MD Reason For Study: related cond ition, antepartum Data: Number of fetuses: This is a santana gestation. Due date: 05/11/2019. Gestational age: 30w3d. Deli very at: [place]. Specific Indication: echocar diogram performed for family history of congenital heart disease. __ CONCLUSIONS Likely normal echocardiogram. Norm al cardiac anatomy. 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 Likely normal mitral valve appearance and motion; some images suggest dropout in the anterior leaflet, though others appear i ntact; no regurgitation. Normal right and left ventricular size and function w ithout hypertrophy. No evidence of diastolic dysfunction. No pericardial ef fusion. No arrhythmia. The results of the echocardiogram were explained. Although this was a technically difficult study, the patient is aware that no obvious cardiac abnormalities were identified. She is aw are of the general limitations of echocardiography. Please refer to consultation note for details. __ Technical Information: The study quality is good. A complete tw o dimensional, spectral and color Doppler echocardiogram is performe d. position and segmental anatomy: The heart is in left chest. The cardiac apex points towards the left. There is normal atrial arrangement, with concorda nt atrioventricular and ventriculoarterial connections. The abdo dora aorta is to the left of the spine. There is a left sided stomach. Systemic and pulmonary veins: The systemic venous return is normal. At least one right and one left pulmonary veins are seen returning to th e left atrium. Atria and atrial septum: Normal right atrial size. The left atriu m is normal in size. The flap of the foramen ovale opens in to the left atriu m. There is laminar [id number]-[id number] shunting across the foramen ovale. Atrioventricular valves: The tricuspid valve is normal in appeara nce and motion. There is no tricuspid insufficiency. The mitral valve is viri l in appearance and motion. There is no mitral valve insufficiency. Ventricles and ventricular septum: Normal right ventricular size. Normal ri ght ventricular systolic function. Normal left ventricular size. Normal lef t ventricular systolic function. No obvious ventricular level shunting. Outflows tracts: Normal great artery relationship. The ri ght ventricular outflow tract is normal in caliber. The pulmonary valve h as normal appearance and motion. There is normal flow across the pulmonary valv e. There is unobstructed flow through the left ventricular outflow tract. The aortic valve has normal appearance and motion. There is normal flow across the aortic valve. Great arteries: The main pulmonary artery has normal jude earance. There is unobstructed flow in the main pulmonary artery. The pulmonary artery bifurcation is normal. There is unobstructed flow in both branch pulm onary arteries. The ductus arteriosus has normal appearance with normal antegr edilma flow. There is unobstructed antegrade flow in the ascending aorta. T he aortic arch appears normal. There is unobstructed antegrade flow in the ao rtic arch. Possible aberrant right subclavian artery. Effusions and extracardiac findings: No pericardial effusion. No hydrops. cardiac rhythm: heart rate is regular at 133 bpm. Doppler: There is normal flow in the ductus venos us, umbilical artery and umbilical vein. echocardiography cannot rule out s mall atrial or ventricular septal defects, persistent ductus arteriosus, m ild coarctation of the aorta, partial anomalous pulmonary venous return, minor anatomic valve anomalies or coronary artery anomalies. Doppler Measurements & Calculations MV E max keaton: 35.2 cm/sec Ao V2 max: 87. 1 cm/sec MV A max keaton: 51.6 cm/sec Ao max P.0 mmHg MV E/A: 0.68 __ Reading Physician: Lucio Holden MD 03/05/2019 03:18 PM Zuleyma Winter MD CV PEDS ECHO ORDERABLES documented in this encounter Visit Diagnoses Diagnosis related condition, antepartum documented in this encounter Additional Health Concerns Assessment Noted Time PHQ-9 Depression Total Score: 1 10/06/2018 9:27 AM CDT documented as of this encounter Care Teams Cadmium Plater Relationship Specialty Start Date End Date No Ref-Primary, Physician PCP - General 10/06/18 04/18/19 Reynaldo Amador PA-C 10/06/18 05/13/[address] [address] Zuleyma Winter MD Assigned PCP 12/31/[address] [place] [address] documented as of this encounter
--- OUTSIDE RECORDS SUMMARY | 2021-10-30 15:27 | XMS_ITS | Encounter Summary ---
:1990 Author Organization [place] Address [address] [place] [address] Care Team Providers Name Role Phone No Ref-Primary, Physician Primary Care Provider [phone] Reynaldo Amador PA-C Unavailable [phone] Zuleyma Winter MD Unavailable [phone] Encounter Details Date Type Department Care Team Description 04/14/2019 Travel Social History Tobacco Use Types Packs/Day [...] documented as of this encounter Care Teams It Infrastructure Specialist Relationship Specialty Start Date End Date No Ref-Primary, Physician PCP - General 10/06/18 04/18/19 Reynaldo Amador PA-C 10/06/18 05/13/[address] [address] Zuleyma Winter MD Assigned PCP 12/31/18 [address] [facility] [address] [place] [address] documented as of this encounter
--- OUTSIDE RECORDS SUMMARY | 2021-10-30 15:27 | XMS_ITS | Encounter Summary ---
:1990 Author Organization [place] Address [address] [facility] [place] [address] Care Team Providers Name Role Phone Reynaldo Amador PA-C Unavailable [phone] Zuleyma Winter MD Unavailable [phone] Zuleyma Winter MD Primary Care Provider Encounter Details Date Type Department Care Team Description 04/22/2019 Travel Social History Tobacco Use Types Packs/Day [...] documented as of this encounter Care Teams Hand Kiss Setter Relationship Specialty Start Date End Date Zuleyma Winter MD PCP - General Family Practice 04/19/[address] [facility] [address] [place], [place] [address] Reynaldo Amador PA-C 10/06/18 05/13/[address] [address] Zuleyma Winter MD Assigned PCP 12/31/18 [address] [facility] [address] [address] [address] documented as of this encounter
--- OUTSIDE RECORDS SUMMARY | 2021-10-30 15:27 | XMS_ITS | Encounter Summary ---
:1990 Author Organization [place] Address [address] [place] [address] Care Team Providers Name Role Phone No Ref-Primary, Physician Primary Care Provider [phone] Reynaldo Amador PA-C Unavailable [phone] Zuleyma Winter MD Unavailable [phone] Encounter Details Date Type Department Care Team Description 03/01/2019 Travel Social History Tobacco Use Types Packs/Day [...] documented as of this encounter Care Teams Steel Die Press Set Up Operator Relationship Specialty Start Date End Date No Ref-Primary, Physician PCP - General 10/06/18 04/18/19 Reynaldo Amador PA-C 10/06/18 05/13/[address] [address] Zuleyma Winter MD Assigned PCP 12/31/18 [address] [facility] [address] [place] [address] documented as of this encounter
--- OUTSIDE RECORDS SUMMARY | 2021-10-30 15:27 | XMS_ITS | Encounter Summary ---
:1990 Author Organization [place] Address [facility] [place] [address] Care Team Providers Name Role Phone No Ref-Primary, Physician Primary Care Provider [phone] Reynaldo Amador PA-C Unavailable Zuleyma Winter MD Unavailable [phone] Reason for Visit Reason Comments Care 29w6d Encounter Details Date Type Department Care Team Description 03/01/2019 Office [facility] Lisa Bowens for Visit [facility] TAVARES Urbina CNM supervision of [place] [id number] [facility] JOS[facility] LUIS normal first [address] [facility] [address] [place] [address] trimester (Primary [address] Dx) [place], [place] (Work) [phone] Social History Tobacco Use Types Packs/Day Years Used Date Never Smoker 0 Smokeless Tobacco: Never Used Alcohol Use Standard Drinks/Week Comments Not Currently 0 (1 standard drink = 0.6 oz pure alcoho l) Sex Assigned at Date Recorded Female 10/07/2018 7:21 AM CDT documented as of this encounter Last Filed Vital Signs Vital Sign Reading Time Taken Comments Blood Pressure 108/68 03/01/2019 8:12 AM SITE PROMOTION AGENT Pulse - - Temperature - - Respiratory Rate - - Oxygen Saturation - - Inhaled Oxygen Concentration - - Weight 84.4 kg (186 lb) 03/01/2019 8:12 AM SITE PROMOTION AGENT Height - - Body Mass Index 30.02 01/22/2019 12:47 PM CDT documented in this encounter Progress Notes Lisa Bowens APRN CNM - 03/01/2019 8:00 AM CST Feels well, traveling to [place]. For xmas, leaves on madhu gil. echo scheduled 03/05, will do 34w growth here. Discussed travel precautions, recommend bringing record, will have them print next time. Discussed limiting Salt, increasing hydration, movement to prevent swelling. Movement: positive, denies loss of fluid/vb, no contractions kick counts reviewed Reviewed PTL precautions and s/sx of preeclampsia; denies any S&S and aware of what to report Briefly discussed peds, [place]/FP at [place] and [facility] peds. Growth U/S @ 34 w, place order next visit Return to clinic in 2 weeks *offer baby box handout Lisa Bowens APRN, HARI PROMOTION AGENT documented in this encounter Plan of Treatment Not on filedocumented as of this encounter Visit Diagnoses Diagnosis Encounter for supervision of normal firs t in third trimester - Primary Supervision of normal first documented in this encounter Additional Health Concerns Assessment Noted Time PHQ-9 Depression Total Score: 1 10/06/2018 9:27 AM CDT documented as of this encounter Care Teams Master [employer] Relationship Specialty Start Date End Date No Ref-Primary, Physician PCP - General 10/06/18 04/18/19 Reynaldo Amador PA-C 10/06/18 05/13/[address] [id number] Zuleyma Winter MD Assigned PCP 12/31/18 30[address] [facility] [address] [place], [place] [address] documented as of this encounter
--- OUTSIDE RECORDS SUMMARY | 2021-10-30 15:27 | XMS_ITS | Encounter Summary ---
:1990 Author Organization [place] Address [address] [place] [address] Care Team Providers Name Role Phone No Ref-Primary, Physician Primary Care Provider [phone] Reynaldo Amador PA-C Unavailable [phone] Zuleyma Winter MD Unavailable [phone] Reason for Referral Diagnostic Imaging Ultrasound (Routine) - Closed Specialty Diagnoses / Procedures Referred By Contact Refer red To Contact Diagnoses Encounter for supervision of normal first in third trimester Congenital cleft leaflet of mitral valve Lizabeth Moya CNM Procedures US OB >14 Weeks Follow Up [address] [address] [place] [address] Referral ID Status Reason Start Date Expiration Date Visits Requ ested Visits Authorized [id number] Closed 03/15/2019 03/14/2020 1 1 DENTIAL SUPPORT WORKER Reason for Visit Reason Comments Care 31w6d Encounter Details Date Type Department Care Team Description 03/15/[address] [facility] Stephanie Moya er for supervision of normal first in third trimester (Primary Dx); [facility] Lizabeth Temple CNM Congenital cleft leaflet of mitral valve [place] [address] [place] [address] [address] [place] [address] (Work) [phone] Social History Tobacco Use Types Packs/Day Years Used Date Never Smoker 0 Smokeless Tobacco: Never Used Alcohol Use Standard Drinks/Week Comments Not Currently 0 (1 standard drink = 0.6 oz pure alcoho l) Sex Assigned at Date Recorded Female 10/07/2018 7:21 AM CDT documented as of this encounter Last Filed Vital Signs Vital Sign Reading Time Taken Comments Blood Pressure 102/62 03/15/2019 2:37 PM RESIDENTIAL SUPPORT WORKER Pulse - - Temperature - - Respiratory Rate - - Oxygen Saturation - - Inhaled Oxygen Concentration - - Weight 81.6 kg (180 lb) 03/15/2019 2:37 PM RESIDENTIAL SUPPORT WORKER Height - - Body Mass Index 29.05 01/22/2019 12:47 PM CDT documented in this encounter Patient Instructions Patient InstructionsLizabeth Moya CNM - 03/15/2019 2:30 PM CST SIGNS OF LABOR Labor is if it [...] 30-60 seconds. Some contractions are normal during ([place] ruiz contractions) but if you are feeling [...] you are concerned you are in labor. [facility] [phone] PREECLAMPSIA SIGNS AND SYMPTOMS Preeclampsia is a [...] swelling in is very normal) If your veterinary assistant technician feels that you are developing preeclampsia, you will have lab tests drawn and will be monitored very closely. If you are experiencing anyof these symptoms, call the [facility] immediately at [phone]. Kick Counts It is important to know [...] call us, we are here for you! [facility] [phone] DENTIAL SUPPORT WORKER documented in this encounter Progress Notes Lizabeth Moya CNM - 03/15/2019 2:30 PM CST Feels well, no concerns today. Here alone Asking about breech presentation. Baby was breech at 28 week growth and during echo. Discussednormal variation in position at this point in gestation. Briefly discuss ECV vs primary cs andthat that discussion would occur with an MD after 36 weeks if baby is still breech. Baby feels breech by Lj's today. Spinning babies information given Had echo 03/05, which was normal. echo is recommended to reevaluate the mitral valveand head/neck vessel anatomy per pediatric cardiology. Movement: positive, denies loss of fluid/vb, no contractions kick counts/movement reviewed Reviewed PTL precautions and s/sx of preeclampsia; denies any S&S and aware of what to report Peds chosen: No, discussed [facility], [facility] and [facility] Cement Boat And Barge Loader: Hep B, Vit K, Erythromycin Plans to breastfeed: Yes class planned: plans to take classes at [employer] Needs growth US next visit. Order placed Discussed MFM recommendations for maternal echo in 3rd trimester, has not had yet. States she is awaiting a call from cardiology. [facility] has their business card will call them at the end of the week to schedule if she does not hear from them. Return to clinic 2 weeks for growth US and CNM visit Lizabeth Moya APRN, CNM DENTIAL SUPPORT WORKER documented in this encounter Plan of Treatment Not on filedocumented as of this encounter Results US OB >14 Weeks Follow Up (04/01/2019 1:00 PM RESIDENTIAL SUPPORT WORKER) Anatomical Region Laterality Modality Abdomen/Pelvis Ultrasound Specimen (Source) Anatomical Location Collection Method / Collectio n Time Received Time / Laterality Volume Narrative 04/01/2019 1:56 PM RESIDENTIAL SUPPORT WORKER Obstetrical Ultrasound Report OB U/S ? 2nd/3rd Trimester - Transabdominal [facility] Referring physician: Lizabeth Moya CNM Sed Special Education Teacher: Ines Hudson RDMS Indication: ??F/U Growth ?? Dating (mm/dd/yyyy): LMP: Patient's last menstrual period was 08/04/2018. ? EDC: ?? Estimated Date of Delivery: May 11, 2019 ?? GA by LMP: ?? 34w2d Current Scan On (mm/dd/yyyy): 04/01/2019 ?EDC: ?? 05/07/19 ? GA by Current Scan: ?34w6d The calculation of the gestational age b y current scan was based on BPD, HC, AC and FL. ?? Anatomy Scan: Cardoso gestation. Biometry: BPD 8.8 cm 35w4d 82.6% HC 31.5 cm 35w3d 42.2% AC 30.7 cm 34w5d 65.4% FL 6.5 cm 33w5d 24.9% EFW (lbs/oz) 5 lbs ? 7ozs ? EFW (g) 2457 g 49.7% ? heart rate: 152bpm presentation: Breech Amniotic fluid: MVP 6.9cm Placenta: posterior Impression: ??Breech presentation, growth appropriat e ? Lizabeth Moya CNM IMG ORDERABLES documented in this encounter Visit Diagnoses Diagnosis Encounter for supervision of normal firs t in third trimester - Primary Supervision of normal first Congenital cleft leaflet of mitral valve Congenital mitral stenosis Encounter for supervision of normal firs t in third trimester Supervision of normal first Congenital cleft leaflet of mitral valve Congenital mitral stenosis documented in this encounter Additional Health Concerns Assessment Noted Time PHQ-9 Depression Total Score: 1 10/06/2018 9:27 AM CDT documented as of this encounter Care Teams Cottage Parent Relationship Specialty Start Date End Date No Ref-Primary, Physician PCP - General 10/06/18 04/18/19 Reynaldo Amador PA-C 10/06/18 05/13/[address] [address] Zuleyma Winter MD Assigned PCP 12/31/18 [address] [id number] documented as of this encounter
--- OUTSIDE RECORDS SUMMARY | 2021-10-30 15:27 | XMS_ITS | Encounter Summary ---
:1990 Author Organization [place] Address [facility] [place] [address] Care Team Providers Name Role Phone No Ref-Primary, Physician Primary Care Provider [phone] Reynaldo Amador PA-C Unavailable [phone] Zuleyma Winter MD Unavailable [phone] Reason for Referral Diagnostic Imaging Ultrasound (Routine) - Closed Specialty Diagnoses / Procedures Referred By Contact Refer red To Contact Diagnoses Spontaneous breech delivery, single or unspecified fetus Chata Deleon Procedures US OB > 14 Weeks MD Zuleyma [address] [place] [address] Referral ID Status Reason Start Date Expiration Date Visits Requ ested Visits Authorized [id number] Closed 04/15/2019 04/14/2020 1 1 OR TECHNICAL TRAINER Reason for Visit Reason Comments Care Diagnostic Imaging Ultrasound (Routine) - Closed Specialty Diagnoses / Procedures Referred By Contact Refer red To Contact Diagnoses Spontaneous breech delivery, fetus 1 of multiple gestation Li Pritchard APRN Procedures US OB >14 Weeks Limited wo Measurement CN [address] [place] [address] Referral ID Status Reason Start Date Expiration Date Visits Requ ested Visits Authorized [id number] Closed 04/14/2019 04/13/2020 1 1 Encounter Details Date Type Department Care Team Description 04/15/2019 Office [facility] Jared Pritchard, [facility] [address] [facility] [address] [place] [phone] Spontaneous breech delivery, single or u nspecified fetus (Primary Dx); [facility] Chata Deleon MD [address] [facility] [address] [place] [phone] Spontaneous breech delivery, fetus 1 of multiple gestation; [place] Breech presentation, single or unspecified fetus; [address] [facility] Encounter for supervision of normal first in third trimester [facility] [address] [place] [phone] Social History Tobacco Use Types Packs/Day Years Used Date Never Smoker 0 Smokeless Tobacco: Never Used Alcohol Use Standard Drinks/Week Comments Not Currently 0 (1 standard drink = 0.6 oz pure alcoho l) Sex Assigned at Date Recorded Female 10/07/2018 7:21 AM CDT documented as of this encounter Last Filed Vital Signs Vital Sign Reading Time Taken Comments Blood Pressure 120/72 04/15/2019 3:12 PM SENIOR TECHNICAL TRAINER Pulse - - Temperature - - Respiratory Rate - - Oxygen Saturation - - Inhaled Oxygen Concentration - - Weight 92.4 kg (203 lb 12.8 oz) 04/15/2019 3:12 PM SENIOR TECHNICAL TRAINER Height - - Body Mass Index 32.89 01/22/2019 12:47 PM CDT documented in this encounter Progress Notes Chata Deleon MD - 04/15/2019 3:30 PM CST She had maternal echo done- normal Consult as follow up tomorrow Cbc today to check anemia Us in 2 weeks Discussed ecv vs c/s Discussed r/b/a, she declines version, will schedule c/s and if flips before will try vaginal Will schedule c/s at 39 weeks OR TECHNICAL TRAINER documented in this encounter Plan of Treatment Scheduled Orders Name Type Priority Associated Diagnoses Order S chedule Ngozi-Operative Procedures Routine Breech presentation, Order ed: 04/15/2019 Worksheet single or unspecified fetus documented as of this encounter Procedures Procedure Name Priority Date/Time Associated Diagnosis Comme nts CBC WITH PLATELETS Routine 04/15/2019 3:19 PM Encounter for Re sults for this SENIOR TECHNICAL TRAINER supervision of procedure are in normal first the results in third section. trimester documented in this encounter Results US OB > 14 Weeks (05/04/2019 3:14 PM SENIOR TECHNICAL TRAINER) Anatomical Region Laterality Modality Abdomen/Pelvis Ultrasound Specimen (Source) Anatomical Location Collection Method / Collectio n Time Received Time / Laterality Volume Narrative 05/04/2019 3:16 PM SENIOR TECHNICAL TRAINER Obstetrical Ultrasound Report OB U/S ? Limited - Transabdominal [facility] Referring physician: Jessica Deleon MD Child Welfare Director: Aide [place] [facility] Indication: position check History: Dating (mm/dd/yyyy): LMP: 08/04/18 ? EDC: ??05/11/19 ?GA by LMP: ? 39w0d Anatomy Scan: Cardoso gestation. heart activity: ??Rate and rhythm is within normal limits. ?? heart rate: 136bpm presentation: Breech Placenta: posterior Amniotic fluid: Normal, MVP: 3.55cm Impression: ??Breech- c/s planned tomorrow ? Chata Monzon MD [facility] US ORDERABLES CBC with platelets (04/15/2019 3:19 PM SENIOR TECHNICAL TRAINER) P athologist Signature WBC 8.1 4.0 - 11.0 04/15/2019 [facility] 10e9/L 3:36 PM SENIOR TECHNICAL TRAINER [facility] [place] RBC Count 3.99 3.8 - 5.2 04/15/2019 [facility] 10e12/L 3:36 PM SENIOR TECHNICAL TRAINER [facility] [place] Hemoglobin 11.7 11.7 - 04/15/2019 [facility] 15.7 g/dL 3:36 PM SENIOR TECHNICAL TRAINER [facility] [place] Hematocrit 35.6 35.0 - 04/15/2019 [facility] 47.0 % 3:36 PM SENIOR TECHNICAL TRAINER [facility] [place] MCV 89 78 - 100 04/15/2019 [facility] fl 3:36 PM SENIOR TECHNICAL TRAINER [facility] [place] MCH 29.3 26.5 - 04/15/2019 [facility] 33.0 pg 3:36 PM SENIOR TECHNICAL TRAINER [facility] [place] MCHC 32.9 31.5 - 04/15/2019 [facility] 36.5 g/dL 3:36 PM SENIOR TECHNICAL TRAINER [facility] [place] RDW 13.0 10.0 - 04/15/2019 [facility] 15.0 % 3:36 PM SENIOR TECHNICAL TRAINER [facility] [place] Platelet Count 191 150 - 450 04/15/2019 [facility] 10e9/L 3:36 PM SENIOR TECHNICAL TRAINER [facility] [place] Specimen Anatomical Collection Method Collection Time Receive d Time (Source) Location / / Volume Laterality Blood specimen 04/15/2019 3:19 PM 020 3:20 (specimen) SENIOR TECHNICAL TRAINER PM SENIOR TECHNICAL TRAINER Chata Monzon MD LAB - BLOOD ORDERABL ES Performing Organization Address City/State/ZIP Code Phon e Number [facility] [address] [place] [address] [phone] [facility] [place] 100 documented in this encounter Visit Diagnoses Diagnosis Spontaneous breech delivery, single or u nspecified fetus - Primary Spontaneous breech delivery, fetus 1 of multiple gestation Breech presentation, single or unspecifi ed fetus Encounter for supervision of normal firs t in third trimester Supervision of normal first Spontaneous breech delivery, single or u nspecified fetus documented in this encounter Additional Health Concerns Assessment Noted Time PHQ-9 Depression Total Score: 1 10/06/2018 9:27 AM CDT documented as of this encounter Care Teams Manager Talent Management Relationship Specialty Start Date End Date No Ref-Primary, Physician PCP - General 10/06/18 04/18/19 Reynaldo Amador PA-C 10/06/18 05/13/[address] [address] Zuleyma Winter MD Assigned PCP 12/31/[address] [address] documented as of this encounter
--- OUTSIDE RECORDS SUMMARY | 2021-10-30 15:27 | XMS_ITS | Encounter Summary ---
:1990 Author Organization [place] Address [address] [place] [address] Care Team Providers Name Role Phone No Ref-Primary, Physician Primary Care Provider [phone] Reynaldo Amador PA-C Unavailable [phone] Zuleyma Winter MD Unavailable [phone] Reason for Visit Diagnostic Imaging Ultrasound (Routine) - Closed Specialty Diagnoses / Procedures Referred By Contact Refer red To Contact Diagnoses Encounter for supervision of normal first in third trimester Congenital cleft leaflet of mitral valve Lizabeth Moya CNM Procedures US OB >14 Weeks Follow Up [address] [facility] [place] [address] Referral ID Status Reason Start Date Expiration Date Visits Requ ested Visits Authorized [id number] Closed 03/15/2019 03/14/2020 1 1 Encounter Details Date Type Department Care Team Description 04/01/2019 Ancillary Procedure [facility] Eduardo Moya for supervision of normal first in third trimester; [facility] Lizabeth Temple CNM Congenital cleft leaflet of mitral valve [place] [address] [facility] [address] [facility] [address] [place] [address] [address] [place] [address] (Work) [phone] Social History Tobacco Use Types Packs/Day Years [...] Date/Time Associated Diagnosis Comme nts US OB FOLLOW UP >14 Routine 04/01/2019 1:00 PM Encounter for R esults for this WEEKS SAGGER PREPARER supervision of procedure are in normal first the results in third section. trimester Congenital cleft leaflet of mitral valve documented in this encounter Results US OB >14 Weeks Follow Up (04/01/2019 1:00 PM SAGGER PREPARER) Anatomical Region Laterality Modality Abdomen/Pelvis Ultrasound Specimen (Source) Anatomical Location Collection Method / Collectio n Time Received Time / Laterality Volume Narrative 04/01/2019 1:56 PM SAGGER PREPARER Obstetrical Ultrasound Report OB U/S ? 2nd/3rd Trimester - Transabdominal [facility] Referring physician: Lizabeth Moya CNM [place]: Ines Hudson RDMS Indication: ??F/U Growth ?? [...] growth appropriat e ? Lizabeth Moya CNM IMArel[facility] US ORDERABLES documented in this encounter Visit Diagnoses Diagnosis Encounter for supervision of normal firs t in third trimester Supervision of normal first Congenital cleft leaflet of mitral valve Congenital mitral stenosis documented in this encounter Additional Health Concerns Assessment Noted Time PHQ-9 Depression Total Score: 1 10/06/2018 9:27 AM CDT documented as of this encounter Care Teams Fiberglass Boat Assembly Supervisor Relationship Specialty Start Date End Date No Ref-Primary, Physician PCP - General 10/06/18 04/18/19 Reynaldo Amador PA-C 10/06/18 05/13/[address] [id number] Zuleyma Winter MD Assigned PCP 12/31/18 3033 [facility] [address] [place], [place] [id number] documented as of this encounter
--- OUTSIDE RECORDS SUMMARY | 2021-10-30 15:27 | XMS_ITS | Encounter Summary ---
:1990 Author Organization [place] Address [address] [facility] [place] [address] Care Team Providers Name Role Phone Reynaldo Amador PA-C Unavailable [phone] Zuleyma Winter MD Unavailable [phone] Zuleyma Winter MD Primary Care Provider Encounter Details Date Type Department Care Team Description 04/29/2019 Travel Social History Tobacco Use Types Packs/Day [...] documented as of this encounter Care Teams Letter Stamping Machine Operator Relationship Specialty Start Date End Date Zuleyma Winter MD PCP - General Family Practice 04/19/[address] [facility] [address] [place], [place] [address] Reynaldo Amador PA-C 10/06/18 05/13/[address] [address] Zuleyma Wniter MD Assigned PCP 12/31/18 [address] [address] documented as of this encounter
--- OUTSIDE RECORDS SUMMARY | 2021-10-30 15:27 | XMS_ITS | Encounter Summary ---
:1990 Author Organization [place] Address [facility] [place] [address] Care Team Providers Name Role Phone Reynaldo Amador PA-C Unavailable Zuleyma Winter MD Unavailable [phone] Zuleyma Winter MD Primary Care Provider Reason for Referral CV Testing (Routine) - [...] PERICARDIOCENTESIS HC ECHO [place] [address] [place] [address] C INJECTION, PERFLUTREN LIPI D MICROSPHERES, PER ML HC STATISTIC IV PUSH SINGLE INITIAL SUBSTANCE [place] [address] Referral ID Status Reason Start Date Expiration Date Visits Requ ested Visits Authorized [id number] Closed 04/16/2019 04/15/2020 1 1 ICATION EDITOR Reason for Visit CV Testing (Routine) - Closed Specialty Diagnoses [...] HC STATISTIC IV PUSH SINGLE INITIAL SUBSTANCE [place] [address] Referral ID Status Reason Start Date Expiration Date Visits Requ ested Visits Authorized [id number] Closed 04/16/2019 04/15/2020 1 1 Encounter Details Date Type Department Care Team Description 04/19/2019 Hospital Encounter [facility] MayJe ngenital cleft leaflet of mitral valve; [facility] MD Randall Mitral regurgitation, congenital [facility] Care [address] [facility] [address] [facility] [place], [place] [address] [address] [place] (Work) [phone] Social History Tobacco Use Types Packs/Day Years Used Date Never Smoker 0 Smokeless Tobacco: Never Used Alcohol Use Standard Drinks/Week Comments Not Currently 0 (1 standard drink = 0.6 oz pure alcoho l) Sex Assigned at Date Recorded Female 10/07/2018 7:21 AM CDT documented as of this encounter Medications at Time of Discharge Medication Sig Dispensed Refills Start Date End Date order for Equipment being ordered: 1 standard doub le electric breast pump 1 Device 0 04/14/2019 DMEIndications: To be used for:99 Lactating mother Indications: Prenat w/o 0 E-AC-Tluidzb-FA-DHA (PNV-DHA PO) documented as of this encounter Plan of Treatment Not on filedocumented as of this encounter Procedures Procedure Name Priority Date/Time Associated Diagnosis Comme nts ECHO COMPLETE Routine 04/19/2019 8:32 AM Congenital cleft Resu lts for this PUBLICATION EDITOR leaflet of mitral procedure are in the valve results section. Mitral regurgitation, congenital documented in this encounter Results ECHO COMPLETE (04/19/2019 8:32 AM PUBLICATION EDITOR) Anatomical Region Laterality Modality Echocardiography Specimen (Source) Anatomical Collection Method Collection Time Re ceived Time Location / / Volume Laterality 04/19/2019 8:05 AM PUBLICATION EDITOR Narrative 04/19/2019 9:17 AM PUBLICATION EDITOR [id number]^MAY^JE^RANDALL [facility] [address] [facility] [address] [place] [address] Name: MALLY FELICIANO : 1990 Study Date: 04/19/2019 08:05 AM Age: 28 yrs Gender: Female Patient Location: [facility] Reason For Study: Congenital cleft leafl et [...] note might be different from the original. [id number]^LAURIE^JE^RANDALL [facility] [address] [facility] [address] [place] [address] Name: MALLY FELICIANO : 1990 Study Date: 04/19/2019 08:05 AM Age: 28 yrs Gender: Female Patient Location: [facility] Reason For Study: Congenital cleft leafl et [...] due to jet ec centricity. Direct comparison iw study from - s howed no major [...] documented as of this encounter Care Teams Stockroom Attendant Relationship Specialty Start Date End Date Zuleyma Winter MD PCP - General Family Practice 04/19/[address] [place], [place] [address] Reynaldo Amador PA-C 10/06/18 05/13/[address] [id number] Zuleyma Winter MD Assigned PCP 12/31/[address] [place], [place] [address] documented as of this encounter
--- OUTSIDE RECORDS SUMMARY | 2021-10-30 15:27 | XMS_ITS | Encounter Summary ---
:1990 Author Organization [place] Address [address] [place] [address] Care Team Providers Name Role Phone No Ref-Primary, Physician Primary Care Provider [phone] Reynaldo Amador PA-C Unavailable [phone] Zuleyma Winter MD Unavailable [phone] Encounter Details Date Type Department Care Team Description 04/01/2019 Travel Social History Tobacco Use Types Packs/Day [...] documented as of this encounter Care Teams Patient Services Manager Relationship Specialty Start Date End Date No Ref-Primary, Physician PCP - General 10/06/18 04/18/19 Reynaldo Amador PA-C 10/06/18 05/13/[address] [address] Zuleyma Winter MD Assigned PCP 12/31/18 3033 [facility] [address] [place] [address] documented as of this encounter
--- OUTSIDE RECORDS SUMMARY | 2021-10-30 15:27 | XMS_ITS | Encounter Summary ---
:1990 Author Organization [place] Address [facility] [address] Care Team Providers Name Role Phone No Ref-Primary, Physician Primary Care Provider Reynaldo Amador PA-C Unavailable Zuleyma Winter MD Unavailable Encounter Details Date Type Department Care Team Description 04/14/2019 Telephone [facility], [facility] [place] [facility]ISSE [address] [facility] [address] [facility] [address] [place] [address] [place] [address] (Wo rk) Social History Tobacco Use Types Packs/Day Years Used Date Never Smoker 0 Smokeless Tobacco: Never Used Alcohol Use Standard Drinks/Week Comments Not Currently 0 (1 standard drink = 0.6 oz pure alcoho l) Sex Assigned at Date Recorded Female 10/07/2018 7:21 AM CDT documented as of this encounter Miscellaneous Notes Telephone Encounter - Eufemia Avelar CMA - 04/14/2019 1:29 PM CST Left for patient offering appointment time. Gave call back. SELOR SUPERVISOR Telephone Encounter - Eufemia Avelar CMA - 04/14/2019 11:32 AM CST Mally called to get scheduled with Dr. Addison. Referred by Dr. Martins SELOR SUPERVISOR documented in this encounter Plan of Treatment Not on filedocumented as of this encounter Visit Diagnoses Not on filedocumented in this encounter Additional Health Concerns Assessment Noted Time PHQ-9 Depression Total Score: 1 10/06/2018 9:27 AM CDT documented as of this encounter Care Teams Wedger Relationship Specialty Start Date End Date No Ref-Primary, Physician PCP - General 10/06/18 04/18/19 Reynaldo Amador PA-C 10/06/18 05/13/[address] [address] Zuleyma Winter MD Assigned PCP 12/31/18 [address] [facility] [facility] [address] [place], [place] [address] documented as of this encounter
--- OUTSIDE RECORDS SUMMARY | 2021-10-30 15:27 | XMS_ITS | Encounter Summary ---
:1990 Author Organization [place] Address [facility] [place] [address] Care Team Providers Name Role Phone Reynaldo Amador PA-C Unavailable [phone] Zuleyma Winter MD Unavailable [phone] Zuleyma Winter MD Primary Care Provider [phone] Reason for Visit Reason Comments Care Encounter Details Date Type Department Care Team Description 04/29/2019 Office [facility] [place] Lisa H igh-risk in third trimester (Primary Dx); [facility] TAVARES Urbina CNM Breech presentation, single or unspecifi ed fetus; [place] [address] [place] [address] FAUSTINA S 38 weeks gestation of pregna gay [address] [address] [place] [address] [place], [place] (Work) [address] [phone] Social History Tobacco Use Types Packs/Day Years Used Date Never Smoker 0 Smokeless Tobacco: Never Used Alcohol Use Standard Drinks/Week Comments Not Currently 0 (1 standard drink = 0.6 oz pure alcoho l) Sex Assigned at Date Recorded Female 10/07/2018 7:21 AM CDT documented as of this encounter Last Filed Vital Signs Vital Sign Reading Time Taken Comments Blood Pressure 118/80 04/29/2019 10:22 AM WARDROBE COORDINATOR Pulse - - Temperature - - Respiratory Rate - - Oxygen Saturation - - Inhaled Oxygen Concentration - - Weight 92.8 kg (204 lb 9.6 oz) 04/29/2019 10:22 AM WARDROBE COORDINATOR Height - - Body Mass Index 33.02 04/16/2019 2:15 PM WARDROBE COORDINATOR documented in this encounter Progress Notes Lisa Bowens APRN CNM - 04/29/2019 10:30 AM CST Feels well, ready to meet baby! Has appointment with Dr. Monzon for US on Friday. Wondering about /TOLAC in future Reviewed OR, Keanu at of bed and sequence of events movement: positive Denies vaginal bleeding/lof, some pelvic discomfort Warning signs reviewed; patient to call over weekend with any concerns Labor signs and symptoms discussed, aware of numbers to call Denies s/sx of pre-eclampsia and aware of what to report Return to clinic 1 week Lisa Bowens APRN, HARI ROBE COORDINATOR documented in this encounter Plan of Treatment Not on filedocumented as of this encounter Visit Diagnoses Diagnosis High-risk in third trimester - Primary Breech presentation, single or unspecifi ed fetus 38 weeks gestation of state, incidental documented in this encounter Additional Health Concerns Assessment Noted Time PHQ-9 Depression Total Score: 1 10/06/2018 9:27 AM CDT documented as of this encounter Care Teams Smoke Eater Relationship Specialty Start Date End Date Zuleyma Winter MD PCP - General Family Practice 04/19/[address] [address] Reynaldo Amador PA-C 10/06/18 05/13/[address] [address] Zuleyma Winter MD Assigned PCP 12/31/[address] [address] documented as of this encounter
--- OUTSIDE RECORDS SUMMARY | 2021-10-30 15:27 | XMS_ITS | Encounter Summary ---
:1990 Author Organization [place] Address [address] [place] [address] Care Team Providers Name Role Phone No Ref-Primary, Physician Primary Care Provider [phone] Reynaldo Amador PA-C Unavailable [phone] Zuleyma Winter MD Unavailable [phone] Encounter Details Date Type Department Care Team Description 01/22/2019 Travel Social History Tobacco Use Types Packs/Day [...] documented as of this encounter Care Teams Electrical Appliance Preparer Relationship Specialty Start Date End Date No Ref-Primary, Physician PCP - General 10/06/18 04/18/19 Reynaldo Amador PA-C 10/06/18 05/13/[address] [address] Zuleyma Winter MD Assigned PCP 12/31/18 3033 [facility] [address] [address] [place] [address] documented as of this encounter
--- OUTSIDE RECORDS SUMMARY | 2021-10-30 15:27 | XMS_ITS | Encounter Summary ---
:1990 Author Organization [place] Address [address] [facility] [place] [address] Care Team Providers Name Role Phone Reynaldo Amador PA-C Unavailable [phone] Zuleyma Winter MD Unavailable [phone] Zuleyma Winter MD Primary Care Provider [phone] Encounter Details Date Type Department Care Team Description 05/04/2019 Travel Social History Tobacco Use Types Packs/Day [...] documented as of this encounter Care Teams Dry Cleaner Presser Relationship Specialty Start Date End Date Zuleyma Winter MD PCP - General Family Practice 04/19/[address] [facility] [address] [place], [place] [address] Reynaldo Amador PA-C 10/06/18 05/13/[address] [address] Zuleyma Winter MD Assigned PCP 12/31/18 [address] [address] documented as of this encounter
--- OUTSIDE RECORDS SUMMARY | 2021-10-30 15:27 | XMS_ITS | Encounter Summary ---
:1990 Author Organization [place] Address [address] [place] [address] Care Team Providers Name Role Phone No Ref-Primary, Physician Primary Care Provider [phone] Reynaldo Amador PA-C Unavailable [phone] Zuleyma Winter MD Unavailable [phone] Encounter Details Date Type Department Care Team Description 03/15/2019 Travel Social History Tobacco Use Types Packs/Day [...] documented as of this encounter Care Teams Remarketing Manager Relationship Specialty Start Date End Date No Ref-Primary, Physician PCP - General 10/06/18 04/18/19 Reynaldo Amador PA-C 10/06/18 05/13/[address] [address] Zuleyma Winter MD Assigned PCP 12/31/18 3033 [facility] [address] [place] [address] documented as of this encounter
--- OUTSIDE RECORDS SUMMARY | 2021-10-30 15:27 | XMS_ITS | Encounter Summary ---
:1990 Author Organization [place] Address [address] [facility] [place] [address] Care Team Providers Name Role Phone Reynaldo Amador PA-C Unavailable [phone] Zuleyma Winter MD Unavailable [phone] Zuleyma Winter MD Primary Care Provider Encounter Details Date Type Department Care Team Description 04/19/2019 Travel Social History Tobacco Use Types Packs/Day [...] documented as of this encounter Care Teams Brush Machine Setter Relationship Specialty Start Date End Date Zuleyma Winter MD PCP - General Family Practice 04/19/[address] [facility] [address] [place], [place] [address] Reynaldo Amador PA-C 10/06/18 05/13/[address] [address] Zuleyma Wniter MD Assigned PCP 12/31/18 [address] [address] documented as of this encounter
--- OUTSIDE RECORDS SUMMARY | 2021-10-30 15:27 | XMS_ITS | Encounter Summary ---
:1990 Author Organization [place] Address [facility] [place] [address] Care Team Providers Name Role Phone Reynaldo Amador PA-C Unavailable [phone] Zuleyma Winter MD Unavailable [phone] Zuleyma Winter MD Primary Care Provider Reason for Visit Reason Comments Care Encounter Details Date Type Department Care Team Description 05/04/2019 Office [facility] Deborah Monzon High- risk [facility] [place] Silvestre Amor MD [address] [facility] [address] [address] [address] [place] [address] [place] [phone] Social History Tobacco Use Types Packs/Day Years Used Date Never Smoker 0 Smokeless Tobacco: Never Used Alcohol Use Standard Drinks/Week Comments Not Currently 0 (1 standard drink = 0.6 oz pure alcoho l) Sex Assigned at Date Recorded Female 10/07/2018 7:21 AM CDT documented as of this encounter Last Filed Vital Signs Vital Sign Reading Time Taken Comments Blood Pressure 120/74 05/04/2019 2:54 PM CARTON STAMPER Pulse - - Temperature - - Respiratory Rate - - Oxygen Saturation - - Inhaled Oxygen Concentration - - Weight 93.5 kg (206 lb 3.2 oz) 05/04/2019 2:54 PM CARTON STAMPER Height - - Body Mass Index 33.28 04/16/2019 2:15 PM CARTON STAMPER documented in this encounter Progress Notes Chata Deleon MD - 05/04/2019 3:10 PM CST Breech Labs today Discussed the r/b/a to surgery Discussed risk of bleeding, infection, injury to surrounding organs, baby ON STAMPER documented in this encounter Plan of Treatment Not on filedocumented as of this encounter Procedures Procedure Name Priority Date/Time Associated Diagnosis Comme nts ABO/RH TYPE AND Routine 05/04/2019 3:20 PM High-risk Results for this SCREEN CARTON STAMPER in third trimester procedure are in the results section. CBC WITH PLATELETS Routine 05/04/2019 3:20 PM High-risk pregna ncy Results for this CARTON STAMPER in third trimester procedure are in the results section. documented in this encounter Results ABO/Rh type and screen (05/04/2019 3:20 PM CARTON STAMPER) Patholo gist Method Time Signature ABO B 05/04/2019 [place] 7:37 PM CARTON STAMPER [facility] RH(D) Pos [facility] Antibody Neg 05/04/2019 [place] Screen 7:37 PM CARTON STAMPER [facility] Test Valid [place] 05/04/2019 [place] Only At [facility] 6:39 PM CARTON STAMPER [facility] Specimen 05/07/2019 05/04/2019 [place] Expires 6:39 PM CARTON STAMPER [facility] Specimen Anatomical Collection Method Collection Time Receive d Time (Source) Location / / Volume Laterality Blood specimen 05/04/2019 3:20 PM 020 3:21 (specimen) CARTON STAMPER PM CARTON STAMPER Chata Monzon MD LAB - BLOOD BANK ERNESTO T ORDER Performing Organization Address City/State/ZIP Code Phon e Number [facility] [address] [place] [address] [phone] [facility] [address] [place] [address], [place] [phone] CBC with platelets (05/04/2019 3:20 PM CARTON STAMPER) P athologist Signature WBC 7.4 4.0 - 11.0 05/04/2019 [place] 10e9/L 3:30 PM CARTON STAMPER [facility] RBC Count 4.09 3.8 - 5.2 05/04/2019 [place] 10e12/L 3:30 PM CARTON STAMPER [facility] Hemoglobin 12.0 11.7 - 05/04/2019 [place] 15.7 g/dL 3:30 PM CARTON STAMPER [facility] Hematocrit 36.3 35.0 - 05/04/2019 [place] 47.0 % 3:30 PM CARTON STAMPER [facility] MCV 89 78 - 100 05/04/2019 [place] fl 3:30 PM CARTON STAMPER [facility] MCH 29.3 26.5 - 05/04/2019 [place] 33.0 pg 3:30 PM CARTON STAMPER [facility] MCHC 33.1 31.5 - 05/04/2019 [place] 36.5 g/dL 3:30 PM CARTON STAMPER [facility] RDW 13.0 10.0 - 05/04/2019 [place] 15.0 % 3:30 PM CARTON STAMPER [facility] Platelet Count 174 150 - 450 05/04/2019 [place] 10e9/L 3:30 PM CARTON STAMPER [facility] Specimen Anatomical Collection Method Collection Time Receive d Time (Source) Location / / Volume Laterality Blood specimen 05/04/2019 3:20 PM 020 3:21 (specimen) CARTON STAMPER PM CARTON STAMPER Chata Monzon MD LAB - BLOOD ORDERABL ES Performing Organization Address City/State/ZIP Code Phon e Number [facility] [address] [place] [address] [place] [address] documented in this encounter Visit Diagnoses Diagnosis High-risk in third trimester documented in this encounter Additional Health Concerns Assessment Noted Time PHQ-9 Depression Total Score: 1 10/06/2018 9:27 AM CDT documented as of this encounter Care Teams Well Logging Operator Mud Analysis Relationship Specialty Start Date End Date Zuleyma Winter MD PCP - General Family Practice 04/19/19 [address] [facility] [address] [place] [address] Reynaldo Amador PA-C 10/06/18 05/13/[address] [address] Zuleyma Winter MD Assigned PCP 12/31/18 [address] [facility] [address] [place], [place] [address] documented as of this encounter
--- OUTSIDE RECORDS SUMMARY | 2021-10-30 15:27 | XMS_ITS | Encounter Summary ---
:1990 Author Organization [place] Address [address] [facility] [place] [address] Care Team Providers Name Role Phone No Ref-Primary, Physician Primary Care Provider [phone] Reynaldo Amador PA-C Unavailable [phone] Zuleyma Winter MD Unavailable [phone] Encounter Details Date Type Department Care Team Description 03/29/2019 Medical Correspondence [facility] Scan, ORDER MATERNITY Health Info Mgmt Non-Provider COMPRESSION Srvcs [address] [place] [address] Social History Tobacco Use Types Packs/Day Years [...] documented as of this encounter Care Teams Zigzag Topstitcher Relationship Specialty Start Date End Date No Ref-Primary, Physician PCP - General 10/06/18 04/18/19 Reynaldo Amador PA-C 10/06/18 05/13/[address] [address] Zuleyma Winter MD Assigned PCP 12/31/18 [address] [facility] [address] [address] [place], [place] [id number] documented as of this encounter
--- OUTSIDE RECORDS SUMMARY | 2021-10-30 15:27 | XMS_ITS | Encounter Summary ---
:1990 Author Organization [place] Address [address] [place] [address] Care Team Providers Name Role Phone No Ref-Primary, Physician Primary Care Provider [phone] Reynaldo Amador PA-C Unavailable [phone] Zuleyma Winter MD Unavailable [phone] Reason for Visit Diagnostic Imaging Ultrasound (Routine) - Closed Specialty Diagnoses / Procedures Referred By Contact Refer red To Contact Diagnoses Marginal insertion of umbilical cord affecting management of mother Dane Dozier, Procedures US OB >14 Weeks Follow Up [facility] [address] [address] [place] [address] Referral ID Status Reason Start Date Expiration Date Visits Requ ested Visits Authorized [id number] Closed 02/17/2019 02/17/2020 1 1 Encounter Details Date Type Department Care Team Description 02/17/2019 Ancillary Procedure [facility] Mar ginal insertion of [facility] Y[place] na umbilical cord [address] [facility] affecting management [place] of mother [address] [place] [phone] Social History Tobacco Use Types Packs/Day Years [...] Procedure Name Priority Date/Time Associated Diagnosis Comme [facility] US OB FOLLOW UP >14 Routine 02/17/2019 11:20 AM Marginal inser tion Results for this WEEKS HYDROELECTRIC OPERATOR of umbilical cord procedure are in affecting management the res ults of mother section. documented in this encounter Results US OB >14 Weeks Follow Up (02/17/2019 11:20 AM HYDROELECTRIC OPERATOR) Anatomical Region Laterality Modality Abdomen/Pelvis Ultrasound Specimen (Source) Anatomical Location Collection Method / Collectio n Time Received Time / Laterality Volume Narrative 02/17/2019 11:43 AM HYDROELECTRIC OPERATOR Obstetrical Ultrasound Report OB U/S ? 2nd/3rd Trimester - Transabdominal ??[facility] Referring physician: Li Pritchard CNM Storage Worker: Aide [place] Indication: ??F/U Growth due to marginal cord insert ?? Dating (mm/dd/yyyy): LMP: Patient's last menstrual period was 08/04/2018. ? EDC: ?? Estimated Date of Delivery: May 11, 2019 ?? GA by LMP: ?? 28w1d Current Scan On (mm/dd/yyyy): 02/17/2019 ? EDC: ?? 05/09/19 ? GA by Current Scan: ?28w3d The calculation of the gestational age b y current scan was based on BPD, HC, AC and FL. ?? Anatomy Scan: Cardoso gestation. Biometry: BPD 7.07 cm 28w3d 46.2% HC 26.26 cm 28w4d 31.4% AC 24.42 cm 28w5d 59.3% FL 5.32 cm 28w2d 37.7% EFW (lbs/oz) 2 lbs ? 12ozs ? EFW (g) 1238 g 57.2% ? heart rate: 159bpm presentation: Breech Amniotic fluid: MVP 4.50cm Placenta: posterior Impression: ?? Growth is appropriate for gestational ag e. EFW by today's ultrasound is 1238grams/2 -12#, which is the 57%tile. Normal ALHAJI, breech presentation. Posterior placenta. Christine Sanchez MD Dane Mccoyramm OBSTETRICIAN CNM G ORDERABLES documented in this encounter Visit Diagnoses Diagnosis Marginal insertion of umbilical cord aff ecting management of mother documented in this encounter Additional Health Concerns Assessment Noted Time PHQ-9 Depression Total Score: 1 10/06/2018 9:27 AM CDT documented as of this encounter Care Teams Mechanical Design Technician Relationship Specialty Start Date End Date No Ref-Primary, Physician PCP - General 10/06/18 04/18/19 Reynaldo Amador PA-C 10/06/18 05/13/[address] [address] Zuleyma Winter MD Assigned PCP 12/31/18 3033 [facility] [address] [place], [place] [id number] documented as of this encounter
--- OUTSIDE RECORDS SUMMARY | 2021-10-30 15:27 | XMS_ITS | Encounter Summary ---
:1990 Author Organization [place] Address [address] [place] [address] Care Team Providers Name Role Phone No Ref-Primary, Physician Primary Care Provider [phone] Reynaldo Amador PA-C Unavailable [phone] Zuleyma Winter MD Unavailable [phone] Reason for Referral Diagnostic Imaging Ultrasound (Routine) - Closed Specialty Diagnoses / Procedures Referred By Contact Refer red To Contact Diagnoses Spontaneous breech delivery, fetus 1 of multiple gestation Li Pritchard APRN Procedures US OB >14 Weeks Limited wo Measurement CN [address] [place] [address] Referral ID Status Reason Start Date Expiration Date Visits Requ ested Visits Authorized [id number] Closed 04/14/2019 04/13/2020 1 1 GER COMMODITIES Reason for Visit Reason Comments Care Encounter Details Date Type Department Care Team Description 04/14/2019 Office [facility] Li Pritchard, , for Streptococcus B (Primary Dx); [facility] TAVARES Zelaya CNM Encounter for supervision of normal firs t in third trimester; [place] [address] Lactating mother; [address] Spontaneous breech delivery, fetus 1 of multiple gestation [facility] [place] [address] [address] [place] C[place]ato (Work) [phone] Social History Tobacco Use Types Packs/Day Years Used Date Never Smoker 0 Smokeless Tobacco: Never Used Alcohol Use Standard Drinks/Week Comments Not Currently 0 (1 standard drink = 0.6 oz pure alcoho l) Sex Assigned at Date Recorded Female 10/07/2018 7:21 AM CDT documented as of this encounter Last Filed Vital Signs Vital Sign Reading Time Taken Comments Blood Pressure 136/86 04/14/2019 4:10 PM MANAGER COMMODITIES Pulse - - Temperature - - Respiratory Rate - - Oxygen Saturation - - Inhaled Oxygen Concentration - - Weight 91.2 kg (201 lb) 04/14/2019 4:10 PM MANAGER COMMODITIES Height - - Body Mass Index 32.44 01/22/2019 12:47 PM CDT documented in this encounter Patient Instructions Patient InstructionsTorgeorge, Li Zelaya APRN CNM - 04/14/2019 4:10 PM MANAGER COMMODITIES Labor Instructions for Plaster Block Layer Patients When to call: Both during and after office hours call [phone]. There is a hop worker to take your calls and answer your questions 24 hours a day. If she cannot answer your question she will page the sewage plant operator insulation power unit tender for you. When to call: Call anytime you have important concerns about you or your baby. Call if: ?? You are having contractions at regular intervals about 5-6 minutes apart lasting 30-60 seconds and becoming increasingly more intense ?? You have an uncontrollable gush of fluid from your vagina or feel a pop and gush like your water has broken ?? You have HEAVY bleeding, like heavy period, blood running down your legs, or soaking a pad. ?? Some bleeding after a pelvic exam, after intercourse, or in labor when your cervix is dilating isnormal and is referred to as bloody show ?? You have severe, continuous back or abdominal pain ?? You feel it is time to go to the hospital ?? If this is your first labor, call when contractions are very intense and have been about every 3-4 minutes for about an hour ?? If it is your second labor or more, call when contractions are strong and about every 3-5 minutesor sooner depending on your level of discomfort. Keep in mind we are always here for you! If you have questions, concerns please don't hesitate to call us. What to eat/drink in labor: Drink plenty of fluid (water most importantly, juice, soda or tea without caffeine). Eat rice, pasta, soup, cereal, bread/toast, and fruit. Avoid dairy and greasy food as they are difficult to digest and you may experience some nausea during labor. Comfort measures: ?? Baths and showers (ok even with ruptured membranes, it may temporarily slow contractions if you are still in the early stage of labor) ?? Warm/hot packs for back pain or discomfort ?? Back, belly, or thigh massages ?? Standing, rocking, walking, leaning over bed or tables, side-lying and sleeping Miscellaneous: ?? Contractions are timed from the beginning of one to the beginning of the next ?? Try hard to sleep during the early stage of labor when you are not that uncomfortable. Timing of contractions at this point is not important ?? Even if you cannot sleep, resting in bed or on the couch can help you maintain your energy for labor ?? When you arrive at the hospital the nurse will check your baby's heartbeat, check your cervix, and will call us. The sewage plant operator insulation power unit tender will come in and be with you when you are in active labor ?? After hours you need to enter the hospital through the emergency room NATURAL LABOR PREPARATION So, you're getting closer and closer to your due date and wondering what you can do to help get yourbody ready for labor. Here are some natural methods you can try: NOTE: DO NOT begin any of the following prior to 36 completed weeks of ! Evening [place] Oil: Take 1000mg by mouth three times per day. This encourages the cervix to ripen.Cervical ripening is when your cervix becomes more soft and stretchy to get ready for dilation and effacement. Red Raspberry [place] Tea: Red raspberry tea (get it at a Co-op or in the grocery store). Drink three cups per day (hot or cold). This can help to prepare the uterine muscles for labor. Kick Counts It is important to know [...] call us, we are here for you! [facility] Women [phone] PREECLAMPSIA SIGNS AND SYMPTOMS Preeclampsia is a [...] swelling in is very normal) If your sewage plant operator feels that you are developing preeclampsia, you will have lab tests drawn and will be monitored very closely. If you are experiencing anyof these symptoms, call the [facility] immediately at [phone]. [facility]ER [facility]ITIES documented in this encounter Progress Notes Li Pritchard APRN CNM - 04/14/2019 4:10 PM CST Feels well Meets with cardiology on Friday for maternal ECHO movement: positive Denies bleeding/lof, no contractions. Cramping more. GBS swab done today Breech on 04/01/19/ Breech presentation again on bedside US today. Head in R upper maternal side. Discussed expectant mgmt, PCS, or consult for ECV. Recommended a consult with MD to discuss options further and determine if ECV is even an option. Ultrasound order. Would like Mally to return tomorrow or Friday for US and MD appt. Labor instructions given Breast pump Prescription: Provided today Warning signs reviewed Patient denies S&S of pre-eclampsia and aware of what to report Return to clinic 1 week Li Pritchard APRN, CNM [facility] documented in this encounter Miscellaneous Notes Result Encounter Note - Lizabeth Moya CNM - 04/14/2019 4:10 PM MANAGER COMMODITIES Patient informed of negative GBS results, to call back with any questions or concerns. Lizabeth Moya APRN, CNM [facility] documented in this encounter Plan of Treatment Scheduled Orders Name Type Priority Associated Diagnoses Order S chedule US OB >14 Weeks Limited Imaging Routine Spontaneous breec h Expected: wo Measurement delivery, fetus 1 of 04/15/2019, Expires: multiple gestation 1 documented as of this encounter Procedures Procedure Name Priority Date/Time Associated Diagnosis Comme nts GROUP B STREP PCR Routine 04/14/2019 4:30 PM Screening, eladio machado, Results for this MANAGER COMMODITIES for Streptococcus B procedur e are in the results section. documented in this encounter Results Group B strep PCR (04/14/2019 4:30 PM MANAGER COMMODITIES) [facility] Method Time Signature Group B Strep Vaginal 04/14/2019 [facility] PCR Spec Rudolph Rectal 4:29 PM MANAGER COMMODITIES [facility] Group B Strep Negative NEG^Negat 04/16/2019 [facility] javier 11:53 AM MANAGER COMMODITIES [facility] Comment: No GBS DNA detected, presumed negative f or GBS or number of bacteria may be below the limit of detection of the assa y. Assay performed on incubated broth cultu re of specimen using [employer] real-time PCR. Specimen Anatomical Collection Method Collection Time Receive d Time (Source) Location / / Volume Laterality Vaginal Rectal 04/14/2019 4:30 PM 020 4:49 MANAGER COMMODITIES PM MANAGER COMMODITIES Li Pritchard APRN CNM LAB - MICRO GENERAL ORDER LEANN Performing Organization Address City/State/ZIP Code Phon e Number [id number] [place] [address] [address] [place] [address] [facility] 100 documented in this encounter Visit Diagnoses Diagnosis Screening, , for Streptococcus B - Primary screening for Streptococcus B Encounter for supervision of normal firs t in third trimester Supervision of normal first Lactating mother care and examination of lacta ting mother Spontaneous breech delivery, fetus 1 of multiple gestation documented in this encounter Additional Health Concerns Assessment Noted Time PHQ-9 Depression Total Score: 1 10/06/2018 9:27 AM CDT documented as of this encounter Care Teams Government Services Professional Relationship Specialty Start Date End Date No Ref-Primary, Physician PCP - General 10/06/18 04/18/19 Reynaldo Amador PA-C 10/06/18 05/13/19 [facility] [address] [place], [place] [address] Zuleyma Winter MD Assigned PCP 12/31/[address] [id number] documented as of this encounter
--- OUTSIDE RECORDS SUMMARY | 2021-10-30 15:27 | XMS_ITS | Encounter Summary ---
:1990 Author Organization [place] Address [address] [place] [address] Care Team Providers Name Role Phone No Ref-Primary, Physician Primary Care Provider Reynaldo Amador PA-C Unavailable Zuleyma Winter MD Unavailable [phone] Reason for Referral (Routine) - Closed Specialty Diagnoses / Procedures Referred By Contact Refer red To Contact Diagnoses related condition, antepartum Zuleyma Winter MD Procedures Echo (TTE) Complete [address] [place], [place] [address] Referral ID Status Reason Start Date Expiration Date Visits Requ ested Visits Authorized [id number] Closed 01/25/2019 01/25/2020 1 1 H DIAL MAKER Encounter Details Date Type Department Care Team Description 01/25/2019 Transcribe Orders [facility] Zuleyma Winter related Maternal MD Tina condition, Medicine Center [address] antepartum (Primary [address] Dx) [address] [facility] [address] [address] [place] Cerrato (Work) [address] [phone] Social History Tobacco Use Types Packs/Day Years Used Date Never Smoker 0 Smokeless Tobacco: Never Used Alcohol Use Standard Drinks/Week Comments Not Currently 0 (1 standard drink = 0.6 oz pure alcoho l) Sex Assigned at Date Recorded Female 10/07/2018 7:21 AM CDT documented as of this encounter Plan of Treatment Not on filedocumented as of this encounter Results ECHO COMPLETE (03/05/2019 8:58 AM WATCH DIAL MAKER) Anatomical Region Laterality Modality Echocardiography Specimen (Source) Anatomical Collection Method Collection Time Re ceived Time Location / / Volume Laterality 03/05/2019 8:19 AM WATCH DIAL MAKER Narrative 03/05/2019 3:18 PM WATCH DIAL MAKER [id number]^NICOLLE^ZULEYMA^TINA ?Study ID: [id number] ?[facility] ?[facility] ?[address] ?[place] [address] ? Echocardiogram __ Name: MALLY FELICIANO Study Date: 03/05/2019 08:19 AM ?Patient Location: [facility] Gender: Female ? Patient Class: Outpatient : 1990 ?Age: 28 yrs Ordering Provider: ZULEYMA WINTER Referring Provider: ZULEYMA WINTER NN Performed By: Shraddha Goodwin RDCS Reading Physician: Lucio Holden MD Reason For Study: related cond ition, antepartum Data: Number of fetuses: This is a santana gestation. Due date: 05/11/2019. Gestational age: 30w3d. Deli very at: Armond. Specific Indication: echocar diogram performed for family [...] the left atriu m. There is laminar [id number]-[id number] shunting across the foramen ovale. Atrioventricular valves: [...] Procedure Note Lucio Holden MD - 9 [id number]^NICOLLE^ZULEYMA^TINA Study ID: [id number] [facility] [address] [place] [address] Echocardiogram __ Name: MALLY FELICIANO Study Date: 03/05/2019 08:19 AM Patient Location: [facility] Gender: Female Patient Class: Outpatient : 1990 [...] the left atriu m. There is laminar cafeg-zn-pchn shunting across the foramen ovale. Atrioventricular valves: [...] Diagnoses Diagnosis related condition, antepartum - Primary related condition, antepartum documented in this encounter Additional Health Concerns Assessment Noted Time PHQ-9 Depression Total Score: 1 10/06/2018 9:27 AM CDT documented as of this encounter Care Teams Test Carrier Relationship Specialty Start Date End Date No Ref-Primary, Physician PCP - General 10/06/18 04/18/19 Reynaldo Amador PA-C 10/06/18 05/13/[address] [address] Zuleyma Winter MD Assigned PCP 12/31/18 [address] [address] documented as of this encounter
--- OUTSIDE RECORDS SUMMARY | 2021-10-30 15:28 | XMS_ITS | Encounter Summary ---
:1990 Author Organization [place] Address [address] [facility] [place] [address] Care Team Providers Name Role Phone No Ref-Primary, Physician Primary Care Provider [phone] Reynaldo Amador PA-C Unavailable [phone] Reason for Referral CV Testing (Routine) - Closed Specialty Diagnoses / Procedures Referred By Contact Refer red To Contact Cardiology Diagnoses Heart murmur Encounter for supervision of normal first in first trimester Chip Glez MD C[facility] Cardiac Services Procedures Echocardiogram Complete HC TTE W/DOPPLER, COMPLETE HC ECHO COMPLETE W DOPPLER W CONTRAST HC ECHO COMPLETE W DOPPLER W/O CONTRAST HC IV PUSH SINGLE, INITIAL SUBSTANCE HC US GUIDE FOR PERICARDIOCENTESIS HC ECHO MYOCARD BX [address] [place] [address] [id number] 0444 [facility] C INJECTION, PERFLUTREN LIPI D MICROSPHERES, PER ML HC STATISTIC IV PUSH [place] [address] [facility] [address] [place], [place] [phone] Phone: Referral ID Status Reason Start Date Expiration Date Visits Requ ested Visits Authorized [id number] Closed 12/03/2018 12/03/2019 1 1 Encounter Details Date Type Department Care Team Description 12/03/2018 Orders Only [facility] Chip Glez Hear t murmur (Primary Dx); [facility] Lo CISSE Encounter for supervision of normal firs t in first trimester [address] [facility] [address] [place], [place] [address] [place], [place] [phone] (Wo rk) Social History Tobacco Use Types Packs/Day Years Used Date Never Smoker Smokeless Tobacco: Never Used Alcohol Use Standard Drinks/Week Comments Not Currently 0 (1 standard drink = 0.6 oz pure alcoho l) Sex Assigned at Date Recorded Female 10/07/2018 7:21 AM CDT documented as of this encounter Plan of Treatment Not on filedocumented as of this encounter Results ECHO COMPLETE (12/15/2018 9:33 AM CDT) Anatomical Region Laterality Modality Echocardiography Specimen (Source) Anatomical Collection Method Collection Time Re ceived Time Location / / Volume Laterality 12/15/2018 8:47 AM CDT Narrative 12/15/2018 10:29 AM CDT [id number]^MARTÍN^CHIP^DULCE [facility] [address] [place] [address] [address] [place] [address] Name: MALLY FELICIANO : 1990 Study Date: 12/15/2018 08:47 AM Age: 28 yrs Gender: Female Patient Location: [facility] Reason For Study: Heart murmur, Encounte r for supervision of normal first pregnanc Ordering Physician: Marcella Referring Physician: Geovanni Performed By: Dianne Uribe RDCS BSA: 1.8 m2 Height: 66 in Weight: 162 lb HR: 84 BP: 115/74 mmHg __ Procedure Complete Echo Adult. __ Interpretation Summary Left ventricular systolic function is no rmal. The visual ejection fraction is estimate d at 60-65%. The right ventricle is normal in structu re, function and size. The mitral valve leaflets are mildly thi ckened. Small thickened mass on the atrial side of the anterior mitral leaflet likely represents a torn chord rather than a ve getation. There is no evidence of mitral valve pro lapse. There is mild to moderate (1-2+) mitral regurgitation. The mitral regurgitant jet is posteriorl y directed, which is consistent with anterior leaflet pathology. Sinus rhythm was noted. There is no comparison study available. __ Left Ventricle The left ventricle is normal in size. Th ere is normal left ventricular wall thickness. Left ventricular systolic fun ction is normal. The visual ejection fraction is estimated at 60-65%. Left ve ntricular diastolic function is normal. Diastolic Doppler findings (E/E' ratio and/or other parameters) suggest left ventricular filling pressur es are normal. No regional wall motion abnormalities noted. Right Ventricle The right ventricle is normal in structu re, function and size. Atria Normal left atrial size. Right atrial si ze is normal. There is no color Doppler evidence of an atrial shunt. Mitral Valve The mitral valve leaflets are mildly thi ckened. Small thickened mass on the atrial side of the anterior mitral leafl et likely represents a torn chord rather than a vegetation. There is no ev idence of mitral valve prolapse. There is mild to moderate (1-2+) mitral regurg itation. The mitral regurgitant jet is posteriorly directed, which is consisten t with anterior leaflet pathology. No flow reversal in the hepatic veins. Tricuspid Valve The tricuspid valve is normal in structu re and function. There is trace tricuspid regurgitation. Right ventricul ar systolic pressure could not be approximated due to inadequate tricuspid regurgitation. Aortic Valve Normal tricuspid aortic valve. No aortic regurgitation is present. No aortic stenosis is present. Pulmonic Valve The pulmonic valve is normal in structur e and function. There is trace pulmonic valvular regurgitation. Normal pulmonic valve velocity. Vessels The aortic root is normal size. Normal s ize ascending aorta. The inferior vena cava was normal in size with preserved r espiratory variability. Pericardium There is no pericardial effusion. Rhythm Sinus rhythm was noted. __ MMode/2D Measurements & Calculations IVSd: 1.00 cm LVIDd: 4.5 cm LVIDs: 2.8 cm LVPWd: 1.0 cm FS: 38.4 % LV mass(C)d: 155.9 grams LV mass(C)dI: 85.3 grams/m2 Ao root diam: 2.7 cm LA dimension: 3.7 cm asc Aorta Diam: 2.9 cm LA/Ao: 1.4 LA Volume (BP): 19.1 ml LA Volume Index (BP): 10.4 ml/m2 RWT: 0.45 Doppler Measurements & Calculations MV E max keaton: 106.0 cm/sec MV A max keaton: 62.1 cm/sec MV E/A: 1.7 MV dec time: 0.20 sec PA acc time: 0.11 sec E/E' av.9 Lateral E/e': 7.0 Medial E/e': 8.8 __ Report approved by: Zabrina Harrison 12/15/2018 10:30 AM Procedure Note Ceasar Germain MD - 12/15/2018Forma tting of this note might be different from the original. [id number]^MARTÍN^CHIP^DULCE [facility] [address] [facility] [address] [place] [address] Name: MALLY FELICIANO : 1990 Study Date: 12/15/2018 08:47 AM Age: 28 yrs Gender: Female Patient Location: [facility] Reason For Study: Heart murmur, Encounte r for supervision of normal first pregnanc Ordering Physician: Marcella Referring Physician: Geovanni Performed By: Dianne Uribe RDCS BSA: 1.8 m2 Height: 66 in Weight: 162 lb HR: 84 BP: 115/74 mmHg __ Procedure Complete Echo Adult. __ Interpretation Summary Left ventricular systolic function is no rmal. The visual ejection fraction is estimate d at 60-65%. The right ventricle is normal in structu re, function and size. The mitral valve leaflets are mildly thi ckened. Small thickened mass on the atrial side of the anterior mitral leaflet likely represents a torn chord rather than a ve getation. There is no evidence of mitral valve pro lapse. There is mild to moderate (1-2+) mitral regurgitation. The mitral regurgitant jet is posteriorl y directed, which is consistent with anterior leaflet pathology. Sinus rhythm was noted. There is no comparison study available. __ Left Ventricle The left ventricle is normal in size. Th ere is normal left ventricular wall thickness. Left ventricular systolic fun ction is normal. The visual ejection fraction is estimated at 60-65%. Left ve ntricular diastolic function is normal. Diastolic Doppler findings (E/E' ratio and/or other parameters) suggest left ventricular filling pressur es are normal. No regional wall motion abnormalities noted. Right Ventricle The right ventricle is normal in structu re, function and size. Atria Normal left atrial size. Right atrial si ze is normal. There is no color Doppler evidence of an atrial shunt. Mitral Valve The mitral valve leaflets are mildly thi ckened. Small thickened mass on the atrial side of the anterior mitral leafl et likely represents a torn chord rather than a vegetation. There is no ev idence of mitral valve prolapse. There is mild to moderate (1-2+) mitral regurg itation. The mitral regurgitant jet is posteriorly directed, which is consisten t with anterior leaflet pathology. No flow reversal in the hepatic veins. Tricuspid Valve The tricuspid valve is normal in structu re and function. There is trace tricuspid regurgitation. Right ventricul ar systolic pressure could not be approximated due to inadequate tricuspid regurgitation. Aortic Valve Normal tricuspid aortic valve. No aortic regurgitation is present. No aortic stenosis is present. Pulmonic Valve The pulmonic valve is normal in structur e and function. There is trace pulmonic valvular regurgitation. Normal pulmonic valve velocity. Vessels The aortic root is normal size. Normal s ize ascending aorta. The inferior vena cava was normal in size with preserved r espiratory variability. Pericardium There is no pericardial effusion. Rhythm Sinus rhythm was noted. __ MMode/2D Measurements & Calculations IVSd: 1.00 cm LVIDd: 4.5 cm LVIDs: 2.8 cm LVPWd: 1.0 cm FS: 38.4 % LV mass(C)d: 155.9 grams LV mass(C)dI: 85.3 grams/m2 Ao root diam: 2.7 cm LA dimension: 3.7 cm asc Aorta Diam: 2.9 cm LA/Ao: 1.4 LA Volume (BP): 19.1 ml LA Volume Index (BP): 10.4 ml/m2 RWT: 0.45 Doppler Measurements & Calculations MV E max keaton: 106.0 cm/sec MV A max keaton: 62.1 cm/sec MV E/A: 1.7 MV dec time: 0.20 sec PA acc time: 0.11 sec E/E' av.9 Lateral E/e': 7.0 Medial E/e': 8.8 __ Report approved by: Zabrina Harrison 12/15/2018 10:30 AM Chip Glez MD CV ECHO ORDERABLES documented in this encounter Visit Diagnoses Diagnosis Heart murmur - Primary Undiagnosed cardiac murmurs Encounter for supervision of normal firs t in first trimester Supervision of normal first Heart murmur Undiagnosed cardiac murmurs Encounter for supervision of normal firs t in first trimester Supervision of normal first documented in this encounter Additional Health Concerns Assessment Noted Time PHQ-9 Depression Total Score: 1 10/06/2018 9:27 AM CDT documented as of this encounter Care Teams Director Of Security Relationship Specialty Start Date End Date No Ref-Primary, Physician PCP - General 10/06/18 04/18/19 Reynaldo Amador PA-C 10/06/18 05/13/[address] [address] documented as of this encounter
--- OUTSIDE RECORDS SUMMARY | 2021-10-30 15:28 | XMS_ITS | Encounter Summary ---
:1990 Author Organization [place] Address [address] [place] [address] Care Team Providers Name Role Phone No Ref-Primary, Physician Primary Care Provider [phone] Reynaldo Amador PA-C Unavailable [phone] Zuleyma Winter MD Unavailable [phone] Encounter Details Date Type Department Care Team Description 01/07/2019 Travel Social History Tobacco Use Types Packs/Day [...] documented as of this encounter Care Teams Fan Engine Engineer Relationship Specialty Start Date End Date No Ref-Primary, Physician PCP - General 10/06/18 04/18/19 Reynaldo Amador PA-C 10/06/18 05/13/[address] [address] Zuleyma Winter MD Assigned PCP 12/31/18 3033 [facility] [address] [place] [address] documented as of this encounter
--- OUTSIDE RECORDS SUMMARY | 2021-10-30 15:28 | XMS_ITS | Encounter Summary ---
:1990 Author Organization [place] Address Critical access hospital0 [facility] [place] [address] Care Team Providers Name Role Phone No Ref-Primary, Physician Primary Care Provider Reynaldo Amador PA-C Unavailable [phone] Encounter Details Date Type Department Care Team Description 12/24/2018 Travel Social History Tobacco Use Types Packs/Day [...] documented as of this encounter Care Teams Chartered Financial Analyst Relationship Specialty Start Date End Date No Ref-Primary, Physician PCP - General 10/06/18 04/18/19 Reynaldo Amador PA-C 10/06/18 05/13/[address] [address] documented as of this encounter
--- OUTSIDE RECORDS SUMMARY | 2021-10-30 15:28 | XMS_ITS | Encounter Summary ---
:1990 Author Organization [place] Address [facility] [place] [address] Care Team Providers Name Role Phone No Ref-Primary, Physician Primary Care Provider [phone] Reynaldo Amador PA-C Unavailable [phone] Reason for Visit Diagnostic Imaging Ultrasound (Routine) - Closed Specialty Diagnoses / Procedures Referred By Contact Refer red To Contact Diagnoses Encounter for supervision of normal first in first trimester Heart murmur Dane Dozier, Procedures US OB > 14 Weeks [facility] [address] [address] Referral ID Status Reason Start Date Expiration Date Visits Requ ested Visits Authorized [id number] Closed 12/24/2018 12/24/2019 1 1 Encounter Details Date Type Department Care Team Description 12/24/2018 Ancillary Procedure [facility] Eduardo liriano for supervision of normal first in first trimester; [facility] Yemi na Heart murmur [address] [facility] [address] [place] [phone] Social History Tobacco Use Types Packs/Day Years Used Date Never Smoker 0 Smokeless Tobacco: Never Used Alcohol Use Standard Drinks/Week Comments Not Currently 0 (1 standard drink = 0.6 oz pure alcoho l) Sex Assigned at Date Recorded Female 10/07/2018 7:21 AM CDT documented as of this encounter Miscellaneous Notes Result Encounter Note - Li Pritchard, TAVARES NORIEGA - 12/24/2018 3:00 PM CDT Called, message left discussing need for repeat US in 2 weeks to evaluate heart views. Also remindedof needing appt for ECHO at 22-24 weeks. VisualXcriptt message sent. Li Pritchard APRN, CNM documented in this encounter Plan of Treatment Not on filedocumented as of this encounter Procedures Procedure Name Priority Date/Time Associated Diagnosis Comme nts US OB > 14 WEEKS Routine 12/24/2018 3:37 PM Encounter for Resu lts for this CDT supervision of normal proced ure are in first in the resul ts first trimester section. Heart murmur documented in this encounter Results US OB > 14 Weeks (12/24/2018 3:37 PM CDT) Anatomical Region Laterality Modality Abdomen/Pelvis Ultrasound Specimen (Source) Anatomical Location Collection Method / Collectio n Time Received Time / Laterality Volume Narrative 12/24/2018 4:51 PM CDT US OB > 14 Weeks Order #: [id number] Study Notes? Ines Hudson on 12/24/2018 ??3:40 PM Obstetrical Ultrasound Report OB U/S ? Survey - Transabdominal [facility] [place] Referring Provider: Dr. Arleen landin Enterprise Infrastructure Architect: Ines Hudson RDMS Indication: ?? Anatomy Survey ?? Dating (mm/dd/yyyy): LMP: Patient's last menstrual period was 08/04/2018. ?EDC: ?? Estimated Date of Delivery: May 11, 2019 ? GA by LMP: ? 20w2d ?? Current Scan On: 12/24/18 ?EDC: ??05/10/19 ?GA by Current Scan: ? 20w3d The calculation of the gestational age b y current scan was based on BPD, HC, AC and FL. Anatomy Scan: Cardoso gestation. Biometry: BPD 4.9 cm 20w6d HC 18.1 cm 20w4d AC 14.4 cm 19w5d FL 3.4 cm 20w5d Cerebellum 2.0 cm 19w2d CM 3.3mm ?? NF 5.4mm ?? Lat Vent 3.1mm ?? EFW (lbs/oz) 0 lbs ? 12ozs ?? EFW (g) 342 g ? heart activity: Rate and rhythm is within normal limits. heart rate: 141bpm presentation: Cephalic Amniotic fluid: 9.9cm ?? Cord: 3 Vessel Cord and Marginal Inserti on Placenta: Posterior Anatomy: Visualized with normal appearance: Head, Brain, Face, Spine, Neck, Skin, Chest, 4 Chamber Heart, LVOT, Abdominal Wall, Gastrointestinal Tract, Stomach, Kidneys, Bladder, Extremities, Diaphragm, Face/Profile and Female Not well visualized on today? s ultrasound: RVOT ?? Maternal Structures: Cervix: The cervix appears long and clos ed. Cervical Length: 3.6cm Right Adnexa: Normal Left Adnexa: Normal Impression: ??Cardoso viable intrauter ine with normal interval growth. Normal anatomic surv ey however the right ventricular outflow tract was not well visualized. N ormal cervical length. Normal amniotic fluid index and normal placenta l location. Recommend repeat sonogram in 2 weeks to complete heart vi ews. Arleen Doyle MD ?? Dane Dozier APRN CNM IMG US ORDERABLES documented in this encounter Visit Diagnoses Diagnosis Encounter for supervision of normal firs t in first trimester Supervision of normal first Heart murmur Undiagnosed cardiac murmurs documented in this encounter Additional Health Concerns Assessment Noted Time PHQ-9 Depression Total Score: 1 10/06/2018 9:27 AM CDT documented as of this encounter Care Teams In Process Inspector Relationship Specialty Start Date End Date No Ref-Primary, Physician PCP - General 10/06/18 04/18/19 Reynaldo Amador PA-C 10/06/18 05/13/19 [place] [address] documented as of this encounter
--- OUTSIDE RECORDS SUMMARY | 2021-10-30 15:28 | XMS_ITS | Encounter Summary ---
:1990 Author Organization [place] Address [facility] [place] [address] Care Team Providers Name Role Phone No Ref-Primary, Physician Primary Care Provider [phone] Reynaldo Amador PA-C Unavailable [phone] Reason for Referral Consultation (Routine) - Closed Specialty Diagnoses / Procedures Referred By Contact Refer red To Contact Diagnoses Heart murmur Dane Dozier, MATERNAL- MEDICINE [facility] [place] [id number] [place] [phone] Fax: Referral ID Status Reason Start Date Expiration Date Visits Requ ested Visits Authorized [id number] Closed 11/05/2018 11/05/2019 1 1 Reason for Visit Reason Comments Care Encounter Details Date Type Department Care Team Description 11/04/[address] [facility] Dane Dozier for supervision of normal first in first trimester (Primary Dx); Visit [facility] TAVARES Noble CNM Heart murmur [place] [address] [place] [address] [place] [address] [phone] Social History Tobacco Use Types Packs/Day Years Used Date Never Smoker Smokeless Tobacco: Never Used Alcohol Use Standard Drinks/Week Comments Not Currently 0 (1 standard drink = 0.6 oz pure alcoho l) Sex Assigned at Date Recorded Female 10/07/2018 7:21 AM CDT documented as of this encounter Last Filed Vital Signs Vital Sign Reading Time Taken Comments Blood Pressure 112/64 11/04/2018 3:23 PM CDT Pulse - - Temperature - - Respiratory Rate - - Oxygen Saturation - - Inhaled Oxygen Concentration - - Weight 71.7 kg (158 lb) 11/04/2018 3:23 PM CDT Height - - Body Mass Index 25.5 10/06/2018 9:32 AM CDT documented in this encounter Progress Notes Dane Dozier APRN CNM - 11/04/2018 3:40 PM CDT Patient feels well. Here with Keanu and mother in law. Patient has not had nausea nor vomiting. Mally stated she had a significant heart murmur in childhood. They were going to do open heart surgery, but it eventually resolved in her teens. She will bring her records in. (She doesn't remember anymore details). [facility] referral for 20 week ultrasound placed. Since her last appointment she has had no other vaginal spotting or cramping. We discussed postponing her pap screen until the period. We discussed notifying us if bleeding/ spotting occurs again. We would perform a pelvic exam at that time. She is agreeable to this plan of care. Educated about diet, exercise (she is a runner) and normal weight gain Normal to feel movement between 18-22 weeks Reviewed labs from 1st OB Genetic screening completed Warning signs discussed Return to clinic 4 weeks Dane Dozier DNP, TAVARES, HARI documented in this encounter Plan of Treatment Scheduled Referrals Name Type Priority Associated Diagnoses Order S chedule [facility] Referral Routine Heart murmur Ordered: 0 11/05/2018 REFERRAL- documented as of this encounter Visit Diagnoses Diagnosis Encounter for supervision of normal firs t in first trimester - Primary Supervision of normal first Heart murmur Undiagnosed cardiac murmurs documented in this encounter Additional Health Concerns Assessment Noted Time PHQ-9 Depression Total Score: 1 10/06/2018 9:27 AM CDT documented as of this encounter Care Teams Master Dyer Relationship Specialty Start Date End Date No Ref-Primary, Physician PCP - General 10/06/18 04/18/19 Reynaldo Amador PA-C 10/06/18 05/13/[address] [address] documented as of this encounter
--- OUTSIDE RECORDS SUMMARY | 2021-10-30 15:28 | XMS_ITS | Encounter Summary ---
:1990 Author Organization [place] Address [address] [place] [address] Care Team Providers Name Role Phone No Ref-Primary, Physician Primary Care Provider [phone] Reynaldo Amador PA-C Unavailable [phone] Reason for Referral Diagnostic Imaging Ultrasound (Routine) - Closed Specialty Diagnoses / Procedures Referred By Contact Refer red To Contact Diagnoses Screening, for growth retardation with ultrasound Li Pritchard APRN Procedures US OB >14 Weeks Follow Up CNM [address] [place] [address] Referral ID Status Reason Start Date Expiration Date Visits Requ ested Visits Authorized [id number] Closed 12/25/2018 12/25/2019 1 1 Encounter Details Date Type Department Care Team Description 12/25/[address] [facility] Li Pritchard, [facility] Yemi Zelaya APRN CNM for growth [address] tamy rdation with [facility] 100 ultrasound (Primary [address] [place] [address] Dx) [place] [phone] Social History Tobacco Use Types Packs/Day Years [...] Results US OB >14 Weeks Follow Up (01/07/2019 11:36 AM CDT) Anatomical Region Laterality Modality Abdomen/Pelvis Ultrasound Specimen (Source) Anatomical Location Collection Method / Collectio n Time Received Time / Laterality Volume Narrative 01/07/2019 11:47 AM CDT Obstetrical Ultrasound Report OB U/S ? 2nd/3rd Trimester - Transabdominal [facility] Referring physician: Arti Bowens CNM Laboratory Specialist: Uma Ruth Indication: ??F/U Growth and suboptimal anatomy: RVOT ?? Dating (mm/dd/yyyy): LMP: Patient's last menstrual period was 08/04/2018. ? EDC: ?? Estimated Date of Delivery: May 11, 2019 ?? GA by LMP: ?? 22w2d Current Scan On (mm/dd/yyyy): 01/07/2019 ? EDC: ?? 05/11/2019 ?GA by Current Scan: ?22w2d The calculation of the gestational age b y current scan was based on BPD, HC, AC and FL. ?? Anatomy Scan: Cardoso gestation. Biometry: BPD 5.54 cm 22w6d 70.1% HC 20.16 cm 22w2d 38.0% AC 16.86 cm 21w6d 28.4% FL 3.73 cm 21w6d 26.6% EFW (lbs/oz) 1 lbs ? 0ozs ? EFW (g) 464 g 39.0% ? heart rate: 134 bpm presentation: Cephalic Amniotic fluid: 12.18 cm Placenta: posterior ANATOMY: RVOT documented with normal jude earance. This completes the anatomical survey. Impression: ??Anatomy scan wnl ? Li Pritchard APRN CN IMG US ORDERABLES documented in this encounter Visit Diagnoses Diagnosis Screening, for growth re tardation with ultrasound - Primary screening for growth ret ardation using ultrasonics Screening, for growth re tardation with ultrasound screening for growth ret ardation using ultrasonics documented in this encounter Additional Health Concerns Assessment Noted Time PHQ-9 Depression Total Score: 1 10/06/2018 9:27 AM CDT documented as of this encounter Care Teams Boiler Repair Supervisor Relationship Specialty Start Date End Date No Ref-Primary, Physician PCP - General 10/06/18 04/18/19 Reynaldo Amador PA-C 10/06/18 05/13/[address] [address] documented as of this encounter
--- OUTSIDE RECORDS SUMMARY | 2021-10-30 15:28 | XMS_ITS | Encounter Summary ---
:1990 Author Organization [place] Address [facility] [place] [address] Care Team Providers Name Role Phone Reynaldo Amador PA-C Primary Care Provider [phone] Encounter Details Date Type Department Care Team Description 01/15/2010 Historic Results INTERFACED REPORT Dr Molina MD [address] [place] [address] (Wo rk) Social History Tobacco Use Types Packs/Day Years Used Date Never Smoker Alcohol Use Standard Drinks/Week Comments No 0 (1 standard drink = 0.6 oz pure alcoho l) Sex Assigned at Date Recorded Female 10/07/2018 7:21 AM CDT documented as of this encounter Plan of Treatment Not on filedocumented as of this encounter Procedures Procedure Name Priority Date/Time Associated Diagnosis Comme nts RAPID STREP SCREEN STAT 01/15/2010 9:50 PM Res ults for this THROAT SWAB CDT procedure are i n the results section. BETA HEMOLYTIC Routine 01/15/2010 9:50 PM Results for this STREP GROUP A CDT procedure are in CULTURE the results section. documented in this encounter Results Rapid strep screen (01/15/2010 9:50 PM CDT) Component Value Ref Test Analysis Performed At [facility] Method Time Signature Specimen Throat MISYS Description Micro Report FINAL 01/15/2010 MISYS Status Rapid Strep A NEGATIVE: No MISYS Screen Group A streptococcal antigen detected by immunoassay, await Comment: culture report. Internal QC OK Specimen Anatomical Collection Method Collection Time Receive d Time (Source) Location / / Volume Laterality 01/15/2010 9:50 PM 0 9:49 CDT PM CDT Milton Osullivan MD LAB - MICRO GENERAL ORDERABL ES Performing Organization Address City/State/ZIP Code Phon e Number MISYS Beta strep group A culture (01/15/2010 9:50 PM CDT) Component Value Ref Test Analysis Performed At [facility] Range Method Time Signature Specimen Throat MISYS Description Culture Micro No beta MISYS hemolytic Streptococcus Group A isolated Micro Report FINAL 01/17/2010 MISYS Status Specimen Anatomical Collection Method Collection Time Receive d Time (Source) Location / / Volume Laterality 01/15/2010 9:50 PM 0 CDT 10:[address] Jesse [facility] LAB - MICRO GENERAL ORDERABL ES Performing Organization Address City/[facility] Phon e Number MISYS documented in this encounter Visit Diagnoses Not on filedocumented in this encounter Care Teams Instructor Of Spanish Relationship Specialty Start Date End Date Reynaldo Amador PA-C PCP - General 10/21/08 10/05/[address] [address] documented as of this encounter
--- OUTSIDE RECORDS SUMMARY | 2021-10-30 15:28 | XMS_ITS | Encounter Summary ---
:1990 Author Organization [place] Address [facility]ending sale to [facility] [place] [address] Care Team Providers Name Role Phone No Ref-Primary, Physician Primary Care Provider Reynaldo Amador PA-C Unavailable Zuleyma Winter MD Unavailable [phone] Encounter Details Date Type Department Care Team Description 12/25/2018 Telephone [facility], [facility] José Maneul thomas, [facility] [place] [facility] [address] [facility] [address] [facility] [address] [place] [phone] [place] [address] (Wo rk) Social History Tobacco Use Types Packs/Day Years Used Date Never Smoker 0 Smokeless Tobacco: Never Used Alcohol Use Standard Drinks/Week Comments Not Currently 0 (1 standard drink = 0.6 oz pure alcoho l) Sex Assigned at Date Recorded Female 10/07/2018 7:21 AM CDT documented as of this encounter Miscellaneous Notes Telephone Encounter - Eufemia Avelar CMA - 01/04/2019 10:14 AM CDT No callback from patient, no reply via email. No further attempts to reach out to patient, will wait for pt to call and schedule. Telephone Encounter - Eufemia Avelar CMA - 12/30/2018 1:08 PM CDT 3rd attempt- no answer, left VM, will also send mychart to patient. Telephone Encounter - Eufemia Avelar CMA - 12/28/2018 10:15 AM CDT 2nd attempt to call and reach out to patient, no answer, left VM. Telephone Encounter - Eufemia Avelar CMA - 12/25/2018 3:22 PM CDT 1st attempt to reach out to patient to schedule appt, no answer, left VM for call back. documented in this encounter Plan of Treatment Not on filedocumented as of this encounter Visit Diagnoses Not on filedocumented in this encounter Additional Health Concerns Assessment Noted Time PHQ-9 Depression Total Score: 1 10/06/2018 9:27 AM CDT documented as of this encounter Care Teams Second Grade Teacher Relationship Specialty Start Date End Date No Ref-Primary, Physician PCP - General 10/06/18 04/18/19 Reynaldo Amador PA-C 10/06/18 05/13/[address] [id number] Zuleyma Winter MD Assigned PCP 12/31/[address] [address] documented as of this encounter
--- OUTSIDE RECORDS SUMMARY | 2021-10-30 15:28 | XMS_ITS | Encounter Summary ---
:1990 Author Organization [place] Address [facility], [id number] [facility] [place] [address] Care Team Providers Name Role Phone No Ref-Primary, Physician Primary Care Provider Reynaldo Amador PA-C Unavailable [phone] Encounter Details Date Type Department Care Team Description 12/17/2018 Travel Social History Tobacco Use Types Packs/Day [...] documented as of this encounter Care Teams Risk Reduction Counselor Relationship Specialty Start Date End Date No Ref-Primary, Physician PCP - General 10/06/18 04/18/19 Reynaldo Amador PA-C 10/06/18 05/13/[address] [address] documented as of this encounter
--- OUTSIDE RECORDS SUMMARY | 2021-10-30 15:28 | XMS_ITS | Encounter Summary ---
:1990 Author Organization [place] Address [facility] [place] [address] Care Team Providers Name Role Phone No Ref-Primary, Physician Primary Care Provider [phone] Reynaldo Amador PA-C Unavailable [phone] Reason for Visit Diagnostic Imaging Ultrasound (Routine) - Closed Specialty Diagnoses / Procedures Referred By Contact Refer red To Contact Diagnoses with inconclusive viability Lisa Bowens, Procedures US OB Transvaginal Only SPINNERET PERSON CN [address] [facility] [address] [place] [address] Referral ID Status Reason Start Date Expiration Date Visits Requ ested Visits Authorized [id number] Closed 10/05/2018 10/05/2019 1 1 Encounter Details Date Type Department Care Team Description 10/06/2018 Ancillary Procedure [facility] inconclusiv e [place] viability [address] [facility] [address] [place] [phone] Social History Tobacco Use Types Packs/Day Years Used Date Never Smoker Smokeless Tobacco: Never Used Alcohol Use Standard Drinks/Week Comments Not Currently 0 (1 standard drink = 0.6 oz pure alcoho l) Sex Assigned at Date Recorded Female 10/07/2018 7:21 AM CDT documented as of this encounter Miscellaneous Notes Result Encounter Note - Lisa Bowens APRN CNM - 10/06/2018 8:50 AM CDT Results discussed directly with patient while patient was present. Any further details documented inthe note. Lisa Bowens APRN CNM documented in this encounter Plan of Treatment Not on filedocumented as of this encounter Procedures Procedure Name Priority Date/Time Associated Diagnosis Comme nts US OB TRANSVAGINAL Routine 10/06/2018 9:21 AM with R esults for this ONLY CDT inconclusive procedure are in viability the results section. documented in this encounter Results US OB Transvaginal Only (10/06/2018 9:21 AM CDT) Anatomical Region Laterality Modality Abdomen/Pelvis Ultrasound Specimen (Source) Anatomical Location Collection Method / Collectio n Time Received Time / Laterality Volume Narrative 10/06/2018 9:33 AM CDT US OB Transvaginal Only Order #: [id number] Study Notes? Aide [place] on 10/06/2018 ??9:22 AM Obstetrical Ultrasound Report OB 1st trimester U/S ? ??Transvaginal ??[facility] Referring Provider: Lisa Guillen Quality Control Manager: [facility] [place] Indication: ??Viability check: ??Same da y follow-up appointment History: Dating (mm/dd/yyyy): LMP: 08/04/18 ??EDC: ??05/11/19 ??GA by LMP: ? 9w0d Current Scan On: 10/06/18 ? EDC: ?GA by Current Scan: ?9w0d The calculation of the gestational age b y current scan was based on CRL. Anatomy Scan: Cardoso gestation. Biometry: CRL ? 22. 8mm ?9w0d ? 54.1% ? Yolk Sac ? 7.2mm ? heart activity: Rate and rhythm is within normal limits. ?? heart rate: 172bpm Findings: Viable IUP ?? Maternal Structures: Cervix: The cervix appears long and clos ed. Right Adnexa: Normal Left Adnexa: Normal Impression: ??Viable IUP consistent with dates Hanh Monroy MD ?? Lisa Bowens SPINNERET PERSON CNM IMG US ORDERABLES documented in this encounter Visit Diagnoses Diagnosis with inconclusive viabil ity documented in this encounter Additional Health Concerns Assessment Noted Time PHQ-9 Depression Total Score: 1 10/06/2018 9:27 AM CDT documented as of this encounter Care Teams Clay Structure Builder And Servicer Relationship Specialty Start Date End Date No Ref-Primary, Physician PCP - General 10/06/18 04/18/19 Reynaldo Amador PA-C 10/06/18 05/13/19 [place] [address] documented as of this encounter
--- OUTSIDE RECORDS SUMMARY | 2021-10-30 15:28 | XMS_ITS | Encounter Summary ---
:1990 Author Organization [place] Address [address] [facility] [place] [address] Care Team Providers Name Role Phone No Ref-Primary, Physician Primary Care Provider [phone] Reynaldo Amador PA-C Unavailable [phone] Reason for Referral CV Testing (Routine) [...] GUIDE FOR PERICARDIOCENTESIS HC ECHO MYOCARD BX [address] [facility] [id number] [id number] [facility] C INJECTION, PERFLUTREN LIPI D MICROSPHERES, PER ML HC STATISTIC IV PUSH [place] [address] [facility] [address] [place], [place] [phone] Phone: Referral ID Status Reason Start Date Expiration Date Visits Requ ested Visits Authorized [id number] Closed 12/03/2018 12/03/2019 1 1 Reason for Visit CV Testing (Routine) - [...] GUIDE FOR PERICARDIOCENTESIS HC ECHO MYOCARD BX [address] [facility] [id number] 6[address] [facility] C INJECTION, PERFLUTREN LIPI D MICROSPHERES, PER ML HC STATISTIC IV PUSH [place] [address] [facility] [address] [place] [phone] Phone: Referral ID Status Reason Start Date Expiration Date Visits Requ ested Visits Authorized [id number] Closed 12/03/2018 12/03/2019 1 1 Encounter Details Date Type Department Care Team Description 12/15/2018 Hospital Encounter [facility] Chip Glez , Heart murmur; [facility] Encounter for supervision of normal firs t in first trimester Heart Care [address] [facility] 6405 [facility] [place], [place] [address] [place] [phone] (Work) [phone] Social History Tobacco Use Types Packs/Day Years Used Date Never Smoker Smokeless Tobacco: Never Used Alcohol Use Standard Drinks/Week Comments Not Currently 0 (1 standard drink = 0.6 oz pure alcoho l) Sex Assigned at Date Recorded Female 10/07/2018 7:21 AM CDT documented as of this encounter Medications at Time of Discharge Medication Sig Dispensed Refills Start Date End Date Prenat w/o 0 V-UF-Nmyvwze-FA-DHA (PNV-DHA PO) CHLOROQUINE PHOSPHATE 500 MG 1 TABLET WEEKLY 6 0 12/24/2018 OR TABSIndications: Other specified counseling documented as of this encounter Miscellaneous Notes Result Encounter Note - Chip Glez MD - 12/15/2018 11:59 PM CDT This patient has not had follow up in [facility] clinic as recommended. Can we find a spot for her in the next 3-4 weeks? Chip Anderson STICS VICE PRESIDENT documented in this encounter Plan of Treatment Not on filedocumented as of this encounter Procedures Procedure Name Priority Date/Time Associated Diagnosis Comme nts ECHO COMPLETE Routine 12/15/2018 9:33 AM Heart murmur Results for this CDT Encounter for procedure are in supervision of normal the re sults first in section. first trimester documented in this encounter Results ECHO COMPLETE (12/15/2018 9:33 AM CDT) Anatomical Region Laterality Modality Echocardiography Specimen (Source) Anatomical Collection Method Collection Time Re ceived Time Location / / Volume Laterality 12/15/2018 8:47 AM CDT Narrative 12/15/2018 10:29 AM CDT [id number]^MARTÍN^CHIP^DULCE [facility] [address] [facility] [address] [place] [address] Name: MALLY FELICIANO : 1990 Study Date: 12/15/2018 08:47 AM Age: 28 yrs Gender: Female Patient Location: [facility] Reason For Study: Heart murmur, Encounte r [...] 8.8 __ Report approved by: Zabrina Harrison n 12/15/2018 10:30 AM Procedure Note Ceasar Germain MD - 12/15/2018Forma tting of this note might be different from the original. [id number]^MARTÍN^CHIP^DULCE [facility] Heart Echocardiography Laboratory [address] [facility] [address] [place] [address] Name: MALLY FELICIANO : 1990 Study Date: 12/15/2018 08:47 AM Age: 28 yrs Gender: Female Patient Location: [facility] Reason For Study: Heart murmur, Encounte r [...] this encounter Visit Diagnoses Diagnosis Heart murmur Undiagnosed cardiac murmurs Encounter for supervision of normal firs t in first trimester Supervision of normal first documented in this encounter Additional Health Concerns Assessment Noted Time PHQ-9 Depression Total Score: 1 10/06/2018 9:27 AM CDT documented as of this encounter Care Teams Manager Biostatistics Relationship Specialty Start Date End Date No Ref-Primary, Physician PCP - General 10/06/18 04/18/19 Reynaldo Amador PA-C 10/06/18 05/13/[address] [address] documented as of this encounter
--- OUTSIDE RECORDS SUMMARY | 2021-10-30 15:28 | XMS_ITS | Encounter Summary ---
:1990 Author Organization [place] Address [facility] [place] [address] Care Team Providers Name Role Phone No Ref-Primary, Physician Primary Care Provider [phone] Reynaldo Amador PA-C Unavailable [phone] Reason for Referral Consultation (Routine) - Closed Specialty Diagnoses / Procedures Referred By Contact Refer red To Contact Diagnoses Encounter for supervision of normal first in first trimester Heart murmur Lisa Bowens, MATERNAL- MEDICINE BAR MACHINE OPERATOR [facility] [address] [place] [facility] [address] [facility] [place] [address] [facility], [address] [place] [phone] Phone: Fax: Referral ID Status Reason Start Date Expiration Date Visits Requ ested Visits Authorized [id number] Closed 12/11/2018 12/11/2019 1 1 Reason for Visit Reason Onset Date Comments Referral 12/11/2018 Encounter Details Date Type Department Care Team Description 12/11/2018 [facility] Rebeca Bowens, Referral for Women [place] [facility] 65[address] [facility] [address] [place] [address] [place] [address] [place] [phone] Social History Tobacco Use Types Packs/Day Years Used Date Never Smoker Smokeless Tobacco: Never Used Alcohol Use Standard Drinks/Week Comments Not Currently 0 (1 standard drink = 0.6 oz pure alcoho l) Sex Assigned at Date Recorded Female 10/07/2018 7:21 AM CDT documented as of this encounter Miscellaneous Notes Telephone Encounter - Preethi Sun, RN - 12/11/2018 4:10 PM CDT Referral has pended. Routing to Midwifes Preethi Sun, RN on 12/11/2018 at 4:11 PM Telephone Encounter - Velma Borja - 12/11/2018 3:57 PM CDT Patient is scheduled for appointments at [facility] next week. She needs a referral in place for her insurance to pay for visits. documented in this encounter Plan of Treatment Scheduled Referrals Name Type Priority Associated Diagnoses Order S chedule [facility] Referral Routine Encounter For Supervisi on Ordered: 12/11/2018 REFERRAL- Of Normal First Pregna ncy In First Trimest er Heart murmur documented as of this encounter Visit Diagnoses Diagnosis Encounter for supervision of normal firs t in first trimester - Primary Supervision of normal first Heart murmur Undiagnosed cardiac murmurs documented in this encounter Additional Health Concerns Assessment Noted Time PHQ-9 Depression Total Score: 1 10/06/2018 9:27 AM CDT documented as of this encounter Care Teams Baby Doctor Relationship Specialty Start Date End Date No Ref-Primary, Physician PCP - General 10/06/18 04/18/19 Reynaldo Amador PA-C 10/06/18 05/13/[address] [address] documented as of this encounter
--- OUTSIDE RECORDS SUMMARY | 2021-10-30 15:28 | XMS_ITS | Encounter Summary ---
:1990 Author Organization [place] Address [facility] [place] [address] Care Team Providers Name Role Phone No Ref-Primary, Physician Primary Care Provider [phone] Reynaldo Amador PA-C Unavailable [phone] Reason for Referral CV Cardio consult (Routine) - Closed Specialty Diagnoses / Procedures Referred By Contact Refer red To Contact Diagnoses Heart murmur Li Pritchard APRN CNM [facility] [address] [address] Referral ID Status Reason Start Date Expiration Date Visits Requ ested Visits Authorized [id number] Closed 12/02/2018 12/02/2019 1 1 Reason for Visit Reason Comments Care Encounter Details Date Type Department Care Team Description 12/02/2018 Office [facility] Li Pritchard Hear t murmur (Primary Dx); [facility] T[facility] Zelaya CNM Encounter for supervision of normal firs t in first trimester [place] 65[address] [facility] [address] [address] [facility] 100 [place] [address] (Work) [phone] Social History Tobacco Use Types Packs/Day Years Used Date Never Smoker Smokeless Tobacco: Never Used Alcohol Use Standard Drinks/Week Comments Not Currently 0 (1 standard drink = 0.6 oz pure alcoho l) Sex Assigned at Date Recorded Female 10/07/2018 7:21 AM CDT documented as of this encounter Last Filed Vital Signs Vital Sign Reading Time Taken Comments Blood Pressure 106/70 12/02/2018 4:00 PM CDT Pulse - - Temperature - - Respiratory Rate - - Oxygen Saturation - - Inhaled Oxygen Concentration - - Weight 73.6 kg (162 lb 3.2 oz) 12/02/2018 4:00 PM CDT Height - - Body Mass Index 26.18 10/06/2018 9:32 AM CDT documented in this encounter Patient Instructions Patient InstructionsTorres, Li Zelaya, EXECUTIVE CREATIVE DIRECTOR CNM - 12/02/2018 4:10 PM CDT Constipation Constipation can be caused by many factors such as poor diet, lack of activity, and medications. Often times women experience more constipation during due to decreased intestinal motility. DRINK TONS OF WATER! 2.5 liters (4 pints) of water per day ?? Activity is very important. Increase your daily activity to at least 20-60 minutes. This increases blood flow to your gut and improves bowel function ?? Limit caffeine and alcohol intake ?? Avoid foods you've identified as constipating ?? Increase fiber intake: there are ways to increase you fiber through your diet but there are also OTC agents such as Metamucil or Benfiber that you can supplement your diet with ?? Use probiotics such as Florastor and/or prebiotics such as oligosaccharides ?? Consider using an [place] 3 supplement, flaxseed and laura seeds are great sources ?? Plan adequate time for elimination, it is most effective right after activity, and it may be beneficial to plan a consistent time daily Food Suggestions ?? Eat beans, nuts, whole grain breads and cereals, oats, barley, figs, apples with skin, raisins, green leafy vegetables, fresh and dried fruits (especially grapes), prunes or prune juice ?? Eat popcorn nightly ?? Eat 2-3 salads per day ?? Add a pinch of cayenne pepper to food ?? 1-2 tbsp of olive oil per day ?? Lemon juice and/or honey in warm water every morning before breakfast ?? Decrease red meat, refined white flour products like white rice, white bread and pasta ?? Tea infusions of: makayla, chamomile, lemon balm, senna leaf, alfalfa, fennel seeds, lavender, cascara, dandelion, licorice root tea, psyllium seeds, marshmallow root Other remedies ?? Increase Vitamin B and E (800 IU if not , 400 IU if per day) and potassium, calcium, and magnesium supplements If these remedies fail, medications are an option as well. Please talk with your briquette molder if you continue to struggle with constipation. If you are please double check with us before starting any medications! Fiber Facts A daily intake of about 25-30 grams of fiber is recommended. Most Americans only get about 12 grams of fiber on average. Fiber is very important in the diet to promote bowel regularity, lower cholesterol, lower risk of developing type 2 diabetes, and decrease chance of weight gain. In your intestinal motility slows down, so fiber is even more important. Start gradually increasing fiber intake to reduce the risk of bloating and gas. Increase by about 5 grams a day every few days until you reach your fiber goals! Food Amount Grams of Fiber Grains Andrew's All Bran Cereal 1/2 cup 10 Natural Oven's Stay Trim Bread 1 slice 5 Brown Rice (cooked) 1 cup 4 Cheerios 1 cup 3 Whole Wheat Crackers 5 crackers 3.5 Dawson crackers 3 crackers 3 Cereals and whole grains are excellent ways to increase fiber in your diet. Try to find cereals thathave at least 8 grams of fiber per serving. Fruits Blackberries 1 cup 7 Figs 3 dried 7 Apple 1 4 Pear 1 4 [place] 1 3 Vegetables Winter squash 1 cup 9 Broccoli 1 cup 4 [address] Helen[place] chard (cooked) 1 cup 4 Cauliflower 1 cup 3 Potato 1 large w/skin 5 Beans Kidney, red 1/2 cup 8 Lentils 1/2 cup cooked 8 Black 1/2 cup 7 [place] 1/2 cup 7 Zhu 1/2 cup 7 White 1/2 cup 6 Garbanzo/Chickpeas 1/2 cup 5 documented in this encounter Progress Notes Li Pritchard APRN CNM - 12/02/2018 4:10 PM CDT Feels well movement Unsure Denies loss of fluid/vb/contractions/pelvic pain Declined AFP today Anatomy ultrasound next visit between 18-22 weeks,. Has a history of a heart murmur. [facility] clinic called while patient was at visit and requested she have a ECHO done before she has her 20 week anatomy screen. Cardiology referral placed. Advised to call [facility] if she has not heard from someone by Friday to set up an appt. Return to clinic 3-4 weeks Li Pritchard APRN, CNM documented in this encounter Plan of Treatment Scheduled Referrals Name Type Priority Associated Diagnoses Order S [facility] CARDIOLOGY EVAL ADULT Referral Routine Heart murmur Ordere d: 12/02/2018 REFERRAL documented as of this encounter Visit Diagnoses Diagnosis Heart murmur - Primary Undiagnosed cardiac murmurs Encounter for supervision of normal firs t in first trimester Supervision of normal first documented in this encounter Additional Health Concerns Assessment Noted Time PHQ-9 Depression Total Score: 1 10/06/2018 9:27 AM CDT documented as of this encounter Care Teams Drier Unloader Relationship Specialty Start Date End Date No Ref-Primary, Physician PCP - General 10/06/18 04/18/19 Reynaldo Amador PA-C 10/06/18 05/13/[address] [address] documented as of this encounter
--- OUTSIDE RECORDS SUMMARY | 2021-10-30 15:28 | XMS_ITS | Encounter Summary ---
:1990 Author Organization [place] Address [facility] [place] [address] Care Team Providers Name Role Phone No Ref-Primary, Physician Primary Care Provider Reynaldo Amador PA-C Unavailable [phone] Encounter Details Date Type Department Care Team Description 10/06/2018 Travel Social History Tobacco Use Types Packs/Day [...] documented as of this encounter Care Teams Brokerage Clerk Relationship Specialty Start Date End Date No Ref-Primary, Physician PCP - General 10/06/18 04/18/19 Reynaldo Amador PA-C 10/06/18 05/13/[address] [address] documented as of this encounter
--- OUTSIDE RECORDS SUMMARY | 2021-10-30 15:28 | XMS_ITS | Encounter Summary ---
:1990 Author Organization [place] Address [address] [place] [address] Care Team Providers Name Role Phone No Ref-Primary, Physician Primary Care Provider [phone] Reynaldo Amador PA-C Unavailable [phone] Zuleyma Winter MD Unavailable [phone] Reason for Visit Diagnostic Imaging Ultrasound (Routine) - Closed Specialty Diagnoses / Procedures Referred By Contact Refer red To Contact Diagnoses Screening, for growth retardation with ultrasound Li Pritchard APRN Procedures US OB >14 Weeks Follow Up CNM [address] [place] [address] Referral ID Status Reason Start Date Expiration Date Visits Requ ested Visits Authorized [id number] Closed 12/25/2018 12/25/2019 1 1 Encounter Details Date Type Department Care Team Description 01/07/2019 Ancillary Procedure [facility] Li Pritchard Screening, [facility] TAVARES Zelaya CNM for growth [place] [address] retardation with [address] [facility] [place] S [place] [address] ultrasound [facility] [place] [address] [address] [place] (Work) [phone] Social History Tobacco Use Types Packs/Day Years Used Date Never Smoker 0 Smokeless Tobacco: Never Used Alcohol Use Standard Drinks/Week Comments Not Currently 0 (1 standard drink = 0.6 oz pure alcoho l) Sex Assigned at Date Recorded Female 10/07/2018 7:21 AM CDT documented as of this encounter Miscellaneous Notes Result Encounter Note - Lisa Bowens APRN CNM - 01/07/2019 11:10 AM CDT Results discussed directly with patient while patient was present. Any further details documented inthe note. Lisa Bowens APRN CNM documented in this encounter Plan of Treatment Not on filedocumented as of this encounter Procedures Procedure Name Priority Date/Time Associated Diagnosis Comme nts US OB FOLLOW UP >14 Routine 01/07/2019 11:36 AM Screening, ant enatal Results for this WEEKS CDT for growth procedure a re in retardation with the results ultrasound section. documented in this encounter Results US OB >14 Weeks Follow Up (01/07/2019 11:36 AM CDT) Anatomical Region Laterality Modality Abdomen/Pelvis Ultrasound Specimen (Source) Anatomical Location Collection Method / Collectio n Time Received Time / Laterality Volume Narrative 01/07/2019 11:47 AM CDT Obstetrical Ultrasound Report OB U/S ? 2nd/3rd Trimester - Transabdominal [facility] Referring physician: Arti Bowens CNM Video Intern: Uma Ruth Indication: ??F/U Growth and suboptimal [...] Impression: ??Anatomy scan wnl ? Li Pritchard ELECTRICAL INSTRUMENT REPAIRER CNM IMG US ORDERABLES documented in this encounter Visit Diagnoses Diagnosis Screening, for growth re tardation with ultrasound screening for growth ret ardation using ultrasonics documented in this encounter Additional Health Concerns Assessment Noted Time PHQ-9 Depression Total Score: 1 10/06/2018 9:27 AM CDT documented as of this encounter Care Teams Call Center Professional Relationship Specialty Start Date End Date No Ref-Primary, Physician PCP - General 10/06/18 04/18/19 Reynaldo Amador PA-C 10/06/18 05/13/[address] [address] Zuleyma Winter MD Assigned PCP 12/31/[address] [address] documented as of this encounter
--- OUTSIDE RECORDS SUMMARY | 2021-10-30 15:28 | XMS_ITS | Encounter Summary ---
:1990 Author Organization [place] Address [facility] [place] [address] Care Team Providers Name Role Phone No Ref-Primary, Physician Primary Care Provider [phone] Reynaldo Amador PA-C Unavailable [phone] Zuleyma Winter MD Unavailable [phone] Encounter Details Date Type Department Care Team Description 01/22/2019 [facility] for supervision for Women [place] of normal first [address] [facility] in second trimester [address] [place] [address] Social History Tobacco Use Types Packs/Day [...] Name Priority Date/Time Associated Diagnosis Comme nts GLUCOSE TOLERANCE Routine 01/22/2019 9:02 AM Encounter for Res ults for this GEST SCREEN 1 HOUR CDT supervision of procedu re are in normal first the results in second section. trimester CBC WITH PLATELETS Routine 01/22/2019 9:02 AM Encounter for Re sults for this CDT supervision of procedure are in normal first the results in second section. trimester documented in this encounter Results (ABNORMAL) CBC with platelets (01/22/2019 9:02 AM CDT) Analysis Performed At [facility] Time Signature WBC 5.8 4.0 - 11.0 01/22/2019 [facility] 10e9/L 10:19 AM CDT [facility] [place] RBC Count 3.66 (L) 3.8 - 5.2 01/22/2019 [facility] 10e12/L 10:19 AM CDT [facility] [place] Hemoglobin 10.7 (L) 11.7 - 01/22/2019 [facility] 15.7 g/dL 10:19 AM CDT [facility] [place] Hematocrit 32.9 (L) 35.0 - 01/22/2019 [facility] 47.0 % 10:19 AM CDT [facility] [place] MCV 90 78 - 100 01/22/2019 [facility] fl 10:19 AM CDT [facility] [place] MCH 29.2 26.5 - 01/22/2019 [facility] 33.0 pg 10:19 AM CDT [facility] [place] MCHC 32.5 31.5 - 01/22/2019 [facility] 36.5 g/dL 10:19 AM CDT [facility] [place] RDW 12.7 10.0 - 01/22/2019 [facility] 15.0 % 10:19 AM CDT [facility] [place] Platelet Count 219 150 - 450 01/22/2019 [facility] 10e9/L 10:19 AM CDT [facility] [place] Specimen Anatomical Collection Method Collection Time Receive d Time (Source) Location / / Volume Laterality Blood specimen 01/22/2019 9:02 AM 019 9:03 (specimen) CDT AM CDT Lizabeth Moya CNM LAB - BLOOD ORDERABLES Performing Organization Address City/State/ZIP Code Phon e Number [facility] [address] WOMEN [address] [place] [address] [phone] [facility] 100 Glucose tolerance gest screen 1 hour (01/22/2019 9:02 AM CDT) P athologist Signature Glu Gest Screen 102 60 - 129 01/22/2019 [facility] 1hr 50g mg/dL 12:03 PM CDT [facility] [place] Specimen Anatomical Collection Method Collection Time Receive d Time (Source) Location / / Volume Laterality Blood specimen 01/22/2019 9:02 AM 9:03 (specimen) CDT AM CDT Lizabeth Moya CNM LAB - BLOOD ORDERABLES Performing Organization Address City/State/ZIP Code Phon e Number [facility] [address] [place] [address] [facility] 100 documented in this encounter Visit Diagnoses Diagnosis Encounter for supervision of normal firs t in second trimester Supervision of normal first documented in this encounter Additional Health Concerns Assessment Noted Time PHQ-9 Depression Total Score: 1 10/06/2018 9:27 AM CDT documented as of this encounter Care Teams Courtesy Booth Cashier Relationship Specialty Start Date End Date No Ref-Primary, Physician PCP - General 10/06/18 04/18/19 Reynaldo Amador PA-C 10/06/18 05/13/19 [facility] [address] [place], [place] [address] Zulemya Winter MD Assigned PCP 12/31/18 3033 [facility] [address] [place], [place] [id number] documented as of this encounter
--- OUTSIDE RECORDS SUMMARY | 2021-10-30 15:28 | XMS_ITS | Encounter Summary ---
:1990 Author Organization [place] Address [facility] [place] [address] Care Team Providers Name Role Phone Reynaldo Amador PA-C Primary Care Provider [phone] Reason for Referral Diagnostic Imaging Ultrasound (Routine) - Closed Specialty Diagnoses / Procedures Referred By Contact Refer red To Contact Diagnoses with inconclusive viability Lisa Bowens, Procedures US OB Transvaginal Only T[facility]ES NORIEGA [address] [place] [id number] Referral ID Status Reason Start Date Expiration Date Visits Requ ested Visits Authorized [id number] Closed 10/05/2018 10/05/2019 1 1 Encounter Details Date Type Department Care Team Description 10/05/2018 Orders Only [employer] [facility] with [facility] T[facility] CNM inconclusive [place] [address] viability (Primary Dx) [address] [place] [address] [address] [place] [id number] [phone] Social History Tobacco Use Types Packs/Day Years Used Date Never Assessed Sex Assigned at Date Recorded Female 10/07/2018 7:21 AM CDT documented as of this encounter Progress Notes Josie Osullivan RN - 10/05/2018 2:42 PM CDT Pt has NOB scheduled with ultrasound. Needed order to be placed. Future ultrasound order placed and linked with appt. Closing encounter. documented in this encounter Plan of Treatment Not on filedocumented as of this encounter Results US OB Transvaginal Only (10/06/2018 9:21 AM CDT) Anatomical Region Laterality Modality Abdomen/Pelvis Ultrasound Specimen (Source) Anatomical Location Collection Method / Collectio n Time Received Time / Laterality Volume Narrative 10/06/2018 9:33 AM CDT US OB Transvaginal Only Order #: [id number] Study Notes? Aide Boston on 10/06/2018 ??9:22 AM Obstetrical Ultrasound Report OB 1st trimester U/S ? ??Transvaginal ??[facility] Referring Provider: Lisa Guillen Field Research Assistant: Aide Boston RDMS Indication: ??Viability check: ??Same da y follow-up [...] dates Hanh Monroy MD ?? Lisa Bowens FOUNDRY HELPER CNM IMG US ORDERABLES documented in this encounter Visit Diagnoses Diagnosis with inconclusive viabil ity - Primary with inconclusive viabil ity documented in this encounter Care Teams Leadlighter Relationship Specialty Start Date End Date Reynaldo Amador PA-C PCP - General 10/21/08 10/05/[address] [address] documented as of this encounter
--- OUTSIDE RECORDS SUMMARY | 2021-10-30 15:28 | XMS_ITS | Encounter Summary ---
:1990 Author Organization [place] Address [address] [facility] [place] [address] Care Team Providers Name Role Phone No Ref-Primary, Physician Primary Care Provider [phone] Reynaldo Amador PA-C Unavailable Reason for Visit Reason Onset Date Comments Referral 12/17/2018 Encounter Details Date Type Department Care Team Description 12/17/2018 Telephone [facility] Maternal Kingston Moreno Referral [facility] Kiel moore [address] [place], [place] [address] Social History Tobacco Use Types Packs/Day Years Used Date Never Smoker 0 Smokeless Tobacco: Never Used Alcohol Use Standard Drinks/Week Comments Not Currently 0 (1 standard drink = 0.6 oz pure alcoho l) Sex Assigned at Date Recorded Female 10/07/2018 7:21 AM CDT documented as of this encounter Miscellaneous Notes Telephone Encounter - Jose Moreno - 12/17/2018 12:33 PM CDT Patient called to cancel her L2 US due to insurance. She will still be coming to meet with [facility] provider. Removing L2 order. Jose Moreno, Wire Stitcher Machine, [facility] documented in this encounter Plan of Treatment Not on filedocumented as of this encounter Visit Diagnoses Not on filedocumented in this encounter Additional Health Concerns Assessment Noted Time PHQ-9 Depression Total Score: 1 10/06/2018 9:27 AM CDT documented as of this encounter Care Teams Consultant Teacher Relationship Specialty Start Date End Date No Ref-Primary, Physician PCP - General 10/06/18 04/18/19 Reynaldo Amador PA-C 10/06/18 05/13/[address] [address] documented as of this encounter
--- OUTSIDE RECORDS SUMMARY | 2021-10-30 15:28 | XMS_ITS | Encounter Summary ---
:1990 Author Organization [place] Address [facility] [place] [address] Care Team Providers Name Role Phone No Ref-Primary, Physician Primary Care Provider [phone] Reynaldo Amador PA-C Unavailable [phone] Reason for Visit Reason Comments Consult maternal heart murmur (Routine) - Closed Specialty Diagnoses / Procedures Referred By Contact Refer red To Contact Diagnoses related condition, antepartum Dane Dozier APRN [facility] [address] [place] [address] Referral ID Status Reason Start Date Expiration Date Visits Requ ested Visits Authorized [id number] Closed 12/03/2018 12/03/2019 1 1 Encounter Details Date Type Department Care Team Description 12/17/2018 Office Visit [facility] Santana Dozier APRN [facility] [address] [facility] [address] [place], [place] [address] related condition, antepartum; Maternal Li Wiley MD [address] [place] [address] Maternal congenital cardiac anomaly comp licating Medicine [facility] [address] [place], [place] [address] Social History Tobacco Use Types Packs/Day Years Used Date Never Smoker 0 Smokeless Tobacco: Never Used Alcohol Use Standard Drinks/Week Comments Not Currently 0 (1 standard drink = 0.6 oz pure alcoho l) Sex Assigned at Date Recorded Female 10/07/2018 7:21 AM CDT documented as of this encounter Progress Notes Li Wiley MD - 12/17/2018 2:15 PM CDT Maternal- Medicine Consultation Referral: Dear Ms. Li Pritchard, [facility] Thank you for referring Ms. Resendiz for a Maternal- Medicine consultation. 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 She has been followed by Peds Cardiology (Dr. Callaway) in [place], [place] at [facility]. Had been stable throughout the years with no clubbing, cyanosis, or hepatosplenomegaly according to the notes including the last one at age 15. Was seen by Dr. Martins at [facility] today who did not recommend any specific therapy,however recommended her to be evaluated by adult congenital Cardiology (Dr. Addison). She has been active, running almost 2-3 miles every day. 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 She has no significant past medical history. There is no congenital cardiachistory or history of complications in her family. ECHO done on 12/15 which showed: Left ventricular systolic function is normal. The [...] anterior leaflet pathology. Sinus rhythm was noted. Past Medical History: Cleft mitral valve, mild to moderate mitral regurgitation, and no left atrial dilation Past Surgical History: Denies Obstetric History: Nulliparous Gynecological History: Denies h/o STI, fibroids, or abn pap Medications: Current Outpatient Medications Medication ??? Prenat w/o P-IO-Rycjhfy-FA-DHA (PNV-DHA PO) ??? CHLOROQUINE PHOSPHATE 500 MG OR TABS No current facility-administered medications for this visit. Allergies: NKDA Social History: denies tobacco, ETOH, or illicit drug use. 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 Family History: Family History Adopted: Yes Problem Relation Age of Onset ??? No Known Problems Mother ??? No Known Problems Father ??? No Known Problems Sister ??? No Known Problems Brother ??? No Known Problems Maternal Grandmother ??? No Known Problems Maternal Grandfather ??? No Known Problems Paternal Grandmother ??? Coronary Artery Disease No family hx of ??? Hypertension No family hx of Genetic evaluation: declined Impression: A today???s visit we discussed with Mally her history of cleft mitral valve and moderate mitral regurgitation in the context of her current . We discussed that mitral regurgitation is usually well tolerated in even the severe form in the absence of ventricular dysfunction and pulmonary HTN. As annular dilatation occurs with the increased volume load of , severity of regurgitation may increase. However, in the setting of normal left ventricular systolic function, valvular regurgitant lesions are well tolerated. In patients with moderate to severe regurgitant lesions, symptomatic volume overload may occur during the second and third trimester and during the first 24-72 hours after delivery as cardiac output peaks. Diuretics can be administered, and afterload reduction can be initiated with hydralazine and nitrates during or enalapril post-. We discussed that patients with significant valvular regurgitation may also be prone to atrial arrhythmias. We discussed that given the physiological increase in cardiac output and blood volume in the 3rd trimester, ECHO can be repeated at that time. Vaginal delivery with early epidural is generally preferred with preservation of for obstetrical indications. Endocarditis prophylaxis is not recommended for both vaginal and deliveries. In the period, we discussed that hemodynamic changes might not return to baseline until 6months which make patients prone for medical and obstetrical complications. Frequency of PP follow up and imaging will be determined based on her clinical status in consultation with Cardiology team. In regards to the heritable risk for CHD, we discussed that most CHD are multifactorial (MF) conditions making recurrence of 3-7% with left sided lesions reported to have higher recurrence rate. At this time, it is unknown how many familial forms of CHD will have identifiable mutations with current genetic testing. However, since there are no other family members affected the detection rate is likelyto be low. Reviewed capabilities, limitations, and logistics of testing. Given the increased risk for CHD in offspring, ECHO is recommended during the second trimester of . When CHD occurs in offspring it may be the same condition but it can also present as other forms of CHD, with moreand less severe. At the conclusion of our discussion we have made the following recommendations: - comprehensive survey at around 20 weeks gestation. No performed today due insurance issues (Mally needs to establish care with a primary provider approved through [facility] [place] with referral from primary provider for comprehensive [...] during given her work at elementary school. Mally expressed full understanding of the above-mentioned discussion and plan. All questions answered and concerns addressed. A copy of this consultation will be sent to your office. Thank you for the opportunity to participate in the care of this patient. If you have questions, regarding today???s evaluation or if we can be of further service, please contact the Maternal- Medicine Center. I served as a scribe for Dr. Saurabh Almeida MD Maternal- Medicine fellow Date: December 17, 2018 This note, as scribed, accurately reflects the examination, my impressions and plan as discussed with the patient. Li Wiley MD Specialist in Maternal- Medicine documented in this encounter Nursing Notes Luisa Hitchcock, ASHTYN - 12/17/2018 2:15 PM CDT Mally, accompanied by her significant other, seen in clinic today for a MFM consult. Dr. Miles, Dr. Almeida and Dr. Wiley in to meet with pt, see separate note. Luisa Hitchcock RN documented in this encounter Plan of Treatment Not on filedocumented as of this encounter Visit Diagnoses Diagnosis related condition, antepartum Maternal congenital cardiac anomaly comp licating Congenital cardiovascular disorders of m other, complicating , childbirth, or the puerperium, unspecified as to episod e of care documented in this encounter Additional Health Concerns Assessment Noted Time PHQ-9 Depression Total Score: 1 10/06/2018 9:27 AM CDT documented as of this encounter Care Teams Light Fixture Servicer Relationship Specialty Start Date End Date No Ref-Primary, Physician PCP - General 10/06/18 04/18/19 Reynaldo Amador PA-C 10/06/18 05/13/[address] [address] documented as of this encounter
--- OUTSIDE RECORDS SUMMARY | 2021-10-30 15:28 | XMS_ITS | Encounter Summary ---
:1990 Author Organization [place] Address [address] [place] [address] Care Team Providers Name Role Phone No Ref-Primary, Physician Primary Care Provider [phone] Reynaldo Amador PA-C Unavailable [phone] Reason for Referral Diagnostic Imaging Ultrasound (Routine) - Closed Specialty Diagnoses / Procedures Referred By Contact Refer red To Contact Diagnoses Encounter for supervision of normal first in first trimester Heart murmur Dane Dozier, Procedures US OB > 14 Weeks [facility] NORIE[facility] [address] [place] [id number] Referral ID Status Reason Start Date Expiration Date Visits Requ ested Visits Authorized [id number] Closed 12/24/2018 12/24/2019 1 1 Reason for Visit Reason Onset Date Comments Care Imm/Inj 12/24/2018 Flu Shot Encounter Details Date Type Department Care Team Description 12/24/2018 Office [facility] Dane Dozier for supervision of normal first in first trimester (Primary Dx); [facility] T[facility]ARES Noble CNM Heart murmur; Blossom GOMEZ Need for prophylactic vaccin ation and inoculation against influenza; [address] [facility] Mitral valve insufficiency, unspecified etiology [facility] [address] [place] [phone] Social History Tobacco Use Types Packs/Day Years Used Date Never Smoker 0 Smokeless Tobacco: Never Used Alcohol Use Standard Drinks/Week Comments Not Currently 0 (1 standard drink = 0.6 oz pure alcoho l) Sex Assigned at Date Recorded Female 10/07/2018 7:21 AM CDT documented as of this encounter Last Filed Vital Signs Vital Sign Reading Time Taken Comments Blood Pressure 118/74 12/24/2018 3:42 PM CDT Pulse - - Temperature - - Respiratory Rate - - Oxygen Saturation - - Inhaled Oxygen Concentration - - Weight 77 kg (169 lb 12.8 oz) 12/24/2018 3:42 PM CDT Height - - Body Mass Index 27.41 12/17/2018 10:43 AM CDT documented in this encounter Patient Instructions Patient InstructionsDane Dozier APRN CNM - 12/24/2018 3:50 PM CDT Round Ligament Pain can entail many normal discomforts. One of those discomforts may be round ligament pain. Round ligament pain occurs as your uterus and your baby grow and the muscles begin to stretch more in your abdomen. Round ligament pain is normal and not dangerous but can be very uncomfortable ?? Round ligament pain is typically described as an unpleasant sensation that ranges from a sharp knifelike pain to dull intermittent pain in the lower abdominal/suprapubic area of a woman ?? Virtually all women will experience this pain at some point during their pregnancies ?? It typically manifests between 16 and 20 weeks of and can be incredibly bothersome especially for women who remain very active during their pregnancies ?? Please discuss with your data entry technician if you are having this type of pain; sometimes the pain can be associated with other medical conditions so it is important for us to assess you just to make sure Comfort measures There are certain things you can do to cope with round ligament pain and ease the discomfort you arehaving ?? support belt ?? Tylenol ?? Hot/ice packs ?? Baths ?? Exercise such as yoga and swimming that help stretch muscles ?? massage ?? Reflexology to waist and pelvic joints ?? Positioning such as side-lying and hands and knees, make sure your abdomen is well supported withpillows while doing different positions Calcium Rich Foods All premenopausal or women of child-bearing age need to get at least 1000 mg of calcium per day fromdiet and/or supplementation. Post menopausal women should get at least 1200 mg from diet and/or supplementation. Food Amount Calcium (mg) Dairy Yogurt 1 cup 400 Ice Cream/Frozen yogurt 1/2 cup 100 Milk 1% or 2% 1 cup 300 Cheese 1 oz 195-335 Cottage cheese 2% 1 cup 155 Fruits [place] [facility] 1 medium 60 Pear 1 medium 19 Raisins 1/4 cup 18 Vegetables-fresh and/or cooked Broccoli 1/2 cup 36 Bok [place] 1/2 cup 79 Stephen greens 1/2 cup 15 Carrots 1 medium 19 Iceberg lettuce 4 leaves 16 Nuts, Beans, Seeds Canned baked beans 1/2 cup 100 Canned red kidney beans 1/2 cup 25-80 Canned navy beans 1/2 cup 64 Tofu with calcium sulfate 1/2 cup 150 Soybeans 1 cup 175 Soy milk 1 cup 10 Almonds 1/4 cup 74 Protein Pavo 3 oz 181 Tuna, canned 3 oz 10 [place] breast 3.5 oz 10 Egg (large) 1 egg 27 Peanut Butter 2 tbsp 11 Beef 3 oz 9 Chicken 1 leg 15 Grain Amaranth (uncooked) 1 cup 298 [place] tortilla 1 medium 42 Rice (cooked) 1/2 cup 20 Waffle (frozen ~7in) 1 179 Bagel 1 23 Calcium fortified foods/drinks [facility] juice 1 cup 300 Cereal + milk 3/4 cup + 1/2 cup 400 Rice milk 1 cup 300 Lactaid milk 1 cup documented in this encounter Progress Notes Dane Dozier APRN CNM - 12/24/2018 3:50 PM CDT Feels well overall. Here with Keanu. movement: Positive Denies loss of fluid/vb/contractions Anatomy ultrasound results discussed; to be reviewed by Yanira CISSE, having a Girl, Placenta: posterior GCT visit between 24-28 weeks, handout provided, reminded of longer appointment Ultrasound done here today d/t insurance issues. Please see note on 12/17/18 (from Shelley Manning). Talked with Mally and Keanu in great detail about plan of care going forward... 1) Due to [facility] a primary provider has to refer Mally to [facility], etc. They originally just picked a random provider since we were not listed. We discussed options for a primary care provider. I recommended they see if a [facility] provider is an option (specifically KELVIN Mobley or Zuleyma Winter MD). Since I have worked with them in the past, it may be easier to communicate and get referrals through efficiently. They will let me know whomever they choose (via [facility]) and I will contactthe provider to explain what is occurring. 2) They were unaware of the [facility] recommendations. When I reviewed the [facility] recommendations, they stated MFM did not make it clear that any of that was recommended. I printed off a copy of the recommendation from Dr. Chin (12/17/18) and gave it to them. 3) They did not feel comfortable at the MFM clinic at [place]. They stated it was far from them and 2 out of the 3 doctors in the room were learning, but it made the appointment hard. They stated theMDs did not recognize our group. I recommended they see MFM at [facility]. It is the same group, but they are more familiar with our group and the office is conveniently located close to our office. 4) They are worried about the follow up and plan of care (if they can stay with our group). I explained that her EKG and echo were normal (12/15 and 12/17). We will consult with our MDs and MFM. As long as recommendations state [facility] care is appropriate we will be her providers. We need to make sure her and her babe are safe; therefore we will transfer care if needed. 5) We reviewed preliminary ultrasound results. Marginal cord insertion requires follow up growth ultrasounds, but [facility] also recommends follow up growth ultrasounds, therefore no change of care. Since rvot was not well visualized, we would have to repeat the ultrasound. I was unsure if recommendations would state repeat ultrasound in our clinic or with M - we will let her know once they are available. Return to clinic 4 weeks or sooner if ultrasound is to be done here. Dane Dozier, SHWETA, ARCHITECTURAL JOB CAPTAIN, GEOVANNIM documented in this encounter Plan of Treatment Not on filedocumented as of this encounter Results US OB > 14 Weeks (12/24/2018 3:37 PM CDT) Anatomical Region Laterality Modality Abdomen/Pelvis Ultrasound Specimen (Source) Anatomical Location Collection Method / Collectio n Time Received Time / Laterality Volume Narrative 12/24/2018 4:51 PM CDT US OB > 14 Weeks Order #: [id number] Study Notes? Ines Hudson on 12/24/2018 ??3:40 PM Obstetrical Ultrasound Report OB U/S ? Survey - Transabdominal [facility] [place] Referring Provider: Dr. Arleen landin Pattern Painter: Ines Hudson RDMS Indication: ?? Anatomy Survey [...] ews. Arleen Doyle MD ?? Dane Dozier ARCHITECTURAL JOB CAPTAIN CN IMG US ORDERABLES documented in this encounter Visit Diagnoses Diagnosis Encounter for supervision of normal firs t in first trimester Supervision of normal first Heart murmur Undiagnosed cardiac murmurs Encounter for supervision of normal firs t in first trimester - Primary Supervision of normal first Heart murmur Undiagnosed cardiac murmurs Need for prophylactic vaccination and in oculation against influenza Mitral valve insufficiency, unspecified etiology documented in this encounter Additional Health Concerns Assessment Noted Time PHQ-9 Depression Total Score: 1 10/06/2018 9:27 AM CDT documented as of this encounter Care Teams Electrolysis Operator Relationship Specialty Start Date End Date No Ref-Primary, Physician PCP - General 10/06/18 04/18/19 Reynaldo Amador PA-C 10/06/18 05/13/[address] [address] documented as of this encounter
--- OUTSIDE RECORDS SUMMARY | 2021-10-30 15:28 | XMS_ITS | Encounter Summary ---
:1990 Author Organization [employer] Address [address] [place] [address] Care Team Providers Name Role Phone No Ref-Primary, Physician Primary Care Provider [phone] Reynaldo Amador PA-C Unavailable [phone] Reason for Referral Specialty Diagnoses / Procedures Referred By Contact Refer red To Contact Refugio Martins MD [address] [place] [address] Referral ID Status Reason Start Date Expiration Date Visits Requ ested Visits Authorized Reason for Visit Reason Comments FU Cardiac testing CV Cardio consult (Routine) - Closed Specialty Diagnoses / Procedures Referred By Contact Refer red To Contact Diagnoses Heart murmur Li Pritchard APRN [facility] [address] [place] [address] Referral ID Status Reason Start Date Expiration Date Visits Requ ested Visits Authorized [id number] Closed 12/02/2018 12/02/2019 1 1 Encounter Details Date Type Department Care Team Description 12/17/2018 Office Visit [facility] Jared Pritchard APRN [facility] [address] [place], [place] [address] Heart murmur (Primary Dx); Heart Clinic Refugio Nunez MD [address] [place] [address] Congenital cleft leaflet of mitral valve ; [address] Mitral re gurgitation, congenital [address] [place] [phone] Social History Tobacco Use Types Packs/Day Years Used Date Never Smoker 0 Smokeless Tobacco: Never Used Alcohol Use Standard Drinks/Week Comments Not Currently 0 (1 standard drink = 0.6 oz pure alcoho l) Sex Assigned at Date Recorded Female 10/07/2018 7:21 AM CDT documented as of this encounter Last Filed Vital Signs Vital Sign Reading Time Taken Comments Blood Pressure 120/76 12/17/2018 10:43 AM CDT Pulse 86 12/17/2018 10:43 AM CDT Temperature - - Respiratory Rate - - Oxygen Saturation - - Inhaled Oxygen Concentration - - Weight 75.2 kg (165 lb 12.8 oz) 12/17/2018 10:43 AM CDT Height 167.6 cm (5' 6) 12/17/2018 10:43 AM CDT Body Mass Index 26.76 12/17/2018 10:43 AM CDT documented in this encounter Patient Instructions Patient InstructionsRefugio Martins MD - 12/17/2018 10:45 AM CDT Images from the original note were not included. December 17, 2018 Thank you for allowing our Cardiology team to participate in your care. Please note the following changes to your heart treatment plan: Medication changes: - none Tests to be done: - none Follow up: - We will arrange for you to follow up with Dr. Addison in [facility] Please contact our team at [phone] for any questions or concerns. Sincerely, Refugio Martins MD Cardiology - [facility] Heart [employer] [facility] - [facility] - [facility] - [place] documented in this encounter Progress Notes Refugio Martins MD - 12/17/2018 10:45 AM CDT Images from the original note were not included. Cardiology Clinic Consultation: December 16, 2018 Referring: Li Garcia Pritchard Patient Name: Mally Resendiz Patient Consult reason: cleft mitral valve with mitral regurgitation History of Present Illness: I had the opportunity to see Mally Resendiz today in cardiology consultation clinic on 12/16/2018. As you know she is a 28-year-old female with a past medical history significant for cleft mitral valve andknown mitral regurgitation, currently (19 weeks 2 days), who presents for further evaluation and management of her mitral valve disorder. Reviewed records from pediatric cardiology at [facility] (see scanned in records from 12/04/2018) whereyaneth was followed by pediatrics teacher Dr. Tobin Callaway, first visit was in 2003. 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 She grew up in foster care,and so her family history is largely unknown. The last clinic note available for review was from 04/02/2006. At that time she was a 15-year-old female who was reported to be doing well from a cardiovascular standpoint. Asymptomatic of symptoms concerning for heart failure. She was not on any medications at that time. It was mentioned in a clinic note from 2005 that should her left ventricular size increase, they would consider surgical intervention on the valve. She is accompanied by her , Keanu. They are excited over their first . Overall she isdoing well from a functional standpoint. She is able to run approximately 2 to 3 miles every day without any marked difficulty, no abnormal shortness of breath, no chest pain or discomfort. No palpitations, dizziness, lightheadedness. No symptoms consistent with orthopnea or PND. She does not smoke, drink alcohol, or use illicit drugs. Past Medical History: Past Medical History: Diagnosis Date ??? Heart murmur follows with cardiology- no treatments Past Surgical History: Past Surgical History: Procedure Laterality Date ??? NO HISTORY OF SURGERY Medications (outpatient): Current Outpatient Medications Medication Sig Dispense Refill ??? Prenat w/o P-AJ-Huymnla-FA-DHA (PNV-DHA PO) ??? CHLOROQUINE PHOSPHATE 500 MG OR TABS 1 TABLET WEEKLY (Patient not taking: No sig reported) 6 0 Allergies: No Known Allergies Social History: History Drug Use Unknown History Smoking Status ??? Never Smoker Smokeless Tobacco ??? Never Used Social History Substance and Sexual Activity Alcohol use: Not Currently Family History: She grew up in foster care, and so her family history is largely unknown. Review of Systems: A complete review of systems was negative except as mentioned in the History of Present Illness. Objective & Physical Exam: BP 120/76 Pulse 86 Ht 1.676 m (5' 6) Wt 75.2 kg (165 lb 12.8 oz) LMP 08/04/2018 BMI 26.76kg/m?? Wt Readings from Last 2 Encounters: 12/17/18 75.2 kg (165 lb 12.8 oz) 12/02/18 73.6 kg (162 lb 3.2 oz) Body mass index is 26.76 kg/m??. Body surface area is 1.87 meters squared. Constitutional: appears stated age, in no apparent distress, appears to be well nourished Eyes: sclera anicteric, conjunctiva normal, no lesions on eyelids or lashes ENT: normocephalic, without obvious abnormality, atraumatic, external ears without lesions, Pulmonary: clear to auscultation bilaterally, no wheezes, no rales, no increased work of breathing Cardiovascular: JVP normal, regular rate, regular rhythm, normal S1 and S2, no S3, S4, soft 2/6 holosystolic murmur best auscultated at the apex with radiation to the axilla, no snap or click heard Gastrointestinal: abdominal exam benign, non-tender, no rigidity, no guarding Neurologic: awake, alert, face symmetrical, moves all extremities Skin: no abnormal rashes or lesions on limited exam, nails normal without discoloration or clubbing,no jaundice Psychiatric: affect is normal, answers questions appropriately, oriented to self and place Labs reviewed: Lab Results Component Value Date WBC 7.1 10/06/2018 RBC 4.49 10/06/2018 HGB 12.7 10/06/2018 HCT 38.2 10/06/2018 MCV 85 10/06/2018 MCH 28.3 10/06/2018 MCHC 33.2 10/06/2018 RDW 12.6 10/06/2018 PLT 244 10/06/2018 Prior select studies: TTE 12/15/2018 Interpretation Summary Left ventricular systolic function is [...] noted. There is no comparison study available. 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 Overall she is doing well from a cardiovascular standpoint. We discussed her diagnosis and echocardiogram at length. She is able to run 2 to 3 miles a day without concerning symptoms. No recent change in functional capacity. She does not have any symptoms concerning for heart failure. TTE 12/15/2018 shows mild to moderate mitral regurgitation. LV is not dilated. Normal biventricular function. TTE reports from when she was a child up until when she was 15 years old reported moderate mitral regurgitation, suggesting stability. She does not require specific medical therapy for her mitral valve disease at this time. Indeed, thehemodynamic changes associated with have been reported to result in improvement in symptoms related to mitral insufficiency, though our patient is absent symptoms at baseline. A cleft mitral valve is often associated with an interatrial shunt, this is not seen on the echocardiogram she had done recently, nor was this ever mentioned on the prior pediatric cardiology notes from [facility] that were scanned in. I think it will be important for her to be evaluated by an adult congenital vaccine specialist to establish care, especially because she and her may consider having more children in the future. Ruth Ann asked my colleague Dr. Addison to please see Mrs. Resendiz in clinic, I appreciate her expertise. Thank you for allowing our team to participate in the care of Mally Resendiz. Please do not hesitate tocall or page me with any questions or concerns. Sincerely, Refugio Martins MD Cardiology - [facility] Heart Pager: [phone] Text Page December 16, 2018 cc Li Pritchard, LIFE SKILLS SPECIALIST CN [address] [place] [address] documented in this encounter Plan of Treatment Scheduled Referrals Name Type Priority Associated Diagnoses Order S [facility] Cong[facility] Referral Routine Congenital cleft Expected: 12/24/2018 leaflet of rufino l valve (Approximate), Mitral regurgitation, s: 12/18/2019 congenital documented as of this encounter Procedures Procedure Name Priority Date/Time Associated Diagnosis Comme nts EKG 12-LEAD Routine 12/17/2018 11:33 AM Heart murmur Results for this COMPLETE W/READ - CDT procedure are in CLINICS the results section. documented in this encounter Results EKG 12-lead complete w/read - Clinics (performed today) (12/17/2018 11:33 AM CDT) Narrative This result has an attachment that is no t available. Refugio Martins MD ECG ORDERABLES documented in this encounter Visit Diagnoses Diagnosis Heart murmur - Primary Undiagnosed cardiac murmurs Congenital cleft leaflet of mitral valve Congenital mitral stenosis Mitral regurgitation, congenital Congenital mitral insufficiency documented in this encounter Additional Health Concerns Assessment Noted Time PHQ-9 Depression Total Score: 1 10/06/2018 9:27 AM CDT documented as of this encounter Care Teams Behavioral Science Chair Relationship Specialty Start Date End Date No Ref-Primary, Physician PCP - General 10/06/18 04/18/19 Reynaldo Amador PA-C 10/06/18 05/13/[address] [address] documented as of this encounter
--- OUTSIDE RECORDS SUMMARY | 2021-10-30 15:28 | XMS_ITS | Encounter Summary ---
:1990 Author Organization [place] Address [facility] [place] [address] Care Team Providers Name Role Phone No Ref-Primary, Physician Primary Care Provider [phone] Reynaldo Amador PA-C Unavailable [phone] Encounter Details Date Type Department Care Team Description 10/13/2018 Orders Only [facility] etic screening; for Women [place] Encounter for supervision of normal first in first trimester [address] [place] [address] [address] [place] [phone] Social History Tobacco Use Types Packs/Day Years [...] Name Priority Date/Time Associated Diagnosis Comme nts INVITAE Routine 10/13/2018 10:25 AM Encounter for Results for this NON-INVASIVE CDT supervision of procedure are in SCREENING normal first the resul ts in first section. trimester Genetic screening PREPARENT STANDARD Routine 10/13/2018 10:24 AM Genetic screeni ng Results for this PANEL CDT procedure are i n the results section. documented in this encounter Results Non Invasive Test Cell Free DNA (10/13/2018 10:25 AM CDT) [facility] Signature Lab Scanned NON INVAS MISYS Result DNA-Scanned Specimen (Source) Anatomical Collection Method Collection Time Re ceived Time Location / / Volume Laterality Blood specimen 10/13/2018 10:25 (specimen) AM CDT Narrative This result has an attachment that is no t available. Lisa Bowens APRN, CNM LAB - BLOOD ORDERABLES Performing Organization Address City/State/ZIP Code Phon e Number MISYS Preparent Standard Panel (10/13/2018 10:24 AM CDT) [facility] gist Method Time Signature Lab Scanned PREPARENT MISYS Result STANDARD-Scan eun Specimen (Source) Anatomical Collection Method Collection Time Re ceived Time Location / / Volume Laterality Blood specimen 10/13/2018 10:24 (specimen) AM CDT Narrative This result has an attachment that is no t available. Lisa Bowens APRN, CNM LAB - BLOOD ORDERABLES Performing Organization Address City/[facility]/ZIP Code Phon e Number MISYS documented in this encounter Visit Diagnoses Diagnosis Genetic screening Other genetic screening Encounter for supervision of normal firs t in first trimester Supervision of normal first documented in this encounter Additional Health Concerns Assessment Noted Time PHQ-9 Depression Total Score: 1 10/06/2018 9:27 AM CDT documented as of this encounter Care Teams Account Underwriter Relationship Specialty Start Date End Date No Ref-Primary, Physician PCP - General 10/06/18 04/18/19 Reynaldo Amador PA-C 10/06/18 05/13/[address] [address] documented as of this encounter
--- OUTSIDE RECORDS SUMMARY | 2021-10-30 15:28 | XMS_ITS | Encounter Summary ---
:1990 Author Organization [place] Address [facility] [place] [address] Care Team Providers Name Role Phone No Ref-Primary, Physician Primary Care Provider Reynaldo Amador PA-C Unavailable Zuleyma Winter MD Unavailable [phone] Reason for Visit Reason Comments Care us Encounter Details Date Type Department Care Team Description 01/07/2019 Office [facility] Jared Pritchard, PROGRAM DIRECTOR SCOUTING CNM [address] [place] [address] Screening, for growth re tardation with ultrasound; [facility] BowensLisa, TAVARES CN [address] [place], [place] [id number] Encounter for supervision of normal firs t in second trimester [place] [address] [facility] [address] [place] [address] Social History Tobacco Use Types Packs/Day Years Used Date Never Smoker 0 Smokeless Tobacco: Never Used Alcohol Use Standard Drinks/Week Comments Not Currently 0 (1 standard drink = 0.6 oz pure alcoho l) Sex Assigned at Date Recorded Female 10/07/2018 7:21 AM CDT documented as of this encounter Last Filed Vital Signs Vital Sign Reading Time Taken Comments Blood Pressure 108/62 01/07/2019 1:18 PM CDT Pulse - - Temperature - - Respiratory Rate - - Oxygen Saturation - - Inhaled Oxygen Concentration - - Weight 77.6 kg (171 lb) 01/07/2019 1:18 PM CDT Height 167.6 cm (5' 6) 01/07/2019 1:18 PM CDT Body Mass Index 27.6 01/07/2019 1:18 PM CDT documented in this encounter Progress Notes Lisa Bowens APRN CNM - 01/07/2019 1:00 PM CDT Feels well, has appt with PCP 01/22 to get referral to MFM. Doing GCT here right before movement: positive Denies loss of fluid/vb/contractions Anatomy complete; RVOT well seen and nomral, EFW 464g, 39% GCT visit between 24-28 weeks, handout provided, reminded of longer appointment Round ligament pain and comfort measures reviewed Return to clinic 4 weeks *Ask about H2O and Hep C Lisa Bowens APRN, CNM documented in this encounter Nursing Notes Carlito Bahena CMA - 01/07/2019 1:00 PM CDT Chief Complaint Patient presents with ??? Care us fu Initial BP 108/62 Ht 1.676 m (5' 6) Wt 77.6 kg (171 lb) LMP 08/04/2018 BMI 27.60 kg/m?? Estimated body mass index is 27.6 kg/m?? as calculated from the following: Height as of this encounter: 1.676 m (5' 6). Weight as of this encounter: 77.6 kg (171 lb). BP completed using cuff size: regular Questioned patient about current smoking habits. Pt. has never smoked. The following HM Due: NONE Carlito Bahena MA documented in this encounter Plan of Treatment Not on filedocumented as of this encounter Visit Diagnoses Diagnosis Screening, for growth re tardation with ultrasound screening for growth ret ardation using ultrasonics Encounter for supervision of normal firs t in second trimester Supervision of normal first documented in this encounter Additional Health Concerns Assessment Noted Time PHQ-9 Depression Total Score: 1 10/06/2018 9:27 AM CDT documented as of this encounter Care Teams Floor Renovator Relationship Specialty Start Date End Date No Ref-Primary, Physician PCP - General 10/06/18 04/18/19 Reynaldo Amador PA-C 10/06/18 05/13/[address] [id number] Zuleyma Winter MD Assigned PCP 12/31/18 [address] [id number] documented as of this encounter
--- OUTSIDE RECORDS SUMMARY | 2021-10-30 15:28 | XMS_ITS | Encounter Summary ---
:1990 Author Organization Michael Address [facility]ly [facility] [place] [address] Care Team Providers Name Role Phone No Ref-Primary, Physician Primary Care Provider [phone] Reynaldo Amador PA-C Unavailable [phone] Reason for Visit Reason Comments Care Encounter Details Date Type Department Care Team Description 10/06/2018 Office [facility] Lisa Bowens for supervision of normal first in first trimester (Primary Dx); [facility] TAVARES Urbina CNM Genetic screening; [place] [address] [facility] JOSÉ LUIS S Adopted; [address] [facility] 100 Spotting [place] [address] [facility] 100 [place], [place] (Work) [address] [phone] Social History Tobacco Use Types Packs/Day Years Used Date Never Smoker Smokeless Tobacco: Never Used Alcohol Use Standard Drinks/Week Comments Not Currently 0 (1 standard drink = 0.6 oz pure alcoho l) Sex Assigned at Date Recorded Female 10/07/2018 7:21 AM CDT documented as of this encounter Last Filed Vital Signs Vital Sign Reading Time Taken Comments Blood Pressure 127/84 10/06/2018 9:32 AM CDT Pulse 80 10/06/2018 9:32 AM CDT Temperature - - Respiratory Rate - - Oxygen Saturation - - Inhaled Oxygen Concentration - - Weight 73.5 kg (162 lb) 10/06/2018 9:32 AM CDT Height 167.6 cm (5' 6) 10/06/2018 9:32 AM CDT Body Mass Index 26.15 10/06/2018 9:32 AM CDT documented in this encounter Patient Instructions Patient KeyshawnJose GuadalupeLisa harrisonTAVARESM - 10/06/2018 9:20 AM CDT Thank you for coming to see the Midwives at the [facility]! ?? We will notify you about your labs that were drawn today once we get the results back. If you have MyChart your lab results will be posted there. ?? Someone from the clinic will call you personally or send you a [employer] message with your results. ?? If you need any refills of medications please call your pharmacy and they will contact us. ?? If you have a medical emergency please call 911. ?? If you have any concerns about today's visit, wish to schedule another appointment, or have an urgent medical concern please call our office at [phone]. You can also make appointments through [employer]. ?? After hours you may also call the clinic number above to be connected with [facility]. The nurse can page the general engineering teacher sales applications engineer if needed. There is always a general engineering teacher sales applications engineer 24hours a day. Care Recommendations: Before 14 weeks: Dating ultrasound, genetic testing This ultrasound helps us determine your dates accurately. Innatal (genetic screening test) can be drawn anytime after 10 weeks of gestation. 16 weeks: Optional genetic testing single AFP This testing helps understand your baby's risk for some genetic abnormalities. 18-22 weeks: Screening anatomy ultrasound This testing will look for early growth abnormalities, placenta location, and may tell the baby's gender if you wish to find out. 24-27 weeks: One hour diabetes test (GCT) and complete blood count This test helps identify diabetes of or gestational diabetes. We also look at the iron inyour blood and how well your blood clots. 28 - 36 weeks: Tetanus shot (Tdap) This shot helps protect you and your baby from whooping cough. 36 weeks and later: Group B Strep test (GBS) This test helps predict if you need antibiotics in labor to prevent infection for your baby. Anytime November to June: Flu shot This shot helps protect you and your family from the flu. This is especially important during . The typical schedule after your first visit today you can expect: Visit 2 - 12-16 weeks Visit 3 - 20 weeks Visit 4 - 24 weeks Visit 5 - 28 weeks Visit 6 - 30 weeks Visit 7 - 32 weeks Visit 8 - 34 weeks Visit 9 - 36 weeks Weekly after 36 weeks until delivery. Any time during or after your you may experience increased depression and/or mood changes. We are here to support you. Please contact us if you are: ?? Feeling anxious ?? Overwhelmed or sad ?? Trouble sleeping ?? Crying uncontrollably ?? Trouble caring for yourself or baby. ?? Any thoughts of hurting yourself, your baby, or anyone else If anything comes up between your visits or you have concerns please don't hesitate to contact us. Secure access to your medical record: Use [employer] (secure email communication and access to your chart) to send your primary care providera message or make an appointment. Ask someone on your Team how to sign up for [employer]. To log on to [employer] or for more information in [employer] please visit the website at [email or web address]. Certified Nurse Harbor Department Manager (CNM) Team HARI Greenfield APRN, APRN, HARI Porras, TAVARES, HARI, [facility]- Dane Dozier DNP, TAVARES, HARI Again, thank you for choosing the midwives at [facility]. We are excited to be a partof your . Please let us know how we can best partner with you to improve your and your family's health. documented in this encounter Progress Notes Lisa Bowens APRN CNM - 10/06/2018 9:20 AM CDT SUBJECTIVE: HPI: This is a 28 year old female patient, who presents for her first obstetrical visit. Here with Keanu. 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 Main question is about her spotting in early , mainly after intercourse, just when she wipes but feels worrisome. RAISA: 05/11/2019, by Last Menstrual Period. She is 9w0d weeks. Her cycles are regular. Her last menstrual period was normal. Since her LMP, she has had no complaints). She denies nausea, emesis, abdominal pain, fatigue, headache, loss of appetite, vaginal discharge, dysuria, pelvic pain, urinary urgency, lightheadedness, urinary frequency, vaginal bleeding, hemorrhoids and constipation. 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 No pertinent past medical history.. She has a history of first Since her last LMP she denies use of alcohol, tobacco and street drugs. Past medical, surgical, social and family history were reviewed and updated in [facility]. Current Outpatient Medications Medication ??? Prenat w/o C-EF-Hkddsso-FA-DHA (PNV-DHA PO) No current facility-administered medications for this visit. OBJECTIVE: EXAM: BP 127/84 (BP Location: Left arm, Patient Position: Sitting, Cuff Size: Adult Regular) Pulse 80 Ht 1.676 m (5' 6) Wt 73.5 kg (162 lb) LMP 08/04/2018 BMI 26.15 kg/m?? Body mass index is 26.15kg/m??. GENERAL: healthy, alert and no distress EYES: Eyes grossly normal to inspection, PERRL and conjunctivae and sclerae normal HENT: ear canals and TM's normal, nose and mouth without ulcers or lesions NECK: no adenopathy, no asymmetry, masses, or scars and thyroid normal to palpation RESP: lungs clear to auscultation - no rales, rhonchi or wheezes CV: regular rate and rhythm, normal S1 S2, no S3 or S4, no murmur, click or rub, no peripheral edemaand peripheral pulses strong ABDOMEN: soft, nontender, no hepatosplenomegaly, no masses and bowel sounds normal MS: no gross musculoskeletal defects noted, no edema SKIN: no suspicious lesions or rashes NEURO: Normal strength and tone, mentation intact and speech normal PSYCH: mentation appears normal, affect normal/bright ASSESSMENT/PLAN: ICD-10-CM 1. Encounter for supervision of normal first in first trimester Z34.01 ABO/Rh type and screen Hepatitis B surface antigen CBC with platelets HIV Antigen Antibody Combo Rubella Antibody IgG Quantitative Treponema Abs w Reflex to RPR and Titer Urine Culture Aerobic Bacterial *UA reflex to Microscopic Non Invasive Test Cell Free DNA TSH with free T4 reflex Vitamin D Deficiency 2. Genetic screening Z13.79 Non Invasive Test Cell Free DNA Preparent Standard Panel 3. Adopted Z02.82 4. Spotting in first trimester O26.851 28 year old , 9w0d weeks of with RAISA of 05/11/2019, by Last Menstrual Period consult for US for AMA patients: NA Genetic Testing reviewed and discussed, patient desires Innatal, consent signed. Handout provided. Also discussed preparent, good option with her history of adoption.Order futured. I signed consent andwill leave with lab, she will sign if desired when she returns for blood draw in 1 week. COUNSELING ?? Instructed on use of triage nurse line and contacting the sales applications engineer CNM after hours in an emergency. ?? Reviewed causes of bleeding in , no evidence of ALTHEA, recommend pelvic exam and to continue to abstain from intercourse until we can do an exam, call if bleeding gets heavier ?? Pap next visit ?? Symptoms of N&V and fatigue usually start to resolve around 12-16 weeks ?? Reviewed CNM philosophy, call schedule for labor and delivery, and FSH for delivery ?? 1st OB handout given outlining appointment spacing and CNM information ?? Reviewed exercise and nutrition, HR below 140, reviewed running okay as long as she feels well ?? Recommend to gain 25-35 pounds with her . ?? Encouraged patient to take PNV's/DHA ?? Travel precautions discussed, no air travel after 36 weeks and Zika Virus discussed ?? Will call patient with lab results when available F/U to be addressed next visit: Need pelvic exam with Pap, offer GC and examine for cause of vaginalspotting, no evidence of ALTHEA on US Will return to the clinic in 3 weeks for her next routine check. Will call to be seen sooner if problems arise. Lisa Bowens APRN CNM documented in this encounter Miscellaneous Notes Result Encounter Note - Tasia, Lynnsie Aide, SLAT BASKET MAKER HELPER CNM - 10/06/2018 9:20 AM CDT Alphonso Bal, All of your labs came back in perfect range. If you have questions or concerns, please let us know. Thanks, Dane Dozier, SHWETA, SLAT BASKET MAKER HELPER, CNM documented in this encounter Plan of Treatment Not on filedocumented as of this encounter Procedures Procedure Name Priority Date/Time Associated Diagnosis Comme nts RUBELLA ANTIBODY IGG Routine 10/06/2018 10:35 Encounter for Re sults for this AM CDT supervision of procedure are in normal first the results in first section. trimester HIV ANTIGEN ANTIBODY Routine 10/06/2018 10:35 Encounter for Re sults for this COMBO AM CDT supervision of procedure are in normal first the results in first section. trimester TREPONEMA ABS W Routine 10/06/2018 10:35 Encounter for Results for this REFLEX TO RPR AND AM CDT supervision of procedur e are in TITER normal first the results in first section. trimester VITAMIN D DEFICIENCY Routine 10/06/2018 10:35 Encounter for Re sults for this SCREENING AM CDT supervision of procedure are in normal first the results in first section. trimester TSH WITH FREE T4 Routine 10/06/2018 10:35 Encounter for Result s for this REFLEX AM CDT supervision of procedure are in normal first the results in first section. trimester HEPATITIS B SURFACE Routine 10/06/2018 10:35 Encounter for Res ults for this ANTIGEN AM CDT supervision of procedure are in normal first the results in first section. trimester ABO/RH TYPE AND Routine 10/06/2018 10:35 Encounter for Results for this SCREEN AM CDT supervision of procedure are in normal first the results in first section. trimester CBC WITH PLATELETS Routine 10/06/2018 10:35 Encounter for Resu lts for this AM CDT supervision of procedure are in normal first the results in first section. trimester UA MACROSCOPIC WITH Routine 10/06/2018 9:42 AM Encounter for R esults for this REFLEX TO MICRO CDT supervision of procedure are in normal first the results in first section. trimester URINE CULTURE Routine 10/06/2018 9:42 AM Encounter for Results for this CDT supervision of procedure are in normal first the results in first section. trimester documented in this encounter Results Non Invasive Test Cell Free DNA (10/13/2018 10:25 AM CDT) [facility] Method Time Signature Lab Scanned NON INVAS MISYS Result DNA-Scanned Specimen (Source) Anatomical Collection Method Collection Time Re ceived Time Location / / Volume Laterality Blood specimen 10/13/2018 10:25 (specimen) AM CDT Narrative This result has an attachment that is no t available. Lisa GALARZA LAB - BLOOD ORDERABLES Performing Organization Address [facility] Phon e Number MISYS Preparent Standard Panel (10/13/2018 10:24 AM CDT) [facility] Method Time Signature Lab Scanned PREPARENT MISYS Result STANDARD-Scan eun Specimen (Source) Anatomical Collection Method Collection Time Re ceived Time Location / / Volume Laterality Blood specimen 10/13/2018 10:24 (specimen) AM CDT Narrative This result has an attachment that is no t available. Lisa GALARZA LAB - BLOOD ORDERABLES Performing Organization Address [facility] Phon e Number MISYS Vitamin D Deficiency (10/06/2018 10:35 AM CDT) athologist Signature Vitamin D 32 20 - 75 10/07/2018 [facility] Deficiency ug/L 10:02 AM CDT ID MEDICAL screening CENTER [facility] Comment: Season, race, dietary intake, and treatm ent affect the concentration of 76-frdbmbp-Yvkungi D. Values may decreas e during winter months and increase during summer months. Values 20-29 ug/L may indicate Vitamin D insufficiency and values <20 ug/L may indicate Vitamin D deficiency. Vitamin D determination is routinely per formed by an immunoassay specific for 25 hydroxyvitamin D3. ??If an individual is on vitamin D2 (ergocalciferol) supplementation, please specify 25 OH vi tamin D2 and D3 level determination by LCMSMS test VITD23. Specimen Anatomical Collection Method Collection Time Receive d Time (Source) Location / / Volume Laterality Blood specimen 10/06/2018 10:35 9 (specimen) AM CDT 10:36 AM CDT Lisa Bowens APRN, CNM LAB - BLOOD ORDERABLES Performing Organization Address City/State/ZIP Code Phon e Number [facility] [address] [place] [address] [facility] TSH with free T4 reflex (10/06/2018 10:35 AM CDT) athologist Signature TSH 2.59 0.40 - 4.00 10/07/2018 [facility] mU/L 8:[address] [facility] Specimen Anatomical Collection Method Collection Time Receive d Time (Source) Location / / Volume Laterality Blood specimen 10/06/2018 10:35 9 (specimen) AM CDT 10:36 AM CDT Lisa Bowens APRN, CNM LAB - BLOOD ORDERABLES Performing Organization Address City/[facility]/ZIP Code Phon e Number [facility] [address] [place] [address] Treponema Abs w Reflex to RPR and Titer (10/06/2018 10:35 AM CDT) Patholo gist Method Time Signature Treponema Nonreactive NR^Nonrea 10/07/2018 INFECTIOUS Antibodies ctive 10:40 AM CDT [facility] Specimen Anatomical Collection Method Collection Time Receive d Time (Source) Location / / Volume Laterality Blood specimen 10/06/2018 10:35 9 (specimen) AM CDT 10:36 AM CDT Lisa Bowens APRN, CNM LAB - BLOOD ORDERABLES Performing Organization Address City/State/ZIP Code Phon e Number INFECTIOUS [facility] [address] [place] [address] DIAG[facility]STIC LABORATORY, [facility] INFECTIOUS DISEASES [address] [place] [address], A [facility] Rubella Antibody IgG Quantitative (10/06/2018 10:35 AM CDT) Analysis Performed At Patho logist Time Signature Rubella Antibody 22 IU/mL 10/07/2018 INFECTIOUS IgG Quantitative 10:40 AM CDT [facility] Comment: Positive. ??Suggests previous exposure o r immunization and probable immunity Reference Range: ??Unvaccinated Negative 0-7 IU/mL Vaccinated or previous exposure Positive 10 IU/ml or greater Specimen Anatomical Collection Method Collection Time Receive d Time (Source) Location / / Volume Laterality Blood specimen 10/06/2018 10:35 9 (specimen) AM CDT 10:36 AM CDT Lisa Bowens APRN, CNM LAB - BLOOD ORDERABLES Performing Organization Address City/[facility]/ZIP Code Phon e Number INFECTIOUS DISEASES [address] [place] [address] DIAGNOSTIC LABORATORY, [facility] INFECTIOUS DISEASES [address] [place] [address], A [facility]IC LAB[facility]ORY HIV Antigen Antibody Combo (10/06/2018 10:35 AM CDT) [facility] gist Method Time Signature HIV Antigen Nonreactive NR^Nonrea 10/07/2018 [facility] ctive 10:02 AM CDT ID MEDICAL Combo CENTER [facility] Comment: HIV-1 p24 Ag & HIV-1/HIV-2 Ab N ot Detected Specimen Anatomical Collection Method Collection Time Receive d Time (Source) Location / / Volume Laterality Blood specimen 10/06/2018 10:35 9 (specimen) AM CDT 10:36 AM CDT Lisa Bowens APRN, CNM LAB - BLOOD ORDERABLES Performing Organization Address City/[facility]/ZIP Code Phon e Number [address] [address] [facility] CBC with platelets (10/06/2018 10:35 AM CDT) P athologist Signature WBC 7.1 4.0 - 11.0 10/06/2018 [facility] 10e9/L 10:52 AM CDT [facility] RBC Count 4.49 3.8 - 5.2 10/06/2018 [facility] 10e12/L 10:52 AM CDT [facility] Hemoglobin 12.7 11.7 - 10/06/2018 [facility] 15.7 g/dL 10:52 AM CDT [facility] Hematocrit 38.2 35.0 - 10/06/2018 [facility] 47.0 % 10:52 AM CDT [facility] MCV 85 78 - 100 10/06/2018 [facility] fl 10:52 AM CDT [facility] MCH 28.3 26.5 - 10/06/2018 [place] 33.0 pg 10:52 AM CDT [facility] MCHC 33.2 31.5 - 10/06/2018 [place] 36.5 g/dL 10:52 AM CDT [facility] RDW 12.6 10.0 - 10/06/2018 [place] 15.0 % 10:52 AM CDT [facility] Platelet Count 244 150 - 450 10/06/2018 [place] 10e9/L 10:52 AM CDT [facility] Specimen Anatomical Collection Method Collection Time Receive d Time (Source) Location / / Volume Laterality Blood specimen 10/06/2018 10:35 9 (specimen) AM CDT 10:36 AM CDT Lisa Bowens APRN, CNM LAB - BLOOD ORDERABLES Performing Organization Address City/[facility]/ZIP Code Phon e Number [facility] [address] [place] [phone] [facility] 100 Hepatitis B surface antigen (10/06/2018 10:35 AM CDT) [facility] Energy Excelerator Method Time Signature Hep B Surface Nonreactive NR^Nonrea 10/07/2018 [facility] ctive 10:02 AM CDT [facility] Specimen Anatomical Collection Method Collection Time Receive d Time (Source) Location / / Volume Laterality Blood specimen 10/06/2018 10:35 9 (specimen) AM CDT 10:36 AM CDT Lisa Bowens APRN, CNM LAB - BLOOD ORDERABLES Performing Organization Address City/State/ZIP Code Phon e Number [facility] [address] [place] [address] [facility] ABO/Rh type and screen (10/06/2018 10:35 AM CDT) [facility] [employer] Method Time Signature ABO B 10/06/2018 [facility] 7:19 PM CDT [facility] RH(D) Pos [facility] Antibody Neg 10/06/2018 [facility] Screen 7:19 PM CDT [facility] Test Valid Michael 10/06/2018 [facility] Only At [facility] 6:44 PM CDT [facility] Specimen 10/09/2018 10/06/2018 [facility] Expires 6:44 PM CDT [facility] Specimen Anatomical Collection Method Collection Time Receive d Time (Source) Location / / Volume Laterality Blood specimen 10/06/2018 10:35 9 (specimen) AM CDT 10:36 AM CDT Lisa Bowens TAVARES NORIEGA LAB - BLOOD BANK TEST ORDER Performing Organization Address City/State/ZIP Code Phon e Number [facility] [address] [address] [facility] [address] [place] [address], U [place] [phone] *UA reflex to Microscopic (10/06/2018 9:42 AM CDT) [facility] Method Time Signature Color Urine Yellow 10/06/2018 [place] 10:51 AM [facility] Appearance Urine Clear 10/06/2018 [facility] 10:51 AM [facility] Glucose Urine Negative NEG^Negat 10/06/2018 [place] javier mg/dL 10:51 AM [facility] Bilirubin Urine Negative NEG^Negat 10/06/2018 [facility] javier 10:51 AM [facility] Ketones Urine Negative NEG^Negat 10/06/2018 [place] jaiver mg/dL 10:51 AM [facility] Specific [address] [place] 1.010 1.003 - 10/06/2018 [place] Urine 1.035 10:51 AM [facility] Blood Urine Negative NEG^Negat 10/06/2018 [facility] javier 10:51 AM [facility] pH Urine 7.0 5.0 - 7.0 10/06/2018 [place] pH 10:51 AM [facility] Protein Albumin Negative NEG^Negat 10/06/2018 [place] Urine javier mg/dL 10:51 AM [facility] Urobilinogen 0.2 0.2 - 1.0 10/06/2018 [place] Urine EU/dL 10:51 AM [facility] Nitrite Urine Negative NEG^Negat 10/06/2018 [place] javier 10:51 AM [facility] Leukocyte Negative NEG^Negat 10/06/2018 [place] Esterase Urine javier 10:51 AM [facility] Source Midstream 10/06/2018 [facility] Urine 9:43 AM CDT [facility] Specimen (Source) Anatomical Collection Method Collection Time Re ceived Time Location / / Volume Laterality Examination of 10/06/2018 9:42 10/06/2018 9:43 midstream urine AM CDT AM CDT specimen (procedure) Lisa Bowens APRN, CNM LAB - URINE ORDERABLES Performing Organization Address City/[facility]/ZIP Code Phon e Number [facility] [address] [place] [address] [facility] 100 Urine Culture Aerobic Bacterial (10/06/2018 9:42 AM CDT) Component Value Ref Test Analysis Performed At [facility] Range Method Time Signature Specimen Midstream Urine INFECTIOUS Description [facility] Special Specimen 10/06/2018 INFECTIOUS Requests received in 10:01 PM [facility] preservative CDT [facility] LAB[facility] Culture Micro No growth 10/08/2018 INFECTIOUS 5:08 AM CDT [facility] Specimen (Source) Anatomical Collection Method Collection Time Re ceived Time Location / / Volume Laterality Examination of 10/06/2018 9:42 10/06/2018 9:43 midstream urine AM CDT AM CDT specimen (procedure) Lisa Bowens APRN, CNM LAB - MICRO GENERAL OR DERABLES Performing Organization Address City/[facility]/ZIP Code Phon e Number INFECTIOUS [facility] [address] [place] [address] DIAGNOSTIC LABORATORY, [facility] INFECTIOUS DISEASES [address] [place] [address], A [facility] LAB[facility] documented in this encounter Visit Diagnoses Diagnosis Encounter for supervision of normal firs t in first trimester - Primary Supervision of normal first Genetic screening Other genetic screening Adopted Encounters for other specified administr ative purpose Spotting in first trimester Spotting complicating , antepar armin condition or complication documented in this encounter Additional Health Concerns Assessment Noted Time PHQ-9 Depression Total Score: 1 10/06/2018 9:27 AM CDT documented as of this encounter Care Teams Grip Relationship Specialty Start Date End Date No Ref-Primary, Physician PCP - General 10/06/18 04/18/19 Reynaldo Amador PA-C 10/06/18 05/13/[address] [address] documented as of this encounter
--- OUTSIDE RECORDS SUMMARY | 2021-10-30 15:28 | XMS_ITS | Encounter Summary ---
:1990 Author Organization [place] Address [facility] [place] [address] Care Team Providers Name Role Phone No Ref-Primary, Physician Primary Care Provider Reynaldo Amador PA-C Unavailable [phone] Encounter Details Date Type Department Care Team Description 12/15/2018 Travel Social History Tobacco Use Types Packs/Day [...] as of this encounter Care Teams It Senior Analyst Relationship Specialty Start Date End Date No Ref-Primary, Physician PCP - General 10/06/18 04/18/19 Reynaldo Amador PA-C 10/06/18 05/13/[address] [address] documented as of this encounter
--- OUTSIDE RECORDS SUMMARY | 2021-10-30 15:28 | XMS_ITS | Encounter Summary ---
:1990 Author Organization [place] Address [facility] [place] [address] Care Team Providers Name Role Phone No Ref-Primary, Physician Primary Care Provider Reynaldo Amador PA-C Unavailable Zuleyma Winter MD Unavailable [phone] Zuleyma Winter MD Primary Care Provider Lisa Bowens APRN, CNM Unavailable [phone] May, Reuben Pereira MD Unavailable Chata Deleon MD Unavailable Lisa Bowens APRN, CNM Unavailable [phone] Chata Deleon MD Unavailable Reason for Referral (Routine) - Closed Specialty Diagnoses / Procedures Referred By Contact Refer red To Contact Diagnoses related condition, antepartum Dane Dozier APRN CNM [facility] [address] [address] Referral ID Status Reason Start Date Expiration Date Visits Requ ested Visits Authorized [id number] Closed 12/03/2018 12/03/2019 1 1 Encounter Details Date Type Department Care Team Description 12/03/2018 Transcribe Orders [facility] Tasia Sendysallie Brown regnancy related Maternal TAVARES Noble CNM condition, Medicine Center BURGOON JASON antepartum (Primary [facility] CLINIC Dx) [address] [place], [place] [address] [address] [place] [address] [phone] Social History Tobacco Use Types Packs/Day Years Used Date Never Smoker Smokeless Tobacco: Never Used Alcohol Use Standard Drinks/Week Comments Not Currently 0 (1 standard drink = 0.6 oz pure alcoho l) Sex Assigned at Date Recorded Female 10/07/2018 7:21 AM CDT documented as of this encounter Plan of Treatment Scheduled Referrals Name Type Priority Associated Diagnoses Order S fer [facility] Office Visit Referral Routine Related 1 Occu rrences starting Condition, Antepartum 2018 until 12/03/2019 documented as of this encounter Visit Diagnoses Diagnosis related condition, antepartum - Primary documented in this encounter Additional Health Concerns Assessment Noted Time PHQ-9 Depression Total Score: 1 10/06/2018 9:27 AM CDT documented as of this encounter Care Teams Orientation And Mobility Instructor Relationship Specialty Start Date End Date No Ref-Primary, PCP - General 10/06/18 04/18/19 Physician Zuleyma Winter, PCP - General Family Practice 04/19/19 [address] [place], [place] [address] Reynaldo Amador, 10/06/1805/13 PA-C [address] [address] Zuleyma Winter, Assigned PCP 12/31/18 [address] [address] [place] [address] Lisa Bowens Assigned OBGYN Provider 01/14/20 09/02/20 TAVARES Urbina CNM [address] [place], [place] [address] Reuben Addison, Assigned Heart and 01/14/20 10/14/20 Vascular Provider [address] [place] [address] Cahta Deleon Assigned OBGYN Provider 09/03/20 10/14/20 MD Zuleyma [address] [place], [place] [address] Lisa Bowens Assigned OBGYN Provider 10/15/20 10/21/20 TAVARES Urbina CNM [address] [place], [place] [address] Chata Deleon Assigned OBGYN Provider 10/22/20 11/04/20 MD Zuleyma [address] [place], [place] [address] documented as of this encounter
--- OUTSIDE RECORDS SUMMARY | 2021-10-30 15:28 | XMS_ITS | Encounter Summary ---
:1990 Author Organization [place] Address [facility] [place] [address] Care Team Providers Name Role Phone No Ref-Primary, Physician Primary Care Provider [phone] Reynaldo Amador PA-C Unavailable [phone] Reason for Visit Reason Onset Date Comments Referral 12/14/2018 Encounter Details Date Type Department Care Team Description 12/14/2018 Telephone [facility] for Sendy Dozier, Referral Women Blossom [facility] [address] [facility] [address] [place] [address] [address] [facility] [phone] 100 [place], [place] [address] (Wo rk) Social History Tobacco Use Types Packs/Day Years Used Date Never Smoker Smokeless Tobacco: Never Used Alcohol Use Standard Drinks/Week Comments Not Currently 0 (1 standard drink = 0.6 oz pure alcoho l) Sex Assigned at Date Recorded Female 10/07/2018 7:21 AM CDT documented as of this encounter Miscellaneous Notes Telephone Encounter - Josie Osullivan RN - 12/15/2018 3:59 PM CDT Called pt to f/u Left detailed vm instructing to call back if she needs any further information for her future apts as discussed yesterday. If she has everything or the clinic has what they need, great. If not, please call and speak with nurse. Josie Osullivan RN on 12/15/2018 at 4:00 PM Telephone Encounter - Josie Osullivan RN - 12/14/2018 3:22 PM CDT Pt has Echocardiogram 12/15 at [facility] apt to review with supervisor clam bed at the [facility] Was told to contact her primary to approve referral Unsure what pt was requesting as the referral is in place as of 12/02/18 along with the Echo referral12/03/18 by Li Pritchard CNM Pt will call clinic again and get more information and call [facility] back when she verifies what we needto do on our end. Josie Osullivan RN on 12/14/2018 at 3:56 PM Telephone Encounter - Elvira Milian RN - 12/14/2018 2:35 PM CDT LMTCB Telephone Encounter - Omaira Ardon - 12/14/2018 12:40 PM CDT Patient returning call - please call back Telephone Encounter - Elvira Milian RN - 12/14/2018 12:27 PM CDT LMTCB Pt has appointment with [facility] on 12/17/18 at 1:30 pm. Telephone Encounter - Velma Borja - 12/14/2018 12:18 PM CDT Patient calling to check status of cardiology referral, please call to adivse. documented in this encounter Plan of Treatment Not on filedocumented as of this encounter Visit Diagnoses Not on filedocumented in this encounter Additional Health Concerns Assessment Noted Time PHQ-9 Depression Total Score: 1 10/06/2018 9:27 AM CDT documented as of this encounter Care Teams Speech And Hearing Clinic Director Relationship Specialty Start Date End Date No Ref-Primary, Physician PCP - General 10/06/18 04/18/19 Reynaldo Amador PA-C 10/06/18 05/13/[address] [address] documented as of this encounter
--- OUTSIDE RECORDS SUMMARY | 2021-10-30 15:28 | XMS_ITS | Encounter Summary ---
:1990 Author Organization [place] Address [facility] [place] [address] Care Team Providers Name Role Phone No Ref-Primary, Physician Primary Care Provider [phone] Reynaldo Amador PA-C Unavailable [phone] Encounter Details Date Type Department Care Team Description 12/07/2018 Care Coordination [facility] Mike Morrison RN [place] [phone] (Work) [address] [place] [address] Social History Tobacco Use Types Packs/Day [...] documented as of this encounter Care Teams Military Administrative Technician Relationship Specialty Start Date End Date No Ref-Primary, Physician PCP - General 10/06/18 04/18/19 Reynaldo Amador PA-C 10/06/18 05/13/[address] [address] documented as of this encounter
--- OUTSIDE RECORDS SUMMARY | 2021-10-30 15:28 | XMS_ITS | Encounter Summary ---
:1990 Author Organization [place] Address [facility] [place] [address] Care Team Providers Name Role Phone No Ref-Primary, Physician Primary Care Provider Reynaldo Amador PA-C Unavailable Reason for Visit Reason Onset Date Comments Referral 12/15/2018 Encounter Details Date Type Department Care Team Description 12/15/2018 Telephone [facility] for Ana Rosa Porras, Referral Women Blossom T[facility]ES [facility] [address] [facility] [address] [facility] [address] [place] [address] [place] [address] (Wo rk) Social History Tobacco Use Types Packs/Day Years Used Date Never Smoker Smokeless Tobacco: Never Used Alcohol Use Standard Drinks/Week Comments Not Currently 0 (1 standard drink = 0.6 oz pure alcoho l) Sex Assigned at Date Recorded Female 10/07/2018 7:21 AM CDT documented as of this encounter Miscellaneous Notes Telephone Encounter - Shelley Manning, ASHTYN - 12/17/2018 10:06 AM CDT Referral is unable to be processed. Called [facility] ID call number [id number] According to [facility] pt needs to call to review who she can see as her primary provider-that provider will have to be the one to place any referrals. Mally has not ever seen the provider she currently has listed as her pcp Per [facility] providers are unable to be a pcp for Mally. Currently no claims havegone through for any of her visits. Mally will call [facility] and see which providers are covered-pt may have to transfer care Shelley Manning RN on 12/17/2018 at 10:11 AM Telephone Encounter - Shelley Manning RN - 12/17/2018 8:49 AM CDT LMTCB Shelley Manning RN on 12/17/2018 at 8:49 AM Telephone Encounter - Elvira Milian RN - 12/16/2018 4:36 PM CDT Need to have name PCP on referral match PCP insurance has. Pt will call back tomorrow and talk with Chrissy to get it changed. Telephone Encounter - Shelley Manning RN - 12/15/2018 4:41 PM CDT Sees cardiology at the [facility] Needs a referral sent to her insurance and to be completed on line. [employer] phone # [phone] Transaction number [id number] for phone call to [facility] for assistance with submitting referral DBN [id number](number needed for referral) DOD ID if needed [id number] Referral submitted to [facility] authorization # [id number] Fax of confirmation will be sent to clinic. Informed pt referral has been submitted. Shelley Manning RN on 12/16/2018 at 9:26 AM documented in this encounter Plan of Treatment Not on filedocumented as of this encounter Visit Diagnoses Not on filedocumented in this encounter Additional Health Concerns Assessment Noted Time PHQ-9 Depression Total Score: 1 10/06/2018 9:27 AM CDT documented as of this encounter Care Teams Unix Consultant Relationship Specialty Start Date End Date No Ref-Primary, Physician PCP - General 10/06/18 04/18/19 Reynaldo Amador PA-C 10/06/18 05/13/[address] [address] documented as of this encounter
--- OUTSIDE RECORDS SUMMARY | 2021-10-30 15:28 | XMS_ITS | Encounter Summary ---
:1990 Author Organization [place] Address [facility] [place] [address] Care Team Providers Name Role Phone No Ref-Primary, Physician Primary Care Provider [phone] Reynaldo Amador PA-C Unavailable [phone] Encounter Details Date Type Department Care Team Description 10/13/2018 Travel Social History Tobacco Use Types Packs/Day [...] documented as of this encounter Care Teams Shoe Repairman Relationship Specialty Start Date End Date No Ref-Primary, Physician PCP - General 10/06/18 04/18/19 Reynaldo Amador PA-C 10/06/18 05/13/[address] [address] documented as of this encounter
--- OUTSIDE RECORDS SUMMARY | 2021-10-30 15:28 | XMS_ITS | Encounter Summary ---
:1990 Author Organization [place] Address [address] [place] [address] Care Team Providers Name Role Phone No Ref-Primary, Physician Primary Care Provider Reynaldo Amador PA-C Unavailable [phone] Reason for Visit Reason Comments Ultrasound Hx of significant maternal h eart murmur Consult Hx of significant maternal h eart murmur Encounter Details Date Type Department Care Team Description 12/11/2018 PRE VISIT [facility] Mike Harris (Hx [facility] Maternal Medicine [facility] Consult [address] (Hx of significant [place], [place] [address] maternal heart murmur) [phone] Social History Tobacco Use Types Packs/Day Years [...] documented as of this encounter Care Teams Silk Screen Painter Relationship Specialty Start Date End Date No Ref-Primary, Physician PCP - General 10/06/18 04/18/19 Reynaldo Amador PA-C 10/06/18 05/13/[address] [address] documented as of this encounter
--- OUTSIDE RECORDS SUMMARY | 2021-10-30 15:28 | XMS_ITS | Encounter Summary ---
:1990 Author Organization [place] Address [facility] [place] [address] Care Team Providers Name Role Phone No Ref-Primary, Physician Primary Care Provider [phone] Reynaldo Amador PA-C Unavailable Zuleyma Winter MD Unavailable [phone] Reason for Visit Reason Onset Date Comments Patient Request 12/17/2018 Encounter Details Date Type Department Care Team Description 12/17/2018 Telephone [facility] Dane Dozier Patient Request for Women Blossom Noble [facility]ES [facility] [address] [facility] [address] [place] [address] 85[address] [facility] [phone] 100 [place] [address] (Wo rk) Social History Tobacco Use Types Packs/Day Years Used Date Never Smoker 0 Smokeless Tobacco: Never Used Alcohol Use Standard Drinks/Week Comments Not Currently 0 (1 standard drink = 0.6 oz pure alcoho l) Sex Assigned at Date Recorded Female 10/07/2018 7:21 AM CDT documented as of this encounter Miscellaneous Notes Telephone Encounter - Shelley Manning RN - 12/17/2018 11:22 AM CDT Mally saw the printing bindery assistant today-does not require specific medical therapy for her mitral valve disease at this time Pt wondering if she can skip her ultrasound today at [facility] due to insurance reasons. Contacted MFM perDr. Nyholm ok to skip us today and have her scheduled growth us with us next week Informed pt-she will go to [facility] for the consult and will not have an us today. Shelley Manning RN on 12/17/2018 at 11:52 AM documented in this encounter Plan of Treatment Not on filedocumented as of this encounter Visit Diagnoses Not on filedocumented in this encounter Additional Health Concerns Assessment Noted Time PHQ-9 Depression Total Score: 1 10/06/2018 9:27 AM CDT documented as of this encounter Care Teams Freight Car Cleaner Relationship Specialty Start Date End Date No Ref-Primary, Physician PCP - General 10/06/18 04/18/19 Reynaldo Amador PA-C 10/06/18 05/13/[address] [address] Zuleyma Winter MD Assigned PCP 12/31/18 [address] [facility] [address] [place], [place] [address] documented as of this encounter
--- OUTSIDE RECORDS SUMMARY | 2021-10-30 15:28 | XMS_ITS | Encounter Summary ---
:1990 Author Organization [place] Address [facility] [place] [address] Care Team Providers Name Role Phone No Ref-Primary, Physician Primary Care Provider [phone] Reynaldo Amador PA-C Unavailable Zuleyma Winter MD Unavailable [phone] Encounter Details Date Type Department Care Team Description 01/18/2019 [facility] Lizabeth Moayer for supervision of normal first in first trimester (Primary Dx); [facility] Yemi Temple CNM Encounter for supervision of normal firs t in second trimester [address] [facility] [address] [place] [address] [address] [place] [address] [place] [address] Social History Tobacco Use Types Packs/Day Years Used Date Never Smoker 0 Smokeless Tobacco: Never Used Alcohol Use Standard Drinks/Week Comments Not Currently 0 (1 standard drink = 0.6 oz pure alcoho l) Sex Assigned at Date Recorded Female 10/07/2018 7:21 AM CDT documented as of this encounter Plan of Treatment Not on filedocumented as of this encounter Results Glucose tolerance gest screen 1 hour (01/22/2019 9:02 AM CDT) P athologist Signature Glu Gest Screen 102 60 - 129 01/22/2019 [place] 1hr 50g mg/dL 12:03 PM CDT [facility] [place] Specimen Anatomical Collection Method Collection Time Receive d Time (Source) Location / / Volume Laterality Blood specimen 01/22/2019 9:02 AM 019 9:03 (specimen) CDT AM CDT Lizabeth Moya CNM LAB - BLOOD ORDERABLES Performing Organization Address City/State/ZIP Code Phon e Number [facility] [address] [place] [address], [place] [address] [place] [address] (ABNORMAL) CBC with platelets (01/22/2019 9:02 AM CDT) Analysis Performed At Patho logist Time Signature WBC 5.8 4.0 - 11.0 01/22/2019 [facility] 10e9/L 10:19 AM CDT [facility] [place] RBC Count 3.66 (L) 3.8 - 5.2 01/22/2019 [facility] 10e12/L 10:19 AM CDT [facility] [place] Hemoglobin 10.7 (L) 11.7 - 01/22/2019 [facility] 15.7 g/dL 10:19 AM CDT [facility] [place] Hematocrit 32.9 (L) 35.0 - 01/22/2019 [facility] 47.0 % 10:19 AM CDT [facility] [place] MCV 90 78 - 100 01/22/2019 [facility] fl 10:19 AM CDT [facility] [place] MCH 29.2 26.5 - 01/22/2019 [facility] 33.0 pg 10:19 AM CDT [facility] [place] MCHC 32.5 31.5 - 01/22/2019 [facility] 36.5 g/dL 10:19 AM CDT [facility] [place] RDW 12.7 10.0 - 01/22/2019 [facility] 15.0 % 10:19 AM CDT [facility] [place] Platelet Count 219 150 - 450 01/22/2019 [facility] 10e9/L 10:19 AM CDT [facility] [place] Specimen Anatomical Collection Method Collection Time Receive d Time (Source) Location / / Volume Laterality Blood specimen 01/22/2019 9:02 AM 019 9:03 (specimen) CDT AM CDT Lizabeth Moya CNM LAB - BLOOD ORDERABLES Performing Organization Address City/State/ZIP Code Phon e Number [facility] [address] [place] [address] [facility] 100 documented in this encounter Visit Diagnoses Diagnosis Encounter for supervision of normal firs t in first trimester - Primary Supervision of normal first Encounter for supervision of normal firs t in second trimester Supervision of normal first documented in this encounter Additional Health Concerns Assessment Noted Time PHQ-9 Depression Total Score: 1 10/06/2018 9:27 AM CDT documented as of this encounter Care Teams Cloud Automation Tester Relationship Specialty Start Date End Date No Ref-Primary, Physician PCP - General 10/06/18 04/18/19 Reynaldo Amador PA-C 10/06/18 05/13/[address] [id number] Zuleyma Winter MD Assigned PCP 12/31/18 30[address] [facility] [address] [place], [place] [address] documented as of this encounter
--- OUTSIDE RECORDS SUMMARY | 2021-10-30 15:28 | XMS_ITS | Encounter Summary ---
:1990 Author Organization [place] Address [facility] [facility] [place] [address] Care Team Providers Name Role Phone No Ref-Primary, Physician Primary Care Provider [phone] Reynaldo Amador PA-C Unavailable [phone] Reason for Visit Reason Onset Date Comments Erroneous encounter-disregard 12/16/2018 Encounter Details Date Type Department Care Team Description 12/16/2018 Telephone [facility] Omaira Porras [facility] Yemijose Dean APRN CNWilmer encounter-disregard [address] [facility] [address] [place] [address] [address] [place] [address] [place] [address] [phone] Social History Tobacco Use Types Packs/Day Years Used Date Never Smoker Smokeless Tobacco: Never Used Alcohol Use Standard Drinks/Week Comments Not Currently 0 (1 standard drink = 0.6 oz pure alcoho l) Sex Assigned at Date Recorded Female 10/07/2018 7:21 AM CDT documented as of this encounter Miscellaneous Notes Telephone Encounter - Elvira Milian RN - 12/16/2018 4:35 PM CDT Open in error documented in this encounter Plan of Treatment Not on filedocumented as of this encounter Visit Diagnoses Not on filedocumented in this encounter Additional Health Concerns Assessment Noted Time PHQ-9 Depression Total Score: 1 10/06/2018 9:27 AM CDT documented as of this encounter Care Teams Prestidigitator Relationship Specialty Start Date End Date No Ref-Primary, Physician PCP - General 10/06/18 04/18/19 Reynaldo Amador PA-C 10/06/18 05/13/[address] [address] documented as of this encounter
--- OUTSIDE RECORDS SUMMARY | 2021-10-30 15:28 | XMS_ITS | Encounter Summary ---
:1990 Author Organization [place] Address [facility] [place] [address] Care Team Providers Name Role Phone No Ref-Primary, Physician Primary Care Provider [phone] Reynaldo Amador PA-C Unavailable [phone] Encounter Details Date Type Department Care Team Description 12/02/2018 Travel Social History Tobacco Use Types Packs/Day [...] documented as of this encounter Care Teams Repairer Cylinder Heads Relationship Specialty Start Date End Date No Ref-Primary, Physician PCP - General 10/06/18 04/18/19 Reynaldo Amador PA-C 10/06/18 05/13/[address] [address] documented as of this encounter
--- OUTSIDE RECORDS SUMMARY | 2021-10-30 15:28 | XMS_ITS | Encounter Summary ---
:1990 Author Organization [place] Address [address] [place] [address] Care Team Providers Name Role Phone No Ref-Primary, Physician Primary Care Provider Reynaldo Amador PA-C Unavailable [phone] Encounter Details Date Type Department Care Team Description 11/05/2018 Care Coordination [facility] Lucille Patel Maternal Medicine ASHTYN [place] [facility] [address] [place] [address] Social History Tobacco Use Types Packs/Day Years [...] documented as of this encounter Care Teams Continuity Clerk Relationship Specialty Start Date End Date No Ref-Primary, Physician PCP - General 10/06/18 04/18/19 Reynaldo Amador PA-C 10/06/18 05/13/[address] [address] documented as of this encounter
--- OUTSIDE RECORDS SUMMARY | 2021-10-30 15:28 | XMS_ITS | Encounter Summary ---
:1990 Author Organization [place] Address [facility] [place] [address] Care Team Providers Name Role Phone No Ref-Primary, Physician Primary Care Provider [phone] Reynaldo Amador PA-C Unavailable [phone] Reason for Visit Reason Onset Date Comments Results 10/20/2018 Innatal/Preparent [place] shenaning Encounter Details Date Type Department Care Team Description 10/20/2018 [facility] Yemi dustin [place] APRN CNWilmer (Innatal/Preparent [address] [facility]) [place] [address] [address] [place] [address] [place] [address] [phone] Social History Tobacco Use Types Packs/Day Years Used Date Never Smoker Smokeless Tobacco: Never Used Alcohol Use Standard Drinks/Week Comments Not Currently 0 (1 standard drink = 0.6 oz pure alcoho l) Sex Assigned at Date Recorded Female 10/07/2018 7:21 AM CDT documented as of this encounter Miscellaneous Notes Telephone Encounter - Josie Osullivan RN - 10/20/2018 1:06 PM CDT Innatal results: Negative Preparent Carrier Screen - Standard Panel: Negative Preparent Carrier Screen - Hemoglobinopathy Evaluation: Normal TEST RESULT INTERPRETATION Chromosome 21 No aneuploidy detected Results consistent with two copies of chromosome 21 Chromosome 18 No aneuploidy detected Results consistent with two copies of chromosome 18 Chromosome 13 No aneuploidy detected Results consistent with two copies of chromosome 13 Sex Chromosome No aneuploidy detected Results consistent with two sex chromosomes: female Called pt with results. Sex of the baby was given to pt over the phone per pt request. Pt verbalized understanding, in agreement with plan, and voiced no further questions. documented in this encounter Plan of Treatment Not on filedocumented as of this encounter Visit Diagnoses Not on filedocumented in this encounter Additional Health Concerns Assessment Noted Time PHQ-9 Depression Total Score: 1 10/06/2018 9:27 AM CDT documented as of this encounter Care Teams Paper Rewinder Relationship Specialty Start Date End Date No Ref-Primary, Physician PCP - General 10/06/18 04/18/19 Reynaldo Amador PA-C 10/06/18 05/13/[address] [address] documented as of this encounter
--- OUTSIDE RECORDS SUMMARY | 2021-10-30 15:29 | XMS_ITS | Encounter Summary ---
:1990 Author Organization [place] Address [facility] [place] [address] Care Team Providers Name Role Phone Reynaldo Amador PA-C Primary Care Provider [phone] Encounter Details Date Type Department Care Team Description 10/21/2008 Abstract [facility] Reynaldo Amador SHOT REC [place] MARANDA [address] [place] [address] [place] [address] [place] [address] [place], [place] [address] (Wo rk) Social History Tobacco Use Types [...] on filedocumented in this encounter Care Teams Waste Water Treatment Plant Operator Relationship Specialty Start Date End Date Reynaldo Amador PA-C PCP - General 10/21/08 10/05/[address] [id number] documented as of this encounter
--- OUTSIDE RECORDS SUMMARY | 2021-10-30 15:29 | XMS_ITS | Encounter Summary ---
:1990 Author Organization [place] Address [facility] [place] [address] Care Team Providers Name Role Phone Osmin Stark PA-C Primary Care Provider [phone] Reason for Visit Reason Comments Travel Clinic Traveling to [place] coyromario vasquez 10/22/2008-10/29/2008 Encounter Details Date Type Department Care Team Description 10/21/2008 Office Visit [facility] Osmin Stark Other Specified Clinic [place] PA-C Counseling (Primary [address] [place] [address] [address] [place], [place] [phone] [address] Social History Tobacco Use Types Packs/Day Years Used Date Never Smoker Alcohol Use Standard Drinks/Week Comments No 0 (1 standard drink = 0.6 oz pure alcoho l) Sex Assigned at Date Recorded Female 10/07/2018 7:21 AM CDT documented as of this encounter Last Filed Vital Signs Vital Sign Reading Time Taken Comments Blood Pressure 100/68 10/21/2008 10:05 AM CDT Pulse 108 10/21/2008 10:05 AM CDT Temperature 36.7 ??C (98 ??F) 10/21/2008 10:05 AM CDT Respiratory Rate 18 10/21/2008 10:05 AM CDT Oxygen Saturation 100% 10/21/2008 10:05 AM CDT Inhaled Oxygen Concentration - - Weight 70.9 kg (156 lb 6 oz) 10/21/2008 10:05 AM CDT Height 168.9 cm (5' 6.5) 10/21/2008 10:05 AM CDT Body Mass Index 24.86 10/21/2008 10:05 AM CDT Body Mass Index Percentile 85.59 % 10/21/2008 10:05 AM C DT Growth Chart: [facility] (Girls, 2-20 Years) documented in this encounter Progress Notes Osmin Stark - 10/21/2008 10:22 AM CDT SUBJECTIVE: Pt is a 18 year old female here for Travel clinic. She is going to [place] and will be there for 8 days and departing 2008 There is no problem list on file for this patient. Past Surgical History Procedure Date ??? No history of surgery Medications marked Taking as of 10/21/08 encounter (Office Visit) with OSMIN STARK: CHLOROQUINE PHOSPHATE 500 MG OR TABS 1 TABLET WEEKLY Disp: 6 Rfl: 0 ZITHROMAX Z-GOMEZ 250 MG OR TABS TWO CAPSULES ON DAY 1, THEN ONE CASULE DAYS 2 THROUGH 5 if diarrhea occurs Disp: 6 Rfl: 0 Allergies: No Known Allergies. ROS: see above otherwise negative History Substance Use Topics ??? Tobacco Use: Never ??? Alcohol Use: No No family history on file. OBJECTIVE: BP 100/68 Pulse 108 Temp (Src) 98 ??F (36.7 ??C) (Oral) Resp 18 Ht 5' 6.5 (1.689 m) Wt 156 lb 6 oz (70.931 kg) SpO2 100% BMI-Body mass index is 24.86 kg/(m^2). gen- NAD ASSESSMENT/PLAN: Encounter Diagnoses Code Name Primary? Qualifier ??? V65.49 Other Specified Counseling Yes Plan: TYPHOID VACCINE, IM, CHLOROQUINE PHOSPHATE 500 MG OR TABS, ZITHROMAX Z- GOMEZ 250 MG OR TABS Travel clinic Per [facility] diagnoses and orders. documented in this encounter Nursing Notes 10/21/2008 9:30 AM CDT >> TANK Danielle Oct 21, 2008 10:06 AM Patient presents with: Travel Clinic - Traveling to [place] leaving 10/22/2008-10/29/2008 Initial BP 100/68 Pulse 88 Temp (Src) 98.2 ??F (36.8 ??C) (Oral) Resp 18 Ht 5' 10 (1.778 m) Wt 185 lb (83.915 kg) SpO2 97% Body mass index is 26.54 kg/(m^2).. BP completed using cuff size: regular Tank Lopez MA documented in this encounter Plan of Treatment Not on filedocumented as of this encounter Visit Diagnoses Diagnosis Other specified counseling - Primary documented in this encounter Care Teams Parts Clerk Relationship Specialty Start Date End Date Osmin Stark PA-C PCP - General 10/21/08 10/05/[address] [address] documented as of this encounter
--- OUTSIDE RECORDS SUMMARY | 2021-10-30 15:29 | XMS_ITS | Encounter Summary ---
:1990 Author Organization [place] Address [facility] [place] [address] Care Team Providers Name Role Phone Reynaldo Amador PA-C Primary Care Provider [phone] Encounter Details Date Type Department Care Team Description 01/15/2010 Emergency room INTERFACED REPORT Ameya Peoples MD EMERGENCY PHYSIC JANICE WARREN [address] [place] [address] (Wo rk) Social History Tobacco Use Types Packs/Day Years Used Date Never Smoker Alcohol Use Standard Drinks/Week Comments No 0 (1 standard drink = 0.6 oz pure alcoho l) Sex Assigned at Date Recorded Female 10/07/2018 7:21 AM CDT documented as of this encounter Progress Notes Stan Peoples - 01/18/2010 12:31 PM CDT FINAL CHIEF COMPLAINT: Sore throat. HISTORY OF PRESENT ILLNESS: Mally De Jesus is a 19-year-old female brought to the ER by her mother whoreports that the fever started on Friday, complained of a sore throat, T-max was 104. The patient has had nausea but no vomiting, no diarrhea. Says the pain is on both sides, difficulty swallowing, decreased p.o. intake, has not noted significant adenopathy, no chest pain, no shortness of breath, has not traveled or been on recent antibiotics. Was brought to the ER due to concerns about dehydration. The patient is also having a cough, ear pain bilaterally. MEDICATIONS: Ibuprofen, throat lozenges, Excedrin. ALLERGIES: No known drug allergies. PAST MEDICAL HISTORY: History of a mitral regurg. Immunizations are current. SOCIAL HISTORY: The patient does not smoke. Presented with her mother. REVIEW OF SYSTEMS: Negative except as in HPI. PHYSICAL EXAMINATION: GENERAL: The patient is a pleasant 19-year-old female who is conversant, alert, following commands.VITAL SIGNS: Temperature 100.6, blood pressure 113/74, pulse 96, respirations 18, satting 98% on room air. HEENT: Eyes: Pupils are equal, round and reactive. Nose and mouth: Significant for posterior pharyngeal erythema. Tonsils are not enlarged. No elevation of the floor of the mouth. TMs are within normal limits except for slight fluid. LYMPHATICS: There is adenopathy. NECK: No meningismus. CARDIOVASCULAR: Regular rate and rhythm. RESPIRATORY: Lungs are clear without wheezes or crackles. GASTROINTESTINAL: Abdomen soft. No hepatosplenomegaly. SKIN: Cool, pink and dry. NEUROLOGIC: This patient is grossly intact. LABORATORY AND DIAGNOSTICS: A Rapid Strep screen is negative. Culture is pending. EMERGENCY DEPARTMENT COURSE AND DECISION MAKING: The patient has no signs of abscess. Meningitis isunlikely in this patient. I considered the possibility of mononucleosis, however, at this point she has only been sick for several days and it is too early to test. Strep is a possibly although currentstrep is negative, culture is pending. She will be called if this is positive. The patient was discharged in good condition. Treatment was discussed including using Tessalon Perles. Need to stay well-hydrated was discussed as well. I considered starting steroids; however the patient's tonsils are not enlarged. The patient has fluid behind both ears. PLAN: Use scheduled ibuprofen, fluids, Tessalon Perles and azithromycin for her ears. Follow up with doctor in 2 days. DIAGNOSES: 1. Upper respiratory infection. 2. Bilateral otitis media. Electronically signed on 01/18/2010 12:30 by STAN PEOPLES MD MT: [id number]#[id number] Name: MALLY DE JESUS Account: [id number] : 1990 Visit Date: 01/15/2010 Document: [id number] documented in this encounter Plan of Treatment Not on filedocumented as of this encounter Visit Diagnoses Not on filedocumented in this encounter Care Teams Tunnel Drier Operator Relationship Specialty Start Date End Date Reynaldo Amador PA-C PCP - General 10/21/08 10/05/[address] [address] documented as of this encounter
== END 2021-10-08 17:45 | disposition home or self-care (01) ==
LOC: OB OUT 15:13 → OB 15:14
PROVIDERS: Visit Provider Obstetrics & Gynecology
DX: O16.3 Unspecified maternal hypertension, third trimester (principal); Z3A.38 38 weeks gestation of pregnancy
CPT/HCPCS: 36415; 59025; 82565; 84156; 84450; 84460; 84520; 85027; 99211; 99213

== ENCOUNTER 2021-10-18 17:42 | Inpatient (IN) | payer OTHER, SELFPAY ==
[2021-10-18] VITALS (20 sets, daily range): BP systolic 102–146; BP diastolic 57–90; PULSE 78–93; RESP 16; TEMP 36.4–36.8; O2SAT 90–100; BMI 33.9
[2021-10-18] MEDS: LACTATED RINGERS 1000 ML 1,000 ML 125 ML IV (17:30)
[2021-10-18] MEDS: hydrOXYzine pamoate 25 MG CAPSULE 100 MG PO (17:33)
[2021-10-18 18:05] LABS: Hematocrit 39.7 % (33.0-51.0); Mean Corpuscular HGB Conc 33 gm/dL (32-36); Mean Corpuscular Hemoglobin 28 pg (26-34); Mean Corpuscular Volume 86 fL (80-100); Platelet Count* 185 K/uL (140-440); Red Blood Count 4.64 m/uL (4.00-5.20); White Blood Count* 9.71 K/uL (4.50-11.00)
[2021-10-18 18:08] LABS: Slide Review Reflex No
[2021-10-18 18:23] LABS: Alanine Aminotransferase* 13 U/L (4-35); Aspartate Amino Transferase* 21 U/L (12-35); Blood Urea Nitrogen* 8 mg/dL (5-24); Creatinine* 0.6 mg/dL (0.5-1.5); Est. Creatinine Clearance* 129.51; Estimated Glomerular Filt Rate 125 ml/min
--- NOTE | 2021-10-18 18:23 | W.PM.LDBA ---
Subjective History of Present Illness Date Seen: 10/18/21 Narrative: Patient is being admitted to Labor and Delivery for labor. She is a 31 year old -0-0-1 woman at 40 1/7 weeks gestation. She presented this evening with regular, painful contractions. Her initial blood pressure was mildly elevated at time presentation, 140s over 90s. In addition, heart rate tracing exhibited questionable recurrent late decelerations, followed by a prolonged bradycardia into the 70s, approximately 4 min. Since that time, fetus has exhibited recurrent variables. PFSH Active Problems?(Updated 09/28/21 @ 09:09 by Delilah Fajardo) Patient desires vaginal after section () (Acute) O34.219 Encounter for supervision of other normal , third trimester (Acute) Z34.83 (Acute) Z34.90 Surgical History?(Updated 09/28/21 @ 09:09 by Delilah Fajardo) History of low transverse section Social History Smoking Status:? Never smoker Reproductive Health History : 2 Para: 1 History History ? ? ? 2 ? Elective abortions ? Para ? ? ? 1 ? Spontaneous abortions ? Hx # Term Pregnancies ? Ectopic pregnancies ? Hx # Pregnancies ? Multiple births ? Number of Living Children ? Past Pregnancies Del. Date GA/Weeks Outcome Route wt Inf Gender Labor Lgth Anesthesia Location Provider Compli 05/05/19 39 live - full term low transverse 3.515 kg Female ? spinal ? ? ? Delivery Date: 05/05/19? Last Updated by: Nasreen Price M.D. ? ? ? [facility]. for breech presentation. Baby's name: Jaycee Questionnaire History Previous Results Data: ?? ? No Data to Display Enter in data if no values exist Visit RAISA Calculator ? Estimated Delivery Date Method Current WG Current Estimate 10/17/21 LMP (Certain) 38w 5d Other Estimates 10/15/21 Ultrasound #1 39w 0d Expected Delivery Route/Plan Desires TOLAC H&P completed by NDP on 10/01/21. Specific Issues/Plans Blood Type:?B positive : Keanu. Daughter: Jaycee. Baby: Boy! G2, P1001 Early u/s is consistent with EDC (10/17) based on LMP of 01/10 1. H/o d/t breech at [facility]. Records received and scanned.? Primary LTCS 05/05/2019 due to breech presentation. -- desires TOLAC -- consent reviewed and signed 08/09/2021 --?USN for EFW at 36 wks:? 09/21/2021: VTX. SDP:? 5.52 cm.? EFW:? 3089 g, 6 lb 13 oz, 72%.? HC 35%, BPD 48%, AC 95%, FL 17%:? NO OPERATIVE VAGINAL DELIVERY. -- Chance of successful 69%. 2. 28 weeks: hgb 10.2: rx ferrous sulfate 3. FAS was normal except for echogenic intracardiac focus of the left ventricle 4. NIPT ([facility]) negative TDAP 08/09/21. Her full history and physical was dictated by Dr. Price on 09/25/2021. Please see this for details. OB - H&P: Exam Physical Exam: Vital signs: Pulse BP Pulse Ox 86 132/85 90 10/18/21 16:30 10/18/21 16:30 10/18/21 16:09 Narrative: Per RN: Cervix 3 cm, 90%, -2 Heart Tones: Baseline 150, accelerations present, recurrent late decelerations followed by a 4 minute bradycardia, subsequently recovering with baseline in 150s again with intermittent variable decelerations. Moderate variability. OB - Problem Based A/P Additional Plan (1) History of low transverse section: Status: Acute (2) Elevated BP without diagnosis of hypertension: Status: Acute Plan 31-year-old [id number] woman at 40 weeks, 1 day gestation in early labor. Currently with category 2 tracing, but with recent prolonged bradycardia, raising concerns for intolerance of labor. We discussed the option of continuation with TOLAC verses repeat . After explained my concerns regarding tolerance of labor, patient elects for repeat . We discussed risks of procedure, including bleeding, infection, uterine scarring. Consent form reviewed with and signed by patient. Delivery/Labor/Induction Plan Plan: Section
[2021-10-18] MEDS: CEFAZOLIN 2 GM in 0.9 % SODIUM CHLORIDE Mini-bag 100 ML IVPB (18:40)
[2021-10-18 18:49] LABS: INR 0.88 (0.91-1.10); Prothrombin Time 12.3 Seconds
[2021-10-18 18:50] LABS: Fibrinogen* 517 mg/dL (200-450)
[2021-10-18 19:12] LABS: SARS PCR* Negative SARS-CoV-2 (Negative)
[2021-10-18 19:52] LABS: Total Protein Urine 21 mg/dL
[2021-10-18 19:53] LABS: Creatinine Urine 160.9 mg/dL
--- NOTE | 2021-10-18 20:52 | W.PM.GYNPROC ---
Procedure Note Date Seen: 10/18/21 Procedure Details: PREOPERATIVE DIAGNOSIS: 40 weeks, 1 day gestation One previous delivery Nonreassuring status POSTOPERATIVE DIAGNOSIS: 40 weeks, 1 day gestation One previous delivery Uterine rupture Extensive intra-abdominal adhesions PROCEDURE: Repeat low-transverse section, lysis of adhesions SURGEON: Dianne Johnson MD ANESTHESIA: Spinal IV FLUIDS: 2500 mL crystalloid QBL: 1376 mL FINDINGS: 1. Male , cephalic lie, OP presentation, Apgars of 9 and 9, weight 7 lb, 13 oz 2. Uterine rupture, with a 5 cm defect over the lower uterine segment. Bag of water was bulging through this defect. Markedly thin lower uterine segment. 3. Dense adhesion of anterior fundal uterus to anterior abdominal wall. 4. Normal appearance of bilateral tubes and ovaries. COMPLICATIONS: Superficial extension of hysterotomy downwards, leading to intraoperative hemorrhage. PROCEDURE IN DETAIL: Patient was taken to the operating room with IV running. She received cefazolin in preoperative prophylaxis. Spinal anesthesia was administered. Rosa catheter was inserted. She was prepped and draped in the usual sterile fashion. Anesthesia was tested and found to be adequate. A low-transverse skin incision was made with a scalpel and carried through to the underlying layer of fascia with the scalpel. The subcutaneous fat was dissected off the underlying fascia with Bovie. The fascia was nicked in the midline with a scalpel, and this incision was extended laterally with scissors. The rectus muscles were in the midline. Peritoneum was identified and entered bluntly. Bovie was used to widen this opening inferiorly. The opening was stretched slightly. Manual exploration of the abdomen revealed a very thick adhesion of the anterior uterus to the anterior abdominal wall. In addition, the uterine rupture was noted at this time. The defect in the lower uterine segment was widened bluntly. The infant's head was lifted towards the hysterotomy and the bag of water ruptured in the process. The infant was delivered with the help of fundal pressure. Mouth and nose were bulb suctioned. Cord was doubly clamped and cut. was handed off to attending risk developer. The placenta was delivered with gentle traction on the cord. It was sent to pathology for further analysis. The uterus was cleaned of all clots and debris with the dry lap pad. Abundant bleeding was immediately noted. The edges of the hysterotomy were grasped with a series of ring forceps. The bladder was gently, bluntly dissected off the lower uterine segment. The 1st layer of the hysterotomy was closed in a running , locked fashion with 0 Vicryl. Brisk bleeding was still noted inferiorly. The superficial extension downward from the central aspect of the hysterotomy was noted. First, a running, lock suture was used in the midline to reapproximate the superficial extension, with some improvement in bleeding. Several additional gjvfsy-vs-inieu sutures were used in this area to obtain acceptable hemostasis. In the process, the left aspect of the hysterotomy was imbricated with 0 Vicryl. Later, the hysterotomy was reexamined and found to be hemostatic. The right aspect of the hysterotomy was imbricated. The bladder was back filled with a total of 150 mL of sterile formula, and no damage to the bladder dome was noted. It was noted to be In fact, it was confirmed to be well below the hysterotomy, with some dense scar tissue extending from the bladder dome to the hysterotomy area. The large, dense adhesion of the anterior fundus to the anterior abdominal wall was dissected away with a combination of sharp dissection and Bovie, ultimately freeing the uterus from its attachments the anterior abdominal wall. Slight bleeding along the disrupted uterine serosa was treated with Bovie. The adnexa were examined and noted to be normal in appearance. The cul-de-sac and gutters were cleansed with dampened laparotomy sponge, removing any further clots and debris. The Keyur O retractor was inserted for the 1st time. The lower uterine segment was examined where the superficial extension had previously been noted. There was continuing oozing, and several more ezceja-kc-hhnri sutures were required in this area. Once hemostasis was noted, the Keyur O was removed. The area was re-examined with his absent. Gelfoam was placed between the lower urine segment and the bladder. Again, this lower uterine segment was very thin. The peritoneum was reapproximated with 2 0 Vicryl in a running fashion. The fascia was reapproximated with 0 Vicryl in a running fashion. Subcutaneous fat was irrigated and Bovie used on oozing vessels. The subcutaneous fat was reapproximated with 2 0 plain gut suture in an interrupted fashion. The skin was closed with a subcuticular stitch of 4-0 Vicryl. Surgical glue was applied above this. Patient tolerated procedure well was taken to recovery area in stable condition.
[2021-10-19] VITALS (26 sets, daily range): BP systolic 109–126; BP diastolic 71–82; PULSE 74–117; RESP 16–20; TEMP 36.6–38.5; O2SAT 94–100
[2021-10-19 01:27] LABS: Basophils Percent Auto 0.1 % (0.0-3.0); Hematocrit 30.3 % (33.0-51.0); Immature Granulocytes Abs Auto 0.03 K/uL (0.00-0.30); Lymphocytes Percent Auto 10.4 % (20-44); Mean Corpuscular HGB Conc 33 gm/dL (32-36); Mean Corpuscular Hemoglobin 28 pg (26-34); Mean Corpuscular Volume 86 fL (80-100); Monocytes Percent Auto 6.9 % (0.0-11.0); Neutrophils Percent Auto 82.4 % (42.0-72.0); Platelet Count* 177 K/uL (140-440); RDW Coefficient of Variation % 14.5 % (11.5-15.5); Red Blood Count 3.54 m/uL (4.00-5.20); White Blood Count* 12.55 K/uL (4.50-11.00)
[2021-10-19 01:30] LABS: Slide Review Reflex No
[2021-10-19] MEDS: KETOROLAC 30 MG/ML inj IVP ×3 (02:15→20:22)
--- NOTE | 2021-10-19 04:25 | W.ANESCHARGE ---
Anesthesia Charges Start Date/Time Anesthesia Start Date: 10/18/21 Anesthesia Start Time: 18:32 Stop Date/Time Anesthesia Stop Date: 10/18/21 Anesthesia Stop Time: 20:47 Summary Emergency: Yes
[2021-10-19] MEDS: DOCUSATE SODIUM 100 MG CAPSULE PO (08:00)
[2021-10-19] MEDS: LACTATED RINGERS 1000 ML 1,000 ML 125 ML IV (08:00)
[2021-10-19] MEDS: FERROUS SULFATE 325 MG TABLET PO ×2 (08:00→17:47)
[2021-10-19 08:03] LABS: Hemoglobin* 10.5 gm/dL (12.0-16.0)
--- NOTE | 2021-10-19 08:34 | P.OBPN_ITS ---
OB - PN: A/P Assessment and Plan (1) History of low transverse section: Problem details: Uterine dehiscence. Bladder adhesions, and dense adhesions of uterus to abdominal wall. Status: Acute Assessment and Plan: Stable. No TOLAC if conceives again. (2) Acute blood loss anemia: Problem details: QBL at 1376. Status: Acute Assessment and Plan: Tolerating well. Will continue daily oral FeSO4 supplement. Plan Plan: routine postop care Comments: Likely home tomorrow evening. OB - PN: Subj Subjective Time Seen by Provider: 08:34 Date Seen: 10/19/21 Interval history: PPD1 from repeat for intolerance of labor. Uterine rupture and extensive adhesions found; QBL 1376. Viable male at 40w1d GA. Patient comments: no complaints, pain well controlled, tolerating diet and flatus present Dana feeding status: exclusively Narrative: Feels well. Pain 0 when sitting, lying down. Denies SOB, lightheadedness, dizziness. Voiding normally. Lochia moderate, without clots. Breastfed daughter one year; son starting well. OB - PN: Obj Exam Physical Exam: Vital signs: Temp Pulse Resp BP Pulse Ox 98.7 F 87 16 113/73 96 10/19/21 06:32 10/19/21 05:15 10/19/21 06:30 10/19/21 05:15 10/19/21 05:15 Constitutional: Constitutional: no acute distress and cooperative Routine Respiratory Exam: Comments: Normal respirations, without cough or wheeze. Routine Cardiovascular Exam: Comments: Normal BP, pulse. No peripheral edema. Routine Abdominal Exam: Comments: Round abdomen, soft. Minimal generalized tenderness, no guarding or rebound. Incision dressing removed; sutured and covered with skin glue. Intact, clean, dry, normal erythema; no ecchymosis, unusual induration. Routine Extremities Exam: Extremities: Present full ROM, normal capillary refill and normal inspection Routine Neurological Exam: Neurological: Present alert, CN II-XII intact and normal tone Routine Psychiatric Exam: Psychiatric: Present normal affect, good insight and good judgment Urinary Catheter Management: Urethral: Cath placed during this visit: no Reason for continuing: surgical procedure OB - PN: Obj Data Labs Labs: Laboratory Results - last 24 hr 10/18/21 10/18/21 10/18/21 17:48 17:56 17:56 WBC 9.71 RBC 4.64 Hgb 13.0 Hct 39.7 MCV 86 MCH 28 MCHC 33 RDW Coeff of Asif Plt Count 185 Neut % (Auto) Lymph % (Auto) [place] % (Auto) Eos % (Auto) Baso % (Auto) Neut # (Auto) Lymph # (Auto) [place] # (Auto) Eos # (Auto) Baso # (Auto) Abs Immat Gran (auto) INR 0.88 L Fibrinogen 517 H BUN Creatinine Estimated Creat Clear Estimated GFR AST ALT Urine Creatinine Protein/Creatinin Ratio Urine Total Protein SARS-CoV-2 (PCR) Negative SARS-CoV-2 Blood Type Antibody Screen Crossmatch ([facility]) 10/18/21 10/18/21 10/18/21 17:56 17:56 Unknown WBC RBC Hgb Hct MCV MCH MCHC RDW Coeff of Asif Plt Count Neut % (Auto) Lymph % (Auto) [place] % (Auto) Eos % (Auto) Baso % (Auto) Neut # (Auto) Lymph # (Auto) [place] # (Auto) Eos # (Auto) Baso # (Auto) Abs Immat Gran (auto) INR Fibrinogen BUN 8 Creatinine 0.6 Estimated Creat Clear 129.51 Estimated GFR 125 AST 21 ALT 13 Urine Creatinine 160.9 Protein/Creatinin Ratio 0.10 Urine Total Protein 21 SARS-CoV-2 (PCR) Blood Type B Positive Antibody Screen NEGATIVE Crossmatch ([facility]) See Detail 10/19/21 10/19/21 01:15 07:56 WBC 12.55 H RBC 3.54 L Hgb 10.0 L 10.5 L Hct 30.3 L MCV 86 MCH 28 MCHC 33 RDW Coeff of Asif 14.5 Plt Count 177 Neut % (Auto) 82.4 H Lymph % (Auto) 10.4 L [place] % (Auto) 6.9 Eos % (Auto) 0.0 Baso % (Auto) 0.1 Neut # (Auto) 10.30 H Lymph # (Auto) 1.30 [place] # (Auto) 0.90 Eos # (Auto) 0.00 Baso # (Auto) 0.00 Abs Immat Gran (auto) 0.03 INR Fibrinogen BUN Creatinine Estimated Creat Clear Estimated GFR AST ALT Urine Creatinine Protein/Creatinin Ratio Urine Total Protein SARS-CoV-2 (PCR) Blood Type Antibody Screen Crossmatch ([facility])
--- NOTE | 2021-10-19 13:08 | W.PM.NB ---
Nerve Block Nerve Block Type of block requested by surgeon for post-operative analgesia: TAP Side: bilateral Time out performed: Yes Verification of patient name: Yes Verification of date of : Yes Site marking: site marked Name of person performing procedure: Gonzales Mccoy Continuous monitoring Was continuous monitoring of O2 sat, B/P, classroom monitor, recorded every 15 minutes?: Yes Procedure Checklist: sterile prep, needles and gloves Ultrasound guided. Images saved: Yes Medications given in 5ml increments after negative aspiration: Marcaine %: 0.25 mL: 30 Needle gauge: 20 and Exparel mL: 10 Patient tolerated procedure well: Yes Additional comments: Needle noted between transversus abdominus and internal oblique Block Charges Block Charge (with Pro Fee): TAP Bilateral Use of Ultrasound Machine for Block: Yes- US Guidance/pain block
[2021-10-19] MEDS: ACETAMINOPHEN 500 MG TABLET 1000 MG PO (20:23)
[2021-10-19 22:32] LABS: Basophils Absolute Auto 0.01 K/uL (0.00-0.30); Basophils Percent Auto 0.1 % (0.0-3.0); Eosinophils Absolute Auto 0.02 K/uL (0.00-0.50); Eosinophils Percent Auto 0.2 % (0.0-7.0); Hemoglobin* 8.6 gm/dL (12.0-16.0); Immature Granulocytes Abs Auto 0.04 K/uL (0.00-0.30); Lymphocytes Percent Auto 12.4 % (20-44); Mean Corpuscular HGB Conc 33 gm/dL (32-36); Mean Corpuscular Hemoglobin 29 pg (26-34); Mean Corpuscular Volume 86 fL (80-100); Monocytes Percent Auto 7.2 % (0.0-11.0); Neutrophils Percent Auto 79.7 % (42.0-72.0); Platelet Count* 155 K/uL (140-440); RDW Coefficient of Variation % 14.8 % (11.5-15.5); Red Blood Count 3.01 m/uL (4.00-5.20); White Blood Count* 9.61 K/uL (4.50-11.00)
[2021-10-19 22:35] LABS: Slide Review Reflex No
[2021-10-20] MEDS: KETOROLAC 30 MG/ML inj IVP (02:10)
[2021-10-20 04:00] VITALS: BP 116/76; PULSE 101; RESP 18; TEMP 36.9; O2SAT 97
[2021-10-20] MEDS: IBUPROFEN 600 MG TABLET PO ×2 (06:59→13:48)
[2021-10-20 08:03] VITALS: BP 122/78; PULSE 117; RESP 18; TEMP 37.7; O2SAT 96
[2021-10-20] MEDS: OXYCODONE 5 MG TABLET PO (09:36)
[2021-10-20] MEDS: DOCUSATE SODIUM 100 MG CAPSULE PO (09:36)
[2021-10-20] MEDS: FERROUS SULFATE 325 MG TABLET PO ×2 (09:36→19:00)
[2021-10-20] MEDS: ACETAMINOPHEN 500 MG TABLET 1000 MG PO (09:37)
--- NOTE | 2021-10-20 11:05 | PM.OBPNL ---
Pain Control Time Seen by Provider: 11:05 Date Seen: 10/20/21 Fetus (Single) Amniotic Membrane Status: AROM
--- NOTE | 2021-10-20 11:06 | PM.OBPNCS1 ---
OB - PN: A/P Assessment and Plan (1) History of low transverse section: Problem details: Uterine dehiscence. Bladder adhesions and dense adhesions of uterine fundus to anterior abdominal wall. Status: Acute (2) Acute blood loss anemia: Problem details: QBL at 1376. Status: Acute Assessment and Plan: Hemoglobin 8.6 today. Tachycardia, but otherwise asymptomatic. Already taking PO iron supplement; will continue. Consider IV iron. (3) fever, current hospitalization: Status: Acute Assessment and Plan: Tmax 101.3. Considered endometritis, bladder infection, engorgment, atelectasis. Normal WBC. Normal lochia, no signs endometritis. Plan Await urine culture. Patient will use incentive spirometer every hour when awake. Discharge when afebrile 24 hours. Plan day: 2 Plan: routine postop care OB - PN: Subj Subjective Time Seen by Provider: 11:06 Date Seen: 10/20/21 Interval history: POD2 from [facility], QBL 1376; uterine adhesions and rupture found. Son nursing well. Milk has just come in. She reports febrile episodes with engorgement after first . Pain well controlled with NSAID. Tolerating regular diet w/o N/V. Passing flatus. Normal voiding, no pain or malodor. Lochia decreasing, no clots or malodor. Ambulating without dizziness, SOB, palpitations. Denies cough, nasal congestion, wheeze, SOB. [place] feeding status: exclusively OB - PN: Obj Exam Physical Exam: Vital signs: Temp Pulse Resp BP Pulse Ox 99.9 F H 117 H 18 122/78 96 10/20/21 08:03 10/20/21 08:03 10/20/21 08:03 10/20/21 08:03 10/20/21 08:03 Narrative: Tmax was 101.3 yesterday, with additional readings 100.5 thereafter. Constitutional: Constitutional: no acute distress, obese and cooperative Routine HEENT Exam: Head: Present normal inspection Routine Abdominal Exam: Abdominal: Present normal bowel sounds and soft Comments: Mild fundal tenderness, at site of prior adhesions; no other focal uterine or pelvic tenderness. No guarding, rebound Routine Extremities Exam: Extremities: Present full ROM, normal capillary refill and normal inspection Routine Neurological Exam: Neurological: Present alert, CN II-XII intact, moving all extremities, normal tone and normal speech Routine Psychiatric Exam: Psychiatric: Present normal affect, normal thought process and good judgment Wound Management: Method: suture Urinary Catheter Management: Urethral: Cath placed during this visit: yes, but has since been removed by the nurse Reason for continuing: not indwelling catheter Removal date: 10/19/21 Removal time: 07:30 OB - PN: Obj Data Labs Labs: Laboratory Results - last 24 hr 10/19/21 22:25 WBC 9.61 RBC 3.01 L Hgb 8.6 L Hct 26.0 L MCV 86 MCH 29 MCHC 33 RDW Coeff of Asif 14.8 Plt Count 155 Neut % (Auto) 79.7 H Lymph % (Auto) 12.4 L [place] % (Auto) 7.2 Eos % (Auto) 0.2 Baso % (Auto) 0.1 Neut # (Auto) 7.70 H Lymph # (Auto) 1.20 [place] # (Auto) 0.70 Eos # (Auto) 0.02 Baso # (Auto) 0.01 Abs Immat Gran (auto) 0.04
[2021-10-20 12:12] VITALS: BP 119/80; PULSE 103; RESP 18; TEMP 36.8; O2SAT 99
[2021-10-20 16:49] VITALS: BP 119/80; PULSE 93; RESP 18; TEMP 36.8; O2SAT 99
[2021-10-20 20:30] VITALS: TEMP 37.5
--- NOTE | 2021-10-20 22:00 | PM.OBDSCS1 ---
DS: Providers Provider Date Seen: 10/20/21 Date of admission: 10/18/21 17:42 Primary care physician: Not a Local Provider Admitting Clinician: Dianne Johnson MD Attending Physician on discharge: Laurent Westbrook MD Date of Discharge: 10/20/21 DS: Diagnosis Discharge Diagnosis (1) fever, current hospitalization: Status: Acute Problem details: No infectious source of fever found. Occurred with milk engorgement, as in first . (2) Acute blood loss anemia: Status: Acute Problem details: QBL at 1376. Asymptomatic with postop activity. (3) Status post repeat low transverse section: Status: Acute Problem details: With uterine rupture found. Future delivery only by . Exam Const: Vital Signs, click to edit/add: Vital Signs - 24 hr 10/19/21 22:26 10/20/21 04:00 10/20/21 08:03 Temperature 98.8 F 98.4 F 99.9 F H Pulse Rate [Pulse Oximeter] 101 H 117 H Respiratory Rate 18 18 Blood Pressure [Le ft Arm] 116/76 122/78 Pulse Oximetry 97 96 10/20/21 12:12 10/20/21 16:49 10/20/21 20:30 Temperature 98.2 F 98.2 F 99.5 F Pulse Rate [Pulse Oximeter] 103 H 93 Respiratory Rate 18 18 Blood Pressure [Le ft Arm] 119/80 119/80 Pulse Oximetry 99 99 Documenting provider has reviewed patient's vital signs: yes Common normals: no apparent distress, no limitations, healthy appearing, alert and well nourished General appearance: cooperative and comfortable HENMT: Common normals: normocephalic Head and scalp: normocephalic Neck & C-Spine: Common normals: full ROM and no meningeal signs General: normal visual inspection Chest: Common normals: inspection of chest normal Resp: Common normals: normal respiratory effort, no use of accessory muscles and clear to auscultation bilaterally Auscultation: clear to auscultation bilaterally Cardio: Common normals: regular rate, regular rhythm and peripheral pulses 2+ throughout Rate: regular rate Rhythm: regular rhythm Peripheral pulses: pulses 2+ throughout GI: Common normals: soft to palpation Palpation: soft : Common normals: no CVA tenderness Bladder/kidney exam: no CVA tenderness Back & Pelvis: Common normals: no CVA tenderness Extremity: Common normals: normal to inspection, normal capillary refill, no calf tenderness and no pedal edema Neuro: Common normals: CN's II-XII intact bilaterally, moves all extremities and gait normal Sensorium/orientation: alert Meningeal signs: no meningeal signs Psych: Common normals: mental status grossly normal, cooperative and affect normal DS: Data Data Completed and Pending Labs on day of discharge: Labs from last 24 hours 10/19/21 22:25 WBC 9.61 RBC 3.01 L Hgb 8.6 L Hct 26.0 L MCV 86 MCH 29 MCHC 33 RDW Coeff of Asif 14.8 Plt Count 155 Neut % (Auto) 79.7 H Lymph % (Auto) 12.4 L Jefferson % (Auto) 7.2 Eos % (Auto) 0.2 Baso % (Auto) 0.1 Neut # (Auto) 7.70 H Lymph # (Auto) 1.20 Jefferson # (Auto) 0.70 Eos # (Auto) 0.02 Baso # (Auto) 0.01 Abs Immat Gran (auto) 0.04 Preliminary micro results at discharge 10/19/21 21:05 Urine Culture - Preliminary Urine,Clean Catch NO GROWTH AFTER 24 HOURS OB - DS: Summary Hospital Course Hospital Course: Mally is a 31yo now para 2001 who was admitted to [facility] 10.18.2021 for labor, with male fetus at 40w1d GA. She had a prior section, and planned TOLAC. At admission, gestational hypertension noted, along with non-reassuring heart tracing. In light of status the decision made to proceed with repeat low transverse during which a 5cm uterine rupture was found in the lower uterine segment, through which amniotic membranes bulged. In addition dense fundal adhesions to anterior abdominal wall were noted. During delivery, hysterotomy extended?inferiorly resulted in QBL over 1300. Viable vigorous male had Apgars of 9 and 9, weight 7 lb, 13 oz. , she felt well. With start of , she demonstrated fever. No infectious source found; etiology likely engorgement. Lochia was decreasing. Bowel and bladder function were normal. Pain was well-controlled. Incision healing appropriately. She was discharged to home in stable condition on POD2. Peripartum Data Procedures: Procedures Operation Date: 10/18/21 18:20 Actual Procedure Side Surgeon p Section Dianne Johnson MD Infant Gender: Male Infant Discharge Plan: Home Status at Discharge Functional status at discharge: independent ambulation Overall status at discharge: patient is progressing back to baseline Time Spent with Patient Time attestation: Total time spent providing and/or coordinating discharge services: Time spent: Less than 30 minutes Discharge Plan Discharge Disposition: Home, Self-Care Date of Admission: 10/18/21 17:42 Attending Provider on Discharge: Laurent Westbrook Primary Care Provider: Provider,Not a Local Condition: Improved Anticipated Discharge Date/Time: 10/20/21 21:05 Discharge Medications: New acetaminophen 500 mg Tablet 1,000 mg PO Q6H PRN (Reason: pain/fever) Qty: 0 0RF ferrous sulfate 325 mg (65 mg iron) Tablet 325 mg PO BIDWM 15 Days Qty: 30 0RF docusate sodium 100 mg Capsule 100 mg PO DAILY 30 Days Qty: 30 0RF ibuprofen 600 mg Tablet 600 mg PO Q6H PRN (Reason: Pain) 30 Days Qty: 60 0RF oxycodone 5 mg Tablet 5 - 10 mg PO Q4H PRN (Reason: Pain) 7 Days Qty: 20 0RF Continued prenat.vits,yenifer,cvb-kzdr-ruddq Tablet 1 tab PO QDAY 0RF Discontinued ferrous sulfate 325 mg (65 mg iron) tablet 325 mg PO DAILY 0RF Discharge Orders: Discharge Order (Routine); Ordered 10/20/21 Ordered By: Not a Local Provider Patient Education: OB /Breast Feeding Activity Level: Activity as Tolerated and No strenuous activity Discharge Diet: High Fiber Follow Up Appointments: Provider,Not a Local [Primary Care Provider] - Dianne Johnson MD [Staff Physician] - Forms: [employer] Info Instructions Discharge Comment: Routine postop appt in 2w.
== END 2021-10-20 21:40 | disposition home or self-care (01) | DRG 786 ==
LOC: OB OUT 17:43 → OB 17:43
PROVIDERS: Obstetrics & Gynecology; Admitting Provider Obstetrics & Gynecology; Visit Provider Obstetrics & Gynecology
PROC: 10D00Z1 Extraction of Products of Conception, Low, Open Approach (ICD-10-PCS; CPT 59514; principal; 2021-10-18 18:20)
DX: O34.211 Maternal care for low transverse scar from previous cesarean delivery (principal); O71.1 Rupture of uterus during labor; D62 Acute posthemorrhagic anemia; O86.4 Pyrexia of unknown origin following delivery; O76 Abnormality in fetal heart rate and rhythm complicating labor and delivery; N73.6 Female pelvic peritoneal adhesions (postinfective); O90.81 Anemia of the puerperium; O13.4 Gestational [pregnancy-induced] hypertension without significant proteinuria, complicating childbirth; Z3A.40 40 weeks gestation of pregnancy; Z37.0 Single live birth
CPT/HCPCS: 01961; 36415; 64488; 76942; 82565; 84156; 84450; 84460; 84520; 85018; 85025; 85027; 85384; 85610; 86850; 86900; 86901; 86922; 87086; 87635; 88307; 99140; A9270; C9290; J0690; J1885; J2274; J2370; J2405; J2590; J3010; J3490; J7120

== ENCOUNTER 2022-11-02 15:37 | Emergency (ER) | payer OTHER, SELFPAY ==
[2022-11-02 15:40] VITALS: BP 128/76; PULSE 85; RESP 16; TEMP 36.7; O2SAT 97; BMI 25.5
[2022-11-02 16:59] LABS: Strep A DNA Probe* NOT DETECTED (Not Detectd)
[2022-11-02 17:10] LABS: PCR FLU A Negative PCR FLU A (Negative); PCR FLU B Negative PCR FLU B (Negative); PCR RSV Negative PCR RSV (Negative); SARS PCR* Negative SARS-CoV-2 (Negative)
--- NOTE | 2022-11-02 17:25 | ED_ITS ---
HPI - General Adult General Date Seen: 11/02/22 Chief complaint: Sore Throat Stated complaint: Sore throat Time Seen by Provider: 11/02/22 17:07 Source: patient and family Mode of arrival: ambulatory Limitations: no limitations History of Present Illness HPI narrative: Patient is a very nice 32-year-old female presents here with her 2 children with a history of a sore throat for approximately 1 week she describes a bilaterally in her throat, she is able to swallow and drink normally. She does have some pain with these maneuvers however. She has been taking ibuprofen that really helps it, but took pictures of her throat today and saw white patches and thought she should get checked. Her daughter had a fever yesterday up to 101, and also has a sore throat. There has been no history of any nausea vomiting abdominal pain, any swelling of the lymph nodes. She has had no rashes. Related Data Previous Rx's Medication Instructions Recorded acetaminophen 500 mg tablet 1,000 mg (2 x 500 mg) PO Q6H PRN 10/18/21 pain/fever #0 tabs ibuprofen 600 mg tablet 600 mg PO Q6H PRN Pain 30 days #60 10/18/21 tabs Allergies Allergy/AdvReac Type Severity Reaction Status Date / Time No Known Drug Allergies Allergy Verified 11/02/22 15:45 Review of Systems Status of ROS: Reports: 6 or more systems reviewed and unremarkable except as noted in History and below PFSH [facility] Medical History Rupture of uterus before onset of labor in third trimester ?O71.03 - Rupture of uterus before onset of labor, third trimester (ICD-10) Elevated BP without diagnosis of hypertension ?R03.0 - Elevated blood-pressure reading, without diagnosis of hypertension (ICD-10) Encounter for supervision of other normal , third trimester ?Z34.83 - Encounter for supervision of other normal , third trimester (ICD-10) ?Z34.90 - Encounter for supervision of normal , unspecified, unspecified trimester (ICD-10) Surgical History Patient desires vaginal after section () ?O34.219 - Maternal care for unspecified type scar from previous delivery (ICD-10) History of low transverse section ?Z98.891 - History of uterine scar from previous surgery (ICD-10) Social History Smoking Status: Never smoker Do you use any of these nicotine containing products: None Second hand tobacco smoke exposure: No How often do you have a drink containing alcohol: never AUDIT-C Alcohol total score: 0 Non-prescribed substance use: denies use Exam Narrative: Exam Narrative: On examination she is nontoxic speaking to me normally, pupils equal round reactive to light her TMs are normal, oropharynx reveals 1+ enlarged tonsils with lymphoid changes and tonsil this. It is reddened. Her neck is supple full range of motion there is no lymphadenopathy, chest is clear heart sounds are normal. Skin reveals no rashes. Her swabs are reviewed and they are negative. Const: Vital Signs, click to edit/add: Vital Signs - 24 hr 11/02/22 15:40 Temperature 98.1 F Pulse Rate [Pulse Oximeter] 85 Respiratory Rate 16 Blood Pressure [Ri ght Upper Arm] 128/76 Pulse Oximetry 97 Oxygen Delivery Me thod Room Air Course Vital Signs Vital signs: Initial Vital Signs Temperature 98.1 F 11/02/22 15:40 Temperature Source Temporal Artery Scan 11/02/22 15:40 Pulse Rate 85 11/02/22 15:40 Respiratory Rate 16 11/02/22 15:40 Blood Pressure 128/76 11/02/22 15:40 Blood Pressure Mean 93 11/02/22 15:40 Blood Pressure Position Sitting 11/02/22 15:40 Pulse Oximetry 97 11/02/22 15:40 Oxygen Delivery Method Room Air 11/02/22 15:40 Vital Signs Temperature 98.1 F 11/02/22 15:40 Pulse Rate 85 11/02/22 15:40 Respiratory Rate 16 11/02/22 15:40 Blood Pressure 128/76 11/02/22 15:40 Pulse Oximetry 97 11/02/22 15:40 Oxygen Delivery Method Room Air 11/02/22 15:40 Temperature 98.1 F 11/02/22 15:40 Pulse Rate 85 11/02/22 15:40 Respiratory Rate 16 11/02/22 15:40 Blood Pressure 128/76 11/02/22 15:40 Pulse Oximetry 97 11/02/22 15:40 Oxygen Delivery Method Room Air 11/02/22 15:40 Medical Decision Making Medical Records Medical records reviewed: Yes I reviewed the patient's medical records Lab Data Lab results reviewed: Yes I reviewed the patient's lab results Labs: Lab Results 11/02/22 Range/Units 16:00 SARS-CoV-2 (PCR) Negative SARS-CoV-2 (Negative) Influenza Type A (PCR) Negative PCR FLU A (Negative) Influenza Type B (PCR) Negative PCR FLU B (Negative) RSV (PCR) Negative PCR RSV (Negative) Group A Strep DNA NOT DETECTED (Not Detectd) Discharge Plan Discharge Clinical Impression: Tonsillolith, Pharyngitis Condition: Stable Instructions: Pharyngitis (ED) Additional Instructions: Home rest gargling with either mouthwash salt water. Tylenol ibuprofen, return as needed. All swabs are negative for both COVID, influenza, RSV, and strep Activity Level: Light activity Prescriptions: No Action acetaminophen 500 mg Tablet 1,000 mg PO Q6H PRN (Reason: pain/fever) Qty: 0 0RF ibuprofen 600 mg Tablet 600 mg PO Q6H PRN (Reason: Pain) 30 Days Qty: 60 0RF Follow Up/Referrals: Provider,Not a Local [Primary Care Provider] - Stand Alone Forms: [employer] [facility] Info Instructions
== END 2022-11-02 17:49 | disposition home or self-care (01) ==
LOC: ED 17:32
PROVIDERS: Emergency Provider Family Medicine
DX: Z20.822 Contact with and (suspected) exposure to COVID-19 (principal); J03.90 Acute tonsillitis, unspecified
CPT/HCPCS: 87631; 87651; 99282; 99283